=== PATIENT | male | born 1955 | race Caucasian/White ===

== ENCOUNTER 2017-07-22 11:57 | Day surgery (SDC) | payer OTHER ==
[~2017-07-22] VITALS: Ht 175.3 cm; Wt 85.7 kg
[~2017-07-22 11:57] MED LIST: TEST200I14 IM
[2017-07-22] MEDS ORDERED: PROPOFOL 500 MG/50 ML VIAL As Ordered ONE (12:23)
[2017-07-22] MEDS ORDERED: fentaNYL 100 MCG/2 ML INJECTION (J3010) As Ordered ONE (12:23)
[2017-07-22] MEDS ORDERED: LIDOCAINE 2% INJ 100 MG/5 ML SDV (FOR ANES.) As Ordered ONE (12:49)
--- NOTE | 2017-07-22 13:06 | ROOR ---
Patient Name: Delgado Sunshine Procedure Date: 07/22/2017 12:50 PM Date of : 1955 Age: 61 Room: [facility] Gender: Male Note Status: Finalized Procedure: Upper Endoscopy + Biopsies Indications: Heartburn, Early satiety Providers: Rubin Rayo MD Referring MD: Srinivas Preciado MD Requesting Provider: Medicines: Monitored Anesthesia Care Complications: No immediate complications. Procedure: Pre-Anesthesia Assessment: - The heart rate, respiratory rate, oxygen saturations, blood pressure, adequacy of pulmonary ventilation, and response to care were monitored throughout the procedure. The Endoscope was introduced through the mouth, and advanced to the second part of duodenum. The upper GI endoscopy was accomplished without difficulty. The patient tolerated the procedure well. Findings: The Z-line was irregular and was found 35 cm from the incisors. Multiple biopsies were obtained with cold forceps for evaluation to rule out Alberto's Esophagus randomly at the gastroesophageal junction. A medium-sized hiatal hernia was present. No other significant abnormalities were identified in a careful examination of the stomach. The exam of the duodenum was otherwise normal. Impression: - Z-line irregular, 35 cm from the incisors. - Medium-sized hiatal hernia. - Multiple biopsies were obtained at the gastroesophageal junction. - The examination was otherwise normal. Recommendation: - Patient has a contact number available for emergencies. The signs and symptoms of potential delayed complications were discussed with the patient. Return to normal activities tomorrow. Written discharge instructions were provided to the patient. - High fiber diet. - Discharge patient to home. - Follow an antireflux regimen. - Continue present medications. - Await pathology results. - Telephone GI clinic for pathology results in 1 week. - Repeat upper endoscopy for surveillance based on pathology results. - The findings and recommendations were discussed with the patient's family. Rubin Rayo MD Rubin Rayo MD 07/22/2017 1:05:36 PM This report has been signed electronically. Number of Addenda: 0 Note Initiated On: 07/22/2017 12:50 PM Estimated Blood Loss: Estimated blood loss: none.
[2017-07-22] MEDS ORDERED: ePHEDrine SULFATE 25 MG/5 ML(5MG/ML) SYRINGE As Ordered ONE (13:10)
--- NOTE | 2017-07-22 13:20 | ROOR ---
Patient Name: Delgado Sunshine Procedure Date: 07/22/2017 12:50 PM Date of : 1955 Age: 61 Room: [facility] Gender: Male Note Status: Finalized Procedure: Total Colonoscopy to Cecum + Cold Snare Polypectomy Indications: Rectal bleeding, Change in bowel habits Providers: Rubin Rayo MD Referring MD: Srinivas Preciado MD Requesting Provider: Medicines: Monitored Anesthesia Care Complications: No immediate complications. Procedure: Pre-Anesthesia Assessment: - The heart rate, respiratory rate, oxygen saturations, blood pressure, adequacy of pulmonary ventilation, and response to care were monitored throughout the procedure. The Colonoscope was introduced through the anus and advanced to the cecum, identified by appendiceal orifice and ileocecal valve. The colonoscopy was performed without difficulty. The patient tolerated the procedure well. The quality of the bowel preparation was good. Findings: The perianal and digital rectal examinations were normal. Non-bleeding internal hemorrhoids were found during retroflexion. The hemorrhoids were medium-sized and Grade I (internal hemorrhoids that do not prolapse). Multiple small and large-mouthed diverticula were found in the recto-sigmoid colon, sigmoid colon and descending colon. A small polyp was found at 20 cm proximal to the anus. The polyp was sessile. The polyp was removed with a cold snare. Resection and retrieval were complete. The exam was otherwise without abnormality on direct and retroflexion views. Impression: - Non-bleeding internal hemorrhoids. - Diverticulosis in the recto-sigmoid colon, in the sigmoid colon and in the descending colon. - One small polyp at 20 cm proximal to the anus, removed with a cold snare. Resected and retrieved. - The examination was otherwise normal on direct and retroflexion views. - The exam was otherwise normal to the cecum. Recommendation: - Patient has a contact number available for emergencies. The signs and symptoms of potential delayed complications were discussed with the patient. Return to normal activities tomorrow. Written discharge instructions were provided to the patient. - High fiber diet. - Discharge patient to home. - Continue present medications. - Await pathology results. - Telephone GI clinic for pathology results in 1 week. - Repeat colonoscopy for surveillance based on pathology results. - Return to referring physician. - The findings and recommendations were discussed with the patient's family. Rubin Rayo MD Rubin Rayo MD 07/22/2017 1:20:07 PM This report has been signed electronically. Number of Addenda: 0 Note Initiated On: 07/22/2017 12:50 PM Estimated Blood Loss: Estimated blood loss: none.
[2017-07-22 13:53] VITALS: BP 122/81
== END 2017-07-22 13:56 | disposition home or self-care (01) ==
LOC: M OPP 11:57
PROVIDERS: ATTEND Internal Medicine Gastroenterology
DX: K62.5 Hemorrhage of anus and rectum (principal); R19.4 Change in bowel habit; R10.30 Lower abdominal pain, unspecified; D12.5 Benign neoplasm of sigmoid colon; K57.30 Diverticulosis of large intestine without perforation or abscess without bleeding; K64.0 First degree hemorrhoids; R12 Heartburn; R68.81 Early satiety; K22.8 Other specified diseases of esophagus; K44.9 Diaphragmatic hernia without obstruction or gangrene; R11.2 Nausea with vomiting, unspecified; M19.90 Unspecified osteoarthritis, unspecified site; R06.83 Snoring; Z85.47 Personal history of malignant neoplasm of testis; Z92.21 Personal history of antineoplastic chemotherapy; F17.210 Nicotine dependence, cigarettes, uncomplicated; Z88.8 Allergy status to other drugs, medicaments and biological substances; Z79.899 Other long term (current) drug therapy; Z80.3 Family history of malignant neoplasm of breast
CPT/HCPCS: 43239; 45385; 88305; J3010

== ENCOUNTER → 2018-08-22 | Outpatient (REF) | payer OTHER ==
--- NOTE | 2018-08-22 12:30 | REP ---
Chest two views HISTORY: Acute bronchitis Comparison: 03/17/2012 A minimal increase in interstitial markings is present in the lungs consistent with chronic interstitial change. A calcified granuloma is present in the left lower lobe. The right lung is clear. The heart is normal in size. The pulmonary vasculature is normal in appearance. There is an old compression fracture of a lower thoracic vertebral body. IMPRESSION: Chronic interstitial change. Electronically Signed by Prince Mckeon MD 08/22/2018 12:21 P
== END ==
LOC: M ADAMS 09:44
PROVIDERS: ATTEND Physician Assistant Medical
DX: J20.9 Acute bronchitis, unspecified (principal)

== ENCOUNTER → 2018-08-22 | Outpatient (REF) | payer OTHER | LOC: M LAB REF 12:33 | PROVIDERS: ATTEND Physician Assistant Medical | DX: N39.0 Urinary tract infection, site not specified (principal) ==

== ENCOUNTER → 2018-08-22 | Outpatient (CLI) | payer OTHER ==
[2018-08-22 13:48] LABS: BASO # 0.1 10^3/uL (0.0-0.2); BASO % 0.5 % (0.0-1.0); EOS # 0.1 10^3/uL (0.0-0.50); EOS % 1.1 % (0.0-3.0); HEMOGLOBIN 15.7 g/dl (13.5-17.5); LYMPH % 8.1 % (24.0-44.0); MEAN CORPUSCULAR HEMOGLOBIN 33.1 pg (27.0-33.0); MEAN CORPUSCULAR HGB CONC 34.1 g/dl (32.0-36.5); MONO # 1.3 10^3/uL (0.0-0.8); MONO % 10.7 % (0.0-5.0); NEUTROPHILS # 9.8 10^3/uL (1.8-7.7); NEUTROPHILS % 79.1 % (36.0-66.0); PLATELET COUNT, AUTOMATED 274 10^3/uL (150-450); RED BLOOD COUNT 4.74 10^6/uL (4.30-6.10); WHITE BLOOD COUNT 12.4 10^3/uL (4.0-10.0)
[2018-08-22 15:13] LABS: ALBUMIN 3.5 GM/DL (3.2-5.2); ALT/SGPT 29 U/L (12-78); BILIRUBIN,TOTAL 0.4 MG/DL (0.2-1.0); BLOOD UREA NITROGEN 12 MG/DL (7-18); CARBON DIOXIDE LEVEL 29 MEQ/L (21-32); CHLORIDE LEVEL 99 MEQ/L (98-107); CREATININE FOR GFR 0.85 MG/DL (0.70-1.30); GLOMERULAR FILTRATION RATE > 60.0 (>49); GLUCOSE, FASTING 75 MG/DL (70-100); POTASSIUM SERUM 4.4 MEQ/L (3.5-5.1); SODIUM LEVEL 136 MEQ/L (136-145); TOTAL PROTEIN 7.5 GM/DL (6.4-8.2)
== END ==
LOC: M LABDRWAD 09:59
PROVIDERS: ATTEND Physician Assistant Medical
DX: J20.9 Acute bronchitis, unspecified (principal); R10.9 Unspecified abdominal pain

== ENCOUNTER → 2020-03-15 | Outpatient (REF) | payer OTHER ==
[~2020-03-15] MED LIST changes: +COLA100C5 PO; +IBUP200T45 PO; +LISI-542 PO; +PERCOCET PO
--- NOTE | 2020-05-05 08:07 | REPPI ---
TRANSRECTAL ULTRASOUND OF PROSTATE WITH ULTRASOUND GUIDANCE FOR PROSTATE BIOPSY HISTORY: Elevated PSA. Transrectal prostate ultrasound is performed. Prostate measures 4.6 x 2.7 x 5.1 cm for a total volume of 33.5 mL. Echotexture is heterogeneous. Small scattered cysts and calcifications are noted. No peripheral zone mass is seen. Seminal vesicles appear symmetrical. Ultrasound guidance was provided for Dr. Contreras who performed ultrasound- guided biopsy of the prostate. Study was performed 03/15/2020 and is submitted for interpretation 04/21/2020 due to catastrophic computer failure at [facility] resulting in delayed availability of images and subsequent interpretation. [place]
== END ==
LOC: M SMT 10:20
PROVIDERS: ATTEND Urology
DX: R97.20 Elevated prostate specific antigen [PSA] (principal)
CPT/HCPCS: 76872; 76942; G0416

== ENCOUNTER → 2020-03-22 | Outpatient (REF) | payer OTHER ==
[2020-04-23 11:22] LABS: APPEARANCE, URINE CLOUDY (CLEAR); BACTERIA, URINE AUTO 1+ (NEGATIVE); BILIRUBIN, URINE AUTO NEGATIVE (NEGATIVE); BLOOD, URINE BLOOD 3+ (NEGATIVE); CALCIUM OXALATE CRYSTALS LARGE; COLOR, URINE YELLOW (YELLOW); GLUCOSE, URINE (UA) AUTO NEGATIVE (NEGATIVE); KETONE, URINE AUTO NEGATIVE (NEGATIVE); LEUKOCYTE ESTERASE, URINE AUTO NEGATIVE (NEGATIVE); NITRITE, URINE AUTO NEGATIVE (NEGATIVE); PROTEIN, URINE AUTO NEGATIVE (NEGATIVE); RBC, URINE AUTO TNTC /HPF (0-3); SPECIFIC GRAVITY URINE AUTO 1.019 (1.002-1.035); SQUAMOUS EPITHELIAL CELL UR AU 0 /HPF (0-6); WBC, URINE AUTO 33 /HPF (0-3)
== END ==
LOC: M SMT 16:16
PROVIDERS: ATTEND Urology
DX: R30.0 Dysuria (principal)

== ENCOUNTER 2020-06-08 06:38 | Inpatient (IN) | payer OTHER ==
[~2020-06-08] VITALS: Ht 175.3 cm; Wt 74.6 kg
[~2020-06-08 06:38] MED LIST changes: -COLA100C5 PO; -IBUP200T45 PO; -LISI-542 PO; -PERCOCET PO
[2020-06-08] MEDS ORDERED: LISI-542 PO (06:49)
[2020-06-08] MEDS ORDERED: MORPHINE 4 MG/ML 1ML VIAL/SYRINGE (J2270) IV PRN (07:30)
[2020-06-08] MEDS ORDERED: ONDANSETRON 4MG/2ML VIAL IV ONE ×2 (07:30→09:45)
[2020-06-08 07:33] LABS: BASO # 0.1 10^3/uL (0.0-0.2); BASO % 0.6 % (0.0-1.0); EOS # 0.2 10^3/uL (0.0-0.5); EOS % 1.2 % (0.0-3.0); HEMATOCRIT 47.9 % (42.0-52.0); HEMOGLOBIN 16.2 g/dl (13.5-17.5); LYMPH # 1.4 10^3/uL (1.5-5.0); LYMPH % 9.8 % (24.0-44.0); MEAN CORPUSCULAR HEMOGLOBIN 32.6 pg (27.0-33.0); MEAN CORPUSCULAR HGB CONC 33.8 g/dl (32.0-36.5); MEAN CORPUSCULAR VOLUME 96.4 fl (80.0-96.0); MONO # 1.3 10^3/uL (0.0-0.8); MONO % 9.1 % (0.0-5.0); NEUTROPHILS # 11.2 10^3/uL (1.5-8.5); NEUTROPHILS % 78.7 % (36.0-66.0); PLATELET COUNT, AUTOMATED 358 10^3/uL (150-450); RED BLOOD COUNT 4.97 10^6/uL (4.30-6.10); WHITE BLOOD COUNT 14.2 10^3/uL (4.0-10.0)
[2020-06-08] MEDS: NS 1,000 ML IV SCH ×2 (07:33→16:27)
[2020-06-08 07:39] LABS: ALBUMIN 3.7 GM/DL (3.2-5.2); ALT/SGPT 28 U/L (12-78); BILIRUBIN,DIRECT 0.2 MG/DL (0.0-0.2); BILIRUBIN,TOTAL 0.6 MG/DL (0.2-1.0); BLOOD UREA NITROGEN 11 MG/DL (7-18); CALCIUM LEVEL 9.1 MG/DL (8.8-10.2); CARBON DIOXIDE LEVEL 25 MEQ/L (21-32); CHLORIDE LEVEL 95 MEQ/L (98-107); CREATININE FOR GFR 0.97 MG/DL (0.70-1.30); GLOMERULAR FILTRATION RATE > 60.0 (>49); GLUCOSE, FASTING 77 MG/DL (70-100); LIPASE 78 U/L (73-393); POTASSIUM SERUM 3.9 MEQ/L (3.5-5.1); SODIUM LEVEL 131 MEQ/L (136-145); TOTAL PROTEIN 7.3 GM/DL (6.4-8.2)
[2020-06-08] MEDS: GASTROGRAFIN SOLUTION 30ML PO SCH ×2 (08:44→08:46)
--- NOTE | 2020-06-08 08:56 | REP ---
INDICATION: Abdominal Pain. COMPARISON: 03/27/2012. TECHNIQUE: Supine and erect views of the abdomen are performed. A PA view of the chest is performed. FINDINGS: There is no free air. There is moderate dilatation of the colon, particularly the right colon. No dilated small bowel loops are seen. Mild scattered vascular calcifications are present. There are moderate degenerative changes of the spine. The PA view of the chest demonstrates mild elevation of left hemidiaphragm. No acute infiltrate is seen. The heart is normal in size and there is calcification and tortuosity of the thoracic aorta. IMPRESSION: Moderately dilated colon, particularly proximally. No dilated small bowel loops. No free air. No acute infiltrate in either lung. <Electronically signed by Brian Rahman > 06/08/20 [id number]
[2020-06-08] MEDS ORDERED: ISOVUE-370 76% 100ML VIAL As Ordered ONE (09:51)
--- NOTE | 2020-06-08 10:41 | REP ---
INDICATION: LLQ pain, hx diverticulitis COMPARISON: 10/20/2008. TECHNIQUE: CT Scan of the abdomen and pelvis was performed with intravenous administration of 100 cc of Isovue 370, and oral contrast. FINDINGS: Lung bases: Mild fibrotic changes. There is a small hiatal hernia. Liver: Normal Gallbladder: Unremarkable. Spleen: Normal. Adrenals: Normal. Pancreas: Normal. Kidneys: Normal. Small and large bowel: In the sigmoid colon there is focal segmental significant thickening which appears masslike and I suspect an apple-core neoplastic lesion. There are multiple diverticula in the sigmoid. The more proximal colon is diffusely moderately dilated compatible with a partial obstruction at the site of the lesion. Extending inferior from that segment of the colon is focal air and fluid which may represent a large diverticulum or fistula, extending to the superior surface of the prostate and posterior surface of the urinary bladder. The adjacent urinary bladder demonstrates diffuse irregular wall thickening and contour deformity of the posterior wall. Neoplastic infiltration cannot be excluded. A small amount of air is seen in the bladder. Free fluid: There is minimal free fluid in the pelvis. Abdominal aorta: No aneurysm or dissection. Adenopathy: Multiple subcentimeter lymph nodes are seen in the periaortic region appearing similar to the prior CT scan. There is a new 9 mm lymph node along the left common iliac artery.. Appendix: Not inflamed. Osseous structures: Mild degenerative changes of the spine with no compression deformity. IMPRESSION: In the sigmoid colon there is focal segmental significant thickening which appears masslike and I suspect an apple-core neoplastic lesion. There are multiple diverticula in the sigmoid. The more proximal colon is diffusely moderately dilated compatible with a partial obstruction at the site of the lesion. Extending inferior from that segment of the colon is focal air and fluid which may represent a large diverticulum or fistula, extending to the superior surface of the prostate and posterior surface of the urinary bladder. The adjacent urinary bladder demonstrates diffuse irregular wall thickening and contour deformity of the posterior wall. Neoplastic infiltration cannot be excluded. A small amount of air is seen in the bladder. There is minimal free fluid in the pelvis. <Electronically signed by Brian Rahman > 06/08/20 [id number]
[2020-06-08] MEDS ORDERED: LORazepam 2 MG/ML VIAL IV PRN (12:45)
[2020-06-08] MEDS ORDERED: COLA100C5 PO (12:50)
[2020-06-08] MEDS ORDERED: IBUP200T45 PO (12:50)
[2020-06-08] MEDS: CIPROFLOXACIN 400 MG in IV 1 EA IV SCH (13:00)
[2020-06-08 14:00] VITALS: BP 144/84
[2020-06-08 14:31] VITALS: BP 147/85
[2020-06-08] MEDS: metroNIDAZOLE 500 MG in IV 1 EA IV SCH ×2 (14:46→23:25)
[2020-06-08 16:07] LABS: APPEARANCE, URINE CLOUDY (CLEAR); BACTERIA, URINE AUTO 1+ (NEGATIVE); BILIRUBIN, URINE AUTO NEGATIVE (NEGATIVE); BLOOD, URINE BLOOD NEGATIVE (NEGATIVE); COLOR, URINE YELLOW (YELLOW); GLUCOSE, URINE (UA) AUTO NEGATIVE (NEGATIVE); KETONE, URINE AUTO 2+ mg/dL (NEGATIVE); LEUKOCYTE ESTERASE, URINE AUTO 3+ (NEGATIVE); MUCUS, URINE SMALL (NEGATIVE); NITRITE, URINE AUTO NEGATIVE (NEGATIVE); PROTEIN, URINE AUTO NEGATIVE (NEGATIVE); RBC, URINE AUTO 7 /HPF (0-3); SQUAMOUS EPITHELIAL CELL UR AU 0 /HPF (0-6); WBC, URINE AUTO TNTC /HPF (0-3)
[2020-06-08 16:09] LABS: SPECIFIC GRAVITY URINE AUTO >1.060 (1.002-1.035)
[2020-06-08] MEDS ORDERED: PILL CUTTER 1 EACH XX PRN (16:15)
[2020-06-08] MEDS: SIMETHICONE 80 MG CHEW TAB PO SCH ×2 (16:26→21:26)
--- NOTE | 2020-06-08 17:18 | HPEPDOC ---
[facility] Medical History & Physical Date of Admission Jun 08, 2020 Date of Service: Jun 08, 2020 Primary Care Physician: LEANNA HENNESSY MD [facility] Attending Physician: LING CHAUDHRY MD History and Physical CHIEF COMPLAINT: Abdominal pain and distention HISTORY OF PRESENT ILLNESS: Patient is a 64-year-old male who presents to the emergency department today with abdominal pain and distention. Patient says he is having difficulties with bowel movements for some time. Patient states that one of his family members suggest that he may have diverticulitis. Patient states that he's been having difficulty with defecation for about 2 months. Patient thinks he had diverticulitis that wax and wane. Patient states that he would go a few days without having any bowel movements and follow-up have a bowel movement that was ribbonlike. Patient finally came to the emergency department today as he did not have bowel movement 5 days and was experiencing a lot of abdominal pain and distention. Patient states that this morning, he has been having issues keeping anything down and he says that anything he takes in comes back up. Patient also reports a 15 pound weight loss in the last 2 months without any changes in diet. In emergency department, an abdominal x-ray showed gaseous distention of the colon. A CT of the abdomen and pelvis showed an apple core lesion in the sigmoid colon. Hospitalist team was called for admission for the patient. PAST MEDICAL HISTORY: 1. Testicular cancer. 2. Hypertension. PAST SURGICAL HISTORY: 1. Orchiectomy. SOCIAL HISTORY: Patient says he smokes 1-1/2-2 packs of cigarettes on a daily basis. Patient says he drinks 6-12 [employer] beers a day which she's been doing so for many years. Patient denies any illicit drug use FAMILY HISTORY: Patient's mother was diagnosed with cancer when he was quite young and just recently of it however, he does not have cancer. Patient's father was an alcoholic and of hepatic encephalopathy according to the patient. ALLERGIES: Please see below. REVIEW OF SYSTEMS: General: Patient denies fevers HEENT: Patient denies headaches Cardiovascular: Patient denies chest pain Respiratory: Patient denies shortness of breath, cough GI: Patient reports abdominal pain and distention as well as difficulty with stooling as above. : Patient denies increased frequency or pain with urination Extremities: Patient denies swelling or pain in extremities Neurological: Patient denies numbness or tingling in legs Hematologic: Patient denies any easy bruising. Lymphatic: Patient denies any lumps or bumps in his neck. Skin: Patient denies any rashes or lesions HOME MEDICATIONS: Please see below. PHYSICAL EXAMINATION: VITAL SIGNS: Temperature 97.5, pulse 69, respiratory rate 18, blood pressure 144/84, pulse oximetry 93% on room air. General: Alert and oriented male patient who is laying on the stretcher when I walked in the room. Patient did not appear to be in any acute distress HEENT: Normocephalic, atraumatic, moist mucous membranes. Neck: No lymphadenopathy or thyromegaly Cardiac: Regular rate and rhythm, no murmurs, normal S1, normal S2 Pulm: Clear to auscultation bilaterally. No wheezes, rhonchi, rales Abd: Distended abdomen that was tympanic to percussion. There was tenderness in all areas of the abdomen. There were hyperactive bowel sounds present. Ext: No edema bilateral lower extremities LABORATORY DATA: See below. IMAGING: An abdominal flat plate with upright PA chest x-ray was performed on 06/08/2020 was reported to show moderately dilated colon, particularly proximally. No dilated small bowel loops, no free air, no acute infiltrate in either lung. A CT of the abdomen and pelvis with IV and oral contrast performed on 06/08/2020 was reported to show a focal segmental significant thickening which appears masslike as suspected apple core neoplastic lesion in the sigmoid colon. There are multiple diverticula in the sigmoid colon. The more proximal colon was diffusely moderately dilated compatible with partial obstruction at the site of the lesion. Extending inferiorly from that segment of the colon is focal air and fluid may represent a large diverticulum or fistula, extending to the superior surface of the prostate and posterior surface of the urinary bladder. The adjacent urinary bladder demonstrates diffuse irregular wall thickening and contour deformity of the posterior wall. Neoplastic infiltration cannot be excluded. A small amount of free air seen in the bladder. There is minimal free fluid in the pelvis. MICROBIOLOGY: Please see below. ASSESSMENT: Patient is a 64-year-old male who presents to the hospital with severe abdominal pain and distention and was diagnosed with a masslike lesion in his sigmoid colon causing a partial obstruction. . PLAN: 1. Colonic bowel obstruction. General surgery was consult and an NG tube has been placed. Patient will continue on IV fluids and will be held nothing by mouth with advancement of diet per surgery. In speaking with Dr. Johnson, his plan is to call down the inflammation and bowel obstruction and then be able to do a proper colon prep in order to do a resection of the mass. At this time we'll continue the NG tube on low intermittent suction and continue to monitor the patient. Since the patient is on low intermittent suction of the NG tube, every 12 hours BMPs and magnesium will be ordered to monitor for electively status. 2. Alcohol abuse. Patient was placed on CIWA protocol with IV Ativan. We will continue to monitor the patient for any withdrawal symptoms. 3. Hypertension. Patient is on lisinopril outpatient. If necessary, patient was placed on IV enalapril. 4. DVT prophylaxis: Teds and sequentials. 5. CODE STATUS: When discussing this with the patient, patient decided that he would like to be a DO NOT RESUSCITATE with trial of intubation. I discussed the MOLST form with the patient and we fill that out together. Patient states that he understands his decision to be a DO NOT RESUSCITATE means that if his heart was stop eating that we would allow natural however, we will continue to try to treat all other health conditions and try to prevent that from happening. Plan is to admit the patient to the medical surgical floor. We expect a greater than 2 midnights today for the patient. Vital Signs Vital Signs Date Time Temp Pulse Resp B/P (MAP) Pulse Ox O2 Delivery O2 Flow Rate FiO2 06/08/20 14:31 66 147/85 06/08/20 14:00 97.5 18 93 Room Air Laboratory Data Labs 24H Laboratory Tests 2 06/08/20 07:05: Immature Granulocyte % (Auto) 0.6, Neutrophils (%) (Auto) 78.7H, Lymphocytes (%) (Auto) 9.8L, Monocytes (%) (Auto) 9.1H, Eosinophils (%) (Auto) 1.2, Basophils (%) (Auto) 0.6, Neutrophils # (Auto) 11.2H, Lymphocytes # (Auto) 1.4L, Monocytes # (Auto) 1.3H, Eosinophils # (Auto) 0.2, Basophils # (Auto) 0.1, Nucleated Red Blood Cells % (auto) 0.0, Anion Gap 11, Glomerular Filtration Rate > 60.0, Calcium Level 9.1, Total Bilirubin 0.6, Direct Bilirubin 0.2, Aspartate Amino Transf (AST/SGOT) 32, Alanine Aminotransferase (ALT/SGPT) 28, Alkaline Raymundo sphatase 85, Total Protein 7.3, Albumin 3.7, Albumin/Globulin Ratio 1.0, Lipase 78 06/08/20 07:32: Lactic Acid Level 0.9 06/08/20 13:57: Carcinoembryonic Antigen 4.6H 06/08/20 15:51: Urine Color YELLOW, Urine Appearance CLOUDYH, Urine pH 5.0, Urine Specific [place] >1.060H, Urine Protein NEGATIVE, Urine Glucose (Auto)(UA) NEGATIVE, Ur ine Ketones (Auto) 2+H, Urine Blood NEGATIVE, Urine Nitrite NEGATIVE, Urine Bilirubin NEGATIVE, Urine Urobilinogen 2.0H, Urine Leukocyte Esterase (Auto) 3+H, Urine WBC (Auto) TNTCH, Urine RBC (Auto) 7H, Urine Hyaline Casts (Auto) 0, Urine Bacteria (Auto) 1+H, Urine Squamous Epithelial Cells 0, Urine Mucus (Auto) SMALL, Urine Sperm (Auto) CBC/BMP Laboratory Tests 06/08/20 07:05 Home Medications Scheduled Docusate Sodium (Colace) 100 Mg Capsule, 100 MG PO DAILY Lisinopril (Lisinopril) 5 Mg Tablet, 5 MG PO DAILY Testosterone Cypionate (Testosterone Cypionate) 200 Mg/Ml Inj, 300 MG IM ASDIRECTED EVERY 3 WEEKS Scheduled PRN Ibuprofen (Ibu-200) 200 Mg Tablet, 600 MG PO Q6H PRN for PAIN Allergies Coded Allergies: naproxen (Verified Allergy, Severe, SOB, THROAT SWELLS, 11/13/18) SEASONAL ALLERGIES (Verified Allergy, Unknown, 06/11/20) A-FIB/CHADSVASC A-FIB History Current/History of A-Fib/PAF?: No GME ATTESTATION GME ATTESTATION My faculty preceptor for this patient encounter was physically present during the encounter and was fully available. All aspects of the patient interview, examination, medical decision making process, and medical care plan development were reviewed and approved by the faculty preceptor. The faculty preceptor is aware and concurs with the plan as stated in the body of this note and will at test to such by his/her cosignature. ATTENDING NOTE Patient was seen and examined by me personally with the residents/ students. I agree with the above assessment and plan MEGHAN OCHOA DO Jun 08, 2020 17:18 LING CHAUDHRY MD Jun 14, 2020 12:34
[2020-06-08 18:44] LABS: BLOOD UREA NITROGEN 13 MG/DL (7-18); CALCIUM LEVEL 8.8 MG/DL (8.8-10.2); CARBON DIOXIDE LEVEL 26 MEQ/L (21-32); CHLORIDE LEVEL 94 MEQ/L (98-107); CREATININE FOR GFR 0.98 MG/DL (0.70-1.30); GLOMERULAR FILTRATION RATE > 60.0 (>49); GLUCOSE, FASTING 77 MG/DL (70-100); POTASSIUM SERUM 3.6 MEQ/L (3.5-5.1); SODIUM LEVEL 134 MEQ/L (136-145)
[2020-06-08] MEDS ORDERED: MULTIVITAMIN -ADULT INJECTION 10 ML, THIAMINE INJection 100 MG, FOLIC ACID 1 MG in NS 1... IV ONE (20:00)
[2020-06-08] MEDS ORDERED: ENOXAPARIN 40MG/0.4ML SYRINGE (J1650 PER 10MG) SC SCH (21:00)
[2020-06-08 22:00] VITALS: BP 126/84
[2020-06-08] MEDS ORDERED: MORPHINE 2 MG/ML 1ML VIAL (J2270) IV PRN (23:45)
[2020-06-09] VITALS (9 sets, daily range): BP systolic 131–164; BP diastolic 82–96
[2020-06-09] MEDS: CIPROFLOXACIN 400 MG in IV 1 EA IV SCH ×2 (00:37→12:02)
[2020-06-09] MEDS: metroNIDAZOLE 500 MG in IV 1 EA IV SCH ×3 (06:23→21:55)
[2020-06-09 06:31] LABS: HEMATOCRIT 44.3 % (42.0-52.0); HEMOGLOBIN 14.7 g/dl (13.5-17.5); MEAN CORPUSCULAR HEMOGLOBIN 32.3 pg (27.0-33.0); MEAN CORPUSCULAR HGB CONC 33.2 g/dl (32.0-36.5); MEAN CORPUSCULAR VOLUME 97.4 fl (80.0-96.0); PLATELET COUNT, AUTOMATED 334 10^3/uL (150-450); RED BLOOD COUNT 4.55 10^6/uL (4.30-6.10); WHITE BLOOD COUNT 14.3 10^3/uL (4.0-10.0)
[2020-06-09 06:52] LABS: BLOOD UREA NITROGEN 17 MG/DL (7-18); CALCIUM LEVEL 8.9 MG/DL (8.8-10.2); CARBON DIOXIDE LEVEL 27 MEQ/L (21-32); CHLORIDE LEVEL 95 MEQ/L (98-107); CREATININE FOR GFR 1.15 MG/DL (0.70-1.30); GLOMERULAR FILTRATION RATE > 60.0 (>49); GLUCOSE, FASTING 87 MG/DL (70-100); MAGNESIUM LEVEL 2.1 MG/DL (1.8-2.4); POTASSIUM SERUM 3.4 MEQ/L (3.5-5.1); SODIUM LEVEL 134 MEQ/L (136-145)
[2020-06-09] MEDS: SIMETHICONE 80 MG CHEW TAB PO SCH ×4 (07:42→20:21)
[2020-06-09] MEDS: NS 1,000 ML IV SCH ×2 (08:44→17:59)
--- NOTE | 2020-06-09 10:09 | REP ---
INDICATION: bowel obstruction?. Follow-up COMPARISON: Comparison CT study June 08, 2020. Comparison abdominal series June 08, 2020.. TECHNIQUE: Three views. FINDINGS: Upright chest radiograph shows no evidence of free subdiaphragmatic air or infiltrate. There is mild platelike atelectasis in the right base. Left hemidiaphragm is more elevated today. Cardiomediastinal silhouette is unchanged. Supine and erect views the abdomen show moderate to marked diffuse colonic distention similar to the previous day's radiographs. There is a little more stool visible in the region of the rectum today. There is no evidence of free air. There are colonic air-fluid levels on the upright view of the chest. IMPRESSION: Persistent moderate to marked colonic distention. Transverse diameter of the colon loops up to 10 cm. There is some increased in the amount of stool visible in the rectum. No free air. Left hemidiaphragm is more elevated.. <Electronically signed by Sergio West > 06/09/20 2012
[2020-06-09] MEDS ORDERED: FLEET ENEMA PR ONE ×2 (10:15→11:30)
--- NOTE | 2020-06-09 11:05 | CR ---
DATE OF CONSULTATION: 06/08/2020 REASON FOR CONSULTATION: Bowel obstruction. BRIEF HISTORY OF PRESENT ILLNESS: Patient is a 64-year-old male who had a colonoscopy [address] Rayo and found a small, little polyp that was an adenomatous polyp at 20 cm otherwise his report showed evidence of some diverticulosis. Overall since that time he really states that overall has not had any significant GI complaints although has had some weight loss over the last several months, has had some chronic urinary tract infections, did not complain of any specific episodes of diverticulitis. However, given his recurrent episodes of infections underwent a prostate biopsy about 6-8 weeks ago and ever since that time he has had some pressure behind his bladder and bowels and has had some change in his bowel habits and increasing pressure on his bladder. He presents with essentially a 2 week history of significant changes in bowel habits with no bowel movements for several days last week then took a laxative and ended up having significant output and then again over the last several days has not had bowel movements and has become more distended. He has had some nausea and vomiting and presents with an elevated white count without fevers. His work-up in the Emergency Room included x-rays as well as CT scan which shows dilated colon with thickening in the sigmoid colon and a concerning mass like effect apple core lesion with possibly a small pericolonic abscess on the backside of the bladder or possibly a diverticulum. He states since his NG- tube was placed in the Emergency Room he has had improvement of his abdominal distention as well as his abdominal pain. He had a significant amount of flatus this morning, but no bowel movement and states that when he lies down for any period of time he starts to have some significant amounts/large volumes of flatus. PAST MEDICAL AND SURGICAL HISTORY: Significant for: 1. History of diverticulosis. 2. History of urinary tract infections. 3. History of elevated PSA. 4. History of testicular cancer. 5. Bilateral orchiectomy. 6. Testosterone injections. 7. History of hypertension. 8. History of smoking. PHYSICAL EXAMINATION: Physical exam reveals a 64-year-old male who looks older than stated age. HEENT: Unremarkable. Neck: Supple without adenopathy. Lungs: Clear anteriorly with a few crackles at the bases posteriorly. Heart: Regular. Abdomen: Distended, tympanitic throughout and it is significantly tympanitic and distended; however, he states this is better than it was earlier today. He has no evidence of peritoneal signs, no guarding, no rebound, no concerning abdominal exam leading to suggesting that he has a perforation. IMAGING: CT scan was reviewed and indeed does reveal a significantly dilated colon and more importantly he has some thickening in the sigmoid colon and after reviewing the area just above the prostate/near the bladder/posterior bladder there is air-fluid possibly a diverticulum, but I would not be surprised if this is a small abscess. IMPRESSION AND PLAN: At this time the concern is that with this thickening in the sigmoid colon this could be an apple core lesion, i.e. a colon cancer, and with some weight loss issues that would fit well with this; however, he has had more problems since his prostate biopsy and possibly could have had an abscess develop or an infection in this area which has contributed to this obstructive looking picture. With his elevated white count I definitely feel that it is reasonable to start him on some antibiotics, keep him n.p.o. with the NG-tube in place. I would like to see some significant improvement of his abdominal distention overnight, but I would keep him n.p.o. as of now. I have discussed with him interventions at this time including exploratory laparotomy with colectomy and colostomy or treat him with antibiotics, n.p.o., I.V. fluids and see if he can continue to make some significant improvement, possibly perform a bowel prep and if necessary proceed with a colonoscopy or possibly a colon resection depending on his symptoms and the patient's overall course. If he has significant/complete resolution with antibiotics alone then I would recommend that he proceed with a colonoscopy first prior to operative intervention. At this point I have asked the office to put aside some time in the operating room next Saturday for a laparoscopic colectomy. Patient understands that if he has increasing pain, increasing white count, fevers, chills he may need operative intervention prior to this and may need colectomy with a possible colostomy. ASHKAN
[2020-06-09] MEDS: KCL 10MEQ/100ML SWI (KRUN) 10 MEQ in IV 1 EA IV SCH ×4 (12:49→20:21)
[2020-06-09] MEDS ORDERED: GLUCAGON INJ 1MG VIAL As Ordered ONE (13:05)
--- NOTE | 2020-06-09 13:31 | IPNPDOC ---
Text Note Date of Service The patient was seen on 06/09/20. NOTE Subjective: Mr. Sunshine is a 64-year-old male patient who presented to the emergency department with abdominal pain and distention yesterday. He has a history of diverticulitis, testicle cancer status post orchectomy/chemotherapy. Patient seen at bedside on 06/09/2020. Patient reports his pain is better than yesterday but still having it and states it is 4 out of 10 diffuse abdominal pain. He reports having few episodes of vomiting overnight which are clear no blood. He reports passing gas but denied having any bowel movement overnight, but in the morning he reports he feels like he can have a bowel movement. He reports having mild burning sensation when he is urinating. He denies having any chest pain, headaches. Objective: General: Patient is awake, alert, oriented times three, sitting in mino , no apparent distress. Cardiovascular: S1, S2, normal rhythm, no murmur, rub, or gallop. Respiratory: Chest is clear to auscultation bilaterally, No rhonchi, wheezes or rubs. Abdomen: Abdomen is distended and tympanic on percussion, patient reports having tenderness all regions of abdomen, and hyperactive bowel sounds heard. Extremities: No clubbing or cyanosis. No edema, no tenderness. 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 Skin: No rashes, lesions. Assessment: Patient is a 64-year-old male patient who presented to the emergency department with severe abdominal pain and distention and on further workup in the ED was found to have a masslike lesion in the sigmoid colon causing partial obstruction. Imaging: Abdominal upright PA chest: 06/08/2020: Reported as moderately dilated colon, particularly proximally. No dilated small bowel loops. No free air. No acute infiltration in either lungs. Abdominal/pelvic CT with IV and oral contrast: 06/08/2020: Reported as sigmoid colon there is a focal segmental significant thickening which appears masslike and suspected apple core neoplastic lesion. There are multiple diverticula in the sigmoid. The more proximal colon is diffusely moderately dilated compatible with partial obstruction at the site of the lesion. Extending inferiorly from that segment of the colon is focal air and fluid which may represent a large diverticulum or fistula, extending to the superior surface of the prostate and posterior surface of the urinary bladder. The edges and urinary bladder demonstrate diffuse irregular wall thickening and contour deformity of the posterior wall. Neoplastic infiltrations cannot be excluded. A small amount of air is seen in the bladder. There is minimal air fluid in the pelvis. Abdominal upright, PA chest: 06/09/2020: Persistent moderate to marked colonic distention. Transverse diameter of the colon loops up to 10 cm. There is small increase in amount of stool visible in the rectum. No free air. Left hemidiaphragm is more elevated. Off note: Spoke to Dr. Johnson he wanted to try fleet enema couple of time and see if patient is improving, if not he might take him to surgery(surgical removal of the mass and a colostomy bag) today if patient is feeling better after enema then he wants to wait and take him to surgery on Saturday and do a robotic surgery. Spoke to patient's sister, she was aware that he might go to surgery today. She requested for speaking with Dr. Johnson. And Dr. Johnson is aware of all this. Plan: Large bowel obstruction secondary to mass in the rectum. Patient is nothing by mouth and will continue IV fluids. Will continue Cipro and Flagyl antibiotics. Patient has an NG tube in with a low intermediate suction. He reports having few episodes of vomiting overnight, we will continue to monitor. He has a potassium of 3.4 this morning we will replace that. History of alcohol abuse: Patient is placed on CIWA protocol with IV Ativan. Will continue to monitor for withdrawal symptoms. Hypertension: We will continue IV enalapril. DVT prophylaxis: He might be going to surgery so will not start on any anticoagulations. Teds and sequentials. Disposition: Patient is going to have surgery either today or Saturday, and will follow surgery recommendations postoperatively. VS,Fishbone, I+O VS, Fishbone, I+O Laboratory Tests 06/08/20 17:54 06/09/20 06:02 Vital Signs Date Time Temp Pulse Resp B/P (MAP) Pulse Ox O2 Delivery O2 Flow Rate FiO2 06/09/20 06:00 97.5 74 20 131/85 (100) 77 06/08/20 14:00 Room Air I&O- Last 24 Hours up to 6 AM 06/09/20 05:59 Intake Total 716 ml Output Total 1950 ml Balance -1234 ml GME ATTESTATION GME ATTESTATION My faculty preceptor for this patient encounter was physically present during the encounter and was fully available. All aspects of the patient interview, examination, medical decision making process, and medical care plan development were reviewed and approved by the faculty preceptor. The faculty preceptor is aware and concurs with the plan as stated in the body of this note and will attest to such by his/her cosignature. ATTENDING NOTE Patient was seen and examined by me personally with the residents/ students. I agree with the above assessment and plan Monika Man MD Jun 09, 2020 11:59 LING CHAUDHRY MD Jun 14, 2020 12:45
[2020-06-09] MEDS ORDERED: VASOPRESSIN INJ 20 UNITS/ML VIAL As Ordered ONE (14:09)
[2020-06-09] MEDS ORDERED: CALCIUM CHLORIDE 10% 1 GM/10 ML SYR As Ordered ONE (14:11)
[2020-06-09] MEDS ORDERED: BUPIVACAINE LIPOSOME/PF 1.3% 20ML VIAL (13.3MG/ML)(EXPAREL)(C9290 PER1MG) As Ordered ONE (14:21)
[2020-06-09] MEDS ORDERED: BUPIVACAINE HCL 0.25% 10ML VIAL As Ordered ONE (14:21)
[2020-06-09] MEDS ORDERED: MIDAZOLAM INJ 2MG/2ML VIAL (J2250 PER 1MG) As Ordered ONE (14:35)
[2020-06-09] MEDS ORDERED: propofoL 200 MG/20 ML VIAL As Ordered ONE (14:35)
[2020-06-09] MEDS ORDERED: fentaNYL 250 MCG/5 ML INJECTION (J3010) As Ordered ONE (14:35)
[2020-06-09] MEDS ORDERED: ROCURONIUM BROMIDE 50 MG/5 ML VIAL As Ordered ONE ×2 (14:35→15:06)
[2020-06-09] MEDS ORDERED: PHENYLephrine HCL 500 MCG/5 ML (100MCG/ML) SYRINGE (J2370) As Ordered ONE (14:36)
[2020-06-09] MEDS ORDERED: dexameTHASONE 4 MG/ML 1ML VIAL (J1100 PER 1MG) As Ordered ONE (14:36)
[2020-06-09] MEDS ORDERED: ONDANSETRON 4MG/2ML VIAL As Ordered ONE (14:36)
[2020-06-09] MEDS ORDERED: ePHEDrine SULFATE 25 MG/5 ML(5MG/ML) SYRINGE As Ordered ONE (14:36)
[2020-06-09] MEDS ORDERED: SUGAMMADEX SODIUM 500 MG/5 ML VIAL (BRIDION) As Ordered ONE (14:37)
[2020-06-09] MEDS ORDERED: ACETAMINOPHEN 1000MG 100ML IV BTL (OFIRMEV) (J0131 PER 10MG) As Ordered ONE (15:40)
[2020-06-09] MEDS ORDERED: HYDROmorphone HCL 2 MG/ML 1ML VIAL (J1170) As Ordered ONE (16:00)
[2020-06-09] MEDS ORDERED: NS 1,000 ML IV SCH (16:17)
[2020-06-09] MEDS ORDERED: MORPHINE 1MG/ML IN 0.9% NACL 100ML IV BAG As Ordered ONE (16:20)
[2020-06-09] MEDS ORDERED: NALOXONE INJ 0.4MG/1ML VIAL (J2310 PER 1MG) IV PRN (16:30)
[2020-06-09] MEDS ORDERED: diphenhydrAMINE 50MG/ML VIAL (J1200) IV PRN (16:30)
[2020-06-09] MEDS ORDERED: EPIDURAL/PCA KEYS XX PRN (16:30)
[2020-06-09] MEDS ORDERED: IPRATROPIUM 0.5MG/ALBUTEROL 2.5MG INH SOL UD 3ML (DUONEB) NEB PRN (16:30)
[2020-06-09] MEDS ORDERED: ONDANSETRON 4MG/2ML VIAL IV PRN ×2 (16:30→17:30)
[2020-06-09] MEDS: MORPHINE 1MG/ML IN 0.9% NACL 100ML IV BAG IV PRN (17:03)
[2020-06-09] MEDS ORDERED: LR 1,000 ML IV SCH (17:30)
[2020-06-09] MEDS ORDERED: MORPHINE 2 MG/ML 1ML VIAL (J2270) IV PRN (17:30)
[2020-06-09] MEDS ORDERED: fentaNYL 100 MCG/2 ML INJECTION (J3010) IV PRN (17:30)
[2020-06-09] MEDS ORDERED: METOCLOPRAMIDE INJ 10MG/2ML VIAL (J2765 PER 1) IV PRN (17:30)
[2020-06-09] MEDS ORDERED: oxyCODONE 5MG TAB PO PRN (17:30)
[2020-06-09 18:51] LABS: BLOOD UREA NITROGEN 17 MG/DL (7-18); CALCIUM LEVEL 8.3 MG/DL (8.8-10.2); CARBON DIOXIDE LEVEL 28 MEQ/L (21-32); CHLORIDE LEVEL 98 MEQ/L (98-107); CREATININE FOR GFR 0.98 MG/DL (0.70-1.30); GLOMERULAR FILTRATION RATE > 60.0 (>49); GLUCOSE, FASTING 119 MG/DL (70-100); MAGNESIUM LEVEL 1.7 MG/DL (1.8-2.4); POTASSIUM SERUM 4.1 MEQ/L (3.5-5.1); SODIUM LEVEL 136 MEQ/L (136-145)
[2020-06-09] MEDS: IPRATROPIUM 0.5MG/ALBUTEROL 2.5MG INH SOL UD 3ML (DUONEB) NEB SCH (19:29)
[2020-06-09] MEDS ORDERED: KCL 10MEQ IN STERILE WATER 100ML As Ordered ONE (20:19)
[2020-06-09] MEDS: ALVIMOPAN 12 MG CAPSULE (ENTEREG) PO SCH (20:21)
[2020-06-10] VITALS (7 sets, daily range): BP systolic 104–151; BP diastolic 68–96
[2020-06-10] MEDS: IPRATROPIUM 0.5MG/ALBUTEROL 2.5MG INH SOL UD 3ML (DUONEB) NEB SCH ×4 (00:59→19:20)
[2020-06-10] MEDS: CIPROFLOXACIN 400 MG in IV 1 EA IV SCH ×2 (01:05→13:16)
[2020-06-10] MEDS: NS 1,000 ML IV SCH ×4 (05:14→21:24)
[2020-06-10] MEDS: metroNIDAZOLE 500 MG in IV 1 EA IV SCH ×3 (05:44→21:25)
[2020-06-10 06:49] LABS: BLOOD UREA NITROGEN 13 MG/DL (7-18); CALCIUM LEVEL 8.1 MG/DL (8.8-10.2); CARBON DIOXIDE LEVEL 30 MEQ/L (21-32); CHLORIDE LEVEL 100 MEQ/L (98-107); CREATININE FOR GFR 0.86 MG/DL (0.70-1.30); GLOMERULAR FILTRATION RATE > 60.0 (>49); GLUCOSE, FASTING 114 MG/DL (70-100); MAGNESIUM LEVEL 1.8 MG/DL (1.8-2.4); POTASSIUM SERUM 4.3 MEQ/L (3.5-5.1); SODIUM LEVEL 136 MEQ/L (136-145)
[2020-06-10] MEDS ORDERED: ENALAPRILAT INJ 2.5MG/2ML VIAL IV SCH (07:30)
[2020-06-10] MEDS: MORPHINE 1MG/ML IN 0.9% NACL 100ML IV BAG IV PRN (07:45)
[2020-06-10 08:50] LABS: HEMATOCRIT 40.8 % (42.0-52.0); HEMOGLOBIN 13.4 g/dl (13.5-17.5); MEAN CORPUSCULAR HEMOGLOBIN 32.7 pg (27.0-33.0); MEAN CORPUSCULAR HGB CONC 32.8 g/dl (32.0-36.5); MEAN CORPUSCULAR VOLUME 99.5 fl (80.0-96.0); PLATELET COUNT, AUTOMATED 297 10^3/uL (150-450)
[2020-06-10] MEDS: ALVIMOPAN 12 MG CAPSULE (ENTEREG) PO SCH ×2 (09:07→21:24)
[2020-06-10] MEDS: SIMETHICONE 80 MG CHEW TAB PO SCH ×4 (09:07→21:24)
[2020-06-10] MEDS: lisinopriL 5 MG TAB PO SCH (09:08)
[2020-06-10] MEDS: PANTOPRAZOLE 40MG VIAL (C9113 PER 1) IV SCH (09:09)
--- NOTE | 2020-06-10 09:25 | IPNPDOC ---
Text Note Date of Service The patient was seen on 06/10/20. NOTE SUBJECTIVE: Mr. Sunshine is a 64yo M who presented to the ED on Jun 08, 2020 with abdominal pain and distention. He has a history of diverticulitis and testicle cancer (s/p orchectomy/chemotherapy). He was seen at bedside, sitting up in bed. There were no events overnight He reports that he has a sciatic nerve on the L side, and cannot lay down in bed for extended periods because of the pain. He received a bowel resection and colostomy operation yesterday, Jun 09, and is still in some pain and groggy despite receiving morphine. Abdominal pain on palpation has reduced in the upper quadrants. Upper quadrants were not palpated due to surgical bandages. He has not passed any stool after the surgery. He has not vomited since the surgery and has not regained desire to eat. He reports burning when he urinates. He reports that he only dozed and did not sleep because he needs alcohol to sleep. He continues to cough, but the couching is reduced. Sputum produced is white without blood. He denies headaches, lightheadedness, dizziness or tremor. His sinusitis has decreased. He denies palpitations, tachycardia or chest pain. OBJECTIVE: VITALS: See below GENERAL: The patient is awake and not in any acute distress. He is alert and oriented, sitting upright in bed. CV: RRR. S1 and S2 sounds are heard. No rubs, murmurs or gallops are noted. Capillary refill is <2s in the fingers. Radial pulses are equal. LUNGS: Breath sounds are heard in all lung emmanuel bilaterally. There is diffuse rhonchi heard in all emmanuel. ABDOMEN: There is a colostomy on the lower L quadrant. The skin around the colostomy looks normal, without rash or reness. Abdomen is still distended and t ympanic, though it is reduced. Patient reports grade 3/10 pain in upper quadrants bilaterally. Lower quadrants were not palpated due to surgical bandages. Tinkling is heard in upper quadrants. EXTREMITIES: There is no edema in the legs. No tenderness. The patient reports pain in the L leg. SKIN: No new rashes or lesions. ASSESSMENT/PLAN: The patient is a 64yo M who presented to the ED with abdominal pain, distention, and failure to pass stool for 5+ days. On workup in the ED he was found to have a mass lesion in the sigmoid colon causing partial obstruction. He is currently s/p partial colectomy and colostomy. 1. S/P Bowel Obstruction -Abdomen is still tympanic and distended. -NPO pending improvement of distention -Continue IV fluids -Continue NG tube with low suction -Continue Protonix 5mg daily, PO -Continue Alvimopan 12mg bid PO -Morphine sulfate 1mg/mL as directed PRN -Simethicone 120mg PO QID -Continue wound care as per surgical instructions -Patient is on "sips and chips" of water and ice. 2. COPD -Continue albuterol/ipratropium 3ml Q6h NEB 3. HTN -Continue Prinivil 5mg daily PO 4. Hx of Alcohol Abuse -CIWA protocol with IV Ativan -Start Ramelteon 8mg qhs PO for sleep -Continue to monitor 5. DVT Prophylaxis -No medical anticoagulation s/p surgery -Gray's compression socks -Essential Sequential Compression Disposition: Patient is s/p surgery and is kept in the hospital for observation. Follow surgical recommendations. VS,Fishbone, I+O VS, Fishbone, I+O Laboratory Tests 06/09/20 18:01 06/10/20 05:46 06/10/20 07:46 Vital Signs Date Time Temp Pulse Resp B/P (MAP) Pulse Ox O2 Delivery O2 Flow Rate FiO2 06/10/20 06:00 98.0 70 18 151/90 (110) 97 Nasal Cannula 3.0 I&O- Last 24 Hours up to 6 AM 06/10/20 06:00 Intake Total 5730 ml Output Total 2865 ml Balance 2865 ml GME ATTESTATION GME ATTESTATION My faculty preceptor for this patient encounter was physically present during the encounter and was fully available. All aspects of the patient interview, examination, medical decision making process, and medical care plan development were reviewed and approved by the faculty preceptor. The faculty preceptor is aware and concurs with the plan as stated in the body of this note and will attest to such by his/her cosignature. ATTENDING NOTE Patient was seen and examined by me personally with the residents/ students. I agree with the above assessment and plan RODGER ARRIOLA Jun 10, 2020 09:25 LING CHAUDHRY MD Jun 14, 2020 12:38
[2020-06-10 18:48] LABS: BLOOD UREA NITROGEN 13 MG/DL (7-18); CALCIUM LEVEL 8.3 MG/DL (8.8-10.2); CARBON DIOXIDE LEVEL 32 MEQ/L (21-32); CHLORIDE LEVEL 99 MEQ/L (98-107); CREATININE FOR GFR 1.05 MG/DL (0.70-1.30); GLOMERULAR FILTRATION RATE > 60.0 (>49); GLUCOSE, FASTING 106 MG/DL (70-100); MAGNESIUM LEVEL 1.6 MG/DL (1.8-2.4); PHOSPHORUS LEVEL 2.1 MG/DL (2.5-4.9); SODIUM LEVEL 135 MEQ/L (136-145)
[2020-06-10] MEDS: RAMELTEON 8 MG TAB (ROZEREM) PO SCH (21:24)
[2020-06-11 02:00] VITALS: BP 127/69
[2020-06-11] MEDS: CIPROFLOXACIN 400 MG in IV 1 EA IV SCH ×2 (02:31→12:24)
[2020-06-11 06:00] VITALS: BP 121/98
[2020-06-11 06:02] LABS: BASO % 0.2 % (0.0-1.0); EOS # 0.1 10^3/uL (0.0-0.5); EOS % 0.7 % (0.0-3.0); HEMOGLOBIN 12.9 g/dl (13.5-17.5); LYMPH % 5.8 % (24.0-44.0); MEAN CORPUSCULAR HEMOGLOBIN 32.4 pg (27.0-33.0); MEAN CORPUSCULAR HGB CONC 32.3 g/dl (32.0-36.5); MEAN CORPUSCULAR VOLUME 100.5 fl (80.0-96.0); MONO # 1.2 10^3/uL (0.0-0.8); MONO % 7.4 % (0.0-5.0); NEUTROPHILS # 14.4 10^3/uL (1.5-8.5); NEUTROPHILS % 85.2 % (36.0-66.0); PLATELET COUNT, AUTOMATED 260 10^3/uL (150-450); RED BLOOD COUNT 3.98 10^6/uL (4.30-6.10); WHITE BLOOD COUNT 16.9 10^3/uL (4.0-10.0)
[2020-06-11 06:21] LABS: BLOOD UREA NITROGEN 11 MG/DL (7-18); CALCIUM LEVEL 8.1 MG/DL (8.8-10.2); CARBON DIOXIDE LEVEL 30 MEQ/L (21-32); CHLORIDE LEVEL 101 MEQ/L (98-107); CREATININE FOR GFR 0.82 MG/DL (0.70-1.30); GLOMERULAR FILTRATION RATE > 60.0 (>49); GLUCOSE, FASTING 89 MG/DL (70-100); MAGNESIUM LEVEL 1.7 MG/DL (1.8-2.4); PHOSPHORUS LEVEL 1.9 MG/DL (2.5-4.9); POTASSIUM SERUM 3.8 MEQ/L (3.5-5.1); SODIUM LEVEL 135 MEQ/L (136-145)
[2020-06-11] MEDS: metroNIDAZOLE 500 MG in IV 1 EA IV SCH ×3 (06:33→21:10)
[2020-06-11] MEDS: NS 1,000 ML IV SCH ×2 (06:33→10:01)
[2020-06-11] MEDS: MORPHINE 1MG/ML IN 0.9% NACL 100ML IV BAG IV PRN (06:54)
[2020-06-11] MEDS: IPRATROPIUM 0.5MG/ALBUTEROL 2.5MG INH SOL UD 3ML (DUONEB) NEB SCH ×3 (07:11→19:49)
[2020-06-11] MEDS: ALVIMOPAN 12 MG CAPSULE (ENTEREG) PO SCH ×2 (08:08→21:10)
[2020-06-11] MEDS: SIMETHICONE 80 MG CHEW TAB PO SCH ×4 (08:08→21:10)
[2020-06-11] MEDS: MAG SULF 1GM/100ML (MAG RUN) 1 GM in IV 1 EA IV SCH ×3 (08:08→10:01)
[2020-06-11] MEDS: PANTOPRAZOLE 40MG VIAL (C9113 PER 1) IV SCH (08:08)
[2020-06-11] MEDS: lisinopriL 5 MG TAB PO SCH (08:09)
[2020-06-11] MEDS ORDERED: POTASSIUM PHOSPHATE INJ 20 MMOL in D5W 250 ML IV ONE (09:00)
[2020-06-11 10:00] VITALS: BP 152/93
--- NOTE | 2020-06-11 13:29 | IPNPDOC ---
Text Note Date of Service The patient was seen on 06/11/20. NOTE Subjective: Subjective: Mr. Sunshine is a 64-year-old male patient who presented to the emergency department with abdominal pain and distention. He has a history of diverticulitis, testicle cancer status post orchectomy/chemotherapy. Patient seen at bedside on 06/09/2020. He had bowel resection and colostomy bag placed on 06/09/2020. Patient denies having any acute events overnight. He reports having difficulty in sleep, had only couple of hours of sleep yesterday night. He reports his pain is lot better. He denies having any abdominal pain, chest pain, shortness of breath, lightheadedness. Objective: General: Patient is awake, alert, oriented times three, sitting in bed, no apparent distress. Cardiovascular: S1, S2, normal rhythm, no murmur, rub, or gallop. Respiratory: Breath sounds heard in all lung emmanuel, noted diffuse rhonchi in all lung emmanuel. Abdomen: Colostomy site and bag is in his left lower quadrant, without any leakage or redness surrounding it. He has drain in place, serosanguineous fluid drainage. He reports having mild tenderness surrounding the surgical site. Rest of the abdomen is not distended/decreased distention from yesterday. Extremities: No clubbing or cyanosis. No edema, no tenderness. 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 Skin: No rashes, lesions. Assessment: Patient is a 64-year-old male patient who presented to the emergency department with severe abdominal pain and distention and on further workup in the ED was found to have a masslike lesion in the sigmoid colon causing partial obstruction. Imaging: Abdominal upright PA chest: 06/08/2020: Reported as moderately dilated colon, particularly proximally. No dilated small bowel loops. No free air. No acute infiltration in either lungs. Abdominal/pelvic CT with IV and oral contrast: 06/08/2020: Reported as sigmoid colon there is a focal segmental significant thickening which appears masslike and suspected apple core neoplastic lesion. There are multiple diverticula in the sigmoid. The more proximal colon is diffusely moderately dilated compatible with partial obstruction at the site of the lesion. Extending inferiorly from that segment of the colon is focal air and fluid which may represent a large diverticulum or fistula, extending to the superior surface of the prostate and posterior surface of the urinary bladder. The edges and urinary bladder demon strate diffuse irregular wall thickening and contour deformity of the posterior wall. Neoplastic infiltrations cannot be excluded. A small amount of air is seen in the bladder. There is minimal air fluid in the pelvis. Abdominal upright, PA chest: 06/09/2020: Persistent moderate to marked colonic d istention. Transverse diameter of the colon loops up to 10 cm. There is small increase in amount of stool visible in the rectum. No free air. Left hemidiaphragm is more elevated. Plan: 1. Large bowel obstruction s/p resection and colostomy. Sips and chips of water and ice. Will continue Cipro and Flagyl antibiotics. Patient has an NG tube in with a low intermediate suction. Continue wound care as per surgical instructions. He had a colostomy bag output of 200 mL last 24 hours, 180 mL from the CESIA drain in the last 24 hours. Continue by mouth Protonix 40 MG IV Patient had a magnesium level of 1.7, phosphorus of 1.9 this morning, replaced magnesium and phosphorus. Will continue morphine 1 MG for pain. Continue simethicone 120 MG and alvimopan 12mg. 2. History of alcohol abuse: Patient is placed on CIWA protocol with IV Ativan. As patient reports difficulty in sleeping Will continue Remelteon 80 mg by mouth. 3. Hypertension: Will continue IV lisinopril 5 MG by mouth. 4. COPD Continue albuterol 5. DVT prophylaxis: Status post surgery no medical anticoagulation for now. Teds and sequentials. Disposition: Patient is status post colostomy, continue to observe for now and will follow surgical recommendations for discharge. VS,Marcia, I+O VS, Ashleye, I+O Laboratory Tests 06/10/20 17:52 06/11/20 05:36 Vital Signs Date Time Temp Pulse Resp B/P (MAP) Pulse Ox O2 Delivery O2 Flow Rate FiO2 06/11/20 08:09 110/85 06/11/20 07:00 91 Room Air 06/11/20 06:00 98.5 84 18 2.0 I&O- Last 24 Hours up to 6 AM 06/11/20 06:00 Intake Total 5700 ml Output Total 2540 ml Balance 3160 ml Monika Man MD Jun 11, 2020 11:12
[2020-06-11 14:00] VITALS: BP 119/84
[2020-06-11 18:52] LABS: BLOOD UREA NITROGEN 8 MG/DL (7-18); CALCIUM LEVEL 8.4 MG/DL (8.8-10.2); CARBON DIOXIDE LEVEL 28 MEQ/L (21-32); CHLORIDE LEVEL 98 MEQ/L (98-107); GLOMERULAR FILTRATION RATE > 60.0 (>49); GLUCOSE, FASTING 93 MG/DL (70-100); MAGNESIUM LEVEL 1.9 MG/DL (1.8-2.4); PHOSPHORUS LEVEL 2.1 MG/DL (2.5-4.9); POTASSIUM SERUM 3.8 MEQ/L (3.5-5.1); SODIUM LEVEL 134 MEQ/L (136-145)
[2020-06-11] MEDS: RAMELTEON 8 MG TAB (ROZEREM) PO SCH (21:09)
[2020-06-11 22:00] VITALS: BP 118/84
[2020-06-12] MEDS: CIPROFLOXACIN 400 MG in IV 1 EA IV SCH ×2 (01:07→14:13)
[2020-06-12] MEDS: IPRATROPIUM 0.5MG/ALBUTEROL 2.5MG INH SOL UD 3ML (DUONEB) NEB SCH ×4 (01:27→19:39)
[2020-06-12 02:00] VITALS: BP 137/85
[2020-06-12] MEDS: metroNIDAZOLE 500 MG in IV 1 EA IV SCH ×3 (05:46→22:21)
[2020-06-12] MEDS: NS 1,000 ML IV SCH ×2 (05:47→20:51)
[2020-06-12 05:54] LABS: BASO # 0.1 10^3/uL (0.0-0.2); BASO % 0.3 % (0.0-1.0); EOS # 0.3 10^3/uL (0.0-0.5); EOS % 2.1 % (0.0-3.0); HEMATOCRIT 39.1 % (42.0-52.0); HEMOGLOBIN 12.7 g/dl (13.5-17.5); LYMPH # 1.2 10^3/uL (1.5-5.0); LYMPH % 8.1 % (24.0-44.0); MEAN CORPUSCULAR HEMOGLOBIN 32.4 pg (27.0-33.0); MEAN CORPUSCULAR HGB CONC 32.5 g/dl (32.0-36.5); MEAN CORPUSCULAR VOLUME 99.7 fl (80.0-96.0); MONO # 1.1 10^3/uL (0.0-0.8); MONO % 7.9 % (0.0-5.0); NEUTROPHILS # 11.8 10^3/uL (1.5-8.5); NEUTROPHILS % 81.2 % (36.0-66.0); PLATELET COUNT, AUTOMATED 270 10^3/uL (150-450); RED BLOOD COUNT 3.92 10^6/uL (4.30-6.10); WHITE BLOOD COUNT 14.5 10^3/uL (4.0-10.0)
[2020-06-12 06:00] VITALS: BP 126/82
[2020-06-12 06:15] LABS: BLOOD UREA NITROGEN 9 MG/DL (7-18); CALCIUM LEVEL 8.3 MG/DL (8.8-10.2); CARBON DIOXIDE LEVEL 30 MEQ/L (21-32); CHLORIDE LEVEL 99 MEQ/L (98-107); CREATININE FOR GFR 0.81 MG/DL (0.70-1.30); GLOMERULAR FILTRATION RATE > 60.0 (>49); GLUCOSE, FASTING 86 MG/DL (70-100); MAGNESIUM LEVEL 1.9 MG/DL (1.8-2.4); PHOSPHORUS LEVEL 1.9 MG/DL (2.5-4.9); POTASSIUM SERUM 3.4 MEQ/L (3.5-5.1); SODIUM LEVEL 134 MEQ/L (136-145)
[2020-06-12] MEDS: MORPHINE 1MG/ML IN 0.9% NACL 100ML IV BAG IV PRN (07:19)
[2020-06-12] MEDS ORDERED: POTASSIUM CHLORIDE 10 MEQ SR TABLET PO ONE (07:30)
[2020-06-12] MEDS: PANTOPRAZOLE 40MG VIAL (C9113 PER 1) IV SCH (08:38)
[2020-06-12] MEDS: SIMETHICONE 80 MG CHEW TAB PO SCH ×4 (08:38→20:51)
[2020-06-12] MEDS: ALVIMOPAN 12 MG CAPSULE (ENTEREG) PO SCH ×2 (08:39→20:51)
[2020-06-12] MEDS: lisinopriL 5 MG TAB PO SCH (08:39)
[2020-06-12 10:00] VITALS: BP 135/85
[2020-06-12] MEDS ORDERED: MORPHINE 1MG/ML IN 0.9% NACL 100ML IV BAG IV PRN (11:15)
[2020-06-12 14:00] VITALS: BP 129/81
[2020-06-12 18:00] VITALS: BP 124/83
--- NOTE | 2020-06-12 18:13 | IPNPDOC ---
Subjective Date Seen The patient was seen on 06/12/20. Subjective Chief Complaint/HPI Mr. Sunshine is a 64 year old male with history of recurrent UTI here for SBO and possible colovesical fistula. He went to surgery on 06/10/2020 and had colostomy bag placed. When he was seen this morning, he still had the NGT and lima catheter. General surgery requested the lima catheter remain as plan for urethorogram on Saturday. Otherwise, patient denies fever/chills, chest pain, dyspnea, abdominal pain, or nausea. Colostomy bag present on left lower quadrant. Objective Physical Examination General Exam: Positive: Alert, Cooperative Eye Exam: Positive: EOMI; Negative: Sclera icteric ENT Exam: Positive: Atraumatic Neck Exam: Positive: Supple Chest Exam: Positive: Clear to auscultation; Negative: Rales, Rhonchi, Wheezing Heart Exam: Positive: Rate Normal, Regular Rhythm Abdomen Exam: Negative: Soft, Tenderness Extremity Exam: Negative: Cyanosis, Edema Neuro Exam: Positive: Cranial Nerves 3-12 NL Psych Exam: Positive: Mental status NL, Mood NL Assessment /Plan Assessment Mr. Sunshine is a 64 year old male with history of recurrent UTI here for SBO and possible colovesical fistula. He went to surgery on 06/10/2020 and had colostomy bag placed. Plan for urethorogram on Saturday. Plan/VTE VTE Prophylaxis Ordered?: Yes Plan 1. Large bowel obstruction s/p resection and colostomy -Operation on 06/10/2020 -NGT was in place this morning -General surgery following, recommendations appreciated. 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 Hypertension -BP controlled, continue lisinopril 4. COPD -Continue breathing treatments 5. Insomnia -Continue Ramelteon 6. DVT ppx -SCD and TEDs VS, I&O, 24H, Fishbone Vital Signs/I&O Vital Signs Date Time Temp Pulse Resp B/P (MAP) Pulse Ox O2 Delivery O2 Flow Rate FiO2 06/12/20 14:00 98.8 82 19 129/81 (97) 94 Room Air 06/11/20 22:00 2.0 I&O- Last 24 Hours up to 6 AM 06/12/20 06:00 Intake Total 740 ml Output Total 3315 ml Balance -2575 ml Laboratory Data 24H LABS Laboratory Tests 2 06/11/20 18:10: Anion Gap 8, Glomerular Filtration Rate > 60.0, Calcium Level 8.4L, Phosphorus Level 2.1L, Magnesium Level 1.9 06/12/20 05:31: Anion Gap 5L, Glomerular Filtration Rate > 60.0, Calcium Level 8.3L, Phosphorus Level 1.9L, Magnesium Level 1.9, Immature Granulocyte % (Auto) 0.4, Neutrophils (%) (Auto) 81.2H, Lymphocytes (%) (Auto) 8.1L, Monocytes (%) (Auto) 7.9H, Eosinophils (%) (Auto) 2.1, Basophils (%) (Auto) 0.3, Neutrophils # (Auto) 11.8H, Lymphocytes # (Auto) 1.2L, Monocytes # (Auto) 1.1H, Eosinophils # (Auto) 0.3, Basophils # (Auto) 0.1, Nucleated Red Blood Cells % (auto) 0.0 CBC/BMP Laboratory Tests 06/11/20 18:10 06/12/20 05:31 TISH RANDLE DO Jun 12, 2020 18:12
[2020-06-12] MEDS: RAMELTEON 8 MG TAB (ROZEREM) PO SCH (20:51)
[2020-06-12 22:00] VITALS: BP 130/86
[2020-06-13] MEDS: CIPROFLOXACIN 400 MG in IV 1 EA IV SCH ×2 (01:12→13:36)
[2020-06-13] MEDS: IPRATROPIUM 0.5MG/ALBUTEROL 2.5MG INH SOL UD 3ML (DUONEB) NEB SCH ×4 (01:16→19:38)
[2020-06-13 02:00] VITALS: BP 135/86
[2020-06-13] MEDS: metroNIDAZOLE 500 MG in IV 1 EA IV SCH ×3 (05:44→22:19)
[2020-06-13 05:54] LABS: BASO # 0.1 10^3/uL (0.0-0.2); BASO % 0.5 % (0.0-1.0); EOS # 0.4 10^3/uL (0.0-0.5); EOS % 4.1 % (0.0-3.0); HEMATOCRIT 39.3 % (42.0-52.0); HEMOGLOBIN 13.3 g/dl (13.5-17.5); LYMPH # 0.9 10^3/uL (1.5-5.0); LYMPH % 8.5 % (24.0-44.0); MEAN CORPUSCULAR HEMOGLOBIN 33.4 pg (27.0-33.0); MEAN CORPUSCULAR HGB CONC 33.8 g/dl (32.0-36.5); MEAN CORPUSCULAR VOLUME 98.7 fl (80.0-96.0); MONO # 0.9 10^3/uL (0.0-0.8); MONO % 8.5 % (0.0-5.0); NEUTROPHILS # 8.3 10^3/uL (1.5-8.5); NEUTROPHILS % 77.9 % (36.0-66.0); PLATELET COUNT, AUTOMATED 276 10^3/uL (150-450); RED BLOOD COUNT 3.98 10^6/uL (4.30-6.10); WHITE BLOOD COUNT 10.7 10^3/uL (4.0-10.0)
[2020-06-13 06:00] VITALS: BP 138/94
[2020-06-13 06:09] LABS: BLOOD UREA NITROGEN 7 MG/DL (7-18); CALCIUM LEVEL 8.1 MG/DL (8.8-10.2); CARBON DIOXIDE LEVEL 28 MEQ/L (21-32); CHLORIDE LEVEL 100 MEQ/L (98-107); CREATININE FOR GFR 0.74 MG/DL (0.70-1.30); GLOMERULAR FILTRATION RATE > 60.0 (>49); GLUCOSE, FASTING 78 MG/DL (70-100); MAGNESIUM LEVEL 1.7 MG/DL (1.8-2.4); POTASSIUM SERUM 3.7 MEQ/L (3.5-5.1); SODIUM LEVEL 136 MEQ/L (136-145)
[2020-06-13 10:00] VITALS: BP 130/90
[2020-06-13] MEDS: NS 1,000 ML IV SCH (10:01)
[2020-06-13] MEDS: MAG SULF 1GM/100ML (MAG RUN) 1 GM in IV 1 EA IV SCH ×2 (10:01→12:29)
[2020-06-13] MEDS: SIMETHICONE 80 MG CHEW TAB PO SCH ×4 (10:01→20:46)
[2020-06-13] MEDS: PANTOPRAZOLE 40MG VIAL (C9113 PER 1) IV SCH (10:02)
[2020-06-13] MEDS: ALVIMOPAN 12 MG CAPSULE (ENTEREG) PO SCH ×2 (10:02→20:46)
[2020-06-13] MEDS: lisinopriL 5 MG TAB PO SCH (10:02)
[2020-06-13] MEDS ORDERED: CYSTO-CONRAY II 17.2% 250ML VIAL (Q9958) As Ordered ONE (11:19)
--- NOTE | 2020-06-13 11:26 | RO ---
DATE OF OPERATION: 06/09/2020 PREOPERATIVE DIAGNOSIS: Large bowel obstruction. POSTOPERATIVE DIAGNOSIS: Large bowel obstruction (sigmoid colon). PROCEDURE: Sigmoid colectomy with colostomy. SURGEON: Dr. Dion Johnson ANESTHESIA: General endotracheal anesthesia. ESTIMATED BLOOD LOSS: Minimal. FLUIDS: Crystalloid. BRIEF PROCEDURE SUMMARY: The patient was brought to the operating room and was given general anesthesia. After adequate anesthesia and preoperative antibiotics were given, the patient was prepped and draped in the usual sterile fashion. Midline incision was made with a skin knife. Blunt dissection was carried down through fascia and opened along its length. I started just above the umbilicus and went to the right side of the umbilicus down to the pubis. Patient had significant colonic distention and near-complete or complete obstruction at the sigmoid colon, IN any case, this did make it more difficult to move the bowel around to get adequate visualization, but once this was packed away with a Bookwalter, the proximal sigmoid colon was able to be mobilized at the white line of Toldt down to an area where it was a mass effect, firm area that was adherent to the right posterior aspect of the bladder, almost up against the pelvic sidewall. In any case, at this point, given its location and difficulty with mobilization proximally and distally, I did do some dissection with electrocautery as well as some blunt dissection, but it made it more difficult with the colon which needed to be compression; thus, I used an nasogastric (NG) tube to decompress the descending colon substantially, and once it was decompressed, then I transected the colon with a SERENE stapler. This was packed away, and after packing this away it did provide better visualization of the mesentery and the colon going up to this side of the pelvic sidewall/back side of the bladder. Slow dissection through this area did get into the preperitoneal fat. Although I did not feel any specific mass or lesion invasive into this area per se, there may have been a fistula tract that I came across in this area; however, no urine came out of this and no stool. Also could have been a little bit of fibers of the colon given the fibrosis in this area. In any case, after going across this area, the colon distally was better able to be mobilized, and the mesentery was scored on both sides of the distal sigmoid colon/rectal sigmoid junction area. The rectosigmoid junction was transected using a SERENE stapler, and once this was stapled, the mesentery then was transected using [place] 60 vascular load. In general I was able to feel some small lymph nodes in the proximal mesentery of the sigmoid colon, and I made sure that I took this in the dissection as well. The entire sigmoid specimen was not a large sigmoid resection, and there was some devascularization of the tip of the sigmoid colon that I needed to resect later when I placed a colostomy, because of the decreased blood supply of this; however, at this point, after the specimen was removed, it was much easier to visualize intra-abdominal contents and then able to mobilize the descending colon along the white line of Toldt. I performed this all the way up to about the splenic flexure, getting this off Gerota's fascia on this side as well. Once this was nicely mobilized, then an incision for the colostomy was made just on the lateral edge of the rectus muscle lateral to the umbilicus and transfascial, transmuscular incision was made, and this ostomy was brought up through this defect. The abdomen was copiously irrigated until clear, and a Cornelio-Mooney drain was left in the pelvis. The midline was closed with #1 PDS in a running manner, and the midline was loosely approximated with saundra. Once the midline was closed, a towel was used to cover this area, then the colostomy was formed. First, there was some nonviable distal colon that I resected, about an inch of this colon, and colostomy was brooked using 3-0 Vicryl sutures and then matured with additional 3-0 Vicryl sutures. The ostomy appliance was applied, and the patient was awakened, extubated, brought to the operating room awake, alert, hemodynamically stable. Sponge and needle counts correct times two. MTDD
[2020-06-13] MEDS ORDERED: MAGNESIUM SULFATE 1GM/100ML D5W BAG (10MG/ML) As Ordered ONE (12:26)
[2020-06-13 14:00] VITALS: BP 144/89
[2020-06-13] MEDS ORDERED: MORPHINE 4 MG/ML 1ML VIAL/SYRINGE (J2270) IV PRN (14:15)
[2020-06-13] MEDS ORDERED: PERCOCET 5MG/325MG TAB PO PRN (14:15)
[2020-06-13] MEDS: PERCOCET 5MG/325MG TAB PO PRN ×2 (15:43→20:46)
--- NOTE | 2020-06-13 16:48 | IPNPDOC ---
Subjective Date Seen The patient was seen on 06/13/20. Subjective Chief Complaint/HPI Mr. Sunshine is a 64 year old male with history of recurrent UTI here for SBO and possible colovesical fistula. He went to surgery on 06/10/2020 and had colostomy bag placed. He was seen in the morning. NGT was removed and he was feeling better. Denies fever/chills, chest pain, or dyspnea. He has some abdominal pain secondary to surgery. Otherwise today, he is planned for Cystogram to look for fistula. Objective Physical Examination General Exam: Positive: Alert, Cooperative Eye Exam: Positive: EOMI; Negative: Sclera icteric ENT Exam: Positive: Atraumatic Neck Exam: Positive: Supple Chest Exam: Positive: Clear to auscultation; Negative: Rales, Rhonchi, Wheezing Heart Exam: Positive: Rate Normal, Regular Rhythm Abdomen Exam: Negative: Soft, Tenderness Extremity Exam: Negative: Cyanosis, Edema Neuro Exam: Positive: Cranial Nerves 3-12 NL Psych Exam: Positive: Mental status NL, Mood NL Assessment /Plan Assessment Mr. Sunshine is a 64 year old male with history of recurrent UTI here for SBO and possible colovesical fistula. He went to surgery on 06/10/2020 and had colostomy bag placed. Plan for cystogram on today. Surgery has been following and recommendations appreciated. With the removal of the NGT, he was advanced to a clear liquid diet. Plan/VTE VTE Prophylaxis Ordered?: Yes Plan 1. Large bowel obstruction s/p resection and colostomy -Operation on 06/10/2020 -General surgery following, recommendations appreciated. -NGT removed yesterday, now on CLD 2. Colovesical fistula -Possible fistula -Pending results from urethrogram/cystogram 3. Hypertension -BP controlled, continue lisinopril 4. COPD -Continue breathing treatments 5. Insomnia -Continue Ramelteon 6. DVT ppx -SCD and TEDs Dispo: Pending results from urethrogram/cystogram and diet tolerance VS, I&O, 24H, Fishbone Vital Signs/I&O Vital Signs Date Time Temp Pulse Resp B/P (MAP) Pulse Ox O2 Delivery O2 Flow Rate FiO2 06/13/20 15:43 16 Room Air 06/13/20 14:00 98.2 58 144/89 (107) 95 06/11/20 22:00 2.0 I&O- Last 24 Hours up to 6 AM 06/13/20 06:00 Intake Total 1490 ml Output Total 1175 ml Balance 315 ml Laboratory Data 24H LABS Laboratory Tests 2 06/13/20 05:37: Immature Granulocyte % (Auto) 0.5, Neutrophils (%) (Auto) 77.9H, Lymphocytes (%) (Auto) 8.5L, Monocytes (%) (Auto) 8.5H, Eosinophils (%) (Auto) 4.1H, Basophils (%) (Auto) 0.5, Neutrophils # (Auto) 8.3, Lymphocytes # (Auto) 0.9L, Monocytes # (Auto) 0.9H, Eosinophils # (Auto) 0.4, Basophils # (Auto) 0.1, Nucleated Red Blood Cells % (auto) 0.0, Anion Gap 8, Glomerular Filtration Rate > 60.0, Calcium Level 8.1L, Magnesium Level 1.7L CBC/BMP Laboratory Tests 06/13/20 05:37 TISH RANDLE DO Jun 13, 2020 16:48
--- NOTE | 2020-06-13 17:30 | REP ---
INDICATION: sp colectomy, ?resolved colovesical fistula. COMPARISON: None. TECHNIQUE: The procedure was performed under the direct supervision of Dr. Rahman. The images were reviewed with Dr. Rahman. The patient arrives in the department with an existing indwelling Marina catheter. 250 cc of Cysto-Conray 2 was instilled into the bladder in a retrograde flow. FINDINGS: The bladder is normal in position and contour. There is no evidence of extravasation or ureteral reflux. IMPRESSION: There is no evidence of extravasation or ureteral reflux. 0.5 minutes of fluoroscopy time was utilized for this procedure. <Electronically signed by Rustam Dong > 06/13/20 1607 <Electronically signed by Brian Rahman > 06/13/20 [id number]
[2020-06-13 18:00] VITALS: BP 141/84
[2020-06-13] MEDS: RAMELTEON 8 MG TAB (ROZEREM) PO SCH (20:46)
[2020-06-13 22:00] VITALS: BP 122/67
[2020-06-14] MEDS: CIPROFLOXACIN 400 MG in IV 1 EA IV SCH (01:34)
[2020-06-14 02:00] VITALS: BP 149/76
[2020-06-14] MEDS: IPRATROPIUM 0.5MG/ALBUTEROL 2.5MG INH SOL UD 3ML (DUONEB) NEB SCH ×4 (02:34→19:43)
[2020-06-14 06:00] VITALS: BP 139/77
[2020-06-14] MEDS: metroNIDAZOLE 500 MG in IV 1 EA IV SCH (06:12)
[2020-06-14 06:18] LABS: BASO # 0.1 10^3/uL (0.0-0.2); BASO % 0.5 % (0.0-1.0); EOS # 0.4 10^3/uL (0.0-0.5); EOS % 4.1 % (0.0-3.0); HEMATOCRIT 39.1 % (42.0-52.0); LYMPH % 10.6 % (24.0-44.0); MEAN CORPUSCULAR HEMOGLOBIN 32.6 pg (27.0-33.0); MEAN CORPUSCULAR HGB CONC 33.2 g/dl (32.0-36.5); MONO % 10.4 % (0.0-5.0); NEUTROPHILS % 74.1 % (36.0-66.0); PLATELET COUNT, AUTOMATED 288 10^3/uL (150-450); RED BLOOD COUNT 3.99 10^6/uL (4.30-6.10); WHITE BLOOD COUNT 9.5 10^3/uL (4.0-10.0)
[2020-06-14 06:40] LABS: BLOOD UREA NITROGEN 4 MG/DL (7-18); CALCIUM LEVEL 8.2 MG/DL (8.8-10.2); CARBON DIOXIDE LEVEL 29 MEQ/L (21-32); CHLORIDE LEVEL 100 MEQ/L (98-107); CREATININE FOR GFR 0.81 MG/DL (0.70-1.30); GLOMERULAR FILTRATION RATE > 60.0 (>49); GLUCOSE, FASTING 101 MG/DL (70-100); MAGNESIUM LEVEL 1.7 MG/DL (1.8-2.4); POTASSIUM SERUM 3.2 MEQ/L (3.5-5.1); SODIUM LEVEL 135 MEQ/L (136-145)
[2020-06-14] MEDS ORDERED: POTASSIUM CHLORIDE 10 MEQ SR TABLET PO ONE (07:30)
[2020-06-14] MEDS: SIMETHICONE 80 MG CHEW TAB PO SCH ×4 (08:27→21:13)
[2020-06-14] MEDS: PANTOPRAZOLE 40MG VIAL (C9113 PER 1) IV SCH (08:28)
[2020-06-14] MEDS: ALVIMOPAN 12 MG CAPSULE (ENTEREG) PO SCH (08:28)
[2020-06-14] MEDS: PERCOCET 5MG/325MG TAB PO PRN ×2 (08:28→18:12)
[2020-06-14] MEDS: lisinopriL 5 MG TAB PO SCH (08:29)
[2020-06-14 10:00] VITALS: BP 102/59
--- NOTE | 2020-06-14 10:15 | IPN ---
DATE: 06/11/2020 HISTORY: Patient is post-op day 2 from a sigmoid colectomy and end-colostomy performed by Dr. Johnson for an obstruction of the sigmoid. Dr. Johnson had expressed concern that he might have a colovesical as well and had continued his Marina catheter post-op. The patient has generally done well over the last 24 hours and has been walking in the hallways. He has a RN INFUSION device for pain management with morphine. PHYSICAL EXAMINATION: Vital signs show that he has been afebrile over the past 24 hours. His pulse is in the 70s and 80s and his blood pressure is excellent. Intake and output show that yesterday he had 4950 in with 3855 out. His urine output was recorded as 975 with 200 from his colostomy. An abdominal drain in place shows 180 yesterday and only 40 so far today. Patient has been up walking in the hallway. He is alert and oriented and appears quite comfortable. Heart exam: Regular rate and rhythm. Lungs: Clear. Abdomen: The abdomen is perhaps mildly protuberant. He has a colostomy in the left mid to lower abdomen with an appliance in place. The stoma is quite edematous, but clearly pink and viable with some stool in the bag. There is some erythema of the skin medial and inferior to the colostomy extending to the midline incision at least, but this appears more consistent with bruising than infection. His midline incision is otherwise clean. He has a drain in the right lower quadrant which is draining some primarily serous fluid. He does have some bowel sounds. LABORATORY DATA: Laboratory studies today show a white count of 17,000 which is stable from yesterday. He has a hemoglobin of 13, hematocrit of 40 and a platelet count of 260,000. Differential count shows 85% neutrophils, 6% lymphocytes and 7% monocytes. Chemistry profile shows a sodium of 135, potassium 3.8, chloride 101, CO2 30, BUN 11, creatinine 0.8 and a glucose of 89. IMPRESSION: Patient is doing well. He is eager to have something to eat or drink. He has been ambulating well and using his RN INFUSION appropriately. PLAN: I will continue patient's ciprofloxacin and Flagyl and his RN INFUSION for his now. His NG-tube does not have much out at this point, but he has had little in the way of gas from his colostomy and his abdomen remains somewhat distended with some relatively hypoactive bowel sounds. I will therefore continue his NG and his n.p.o. status. MTDD
--- NOTE | 2020-06-14 10:20 | IPN ---
DATE: 06/10/2020 SUBJECTIVE: The patient is a postop day 1 from a sigmoid colectomy and colostomy and the patient overall seems to be doing well at this time. He has no specific complaints. He is actually getting out of bed, walking around at this point. He states MUSIC PROFESSOR seems to be working well for him. His NG tube did put a fair bit out overnight, but also had some output out of his ostomy overnight. He feels less distended than he was previously. Does not have any nausea, but still has hiccups. He has not had any fevers or chills and overall feels well this morning. His input and output reveals that he has developed some good urine output today. His CESIA drain has had a fair bit of fluid out, but it looks mostly serosanguinous. His vitals have been stable and chemistries were back earlier this morning revealing no significant abnormalities. However, his complete blood count (CBC) came back later in the day revealing an elevated white count and decreasing hematocrit consistent with his operative intervention. I did not see a specific abscess as was noted on the CAT scan, although I anticipate that area that was entered on the posterior aspect of the bladder was a component of this infected area. In any case, the patient is doing well today. He has been afebrile. No nausea, no vomiting. PHYSICAL EXAMINATION: On physical examination, his lungs are clear anteriorly. Abdomen is soft and distended, still tympanic though. His dressing is dry. He had serosanguinous drainage. His ostomy is pink and draining stool. IMPRESSION/PLAN: 1. Status post colectomy, colostomy making some good progress at this time from a gastrointestinal standpoint. Will keep him nothing by mouth. and NG tube and fluids for now. 2. Although he seems to be mobilizing quite well, my concern is with his previous episodes with urinary tract infections preoperatively. There may be some component of a colovesical fistula that may have developed and thus I would like to have him keep his Marina catheter in over the weekend; and if his CESIA drain is not putting out any significant drainage, we may just discontinue the drain on Saturday. However, it is possible that we may need to perform a cystogram to rule out any possible colovesical fistula remnant. Otherwise, routine treatment for his postoperative ileus/obstruction that is resolving, should be planned. Dr. Price was telephone service representative for me this weekend and will be covering should any questions develop. ASHKAN
--- NOTE | 2020-06-14 10:35 | IPN ---
DATE: 06/12/2020 HISTORY: Patient is now postoperative day #3 from an open sigmoid resection with end colostomy for obstruction. He has had a nasogastric (NG) tube in place and has a Marina in place. Dr. Johnson indicated he would like to keep the Marina in over the weekend and consider a cystogram on Saturday. Patient has been drinking some water which he reports has generally just been coming back out the NG tube. He is asking for something to drink or eat. He still has a patient controlled analgesia (SCREEN AND CYCLONE REPAIRER) device which he has been using for pain. Vital signs show that he has been afebrile over the past 24 hours. His pulse is in the 70s to 80s. His blood pressure is good and his room air oxygen saturation is in the mid 90s. Intake and output show that yesterday he had 2000 in with 2800 out. They did record 600 mL of oral intake though he is only supposed to be taking sips of water and ice chips. Yesterday, his Cornelio Mooney (CESIA) drain had 75 mL and his NG had 1500 out, reflecting his oral intake I think mostly. PHYSICAL EXAMINATION: Patient is standing at the bedside when I went in. The NG tube is clearly minimally in his nose but is out to about 10 or 20 cm. His abdomen has active bowel sounds. The ostomy is edematous but pink and viable and there is a small amount of stool in his ostomy bag with some air. LABORATORY STUDIES: Show that he has a white count of 14, hemoglobin 13, hematocrit 39, and a platelet count of 270,000. Differential count shows 81% neutrophils, 8% lymphocytes, and 8% monocytes. Chemistry profile shows a sodium of 134, potassium 3.4, chloride 99, CO2 of 30, BUN of 9, creatinine 0.8, and a glucose of 86. His pathology is still pending. IMPRESSION: The patient is doing well 3 days postoperative from his colectomy. He does seem to be having some flatus and a small amount of stool from his colostomy. He has active bowel sounds. His nasogastric (NG) tube is almost out anyway so I have removed that. I will allow him to take some sips of clear liquids but I did caution him to limit this to no more than 8 ounces every eight hours. The Marina catheter will be continued. I will cut back the dosing of his patient controlled analgesia (SCREEN AND CYCLONE REPAIRER) and he advised that he does not think he will need as much pain medicine now. ASHKAN
[2020-06-14] MEDS: metroNIDAZOLE (FLAGYL) 500MG TABLET PO SCH ×2 (13:13→21:13)
[2020-06-14 14:00] VITALS: BP 124/72
--- NOTE | 2020-06-14 16:47 | IPNPDOC ---
Subjective Date Seen The patient was seen on 06/14/20. Subjective Chief Complaint/HPI Mr. Sunshine is a 64 year old male with history of recurrent UTI here for SBO and possible colovesical fistula. He went to surgery on 06/10/2020 and had colostomy bag placed. He was seen in the morning. Yesterday, the lima catheter was removed and he was able to spontaneously void. Denies fever/chills, chest pain, or dyspnea. He tolerated a clear liquid diet, being advanced to regular diet today Objective Physical Examination General Exam: Positive: Alert, Cooperative Eye Exam: Positive: EOMI; Negative: Sclera icteric ENT Exam: Positive: Atraumatic Neck Exam: Positive: Supple Chest Exam: Positive: Clear to auscultation; Negative: Rales, Rhonchi, Wheezing Heart Exam: Positive: Rate Normal, Regular Rhythm Abdomen Exam: Negative: Soft, Tenderness Extremity Exam: Negative: Cyanosis, Edema Neuro Exam: Positive: Cranial Nerves 3-12 NL Psych Exam: Positive: Mental status NL, Mood NL Assessment /Plan Assessment Mr. Sunshine is a 64 year old male with history of recurrent UTI here for SBO and possible colovesical fistula. He went to surgery on 06/10/2020 and had colostomy bag placed. Plan for cystogram on today. Surgery has been following and recommendations appreciated. Tolerated clear liquid diet, being advanced to regular diet today. Plan/VTE VTE Prophylaxis Ordered?: Yes Plan 1. Large bowel obstruction s/p resection and colostomy -Operation on 06/10/2020 -General surgery following, recommendations appreciated. -Tolerated CLD, being advanced to regular diet 2. No colovesical fistula -R/o by urethrogram/cystogram 3. Hypertension -BP controlled, continue lisinopril 4. COPD -Continue breathing treatments 5. Insomnia -Continue Ramelteon 6. DVT ppx -SCD and TEDs Dispo: Pending diet tolerance VS, I&O, 24H, Fishbone Vital Signs/I&O Vital Signs Date Time Temp Pulse Resp B/P (MAP) Pulse Ox O2 Delivery O2 Flow Rate FiO2 06/14/20 14:00 98.0 59 18 124/72 (89) 96 Room Air 06/11/20 22:00 2.0 I&O- Last 24 Hours up to 6 AM 06/14/20 05:59 Intake Total 2130 ml Output Total 4425 ml Balance -2295 ml Laboratory Data 24H LABS Laboratory Tests 2 06/14/20 05:50: Immature Granulocyte % (Auto) 0.3, Neutrophils (%) (Auto) 74.1H, Lymphocytes (%) (Auto) 10.6L, Monocytes (%) (Auto) 10.4H, Eosinophils (%) (Auto) 4.1H, Basophils (%) (Auto) 0.5, Neutrophils # (Auto) 7.0, Lymphocytes # (Auto) 1.0L, Monocytes # (Auto) 1.0H, Eosinophils # (Auto) 0.4, Basophils # (Auto) 0.1, Nucleated Red Blood Cells % (auto) 0.0, Anion Gap 6L, Glomerular Filtration Rate > 60.0, Calcium Level 8.2L, Magnesium Level 1.7L CBC/BMP Laboratory Tests 06/14/20 05:50 TISH RANDLE DO Jun 14, 2020 16:47
[2020-06-14 18:00] VITALS: BP 151/83
[2020-06-14] MEDS: CIPROFLOXACIN 500MG TABLET PO SCH (18:13)
[2020-06-14] MEDS: RAMELTEON 8 MG TAB (ROZEREM) PO SCH (21:13)
[2020-06-14 22:00] VITALS: BP 154/90
[2020-06-15 02:00] VITALS: BP 150/85
[2020-06-15] MEDS: IPRATROPIUM 0.5MG/ALBUTEROL 2.5MG INH SOL UD 3ML (DUONEB) NEB SCH ×2 (02:00→07:51)
[2020-06-15] MEDS: metroNIDAZOLE (FLAGYL) 500MG TABLET PO SCH (05:12)
[2020-06-15] MEDS: CIPROFLOXACIN 500MG TABLET PO SCH (05:12)
[2020-06-15 06:00] VITALS: BP 149/80
[2020-06-15 06:27] LABS: BASO # 0.1 10^3/uL (0.0-0.2); BASO % 0.6 % (0.0-1.0); EOS # 0.4 10^3/uL (0.0-0.5); EOS % 3.9 % (0.0-3.0); HEMATOCRIT 40.7 % (42.0-52.0); HEMOGLOBIN 13.5 g/dl (13.5-17.5); LYMPH # 1.2 10^3/uL (1.5-5.0); LYMPH % 12.8 % (24.0-44.0); MEAN CORPUSCULAR HEMOGLOBIN 32.2 pg (27.0-33.0); MEAN CORPUSCULAR HGB CONC 33.2 g/dl (32.0-36.5); MEAN CORPUSCULAR VOLUME 97.1 fl (80.0-96.0); MONO % 11.5 % (0.0-5.0); NEUTROPHILS # 6.3 10^3/uL (1.5-8.5); NEUTROPHILS % 70.5 % (36.0-66.0); PLATELET COUNT, AUTOMATED 318 10^3/uL (150-450); RED BLOOD COUNT 4.19 10^6/uL (4.30-6.10)
[2020-06-15 06:55] LABS: BLOOD UREA NITROGEN 5 MG/DL (7-18); CALCIUM LEVEL 8.8 MG/DL (8.8-10.2); CARBON DIOXIDE LEVEL 27 MEQ/L (21-32); CHLORIDE LEVEL 99 MEQ/L (98-107); CREATININE FOR GFR 0.78 MG/DL (0.70-1.30); GLOMERULAR FILTRATION RATE > 60.0 (>49); GLUCOSE, FASTING 93 MG/DL (70-100); POTASSIUM SERUM 3.5 MEQ/L (3.5-5.1); SODIUM LEVEL 135 MEQ/L (136-145)
[2020-06-15] MEDS ORDERED: POTASSIUM CHLORIDE 10 MEQ SR TABLET PO ONE (07:30)
[2020-06-15] MEDS: SIMETHICONE 80 MG CHEW TAB PO SCH (08:08)
[2020-06-15] MEDS: PANTOPRAZOLE 40MG VIAL (C9113 PER 1) IV SCH (08:09)
[2020-06-15 08:11] VITALS: BP 143/89
[2020-06-15] MEDS: lisinopriL 5 MG TAB PO SCH (08:11)
[2020-06-15] MEDS: PERCOCET 5MG/325MG TAB PO PRN (08:11)
[2020-06-15] MEDS ORDERED: PERCOCET PO (08:36)
--- NOTE | 2020-06-15 21:18 | DS.PDOC ---
Discharge Summary General Date of Admission Jun 08, 2020 at 11:59 Date of Discharge Jun 15, 2020 Attending Physician: TISH RANDLE DO Specialist/Consultants [facility], Dr. Johnson Discharge Summary PROCEDURES PERFORMED DURING STAY: Sigmoid colectomy with colostomy on 06/09/2020 ADMITTING DIAGNOSES: 1. Colonic bowel obstruction 2. Alcohol abuse 3. Hypertension 4. Possible colovesical fistula DISCHARGE DIAGNOSES: 1. Colonic bowel obstruction 2. Alcohol abuse 3. Hypertension 4. COPD 5. Insomnia 6. Ruled out colovesical fistula COMPLICATIONS/CHIEF COMPLAINT: Bowel Obstruction. HISTORY OF PRESENT ILLNESS: Mr. Sunshine is a 64-year-old male who came to the ED for abdominal pain and distention. For the past 2 months, he's been having difficulty with bowel movements. Patient would go a few days without having a bowel movements, and then have a bowel movement that was ribbonlike. He came to the ED after not having a bowel movement for 5 days. He was experiencing abdominal pain and distention. That morning had trouble keeping food down. In addition he also reported a 15 pound unintentional weight loss the last [address] of abdomen and pelvis demonstrated an apple core lesion in the sigmoid colon. HOSPITAL COURSE: Gen. surgery was consulted. They took him to surgery on 06/09/2020. They performed a sigmoid colectomy with colostomy. There was some concern for colovesical fistula. They obtained a urethrogram which was negative for colovesical fistula. Patient was eventually able to tolerate a diet. He was taught how to empty the colostomy bag and clean it. Today he felt well. Denied any fever or chills, lightheadedness or dizziness, nausea, or dysuria. He still has some abdominal pain from the surgery, but is able tolerate a diet. Patient was subsequently discharged home with home health services. DISCHARGE MEDICATIONS: Please see below. ALLERGIES: Please see below. PHYSICAL EXAMINATION ON DISCHARGE: VITAL SIGNS: Please see below. GENERAL: Comfortable, in no apparent distress. HEENT: Head normocephalic/atraumatic, EOMI, sclera clear. NECK: Supple RESPIRATORY: Lungs clear to auscultation bilaterally, no rales, wheeze or rhonchi. CARDIOVASCULAR: Regular rate and rhythm. ABDOMEN: Soft, normal bowel sounds. MUSCLE SKELETAL: Muscle strength 5/5 in all extremities. NEUROLOGICAL: CN 312 grossly intact, no focal deficits noted. PSYCHOLOGICAL: Normal mood and affect LABORATORY DATA: Please see below. IMAGING: CT of abdomen and pelvis In the sigmoid colon there is focal segmental significant thickening which appears masslike and I suspect an apple-core neoplastic lesion. There are multiple diverticula in the sigmoid. The more proximal colon is diffusely moderately dilated compatible with a partial obstruction at the site of the lesion. Extending inferior from that segment of the colon is focal air and fluid which may represent a large diverticulum or fistula, extending to the superior surface of the prostate and posterior surface of the urinary bladder. The adjacent urinary bladder demonstrates diffuse irregular wall thickening and contour deformity of the posterior wall. Neoplastic infiltration cannot be excluded. A small amount of air is seen in the bladder. There is minimal free fluid in the pelvis. Cystogram There is no evidence of extravasation or ureteral reflux. PROGNOSIS: Stable ACTIVITY: As tolerated. DIET: As tolerated DISCHARGE PLAN: Home with home services DISPOSITION: Home, Self-Care. DISCHARGE INSTRUCTIONS: 1. Follow-up with Dr. Johnson on Saturday for staple removal 2. Follow-up with her PCP in a week. DISCHARGE CONDITION: Stable. Total times on discharge planning, discharge summary, and medication reconciliation: 45 minutes. Vital Signs/I&Os Vital Signs Date Time Temp Pulse Resp B/P (MAP) Pulse Ox O2 Delivery O2 Flow Rate FiO2 06/15/20 08:41 16 Room Air 06/15/20 08:11 143/89 06/15/20 06:00 97.5 59 97 06/11/20 22:00 2.0 I&O- Last 24 Hours up to 6 AM 06/15/20 06:00 Intake Total 2650 ml Output Total 2880 ml Balance -230 ml Laboratory Data Labs 24H Laboratory Tests 2 06/15/20 06:09: Immature Granulocyte % (Auto) 0.7, Neutrophils (%) (Auto) 70.5H, Lymphocytes (%) (Auto) 12.8L, Monocytes (%) (Auto) 11.5H, Eosinophils (%) (Auto) 3.9H, Basophils (%) (Auto) 0.6, Neutrophils # (Auto) 6.3, Lymphocytes # (Auto) 1.2L, Monocytes # (Auto) 1.0H, Eosinophils # (Auto) 0.4, Basophils # (Auto) 0.1, Nucleated Red Blood Cells % (auto) 0.0, Anion Gap 9, Glomerular Filtration Rate > 60.0, Calcium Level 8.8 CBC/BMP Laboratory Tests 06/15/20 06:09 Discharge Medications Scheduled Docusate Sodium (Colace) 100 Mg Capsule, 100 MG PO DAILY, (Reported) Lisinopril (Lisinopril) 5 Mg Tablet, 5 MG PO DAILY, (Reported) Testosterone Cypionate (Testosterone Cypionate) 200 Mg/Ml Inj, 300 MG IM ASDIRECTED, (Reported) EVERY 3 WEEKS Scheduled PRN Ibuprofen (Ibu-200) 200 Mg Tablet, 600 MG PO Q6H PRN for PAIN, (Reported) Oxycodone/Acetaminophen (Oxycodone-Acetaminophen 5-325) 1 Each Tablet, 2 TAB PO Q4HP PRN for SEVERE PAIN (PS 8-10) Allergies Coded Allergies: naproxen (Verified Allergy, Severe, SOB, THROAT SWELLS, 11/13/18) SEASONAL ALLERGIES (Verified Allergy, Unknown, 06/11/20) TISH RANDLE DO Jun 15, 2020 21:18
== END 2020-06-15 12:33 | disposition home health service (06) | DRG 221 ==
LOC: M ED 06:38 → M ED INP 11:59 → ENRESERV 12:13 → M MSPAV 13:41
PROVIDERS: ADMIT Internal Medicine; ATTEND Internal Medicine
PROC: 0D1N0J4 Bypass Sigmoid Colon to Cutaneous with Synthetic Substitute, Open Approach (ICD-10-PCS; 2020-06-09)
PROC: 0DBN0ZZ Excision of Sigmoid Colon, Open Approach (ICD-10-PCS; principal; 2020-06-09 10:13)
DX: K56.601 Complete intestinal obstruction, unspecified as to cause (principal); I10 Essential (primary) hypertension; F17.210 Nicotine dependence, cigarettes, uncomplicated; F10.10 Alcohol abuse, uncomplicated; J30.2 Other seasonal allergic rhinitis; K57.30 Diverticulosis of large intestine without perforation or abscess without bleeding; M54.32 Sciatica, left side; G47.00 Insomnia, unspecified; J44.9 Chronic obstructive pulmonary disease, unspecified; Z66 Do not resuscitate; Z85.47 Personal history of malignant neoplasm of testis; Z90.79 Acquired absence of other genital organ(s); Z79.899 Other long term (current) drug therapy; Z88.6 Allergy status to analgesic agent; Z20.828 Contact with and (suspected) exposure to other viral communicable diseases

== ENCOUNTER → 2020-10-06 | Outpatient (CLI) | payer OTHER ==
[~2020-10-06] MED LIST changes: +COLA100C5 PO; +IBUP200T45 PO; +LISI-898 PO; +PERCOCET PO
[2020-10-06 10:56] LABS: HEMATOCRIT 48.1 % (42.0-52.0); HEMOGLOBIN 16.1 g/dl (13.5-17.5); MEAN CORPUSCULAR HEMOGLOBIN 32.2 pg (27.0-33.0); MEAN CORPUSCULAR HGB CONC 33.5 g/dl (32.0-36.5); MEAN CORPUSCULAR VOLUME 96.2 fl (80.0-96.0); PLATELET COUNT, AUTOMATED 222 10^3/uL (150-450); WHITE BLOOD COUNT 8.1 10^3/uL (4.0-10.0)
[2020-10-06 11:41] LABS: ALT/SGPT 126 U/L (12-78); BILIRUBIN,TOTAL 0.5 MG/DL (0.2-1.0); BLOOD UREA NITROGEN 21 MG/DL (7-18); CALCIUM LEVEL 9.3 MG/DL (8.8-10.2); CARBON DIOXIDE LEVEL 28 MEQ/L (21-32); CHLORIDE LEVEL 102 MEQ/L (98-107); CHOLESTEROL LEVEL 235 MG/DL (<200); CHOLESTEROL RISK RATIO 2.526 (<5); GLOMERULAR FILTRATION RATE > 60.0 (>49); GLUCOSE, FASTING 76 MG/DL (70-100); HDL CHOLESTEROL 93 MG/DL (>40); LDL CHOLESTEROL 123 MG/DL (<100); NON-HDL-C 142 MG/DL; POTASSIUM SERUM 3.9 MEQ/L (3.5-5.1); PROSTATIC SPECIFIC AG MONITOR 1.73 NG/ML (< 4.00); SODIUM LEVEL 136 MEQ/L (136-145); TESTOSTERONE 286 NG/DL (241-827); TOTAL PROTEIN 7.6 GM/DL (6.4-8.2); TRIGLYCERIDES LEVEL 97 MG/DL (<150)
--- NOTE | 2020-10-07 00:52 | ECGEPIP ---
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
== END ==
LOC: M LAB 09:00
PROVIDERS: ATTEND Family Medicine
DX: Z01.818 Encounter for other preprocedural examination (principal); R00.1 Bradycardia, unspecified

== ENCOUNTER → 2020-10-16 | Outpatient (CLI) | payer OTHER | LOC: M LABSMTC 08:08 | PROVIDERS: ATTEND Anesthesiology | DX: Z01.812 Encounter for preprocedural laboratory examination (principal); Z20.822 Contact with and (suspected) exposure to COVID-19 ==

== ENCOUNTER 2020-10-20 07:06 | Day surgery (SDC) | payer OTHER ==
[~2020-10-20] VITALS: Ht 172.7 cm; Wt 78.0 kg
[~2020-10-20 07:06] MED LIST changes: +NS 1,000 ML IV ONE
[2020-10-20] MEDS ORDERED: propofoL 200 MG/20 ML VIAL As Ordered ONE (07:59)
[2020-10-20] MEDS ORDERED: LIDOCAINE 2% 100MG/5ML SDV (FOR ANES.) As Ordered ONE (07:59)
[2020-10-20] MEDS ORDERED: ePHEDrine SULFATE 25 MG/5 ML(5MG/ML) SYRINGE As Ordered ONE (08:33)
[2020-10-20 09:10] VITALS: BP 125/83
== END 2020-10-20 09:41 | disposition home or self-care (01) ==
LOC: M OPP 07:06
PROVIDERS: ATTEND Surgery
DX: D12.6 Benign neoplasm of colon, unspecified (principal); K57.30 Diverticulosis of large intestine without perforation or abscess without bleeding; I10 Essential (primary) hypertension; Z79.899 Other long term (current) drug therapy; Z88.6 Allergy status to analgesic agent

== ENCOUNTER 2020-10-21 06:08 | Inpatient (IN) | payer OTHER ==
[2020-10-21] VITALS (9 sets, daily range): BP systolic 85–131; BP diastolic 53–86
[~2020-10-21] VITALS: Ht 172.7 cm; Wt 79.3 kg
[~2020-10-21 06:08] MED LIST changes: +LIDOCAINE 1% MDV 20ML VIAL SQ PRN; +LR 1,000 ML IV ONE; -NS 1,000 ML IV ONE; +ceFAZolin SOD 2 GM in IV 1 EA IV ONE
[2020-10-21] MEDS ORDERED: GLUCAGON INJ 1MG VIAL As Ordered ONE (07:12)
[2020-10-21] MEDS ORDERED: BUPIVACAINE/EPIN 0.25% 30 ML VIAL As Ordered ONE (07:12)
[2020-10-21] MEDS ORDERED: BUPIVACAINE LIPOSOME/PF 1.3% 20ML VIAL (13.3MG/ML)(EXPAREL)(C9290 PER1MG) As Ordered ONE (07:13)
[2020-10-21] MEDS ORDERED: BUPIVACAINE HCL 0.25% 30ML VIAL As Ordered ONE (07:13)
[2020-10-21] MEDS ORDERED: BUPIVACAINE HCL 0.25% 10ML VIAL As Ordered ONE (07:13)
[2020-10-21] MEDS ORDERED: METOCLOPRAMIDE INJ 10MG/2ML VIAL (J2765 PER 1) As Ordered ONE (07:15)
[2020-10-21] MEDS ORDERED: propofoL 200 MG/20 ML VIAL As Ordered ONE (07:15)
[2020-10-21] MEDS ORDERED: ROCURONIUM BROMIDE 50 MG/5 ML VIAL As Ordered ONE ×3 (07:15→12:41)
[2020-10-21] MEDS ORDERED: LIDOCAINE 2% 100MG/5ML SDV (FOR ANES.) As Ordered ONE (07:15)
[2020-10-21] MEDS ORDERED: ACETAMINOPHEN 1000MG 100ML IV BTL (OFIRMEV) (J0131 PER 10MG) As Ordered ONE (07:15)
[2020-10-21] MEDS ORDERED: ONDANSETRON 4MG/2ML VIAL As Ordered ONE (07:15)
[2020-10-21] MEDS ORDERED: fentaNYL 100 MCG/2 ML INJECTION (J3010) As Ordered ONE (07:16)
[2020-10-21] MEDS ORDERED: MIDAZOLAM INJ 2MG/2ML VIAL (J2250 PER 1MG) As Ordered ONE (07:16)
--- NOTE | 2020-10-21 08:11 | HPE ---
HISTORY AND PHYSICAL DATE OF ADMISSION: 10/21/2020 CHIEF COMPLAINT: Status post perforated diverticulitis, here for reanastomosis. BRIEF HISTORY OF PRESENT ILLNESS: The patient is a 64-year-old male who presented with a bowel obstruction secondary to diverticulitis and underwent sigmoid colectomy and colostomy at the end of May 2020. Since that time he has been doing quite well taking care of his ostomy, having no complaints, no pains, etc. He underwent a colonoscopy which revealed no significant abnormalities except a small polyp which was removed on 10/20/20. He has not had any blood per rectum. No other GI complaints at this time. No nausea and no vomiting. No weight loss. No anemia issues. PAST MEDICAL HISTORY: Significant for a history of testicular cancer (melanoma and lymphoma per patient), history of hypertension, history of testicular surgery, shoulder surgery, history of prostate biopsy, history of sigmoid colectomy. SOCIAL HISTORY: History of smoking. MEDICATIONS: 1. Chlorthalidone. 2. Lisinopril. 3. Testosterone. 4. Ibuprofen p.r.n. PHYSICAL EXAMINATION: A 64-year-old male who looks stated age. HEENT is unremarkable. Lungs are clear anteriorly. Heart: Regular. Abdomen is soft, nontender and nondistended. Ostomy is functioning well. Extremities are warm and well-perfused. IMPRESSION/PLAN: Patient will undergo a laparoscopic sigmoid colostomy reversal. The risks as well as benefits have been discussed extensively with the patient including but not limited to infection, bleeding, damage to surrounding structures as well as anastomotic leak, need for ostomy as well as others. He will undergo the mechanical as well as antibiotic bowel prep and will stay on a clear liquid diet today, NPO after midnight. He will receive IV antibiotics, have TEDs sequentials and Marina placed at the time of the operative intervention. Patient understands the operative intervention and would like to proceed with this as scheduled.
[2020-10-21] MEDS ORDERED: lisinopriL 5 MG TAB PO SCH (09:00)
[2020-10-21] MEDS ORDERED: HYDROmorphone HCL 2 MG/ML 1ML VIAL (J1170) As Ordered ONE (09:19)
[2020-10-21] MEDS ORDERED: ceFAZolin 2 GM/D5W 50 ML IV BAG (J0690 PER 500MG) As Ordered ONE (11:02)
[2020-10-21] MEDS ORDERED: SUGAMMADEX SODIUM 500 MG/5 ML VIAL (BRIDION) As Ordered ONE (12:00)
[2020-10-21] MEDS ORDERED: MORPHINE 2 MG/ML 1ML VIAL (J2270) IV PRN (12:10)
[2020-10-21] MEDS ORDERED: MORPHINE 4 MG/ML 1ML VIAL/SYRINGE (J2270) IV PRN (12:10)
[2020-10-21] MEDS ORDERED: ONDANSETRON 4MG/2ML VIAL IV PRN ×2 (12:10→12:35)
[2020-10-21] MEDS ORDERED: PERCOCET 5MG/325MG TAB PO PRN ×2 (12:10)
[2020-10-21] MEDS ORDERED: HYDROMORPHONE HCL 0.5 MG/ 0.5 ML SYRINGE (J1170 PER 1) IV PRN (12:35)
[2020-10-21] MEDS ORDERED: LR 1,000 ML IV SCH (12:35)
[2020-10-21] MEDS ORDERED: oxyCODONE 5MG TAB PO PRN (12:35)
[2020-10-21] MEDS ORDERED: fentaNYL 100 MCG/2 ML INJECTION (J3010) IV PRN (12:35)
[2020-10-21] MEDS: NS 1,000 ML IV SCH ×2 (13:16→21:10)
[2020-10-21] MEDS: ceFAZolin SOD 1 GM in D5W MINI-BAG PLUS 50 ML IV SCH (15:18)
[2020-10-21] MEDS: PANTOPRAZOLE 40MG VIAL (C9113 PER 1) IV SCH (15:18)
[2020-10-21] MEDS: KETOROLAC 30 MG/ML 1ML VIAL IV SCH ×2 (17:02→21:10)
[2020-10-21] MEDS: ALVIMOPAN 12 MG CAPSULE (ENTEREG) PO SCH (21:09)
[2020-10-21] MEDS ORDERED: NS 1,000 ML IV ONE (22:30)
[2020-10-22] VITALS (8 sets, daily range): BP systolic 90–150; BP diastolic 54–82
[2020-10-22] MEDS: ceFAZolin SOD 1 GM in D5W MINI-BAG PLUS 50 ML IV SCH ×3 (00:03→17:12)
[2020-10-22] MEDS ORDERED: NS 500 ML IV ONE (01:20)
[2020-10-22] MEDS: KETOROLAC 30 MG/ML 1ML VIAL IV SCH ×4 (04:42→21:17)
[2020-10-22 06:46] LABS: HEMATOCRIT 34.6 % (42.0-52.0); HEMOGLOBIN 11.6 g/dl (13.5-17.5); MEAN CORPUSCULAR HEMOGLOBIN 32.7 pg (27.0-33.0); MEAN CORPUSCULAR HGB CONC 33.5 g/dl (32.0-36.5); MEAN CORPUSCULAR VOLUME 97.5 fl (80.0-96.0); PLATELET COUNT, AUTOMATED 195 10^3/uL (150-450); RED BLOOD COUNT 3.55 10^6/uL (4.30-6.10); WHITE BLOOD COUNT 11.8 10^3/uL (4.0-10.0)
[2020-10-22] MEDS: NS 1,000 ML IV SCH ×2 (06:54→14:09)
[2020-10-22 07:03] LABS: BLOOD UREA NITROGEN 14 MG/DL (7-18); CALCIUM LEVEL 7.7 MG/DL (8.8-10.2); CARBON DIOXIDE LEVEL 23 MEQ/L (21-32); CHLORIDE LEVEL 106 MEQ/L (98-107); CREATININE FOR GFR 1.08 MG/DL (0.70-1.30); GLOMERULAR FILTRATION RATE > 60.0 (>49); GLUCOSE, FASTING 98 MG/DL (70-100); POTASSIUM SERUM 3.9 MEQ/L (3.5-5.1); SODIUM LEVEL 133 MEQ/L (136-145)
[2020-10-22] MEDS: IPRATROPIUM 0.5MG/ALBUTEROL 2.5MG INH SOL UD 3ML (DUONEB) NEB SCH ×4 (07:50→20:29)
[2020-10-22] MEDS ORDERED: FLUBLOK(EGG FREE)(QUAD)INFLUENZA VACC 0.5ML SYRINGE 18YRS & OLDER IM ONE (09:00)
--- NOTE | 2020-10-22 09:23 | IPN ---
PROGRESS NOTE DATE: 10/22/2020 SUBJECTIVE: The patient has been doing well overnight although did have some low blood pressures last night and was given a fluid bolus. This morning blood pressure has been stable, doing well. No nausea, no vomiting. Did have a bowel movement this morning and did have difficulty with his Marina overnight. He was urinating around the Marina, thus his Marina was removed this morning and has been urinating without difficulty. He does not complain of significant pain. He is hungry at this time. OBJECTIVE: Abdomen is softly distended, nontender. Dressings are stained with some shadowing of blood but otherwise no active bleeding appreciated. His CESIA is serosanguinous. He has had a significant amount of output overnight. ASSESSMENT/PLAN: The patient is making some progress at this time from GI standpoint and we will start him on clear liquid diet. Will keep the CESIA in place although with the amount of bleeding/serosanguinous drainage from the extensive dissection that we did I will get a follow up H&H later on today. In addition, will keep the IV fluids going given that his blood pressure is still adequate but not significantly elevated or hypotensive at this time. Not tachycardic. Will start a wound VAC to see if we can not close this wound in a little bit quicker prior to discharge.
[2020-10-22] MEDS: ALVIMOPAN 12 MG CAPSULE (ENTEREG) PO SCH ×2 (09:41→21:16)
[2020-10-22] MEDS: PANTOPRAZOLE 40MG VIAL (C9113 PER 1) IV SCH (09:42)
[2020-10-22 13:21] LABS: HEMATOCRIT 34.4 % (42.0-52.0); HEMOGLOBIN 11.5 g/dl (13.5-17.5)
[2020-10-22] MEDS: NICOTINE 21MG/24HR 1 EA TRANSDERMAL TD SCH (22:00)
[2020-10-23] MEDS: ceFAZolin SOD 1 GM in D5W MINI-BAG PLUS 50 ML IV SCH ×4 (00:32→23:59)
[2020-10-23 02:00] VITALS: BP 151/84
[2020-10-23] MEDS: KETOROLAC 30 MG/ML 1ML VIAL IV SCH ×4 (04:39→21:06)
[2020-10-23 06:00] VITALS: BP 164/92
[2020-10-23 06:55] LABS: MEAN CORPUSCULAR HEMOGLOBIN 32.9 pg (27.0-33.0); MEAN CORPUSCULAR HGB CONC 34.4 g/dl (32.0-36.5); MEAN CORPUSCULAR VOLUME 95.8 fl (80.0-96.0); PLATELET COUNT, AUTOMATED 208 10^3/uL (150-450); RED BLOOD COUNT 3.34 10^6/uL (4.30-6.10); WHITE BLOOD COUNT 10.9 10^3/uL (4.0-10.0)
[2020-10-23 07:23] LABS: BLOOD UREA NITROGEN 9 MG/DL (7-18); CALCIUM LEVEL 7.9 MG/DL (8.8-10.2); CARBON DIOXIDE LEVEL 24 MEQ/L (21-32); CHLORIDE LEVEL 106 MEQ/L (98-107); CREATININE FOR GFR 0.78 MG/DL (0.70-1.30); GLOMERULAR FILTRATION RATE > 60.0 (>49); GLUCOSE, FASTING 103 MG/DL (70-100); POTASSIUM SERUM 3.5 MEQ/L (3.5-5.1); SODIUM LEVEL 136 MEQ/L (136-145)
[2020-10-23] MEDS: IPRATROPIUM 0.5MG/ALBUTEROL 2.5MG INH SOL UD 3ML (DUONEB) NEB SCH ×4 (08:05→19:57)
[2020-10-23] MEDS: PANTOPRAZOLE 40MG VIAL (C9113 PER 1) IV SCH (09:03)
[2020-10-23] MEDS: ALVIMOPAN 12 MG CAPSULE (ENTEREG) PO SCH ×2 (09:03→21:06)
[2020-10-23] MEDS: NICOTINE 21MG/24HR 1 EA TRANSDERMAL TD SCH (09:04)
[2020-10-23 10:00] VITALS: BP 143/88
[2020-10-23 14:00] VITALS: BP 147/89
[2020-10-23 18:00] VITALS: BP 149/90
[2020-10-23 22:00] VITALS: BP 141/78
[2020-10-24 02:00] VITALS: BP 150/82
[2020-10-24] MEDS: KETOROLAC 30 MG/ML 1ML VIAL IV SCH ×2 (04:03→10:00)
[2020-10-24 06:00] VITALS: BP 166/92
[2020-10-24 06:51] LABS: HEMATOCRIT 31.5 % (42.0-52.0); HEMOGLOBIN 10.9 g/dl (13.5-17.5); MEAN CORPUSCULAR HEMOGLOBIN 32.8 pg (27.0-33.0); MEAN CORPUSCULAR HGB CONC 34.6 g/dl (32.0-36.5); MEAN CORPUSCULAR VOLUME 94.9 fl (80.0-96.0); PLATELET COUNT, AUTOMATED 237 10^3/uL (150-450); RED BLOOD COUNT 3.32 10^6/uL (4.30-6.10); WHITE BLOOD COUNT 9.4 10^3/uL (4.0-10.0)
[2020-10-24 07:07] LABS: BLOOD UREA NITROGEN 6 MG/DL (7-18); CALCIUM LEVEL 8.7 MG/DL (8.8-10.2); CARBON DIOXIDE LEVEL 26 MEQ/L (21-32); CHLORIDE LEVEL 102 MEQ/L (98-107); CREATININE FOR GFR 0.89 MG/DL (0.70-1.30); GLOMERULAR FILTRATION RATE > 60.0 (>49); GLUCOSE, FASTING 91 MG/DL (70-100); POTASSIUM SERUM 3.5 MEQ/L (3.5-5.1); SODIUM LEVEL 133 MEQ/L (136-145)
[2020-10-24] MEDS: IPRATROPIUM 0.5MG/ALBUTEROL 2.5MG INH SOL UD 3ML (DUONEB) NEB SCH ×2 (07:42→12:00)
[2020-10-24] MEDS: ceFAZolin SOD 1 GM in D5W MINI-BAG PLUS 50 ML IV SCH (08:00)
[2020-10-24] MEDS: NICOTINE 21MG/24HR 1 EA TRANSDERMAL TD SCH (08:42)
[2020-10-24] MEDS: ALVIMOPAN 12 MG CAPSULE (ENTEREG) PO SCH (08:42)
[2020-10-24] MEDS: PANTOPRAZOLE 40MG VIAL (C9113 PER 1) IV SCH (08:49)
[2020-10-24] MEDS ORDERED: PERCOCET PO (09:14)
--- NOTE | 2020-10-24 10:14 | IPN ---
PROGRESS NOTE DATE: 10/23/2020 SUBJECTIVE: Patient is status post laparoscopic colostomy reversal with laparoscopic lysis of adhesions. Overall, seems to be making some excellent progress. Did have a bowel movement yesterday and still has some flatus today. Has had no fevers or chills. Still has had significant amount of Cornelio-Mooney (CESIA) output that has been some bloody drainage, but it has settled down quite a bit from its original amount. His hematocrit did drop a little bit today, but otherwise urine output still seems pretty good at this time. He has been drinking without complaints and started on a regular diet this morning. His wound VAC is in place. His abdomen is softly distended, nontender. No guarding. No rebound and no other significant abnormalities appreciated. IMPRESSION/PLAN: Patient seems to making some slow but progressive improvement. At this time, my recommendations are to continue him on a regular diet, increase activity, plan on probable discharge tomorrow with removal of the drain, as well as the wound VAC, depending on his overall status and hematocrit.
--- NOTE | 2020-10-24 15:34 | DS.PDOC ---
Discharge Summary General Date of Admission Oct 21, 2020 at 06:08 Date of Discharge 10/24/20. Discharge Summary PROCEDURES PERFORMED DURING STAY: Laparoscopic sigmoid colostomy reversal with lysis of adhesions as per Dr. Johnson 10/21/20 ADMITTING DIAGNOSES: History of sigmoid colectomy with colostomy Hypertension History of testicular cancer DISCHARGE DIAGNOSES: History of sigmoid colectomy with colostomy status post Laparoscopic sigmoid colostomy reversal with lysis of adhesions as per Dr. Johnson 10/21/20 Hypertension History of testicular cancer HISTORY OF PRESENT ILLNESS: The patient is a 64-year-old male who initially presented with all obstruction secondary to diverticulitis and underwent sigmoid colectomy and colostomy over 2019. He underwent colonoscopy revealing no significant abnormalities except for a small polyp which was removed 10/20/20. Now status post laparoscopic sigmoid colostomy reversal with lysis of adhesions as per Dr. Johnson 10/21/20. HOSPITAL COURSE: The patient did well postoperatively although he did have some low blood pressures are's evening and was given a fluid bolus. Subsequently blood pressures remained stable. He did have a bowel movement POD 1. Marina catheter was removed POD 1 with no issues with urinating. Pain remained well controlled. The patient was started on clear liquids POD 1 which she tolerated well. A wound VAC was placed over the surgical wound to facilitate faster healing prior to discharge. Patient was started on regular diet 10/23. The patient was reporting flatus. He was ambulating in the hallways. By 10/24/20 the patient was felt stable for discharge. Plan to remove CESIA drain prior to discharge. Discontinue wound VAC with plan to continue wet-to-dry dressing daily at home with follow-up in the office in [address] Johnson. DISCHARGE MEDICATIONS: Please see below. ALLERGIES: Please see below. PHYSICAL EXAMINATION ON DISCHARGE: VITAL SIGNS: Please see below. GENERAL: No acute distress, out of bed in the room. HEENT: MMM CARDIOVASCULAR EXAMINATION: S1-S2 regular rate and rhythm RESPIRATORY EXAMINATION: Clear to auscultation ABDOMINAL EXAMINATION: Soft, nontender, nondistended. CESIA drain with serosanguineous drainage. Wound VAC in place. EXTREMITIES: Well-perfused, no edema LABORATORY DATA: Please see below. ACTIVITY: As tolerated, no heavy lifting DIET: Regular diet DISPOSITION: 01 Home, Self-Care. DISCHARGE INSTRUCTIONS: Discharge home Discontinue wound VAC prior to discharge Discontinue CESIA drain prior to discharge Wet-to-dry dressing over wound left abdomen daily. Change daily. Dry dressing over CESIA drain site. Change daily. Follow-up with Dr. Johnson in 2 weeks DISCHARGE CONDITION: Stable. TIME SPENT ON DISCHARGE: Greater than 30 minutes. Vital Signs/I&Os Vital Signs Date Time Temp Pulse Resp B/P (MAP) Pulse Ox O2 Delivery O2 Flow Rate FiO2 10/24/20 09:40 18 10/24/20 06:00 98.3 73 166/92 (116) 95 Room Air 10/22/20 06:00 2.0 I&O- Last 24 Hours up to 6 AM 10/24/20 06:00 Intake Total 2910 ml Output Total 605 ml Balance 2305 ml Laboratory Data Labs 24H Laboratory Tests 2 10/24/20 06:09: Nucleated Red Blood Cells % (auto) 0.0, Anion Gap 5L, Glomerular Filtration Rate > 60.0, Calcium Level 8.7L CBC/BMP Laboratory Tests 10/24/20 06:09 Discharge Medications Scheduled Lisinopril (Lisinopril) 5 Mg Tablet, 5 MG PO DAILY, (Reported) Testosterone Cypionate (Testosterone Cypionate) 200 Mg/Ml Inj, 300 MG IM ASDIRECTED, (Reported) EVERY 3 WEEKS Scheduled PRN Ibuprofen (Ibu-200) 200 Mg Tablet, 600 MG PO Q6H PRN for PAIN, (Reported) Oxycodone/Acetaminophen (Oxycodone-Acetaminophen 5-325) 1 Each Tablet, 1 TAB PO Q4HP PRN for MILD/MODERATE PAIN (PS 1-7) Allergies Coded Allergies: naproxen (Verified Allergy, Severe, SOB, hives, 10/21/20) Pita Mcknight Oct 24, 2020 15:34
--- NOTE | 2020-10-31 12:25 | RO ---
OPERATIVE NOTE DATE OF OPERATION: 10/21/2020 PREOPERATIVE DIAGNOSIS: History of diverticulitis with obstruction and status post sigmoid colectomy and colostomy. POSTOPERATIVE DIAGNOSIS: PROCEDURES: 1. Laparoscopic lysis of adhesions. 2. Laparoscopic colostomy reversal with coloproctostomy. SURGEON: Dion Johnson Jr, MD WORKFORCE ANALYST: Michael Iniguez MD (assisted with retraction, assistance with colorectal anastomosis and abdominal wall closure) ANESTHESIA: General endotracheal anesthesia. EBL: 200 mL. FLUIDS: Crystalloid. DESCRIPTION OF PROCEDURE: The patient was brought into the operating room, given general anesthesia. After adequate anesthesia and preoperative antibiotics were given, the patient was prepped and draped in usual sterile fashion. The colostomy was closed with running PDS. An incision around the colostomy site was made with electrocautery and using electrocautery as well as blunt dissection and sharp dissection the colostomy was mobilized significantly in this area and eventually I was able to mobilize this adequately off the abdominal wall muscles, off the peritoneum in this area circumferentially. I was able to feel some minimal adhesions which I was able to take down, however, what we found next was significant intraabdominal adhesions, it took us several hours to take down once we placed Yolette catheter at the colostomy site. Once Yolette catheter was placed the abdomen was insufflated and laparoscopically other 5 mm trocars were placed and multiple adhesions were taken down along the anterior abdomen. There was small bowel adherent to the anterior abdomen, pelvic sidewall, the posterior aspect of the bladder, right pelvic sidewall, and essentially the small bowel was adherent to the rectal stump as well. Once this was mobilized after a very prolonged dissection associated with some blunt dissection as well as significant sharp dissection and I felt that this was nicely mobilized and then out of the pelvis so I could perform anastomosis, the rectal stump area could be appreciated. The anvil was placed in the proximal sigmoid colon, 29 EEA anvil out through the staple line after this distal portion of the colostomy/inflamed/thickened sigmoid colon was resected and placed intraabdominal. The anastomosis was created with the EEA stapler and revealed no air leak after placing this under water. Pelvis was copiously irrigated until clear. No active bleeding was appreciated but there was generalized ooze in multiple areas. Several areas I had to denude the peritoneum on the anterior abdomen and in the pelvis because of tightly adherent small bowel. In any case, a 27-Sdiddza-Mqmhb drain was left in the bed of the dissection and brought out through the trocar site. The patient was awakened, extubated and brought to the recovery room awake, alert, hemodynamically stable. Sponge and needle counts correct x2.
== END 2020-10-24 12:25 | disposition home health service (06) | DRG 221 ==
LOC: M OR 06:08 → M MS5PR 14:01
PROVIDERS: ADMIT Surgery; ATTEND Surgery
PROC: 0DN84ZZ Release Small Intestine, Percutaneous Endoscopic Approach (ICD-10-PCS; 2020-10-21)
PROC: 0DBN4ZZ Excision of Sigmoid Colon, Percutaneous Endoscopic Approach (ICD-10-PCS; principal; 2020-10-21 07:30)
DX: Z43.3 Encounter for attention to colostomy (principal); I10 Essential (primary) hypertension; Z85.820 Personal history of malignant melanoma of skin; Z85.47 Personal history of malignant neoplasm of testis; Z85.79 Personal history of other malignant neoplasms of lymphoid, hematopoietic and related tissues; Z87.891 Personal history of nicotine dependence; Z79.899 Other long term (current) drug therapy; Z88.6 Allergy status to analgesic agent

== ENCOUNTER 2020-11-04 12:03 | Inpatient (IN) | payer OTHER ==
[~2020-11-04] VITALS: Ht 175.3 cm; Wt 85.6 kg
[2020-11-04] VITALS (9 sets, daily range): BP systolic 94–105; BP diastolic 61–72
[~2020-11-04 12:03] MED LIST changes: -LIDOCAINE 1% MDV 20ML VIAL SQ PRN; -LR 1,000 ML IV ONE; -ceFAZolin SOD 2 GM in IV 1 EA IV ONE
[2020-11-04] MEDS ORDERED: metroNIDAZOLE 500 MG in IV 1 EA IV ONE (12:20)
[2020-11-04] MEDS ORDERED: PIPERACILLIN/TAZOBACTAM SOD 4.5 GM in D5W MINI-BAG PLUS 50 ML IV ONE (12:25)
[2020-11-04] MEDS ORDERED: NS 2,440 ML in IV 1 EA IV ONE (12:35)
[2020-11-04 12:45] LABS: HEMATOCRIT 36.4 % (42.0-52.0); HEMOGLOBIN 12.1 g/dl (13.5-17.5); MEAN CORPUSCULAR HEMOGLOBIN 32.7 pg (27.0-33.0); MEAN CORPUSCULAR HGB CONC 33.2 g/dl (32.0-36.5); MEAN CORPUSCULAR VOLUME 98.4 fl (80.0-96.0); PLATELET COUNT, AUTOMATED 463 10^3/uL (150-450); WHITE BLOOD COUNT 3.3 10^3/uL (4.0-10.0)
[2020-11-04] MEDS ORDERED: ISOVUE-370 76% 100ML VIAL As Ordered ONE (12:59)
--- NOTE | 2020-11-04 13:14 | REP ---
INDICATION: Abdominal Pain. COMPARISON: 06/09/2020. TECHNIQUE: SINGLE PORTABLE AP VIEW OF THE CHEST WAS PERFORMED. FINDINGS: There is no acute infiltrate. There is slight elevation of the left hemidiaphragm. There is free intraperitoneal air beneath both hemidiaphragms. Cardiac silhouette is upper limits of normal. Mediastinal silhouette appears unremarkable. Dilated small bowel is seen in the left upper quadrant of the abdomen. IMPRESSION: No acute infiltrate. There is free intraperitoneal air beneath both diaphragms. There is dilated small bowel in the left upper quadrant of the abdomen. Critical Findings: There is free intraperitoneal air beneath both diaphragms.. The critical information above was relayed directly by me by telephone to Lorene Duron on 11/04/2020 at 1:09 pm with readback verification. <Electronically signed by Brian Rahman > 11/04/20 [id number]
[2020-11-04] MEDS ORDERED: fentaNYL 100 MCG/2 ML INJECTION (J3010) IV ONE (13:15)
[2020-11-04 13:16] LABS: ALT/SGPT 23 U/L (12-78); BILIRUBIN,DIRECT 0.1 MG/DL (0.0-0.2); BILIRUBIN,TOTAL 0.8 MG/DL (0.2-1.0); LIPASE 64 U/L (73-393); TOTAL PROTEIN 6.1 GM/DL (6.4-8.2)
[2020-11-04 13:32] LABS: ATYPICAL LYMPH 3 % (0-5); BASOPHILS 2 % (0-1); EOSINOPHILS 6 % (0-3); LYMPHOCYTES 24 % (16-44); MONOCYTES 3 % (0-5); NEUTROPHILS 54 % (28-66); PLATELET ESTIMATE INCREASED (NORMAL)
[2020-11-04] MEDS ORDERED: ACETAMINOPHEN 500 MG TAB PO ONE (13:40)
[2020-11-04 14:04] LABS: BLOOD UREA NITROGEN 18 MG/DL (7-18); CALCIUM LEVEL 8.3 MG/DL (8.8-10.2); CARBON DIOXIDE LEVEL 26 MEQ/L (21-32); CHLORIDE LEVEL 99 MEQ/L (98-107); CREATININE FOR GFR 1.27 MG/DL (0.70-1.30); GLOMERULAR FILTRATION RATE > 60.0 (>49); GLUCOSE, FASTING 87 MG/DL (70-100); MAGNESIUM LEVEL 1.5 MG/DL (1.8-2.4); POTASSIUM SERUM 4.8 MEQ/L (3.5-5.1); SODIUM LEVEL 132 MEQ/L (136-145)
--- NOTE | 2020-11-04 14:11 | REP ---
INDICATION: abdominal distention COMPARISON: 06/08/2020. TECHNIQUE: CT Scan of the abdomen and pelvis was performed with intravenous administration of 100 cc of Isovue 370, without oral contrast. Sagittal and coronal reconstruction images are performed. FINDINGS: Lung bases: There are bibasilar atelectatic changes. Liver: Normal Gallbladder: Unremarkable. Spleen: Normal. Adrenals: Normal. Pancreas: Normal. Kidneys: Normal. Small and large bowel: The patient has had prior sigmoid resection since the prior CT, with diverting colostomy which has subsequently been reversed approximately 2 weeks ago. The old colostomy site is seen in the abdominal wall the left lower quadrant. Anastomotic suture line is seen in the sigmoid. Multiple moderately dilated small bowel loops are seen the upper abdomen. Some of these bowel loops appear mildly thickened. There appears to be a transition point in the caliber of the small bowel near the old colostomy site and I suspect at least a partial small-bowel obstruction at that location. Alternatively the dilated small bowel could represent an ileus. More distal loops of ileum are relatively collapsed, as is the colon. Scattered extraluminal air is seen in the central mesentery as well as near the sigmoid anastomosis. Moderate free fluid is seen in the pelvis and there is mild to moderate free fluid in the upper abdomen. There could be perforation of a small bowel loop or, more likely, there may be a leak at the sigmoid anastomosis. Abdominal aorta: No aneurysm or dissection. Adenopathy: None. Appendix: Not inflamed. Osseous structures: There are degenerative changes of the spine. Pelvis: No mass. IMPRESSION: Free air and free fluid diffusely in the abdomen and pelvis. Proximal small bowel is moderately dilated with areas of mild wall thickening. I suspect perforation of either a dilated small bowel loop or more likely there is a perforation at the surgical anastomosis of the sigmoid. Dilated small bowel transitions to collapsed small bowel near the old colostomy site. There may be a partial small bowel obstruction at that point or the findings could be due to small bowel ileus. Critical Findings: Free air and free fluid diffusely in the abdomen and pelvis. The critical information above was relayed directly by me by telephone to Lorene Duron on 11/04/2020 at 1:58 pm with readback verification. <Electronically signed by Brian Rahman > 11/04/20 [id number]
[2020-11-04] MEDS ORDERED: propofoL 200 MG/20 ML VIAL As Ordered ONE (14:40)
[2020-11-04] MEDS ORDERED: ROCURONIUM BROMIDE 50 MG/5 ML VIAL As Ordered ONE ×2 (14:40→17:25)
[2020-11-04] MEDS ORDERED: LIDOCAINE 2% 100MG/5ML SDV (FOR ANES.) As Ordered ONE (14:40)
[2020-11-04] MEDS ORDERED: KETOROLAC 60MG 2ML VIAL As Ordered ONE (14:40)
[2020-11-04] MEDS ORDERED: MIDAZOLAM INJ 2MG/2ML VIAL (J2250 PER 1MG) As Ordered ONE (14:40)
[2020-11-04] MEDS ORDERED: SUGAMMADEX SODIUM 500 MG/5 ML VIAL (BRIDION) As Ordered ONE (14:40)
[2020-11-04] MEDS ORDERED: dexameTHASONE 4 MG/ML 1ML VIAL (J1100 PER 1MG) As Ordered ONE (14:40)
[2020-11-04] MEDS ORDERED: HYDROmorphone HCL 2 MG/ML 1ML VIAL (J1170) As Ordered ONE (14:40)
[2020-11-04] MEDS ORDERED: ACETAMINOPHEN 1000MG 100ML IV BTL (OFIRMEV) (J0131 PER 10MG) As Ordered ONE (14:40)
[2020-11-04] MEDS ORDERED: ONDANSETRON 4MG/2ML VIAL As Ordered ONE (14:40)
[2020-11-04] MEDS ORDERED: fentaNYL 100 MCG/2 ML INJECTION (J3010) As Ordered ONE (14:41)
[2020-11-04] MEDS ORDERED: PHENYLEPHRINE 10MG/ML 1ML VIAL (J2370 PER 1) As Ordered ONE (14:50)
[2020-11-04] MEDS ORDERED: BUPIVACAINE HCL 0.25% 30ML VIAL As Ordered ONE (14:51)
[2020-11-04] MEDS ORDERED: ONDANSETRON 4MG/2ML VIAL IV PRN (15:05)
[2020-11-04 15:08] LABS: RSV AMPLIFICATION NEGATIVE (NEGATIVE)
[2020-11-04] MEDS ORDERED: VASOPRESSIN INJ 20 UNITS/ML VIAL As Ordered ONE (16:43)
[2020-11-04] MEDS ORDERED: ZOSYN 4.5GM VIAL (J2543) As Ordered ONE (19:24)
[2020-11-04] MEDS: PIPERACILLIN/TAZOBACTAM SOD 3.375 GM in D5W MINI-BAG PLUS 50 ML IV SCH (19:30)
[2020-11-04] MEDS ORDERED: LR 1,000 ML IV SCH (20:50)
[2020-11-04] MEDS ORDERED: HYDROMORPHONE HCL 0.5 MG/ 0.5 ML SYRINGE (J1170 PER 1) IV PRN (20:50)
[2020-11-04] MEDS ORDERED: fentaNYL 100 MCG/2 ML INJECTION (J3010) IV PRN (20:50)
[2020-11-04] MEDS ORDERED: PHENYLEPHRINE HCL INJ 50 MG in D5W 495 ML IV SCH (21:10)
[2020-11-04] MEDS ORDERED: EPINEPHrine HCL INJ 1 MG in D5W 240 ML IV SCH (21:24)
[2020-11-04] MEDS ORDERED: NOREPINEPHRINE BITARTRATE 8 MG in D5W 500 ML IV SCH (21:24)
[2020-11-04 21:48] LABS: HEMATOCRIT 33.4 % (42.0-52.0); MEAN CORPUSCULAR HEMOGLOBIN 32.6 pg (27.0-33.0); MEAN CORPUSCULAR HGB CONC 32.9 g/dl (32.0-36.5); MEAN CORPUSCULAR VOLUME 99.1 fl (80.0-96.0); RED BLOOD COUNT 3.37 10^6/uL (4.30-6.10); WHITE BLOOD COUNT 10.5 10^3/uL (4.0-10.0)
[2020-11-04 21:50] LABS: PLATELET COUNT, AUTOMATED 328 10^3/uL (150-450)
[2020-11-04 21:59] LABS: BLOOD UREA NITROGEN 20 MG/DL (7-18); CARBON DIOXIDE LEVEL 24 MEQ/L (21-32); CHLORIDE LEVEL 105 MEQ/L (98-107); CREATININE FOR GFR 1.18 MG/DL (0.70-1.30); GLOMERULAR FILTRATION RATE > 60.0 (>49); GLUCOSE, FASTING 154 MG/DL (70-100); POTASSIUM SERUM 4.6 MEQ/L (3.5-5.1); SODIUM LEVEL 135 MEQ/L (136-145)
[2020-11-04] MEDS: PANTOPRAZOLE 40MG VIAL (C9113 PER 1) IV SCH (22:07)
[2020-11-04] MEDS: MORPHINE 2 MG/ML 1ML VIAL (J2270) IV PRN (22:09)
[2020-11-04] MEDS: NS 1,000 ML IV SCH ×2 (22:09→23:05)
[2020-11-04 22:18] LABS: ANISOCYTOSIS 1+; ATYPICAL LYMPH 3 % (0-5); BASOPHILS 1 % (0-1); LYMPHOCYTES 12 % (16-44); MONOCYTES 7 % (0-5); NEUTROPHILS 62 % (28-66); PLATELET CLUMPS SMALL AMT; PLATELET ESTIMATE NORMAL (NORMAL); POIKILOCYTOSIS 1+
--- NOTE | 2020-11-04 22:22 | ECGEPIP ---
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
[2020-11-04] MEDS: FOLIC ACID 1 MG TAB PO SCH (23:10)
--- NOTE | 2020-11-04 23:11 | HPEPDOC ---
[facility] Medical History & Physical Date of Admission Nov 04, 2020 Date of Service: Nov 04, 2020 Attending Physician: Christ Price History and Physical TIME OF SERVICE: 1005pm CHIEF COMPLAINT: abdominal pain REASON FOR CONSULT: hypotension HISTORY OF PRESENT ILLNESS: This 65 M had reversal of his colostomy on October 21; today he presented w c/o n/v & abdominal pain and was found to have free air in the abdomen and underwent ex lap with lysis of adhesions, drainage of pelvic hematoma & abscess and resection of a portion of the ileium with ileostomy & appendectomy. Post- operatively he was on neosynephrine with a MAP in the mid 60s. At the time of my evaluation the pressor had been weaned off, per d/w nursing staff the pt had produce urine. The pt reported still having a bit of nausea and abdominal pain and was asking about medications for nicotine w/d. REVIEW OF SYSTEMS: 12-point review of systems negative except as listed in HPI PAST MEDICAL/ SURGICAL HISTORY: HTN Hearing loss Diverticulitis w hx of bowel obstruction s/p sigmoid colectomy and colostomy w subsequent reversal Depression Orchiectomy to manage testicular melanoma BPH SOCIAL HISTORY: Smokes, drinks alcohol daily and denies w/d seizures FAMILY HISTORY: n/a ALLERGIES: Please see below. HOME MEDICATIONS: Please see below. PHYSICAL EXAMINATION: Vital Signs Date Time Temp Pulse Resp B/P (MAP) Pulse Ox O2 Delivery O2 Flow Rate FiO2 11/04/20 12:30 96/56 (69) 11/04/20 12:33 83 91 11/04/20 12:38 101.5 40 Room Air 11/04/20 20:35 12 GENERAL APPEARANCE: well nourished / doesnt appear toxic HEENT: NG to LIS CARDIOVASCULAR: RRR/NMRG LUNGS: CTAB on RA ABDOMEN: distended MUSCULOSKELETAL: ROMIx 4 NEUROLOGICAL: CN 2-12 except for hearing intact /speech not dysarthric PSYCHIATRIC: A&Ox 3 / able to understand and follow all commands LABORATORY DATA: 11/04/20 12:34 11/04/20 21:17 IMAGING: Chest xray IMPRESSION: Free air and free fluid diffusely in the abdomen and pelvis. Proximal small bowel is moderately dilated with areas of mild wall thickening. I suspect perforation of either a dilated small bowel loop or more likely there is a perforation at the surgical anastomosis of the sigmoid. Dilated small bowel transitions to collapsed small bowel near the old colostomy site. There may be a partial small bowel obstruction at that point or the findings could be due to small bowel ileus. Critical Findings: Free air and free fluid diffusely in the abdomen and pelvis. The critical information above was relayed directly by me by telephone to Lorene Duron on 11/04/2020 at 1:58 pm with readback verification" CT abd/pelvis MPRESSION: No acute infiltrate. There is free intraperitoneal air beneath both diaphragms.There is dilated small bowel in the left upper quad rant of the abdomen. Critical Findings: There is free intraperitoneal air beneath both diaphragms. The critical information above was relayed directly by me by telephone to Lorene Duron on 11/04/2020 at 1:09 pm with readback verification. MICROBIOLOGY: respiratory panel neg ASSESSMENT: is a 64 yr old w a hx of diverticulitis complicated by obstruction s/p sigmoid colectomy and colostomy w subsequent reversal, HTN and depression who under went surgery this evening; we were consulted to manage his hypotension. PLAN: 1 Anastomosis leak Plan: per Primary team 2 Sepsis 2/2 perforated viscus Off neosynephrine Plan: agree w abx/ will start Levophed if needed 3 Alcohol abuse Plan: CIWA protocol w IV meds 4 Tobacco abuse Plan: nicotine patch / smoking cessation education Thank you for consulting us we will continue to follow the patient with you. Home Medications Scheduled Lisinopril (Lisinopril) 5 Mg Tablet, 5 MG PO DAILY Testosterone Cypionate (Testosterone Cypionate) 200 Mg/Ml Inj, 300 MG IM ASDIRECTED EVERY 3 WEEKS Scheduled PRN Ibuprofen (Ibu-200) 200 Mg Tablet, 600 MG PO Q6H PRN for PAIN Oxycodone/Acetaminophen (Oxycodone-Acetaminophen 5-325) 1 Each Tablet, 1 TAB PO Q4HP PRN for MILD/MODERATE PAIN (PS 1-7) Allergies Coded Allergies: naproxen (Verified Allergy, Severe, SOB, hives, 10/21/20) A-FIB/CHADSVASC A-FIB History Current/History of A-Fib/PAF?: Yes Current PO Anticoag Therapy: Yes NU XAVIER MD Nov 04, 2020 23:11
[2020-11-04] MEDS ORDERED: VANCOMYCIN HCL 1,000 MG, VIAL MATE ADAPTER 1 EACH in NS 250 ML IV ONE (23:30)
[2020-11-05] VITALS (23 sets, daily range): BP systolic 84–121; BP diastolic 58–85
[2020-11-05] MEDS: MORPHINE 2 MG/ML 1ML VIAL (J2270) IV PRN ×4 (00:44→17:06)
[2020-11-05] MEDS ORDERED: LORazepam 2 MG/ML VIAL As Ordered ONE (01:05)
[2020-11-05] MEDS: LORazepam 2 MG/ML VIAL IV PRN (01:08)
[2020-11-05] MEDS: PIPERACILLIN/TAZOBACTAM SOD 3.375 GM in D5W MINI-BAG PLUS 50 ML IV SCH ×4 (01:08→18:12)
[2020-11-05] MEDS: THIAMINE 200MG/2ML VIAL (J3411 PER 100MG) IM SCH ×2 (01:13→08:03)
[2020-11-05] MEDS ORDERED: VANCOMYCIN HCL 1,000 MG, VIAL MATE ADAPTER 1 EACH in NS 250 ML IV SCH (02:00)
[2020-11-05 04:51] LABS: HEMATOCRIT 33.7 % (42.0-52.0); HEMOGLOBIN 11.4 g/dl (13.5-17.5); MEAN CORPUSCULAR HEMOGLOBIN 32.5 pg (27.0-33.0); MEAN CORPUSCULAR HGB CONC 33.8 g/dl (32.0-36.5); PLATELET COUNT, AUTOMATED 346 10^3/uL (150-450); RED BLOOD COUNT 3.51 10^6/uL (4.30-6.10); WHITE BLOOD COUNT 17.7 10^3/uL (4.0-10.0)
[2020-11-05 05:00] LABS: ANISOCYTOSIS 1+; ATYPICAL LYMPH 1 % (0-5); LYMPHOCYTES 7 % (16-44); MONOCYTES 3 % (0-5); NEUTROPHILS 62 % (28-66); PLATELET ESTIMATE MARKED DECREASE (NORMAL); POIKILOCYTOSIS 1+; POLYCHROMASIA 1+
[2020-11-05 05:01] LABS: PLATELET CLUMPS SMALL AMT
[2020-11-05 05:17] LABS: ALBUMIN 1.9 GM/DL (3.2-5.2); ALT/SGPT 36 U/L (12-78); BILIRUBIN,TOTAL 0.5 MG/DL (0.2-1.0); BLOOD UREA NITROGEN 19 MG/DL (7-18); CALCIUM LEVEL 7.1 MG/DL (8.8-10.2); CARBON DIOXIDE LEVEL 27 MEQ/L (21-32); CHLORIDE LEVEL 105 MEQ/L (98-107); GLOMERULAR FILTRATION RATE > 60.0 (>49); GLUCOSE, FASTING 134 MG/DL (70-100); MAGNESIUM LEVEL 1.2 MG/DL (1.8-2.4); POTASSIUM SERUM 4.2 MEQ/L (3.5-5.1); SODIUM LEVEL 136 MEQ/L (136-145); TOTAL PROTEIN 4.4 GM/DL (6.4-8.2)
[2020-11-05] MEDS: MAG SULF 1GM/100ML (MAG RUN) 1 GM in IV 1 EA IV SCH ×3 (06:59→09:03)
[2020-11-05] MEDS: NS 1,000 ML IV SCH ×2 (07:00→17:06)
[2020-11-05] MEDS: NICOTINE 14 MG/24 HR TRANSDERMAL TD SCH (08:02)
[2020-11-05] MEDS: PANTOPRAZOLE 40MG VIAL (C9113 PER 1) IV SCH (08:03)
[2020-11-05] MEDS: FOLIC ACID 1 MG TAB PO SCH (08:03)
[2020-11-05] MEDS: KETOROLAC 30 MG/ML 1ML VIAL IV SCH ×3 (10:00→21:19)
--- NOTE | 2020-11-05 13:14 | IPN ---
PROGRESS NOTE DATE: 11/05/2020 HISTORY: Patient underwent emergency exploratory laparotomy for diffuse peritonitis yesterday afternoon and evening. Pre-op it was felt that this likely represented an anastomotic leak from a colostomy take-down done 2 weeks ago. At surgery he had a large amount of fluid consistent with small-bowel contents throughout the abdomen with markedly dilated loops of bowel, and I believe there was a perforation in the distal small bowel proximal to an obstruction. He underwent a small-bowel resection and an end-ileostomy. He was somewhat hypotensive on presentation and received about 9 liters of fluid yesterday. During surgery yesterday he received some pressors with vasopressin and Farhad-Synephrine. Postoperatively, as he became more alert his blood pressure stabilized without the need for further pressors. His urine output has picked up overnight. Vital signs show that he has been afebrile since surgery. His pulse in the 70s to 80s. Blood pressure most recently is 99/63. Intake and output show that yesterday he has 9500 in with 750 recorded out. Today he has already had 840 mL of urine output and 550 mL of liquid stool from his ileostomy. PHYSICAL EXAMINATION: The patient is alert. He is uncomfortable, as would be expected. His nasogastric (NG) tube is in place and draining some bile. He has a Donell drain in the pelvis from the left, and this has a small amount of pink fluid in the tubing and bulb. His ileostomy on the right side has a large amount of watery brown-green fluid within the bag. He does have some bowel sounds, but his abdomen remains somewhat distended. There is some serosanguineous drainage from his midline incision, which was approximated loosely with saundra. LABORATORY STUDIES: Today, this morning, his white count is 18,000 with a differential showing 62% neutrophils, 27% bands, and 7% lymphocytes. Hemoglobin is 11 with a hematocrit of 34, and the platelet count is 346,000. Chemistry profile shows a normal set of electrolytes with a BUN of 19, creatinine 1, and a glucose of 134. Total protein is 4.4 with an albumin of 1.9. Most recent lactic acid was at 438 in the morning and was 1.8. Microbiology: He had an abscess identified at his surgery as well, and Gram stain shows few gram-negative rods with moderate white cells. IMPRESSION: Patient is doing quite well now, about 12 hours postoperative from his exploratory laparotomy. His urine output has increased, and he has clear yellow urine. His ileostomy has put out a large amount of watery stool. The NG tube is draining some bile. His blood pressure is remaining at an acceptable level without the need for additional pressors. PLAN: Patient will be encouraged to be out of bed with assistance today. I will cut back on his IV fluid given his vigorous hydration yesterday. He will remain on his Zosyn for antibiotic coverage. HOUSTOND
--- NOTE | 2020-11-05 15:03 | IPNPDOC ---
Date Seen The patient was seen on 11/05/20. Progress Note SUBJECTIVE: POD 1 Ex lap BP soft, increased IVFs to 100 cc/hr. Total of 8 L on 11/04/20. With pressures soft, watching closely for worsening s/s of sepsis. Bandemia significant on CBC diff. LA wnl. Remains on 2 L NC. Denies chest pain, SOB, fevers, chills, n/v. OBJECTIVE: PHYSICAL EXAMINATION: Vital Signs: Please see below GENERAL: resting in bed, lethargic but cooperative. Ox3 HEENT: AT/NC, NG to LIS- approx 150 cc dark green fluid in bedside canister, NC in place CARDIOVASCULAR: S1, S2 +, RRR/NMRG LUNGS: CTAB on RA, no W/R/R ABDOMEN: distended, tender to touch. Multiple incisions, appeared clean, nonsuppurative. Ileostomy present, CESIA drain with 75 cc serosanguinous fluid : lima catheter MUSCULOSKELETAL: ROMIx 4, no edema, cycnosis or clubbing NEUROLOGICAL: CN 2-12 except for hearing intact, no focal deficits PSYCHIATRIC: mood and affect appropriate LABORATORY DATA: Please see below MICROBIOLOGY: Abd pelvic fluid GS 11/04: MODERATE WBCS, FEW GRAM NEGATIVE RODS Abd pelvic fluid Cx 11/04: pending BCx x 2 sets 11/04: NG at 24H Abd wound GS 11/04: NO CELLS SEEN, NO ORGANISMS SEEN Abd wound Cx 11/04: pending Resp panel: neg IMAGING: CXR: Free air and free fluid diffusely in the abdomen and pelvis. Proximal small bowel is moderately dilated with areas of mild wall thickening. I suspect perforation of either a dilated small bowel loop or more likely there is a perforation at the surgical anastomosis of the sigmoid. Dilated small bowel transitions to collapsed small bowel near the old colostomy site. There may be a partial small bowel obstruction at that point or the findings could be due to small bowel ileus. Critical Findings: Free air and free fluid diffusely in the abdomen and pelvis. The critical information above was relayed directly by me by telephone to Lorene Duron on 11/04/2020 at 1:58 pm with readback verification" CT abd/pelvis: No acute infiltrate. There is free intraperitoneal air beneath both diaphragms.There is dilated small bowel in the left upper quadrant of the abdomen. Critical Findings: There is free intraperitoneal air beneath both diaphragms. The critical information above was relayed directly by me by teleph one to Lorene Duron on 11/04/2020 at 1:09 pm with readback verification. ASSESSMENT: is a 64 yr old w a hx of diverticulitis complicated by obstruction s/p sigmoid colectomy and colostomy w subsequent reversal, HTN and depression admitted for diffuse peritonitis likely 2/2 to anastomotic leak from a colostomy take-down 10/21/20. PLAN: Diffuse peritonitis likely 2/2 to anastomotic leak from laparoscopic lysis of adhesions, laparoscopic colostomy reversal with coloproctostomy done 10/21/20, sepsis -POD 1 exploratory laparotomy, small-bowel resection and an end-ileostomy -WBC 17K, afebrile, LA wnl -Off neosynephrine, vasopressin since last evening, + 8 L fluid -Hypotensive but maintaining MAP >65 mmHg. If drops, start pressors again -Increased IVFs to 100 cc/hr, monitoring closely, NG tube in place to IS -Significant bandemia on diff, surgery would like to keep on Zosyn only -F/u lactic acid daily, monitor on tele -Surgery primary Hypotension possibly 2/2 to post-anesthesia hypotension vs. septic shock -Hx of HTN -Adequately fluid resuscitated with 8 L+ on 11/04/20 -Currently BP's still soft, increased IVFs -MAP maintaining just above 65 mmHg currently -C/w treatment above -If drops consider starting levophed again and broadening abx. Will need central access if this is restarted Hypomagnesemia, acute -Mag run -F/u AM labs Alcohol abuse -No s/s of withdrawl -CIWA protocol with IV meds Tobacco abuse -nicotine patch GI px -PPI DVT px -teds, scd VS, I&O, 24H, Fishbone Vital Signs/I&O Vital Signs Date Time Temp Pulse Resp B/P (MAP) Pulse Ox O2 Delivery O2 Flow Rate FiO2 11/05/20 14:03 98.0 78 16 84/58 94 Nasal Cannula 2.0 I&O- Last 24 Hours up to 6 AM 11/05/20 06:00 Intake Total 96504 ml Output Total 1440 ml Balance 8570 ml Laboratory Data 24H LABS Laboratory Tests 2 11/04/20 21:17: Neutrophils (%) (Auto) , Nucleated Red Blood Cells % (auto) 0.0, Neutrophils 62, Band Neutrophils 15H, Lymphocytes (Manual) 12L, Monocytes (Manual) 7H, Basophils (Manual) 1, Atypical Lymphocytes 3, Poikilocytosis 1+, Anisocytosis 1+, Macrocytosis 1+, Platelet Estimate NORMAL, Clumped Platelets SMALL AMT, Anion Gap 6L, Glomerular Filtration Rate > 60.0, Lactic Acid Followup at 4 Hours 2.3*H, Calcium Level 7.0#L 11/05/20 04:31: Neutrophils (%) (Auto) , Nucleated Red Blood Cells % (auto) 0.0, Neutrophils 62, Band Neutrophils 27H, Lymphocytes (Manual) 7L, Monocytes (Manual) 3, Atypical Lymphocytes 1, Poikilocytosis 1+, Anisocytosis 1+, Platelet Estimate MARKED DECREASE, Clumped Platelets SMALL AMT, Anion Gap 4L, Glomerular Filtration Rate > 60.0, Calcium Level 7.1L, Polychromasia 1+, Magnesium Level 1.2L, Total Bilirubin 0.5, Aspartate Amino Transf (AST/SGOT) 43H, Alanine Aminotransferase (ALT/SGPT) 36, Alkaline Phosphatase 41L, Total Protein 4.4#L, Albumin 1.9#L, Al bumin/Globulin Ratio 0.8 11/05/20 04:38: Lactic Acid Level 1.8 11/05/20 10:41: Magnesium Level 2.0 CBC/BMP Laboratory Tests 11/04/20 21:17 11/05/20 04:31 Microbiology Microbiology 11/04/20 Blood Culture, Received Pending 11/04/20 Gram Stain - Final, Resulted 11/04/20 Wound Culture, Resulted Pending 11/04/20 Anaerobic Culture, Resulted Pending 11/04/20 Gram Stain - Final, Resulted 11/04/20 Wound Culture, Resulted Pending 11/04/20 Urine Culture - Final, Complete 11/04/20 Blood Culture - Preliminary, Resulted No growth after 24 hours . All specim... 11/04/20 Blood Culture - Preliminary, Resulted No growth after 24 hours . All specim... Current Medications Current Medications Medications (Trade) Dose Ordered Sig/Sreedhar Route PRN Reason Start Time Stop Time Status Last Admin Dose Admin Epinephrine HCl 1 mg/Dextrose 250 ml @ 122.4 mls/ hr Q2H3M IV 11/04/20 21:24 Cancel Fentanyl Citrate (Sublimaze) 25 mcg Q5MP PRN IV PAIN LEVEL 5-10 11/04/20 20:50 11/04/20 21:49 DC Folic Acid (Folic Acid) 1 mg DAILY PO 11/04/20 23:10 11/05/20 08:03 Hydromorphone HCl (Dilaudid) 0.5 mg Q5MP PRN IV PAIN LEVEL 4-7 11/04/20 20:50 11/04/20 21:49 DC Ketorolac Tromethamine (ToRADol) 15 mg Q6H IV 11/05/20 10:00 11/10/20 09:59 11/05/20 10:00 Lactated Ringer's 1,000 ml @ 100 mls/hr Q10H IV 11/04/20 20:50 11/04/20 21:49 DC Lorazepam (Ativan) 2 mg Q2HP PRN IV AGITATION 11/04/20 23:10 11/05/20 01:08 Magnesium Sulfate/ Dextrose 1 gm/IV Miscellaneous Supplies 100 ml @ 100 mls/hr 0600,0700,0800 IV 11/05/20 06:00 11/05/20 12:00 DC 11/05/20 09:03 Morphine Sulfate (Morphine Sulfate Inj) 2 mg Q1H PRN IV SEVERE PAIN (PS 8-10) 11/04/20 15:05 11/05/20 13:53 Nicotine (Nicoderm Cq 14mg) 1 patch DAILY TD 11/05/20 09:00 11/05/20 08:02 Norepinephrine Bitartrate 8 mg/ Dextrose 508 ml @ 15.24 mls/ hr Q24H IV 11/04/20 21:24 Cancel Ondansetron HCl (ZOFRAN INJection) 4 mg Q6HP PRN IV NAUSEA OR VOMITING 11/04/20 15:05 Pantoprazole Sodium (Protonix) 40 mg DAILY IV 11/04/20 09:00 11/05/20 08:03 Phenylephrine HCl 50 mg/Dextrose 500 ml @ 1 mls/hr Q24H IV 11/04/20 21:10 11/05/20 09:45 DC 11/04/20 22:09 Piperacillin Sod/ Tazobactam Sod 3.375 gm/Dextrose 50 ml @ 50 mls/hr Q6H IV 11/04/20 19:00 11/05/20 12:37 Sodium Chloride 1,000 ml @ 100 mls/hr Q10H IV 11/04/20 15:05 11/05/20 07:00 Thiamine HCl (VITAMIN B1 INJection) 100 mg DAILY IM 11/04/20 23:10 11/05/20 01:13 Vancomycin HCl 1000 mg/IV Miscellaneous Supplies 1 each/ Sodium Chloride 270 ml @ 270 mls/hr Q8H IV 11/05/20 02:00 11/05/20 09:45 DC 11/05/20 03:07 Allergies Coded Allergies: naproxen (Verified Allergy, Severe, SOB, hives, 10/21/20) Tammie Griffith MD Nov 05, 2020 15:03
[2020-11-05] MEDS ORDERED: diphenhydrAMINE 50MG/ML VIAL (J1200) IV ONE (22:35)
[2020-11-06] VITALS (12 sets, daily range): BP systolic 110–154; BP diastolic 71–99
[2020-11-06] MEDS: PIPERACILLIN/TAZOBACTAM SOD 3.375 GM in D5W MINI-BAG PLUS 50 ML IV SCH ×2 (01:03→07:18)
[2020-11-06] MEDS ORDERED: LORazepam 2 MG/ML VIAL As Ordered ONE (01:06)
[2020-11-06] MEDS: LORazepam 2 MG/ML VIAL IV PRN (01:08)
[2020-11-06] MEDS: KETOROLAC 30 MG/ML 1ML VIAL IV SCH ×4 (04:24→22:48)
[2020-11-06] MEDS: NS 1,000 ML IV SCH (04:25)
[2020-11-06 05:17] LABS: HEMATOCRIT 30.3 % (42.0-52.0); HEMOGLOBIN 10.4 g/dl (13.5-17.5); MEAN CORPUSCULAR HGB CONC 34.3 g/dl (32.0-36.5); MEAN CORPUSCULAR VOLUME 96.2 fl (80.0-96.0); PLATELET COUNT, AUTOMATED 358 10^3/uL (150-450); RED BLOOD COUNT 3.15 10^6/uL (4.30-6.10); WHITE BLOOD COUNT 19.8 10^3/uL (4.0-10.0)
[2020-11-06 05:34] LABS: ANISOCYTOSIS 1+; ATYPICAL LYMPH 1 % (0-5); EOSINOPHILS 2 % (0-3); LYMPHOCYTES 7 % (16-44); MONOCYTES 6 % (0-5); MYELOCYTES 2 % (0-0); NEUTROPHILS 68 % (28-66); PLATELET ESTIMATE NORMAL (NORMAL); POLYCHROMASIA 1+
[2020-11-06 05:36] LABS: ALBUMIN 1.8 GM/DL (3.2-5.2); ALT/SGPT 25 U/L (12-78); BILIRUBIN,TOTAL 0.3 MG/DL (0.2-1.0); BLOOD UREA NITROGEN 21 MG/DL (7-18); CALCIUM LEVEL 7.5 MG/DL (8.8-10.2); CARBON DIOXIDE LEVEL 26 MEQ/L (21-32); CHLORIDE LEVEL 106 MEQ/L (98-107); CREATININE FOR GFR 0.79 MG/DL (0.70-1.30); GLOMERULAR FILTRATION RATE > 60.0 (>49); GLUCOSE, FASTING 69 MG/DL (70-100); POTASSIUM SERUM 3.7 MEQ/L (3.5-5.1); SODIUM LEVEL 138 MEQ/L (136-145); TOTAL PROTEIN 4.4 GM/DL (6.4-8.2)
[2020-11-06 05:37] LABS: POIKILOCYTOSIS 1+
[2020-11-06] MEDS ORDERED: GLUCOSE 4GM CHEW TABLET PO PRN (07:05)
[2020-11-06] MEDS ORDERED: GLUCAGON INJ 1MG VIAL SC PRN (07:05)
[2020-11-06] MEDS ORDERED: DEXTROSE 50% 50 ML SYRINGE IV PRN (07:05)
[2020-11-06] MEDS: D5W/0.9% SODIUM CHLORIDE 1,000 ML IV SCH ×2 (08:17→17:37)
[2020-11-06] MEDS: NICOTINE 14 MG/24 HR TRANSDERMAL TD SCH (09:11)
[2020-11-06] MEDS: FOLIC ACID 1 MG TAB PO SCH (09:11)
[2020-11-06] MEDS: PANTOPRAZOLE 40MG VIAL (C9113 PER 1) IV SCH (09:11)
[2020-11-06] MEDS: THIAMINE 200MG/2ML VIAL (J3411 PER 100MG) IV SCH (09:58)
[2020-11-06] MEDS: MORPHINE 2 MG/ML 1ML VIAL (J2270) IV PRN ×2 (09:59→17:36)
[2020-11-06] MEDS: MEROPENEM INJ 2 GM in NS 100 ML IV SCH ×2 (10:27→18:02)
--- NOTE | 2020-11-06 11:29 | IPNPDOC ---
Date Seen The patient was seen on 11/06/20. Progress Note SUBJECTIVE: POD 2 Ex lap. BS low in 60's, started D5NSS at 100 cc/hr. WBC incr but bandemia improving. Remains on 2 L NC. Denies chest pain, SOB, fevers, chills, n/v. OBJECTIVE: PHYSICAL EXAMINATION: Vital Signs: Please see below GENERAL: AAOx3, NAD sitting up in bedside chair HEENT: AT/NC, NG to LIS, NC in place CARDIOVASCULAR: S1, S2 +, RRR/NMRG LUNGS: CTAB on RA, no W/R/R ABDOMEN: distended, hypoactive BS in 4 quad. Multiple incisions, appeared clean, nonsuppurative. Ileostomy present, CESIA drain with minimal serosanguinous fluid. Stoma has small area on it which is slightly blackened : Deferred MUSCULOSKELETAL: ROMIx 4, no edema, cyanosis or clubbing NEUROLOGICAL: CN 2-12 except for hearing intact, no focal deficits PSYCHIATRIC: mood and affect appropriate LABORATORY DATA: Please see below MICROBIOLOGY: Abd pelvic fluid GS 11/04: MODERATE WBCS, FEW GRAM NEGATIVE RODS Abd pelvic fluid Cx 11/04: Morganella BCx x 2 sets 11/04: NG at 24H Abd wound GS 11/04: NO CELLS SEEN, NO ORGANISMS SEEN Abd wound Cx 11/04: Pseudomonas Resp panel: neg IMAGING: CXR: Free air and free fluid diffusely in the abdomen and pelvis. Proximal small bowel is moderately dilated with areas of mild wall thickening. I suspect perforation of either a dilated small bowel loop or more likely there is a perforation at the surgical anastomosis of the sigmoid. Dilated small bowel transitions to collapsed small bowel near the old colostomy site. There may be a partial small bowel obstruction at that point or the findings could be due to small bowel ileus. Critical Findings: Free air and free fluid diffusely in the abdomen and pelvis. The critical information above was relayed directly by me by telephone to Lorene Duron on 11/04/2020 at 1:58 pm with readback verification" CT abd/pelvis: No acute infiltrate. There is free intraperitoneal air beneath both diaphragms.There is dilated small bowel in the left upper quadrant of the abdomen. Critical Findings: There is free intraperitoneal air beneath both diaphragms. The critical information above was relayed directly by me by telephone to Lorene Duron on 11/04/2020 at 1:09 pm with readback verification. ASSESSMENT: is a 64 yr old w a hx of diverticulitis complicated by obstruction s/p sigmoid colectomy and colostomy w subsequent reversal, HTN and depression admitted for diffuse peritonitis likely 2/2 to anastomotic leak from a colostomy take-down 10/21/20. PLAN: Diffuse peritonitis likely 2/2 to anastomotic leak from laparoscopic lysis of adhesions, laparoscopic colostomy reversal with coloproctostomy done 10/21/20, resolved sepsis -POD 2 exploratory laparotomy, small-bowel resection and an end-ileostomy -WBC 19.8K, bandemia improving -Afebrile, BP improved -Micro above, + for Pseudomonas and Morganella, see sensitivities -F/u daily labs -Started on meropenem today, c/w pain control, IS -Surgery primary Hypoglycemia likely 2/2 to decreased PO intake -BS 61-74 -Currently NPO -Started on D5 NSS at 100 cc/hr -Monitor BS closely Hypotension possibly 2/2 to post-anesthesia hypotension vs. septic shock- resolved -Hx of HTN -BP much improved, remains on fluid 100 cc/hr Hypomagnesemia, acute- resolved -Mag run 11/05/20 -last mag 2.0 Alcohol abuse -No s/s of withdrawl -CIWA protocol with IV meds Tobacco abuse -nicotine patch GI px -PPI DVT px -teds, scd TOTAL AMOUNT OF ICU TIME SPENT CARING FOR PATIENT (nonprocedural): 30 mins VS, I&O, 24H, Fishbone Vital Signs/I&O Vital Signs Date Time Temp Pulse Resp B/P (MAP) Pulse Ox O2 Delivery O2 Flow Rate FiO2 11/06/20 10:09 99.7 77 16 139/79 95 Nasal Cannula 1.0 I&O- Last 24 Hours up to 6 AM 11/06/20 06:00 Intake Total 3155 ml Output Total 2880 ml Balance 275 ml Laboratory Data 24H LABS Laboratory Tests 2 11/05/20 18:27: Bedside Glucose (Misc Panel) 88 11/06/20 01:43: Bedside Glucose (Misc Panel) 74L 11/06/20 04:50: Neutrophils (%) (Auto) , Nucleated Red Blood Cells % (auto) 0.0, Neutrophils 68H, Band Neutrophils 14H, Lymphocytes (Manual) 7L, Monocytes (Manual) 6H, Eosinophils (Manual) 2, Myelocytes 2H, Atypical Lymphocytes 1, Polychromasia 1+, Poikilocytosis 1+, Anisocytosis 1+, Platelet Estimate NORMAL, Anion Gap 6L, Glomerular Filtration Rate > 60.0, Calcium Level 7.5L, Total Bilirubin 0.3, Aspartate Amino Transf (AST/SGOT) 22, Alanine Aminotransferase (ALT/SGPT) 25, Alkaline Phosphatase 44L, Total Protein 4.4L, Albumin 1.8L, Albumin/Globulin Ratio 0.7 11/06/20 07:00: Bedside Glucose (Misc Panel) 63L 11/06/20 08:04: Bedside Glucose (Misc Panel) 61L CBC/BMP Laboratory Tests 11/06/20 04:50 Microbiology Microbiology 11/04/20 Blood Culture - Preliminary, Resulted No growth after 24 hours . All specim... 11/04/20 Gram Stain - Final, Resulted 11/04/20 Wound Culture - Preliminary, Resulted Morganella Morganii Ssp Abraham 11/04/20 Anaerobic Culture, Resulted Pending 11/04/20 Gram Stain - Final, Complete 11/04/20 Wound Culture - Final, Complete Pseudomonas Aeruginosa 11/04/20 Urine Culture - Final, Complete 11/04/20 Blood Culture - Preliminary, Resulted No growth after 24 hours . All specim... 11/04/20 Blood Culture - Preliminary, Resulted No growth after 24 hours . All specim... Current Medications Current Medications Medications (Trade) Dose Ordered Sig/Sreedhar Route PRN Reason Start Time Stop Time Status Last Admin Dose Admin Dextrose (Dextrose 50%) 25 ml ASDIRECTED PRN IV SEE LABEL COMMENTS 11/06/20 07:05 Dextrose/Sodium Chloride 1,000 ml @ 100 mls/hr Q10H IV 11/06/20 08:05 11/06/20 08:17 Epinephrine HCl 1 mg/Dextrose 250 ml @ 122.4 mls/ hr Q2H3M IV 11/04/20 21:24 Cancel Fentanyl Citrate (Sublimaze) 25 mcg Q5MP PRN IV PAIN LEVEL 5-10 11/04/20 20:50 11/04/20 21:49 DC Folic Acid (Folic Acid) 1 mg DAILY PO 11/04/20 23:10 11/06/20 09:11 Glucagon (Glucagon) 1 mg ASDIRECTED PRN SC SEE LABEL COMMENTS 11/06/20 07:05 Glucose (Glucose) 16 GM ASDIRECTED PRN PO SEE LABEL COMMENTS 11/06/20 07:05 Hydromorphone HCl (Dilaudid) 0.5 mg Q5MP PRN IV PAIN LEVEL 4-7 11/04/20 20:50 11/04/20 21:49 DC Ketorolac Tromethamine (ToRADol) 15 mg Q6H IV 11/05/20 10:00 11/10/20 09:59 11/06/20 09:12 Lactated Ringer's 1,000 ml @ 100 mls/hr Q10H IV 11/04/20 20:50 11/04/20 21:49 DC Lorazepam (Ativan) 2 mg Q2HP PRN IV AGITATION 11/04/20 23:10 11/06/20 01:08 Magnesium Sulfate/ Dextrose 1 gm/IV Miscellaneous Supplies 100 ml @ 100 mls/hr 0600,0700,0800 IV 11/05/20 06:00 11/05/20 12:00 DC 11/05/20 09:03 Meropenem 2 gm/ Sodium Chloride 100 ml @ 200 mls/hr Q8H IV 11/06/20 10:00 11/06/20 10:27 Morphine Sulfate (Morphine Sulfate Inj) 2 mg Q1H PRN IV SEVERE PAIN (PS 8-10) 11/04/20 15:05 11/06/20 09:59 Nicotine (Nicoderm Cq 14mg) 1 patch DAILY TD 11/05/20 09:00 11/06/20 09:11 Norepinephrine Bitartrate 8 mg/ Dextrose 508 ml @ 15.24 mls/ hr Q24H IV 11/04/20 21:24 Cancel Ondansetron HCl (ZOFRAN INJection) 4 mg Q6HP PRN IV NAUSEA OR VOMITING 11/04/20 15:05 Pantoprazole Sodium (Protonix) 40 mg DAILY IV 11/04/20 09:00 11/06/20 09:11 Phenylephrine HCl 50 mg/Dextrose 500 ml @ 1 mls/hr Q24H IV 11/04/20 21:10 11/05/20 09:45 DC 11/04/20 22:09 Piperacillin Sod/ Tazobactam Sod 3.375 gm/Dextrose 50 ml @ 50 mls/hr Q6H IV 11/04/20 19:00 11/06/20 08:07 DC 11/06/20 07:18 Sodium Chloride 1,000 ml @ 100 mls/hr Q10H IV 11/04/20 15:05 11/06/20 08:03 DC 11/06/20 04:25 Thiamine HCl (VITAMIN B1 INJection) 100 mg DAILY IM 11/04/20 23:10 11/06/20 09:03 DC 11/05/20 01:13 Thiamine HCl (VITAMIN B1 INJection) 100 mg DAILY IV 11/06/20 09:00 11/06/20 09:58 Vancomycin HCl 1000 mg/IV Miscellaneous Supplies 1 each/ Sodium Chloride 270 ml @ 270 mls/hr Q8H IV 11/05/20 02:00 11/05/20 09:45 DC 11/05/20 03:07 Allergies Coded Allergies: naproxen (Verified Allergy, Severe, SOB, hives, 10/21/20) Tammie Griffith MD Nov 06, 2020 11:29
--- NOTE | 2020-11-06 16:56 | IPN ---
PROGRESS NOTE DATE: 11/06/2020 HISTORY: The patient is now postop day #2 from an exploratory laparotomy for a small-bowel obstruction with perforation and diffuse peritonitis. He has stabilized somewhat with his blood pressure looking better and a good pulse in the 70s. He has been up out of bed. He is on a very small amount of oxygen by nasal cannula. He has had adequate urine output. He is asking for food. Vital signs show that he has been afebrile over the past 24 hours. He has been up to 99.7 earlier this morning, but that is his highest. His pulse is in the mid to upper 70s and low 80s and his blood pressure is good. Pulse oximetry on 1 liters of nasal canula oxygen is in the mid to upper 90s. Intake and output shows that yesterday he had 3100 in with 3200 out. He had 1200 of urine output, 1200 of stool from his ileostomy and 650 from his NG tube. His drain in the left side of the abdomen, which enters the pelvis drained 175 yesterday with only 20 so far today. PHYSICAL EXAMINATION: The patient is sitting up in a chair at the bedside looking quite comfortable. He has a family member visiting. Sclerae anicteric. Skin is warm and dry. Heart examination shows a regular rate and rhythm at about 75 to 80. The lungs appear clear to auscultation. The abdomen is somewhat distended. He has a few somewhat tinkly bowel sounds. The ileostomy on the right side looks good. His old colostomy site on the left is dressed as is his midline. LABORATORY STUDIES: Today show a white count of 20, hemoglobin 10, hematocrit 30 and a platelet count of 358,000. Differential count shows 68% neutrophils, 14% bands, 7% lymphocytes, 6% monocytes. Chemistry profile shows normal electrolytes with a BUN of 21, creatinine 0.8 and glucose of 69. Total protein is 4.4 with an albumin of 1.8. Culture results: He had a culture apparently of his open colostomy site wound which grew pseudomonas. His intraabdominal culture from the pelvic abscess grew Morganella morganii. Dr. Griffith changed his antibiotics to meropenem, as she thought this would be better coverage. IMPRESSION: The patient is actually doing quite well now just two days out from his surgery. He appears more comfortable then I would have expected. He has had a good output from his new ileostomy, but his belly remains distended with only some tingly bowel sounds. The NG tube is not putting out a lot, but he is putting out some bilious fluid. The drain in the pelvis appears to be drying up somewhat.. PLAN: I explained to the patient that his intestinal tract is not yet ready for food and we will have to continue his NG tube and await feeding, which may be several days yet before he can take anything oral. I will see about getting a PICC line placed tomorrow to consider total parenteral nutrition (TPN) given his worsening malnutrition. He will remain on the meropenem for antibiotic coverage. He appears stable enough to be moved to a medical surgical floor today and I will make this happen. ASHKAN
[2020-11-07] MEDS: MEROPENEM INJ 2 GM in NS 100 ML IV SCH (01:38)
[2020-11-07] MEDS: MORPHINE 2 MG/ML 1ML VIAL (J2270) IV PRN ×5 (01:39→23:21)
[2020-11-07 02:00] VITALS: BP 151/86
[2020-11-07] MEDS: D5W/0.9% SODIUM CHLORIDE 1,000 ML IV SCH ×2 (04:57→14:49)
[2020-11-07] MEDS: KETOROLAC 30 MG/ML 1ML VIAL IV SCH ×4 (04:58→21:58)
[2020-11-07 06:00] VITALS: BP 162/90
[2020-11-07 06:11] LABS: BASO # 0.1 10^3/uL (0.0-0.2); BASO % 0.3 % (0.0-1.0); EOS # 0.6 10^3/uL (0.0-0.5); EOS % 2.8 % (0.0-3.0); HEMATOCRIT 32.1 % (42.0-52.0); HEMOGLOBIN 10.7 g/dl (13.5-17.5); LYMPH # 0.8 10^3/uL (1.5-5.0); LYMPH % 3.7 % (24.0-44.0); MEAN CORPUSCULAR HEMOGLOBIN 31.8 pg (27.0-33.0); MEAN CORPUSCULAR HGB CONC 33.3 g/dl (32.0-36.5); MEAN CORPUSCULAR VOLUME 95.5 fl (80.0-96.0); MONO # 0.9 10^3/uL (0.0-0.8); NEUTROPHILS # 19.5 10^3/uL (1.5-8.5); NEUTROPHILS % 86.8 % (36.0-66.0); PLATELET COUNT, AUTOMATED 428 10^3/uL (150-450); RED BLOOD COUNT 3.36 10^6/uL (4.30-6.10); WHITE BLOOD COUNT 22.5 10^3/uL (4.0-10.0)
[2020-11-07 06:35] LABS: ALBUMIN 1.9 GM/DL (3.2-5.2); ALT/SGPT 20 U/L (12-78); BILIRUBIN,TOTAL 0.4 MG/DL (0.2-1.0); BLOOD UREA NITROGEN 19 MG/DL (7-18); CALCIUM LEVEL 8.2 MG/DL (8.8-10.2); CARBON DIOXIDE LEVEL 23 MEQ/L (21-32); CHLORIDE LEVEL 106 MEQ/L (98-107); CREATININE FOR GFR 0.73 MG/DL (0.70-1.30); GLOMERULAR FILTRATION RATE > 60.0 (>49); GLUCOSE, FASTING 97 MG/DL (70-100); POTASSIUM SERUM 3.3 MEQ/L (3.5-5.1); SODIUM LEVEL 136 MEQ/L (136-145)
[2020-11-07] MEDS: PANTOPRAZOLE 40MG VIAL (C9113 PER 1) IV SCH (09:03)
[2020-11-07] MEDS: THIAMINE 200MG/2ML VIAL (J3411 PER 100MG) IV SCH (09:03)
[2020-11-07] MEDS: FOLIC ACID 1 MG TAB PO SCH (09:03)
[2020-11-07] MEDS: NICOTINE 14 MG/24 HR TRANSDERMAL TD SCH (09:03)
[2020-11-07] MEDS: KCL 10MEQ/100ML SWI (KRUN) 10 MEQ in IV 1 EA IV SCH ×4 (09:54→16:08)
[2020-11-07] MEDS: MEROPENEM INJ 1 GM in IV 1 EA IV SCH ×2 (09:54→18:52)
[2020-11-07 10:00] VITALS: BP 152/94
[2020-11-07] MEDS ORDERED: LIDOCAINE 1% MDV 20ML VIAL As Ordered ONE (12:34)
--- NOTE | 2020-11-07 12:39 | IPNPDOC ---
Text Note Date of Service The patient was seen on 11/07/20. NOTE General Surgery Dr Price. The patient is a 64-year-old male with small bowel obstruction and perforation, diffuse peritonitis POD3 exploratory laparotomy with lysis of adhesions, drainage of pelvic hematoma and abscess resection with ileostomy and appendectomy as per Dr. Price. NPO/NG tube in place. Plan is for PICC line today so that TPN can be initiated. The patient is sitting on the side of the bed this morning. Reports pain is controlled. Denies nausea or vomiting. NG tube 1145 mL output yesterday. CESIA drain 35 mL. 475 ml stool. Afebrile, VSS. Lungs with good air entry, clear to auscultation. S1 and S2 regular rate and rhythm. Abdomen. Soft, mild tenderness around surgical sites, surgical dressings C/D/I, with no drainage. CESIA drain with small amount of serosanguineous drainage. Ostomy pink with liquid stool. Extremities no edema. WBC 22.5, slightly increased compared with yesterday. Hemoglobin 10.7, stable. Total protein 6.0, albumin 1.9, ratio 0.5. Assessment/plan POD3 exploratory laparotomy with lysis of adhesions, drainage of pelvic hematoma and abscess resection with ileostomy and appendectomy as per Dr. Price. Afebrile. WBC noted to be 22.5. This is slightly increased compared with yesterday. Continue NPO/NGT. CESIA drain in place. IV meropenem. IVF 100 mL per hour. Plan for PICC line today so that TPN can be initiated. VS,Fishbone, I+O VS, Fishbone, I+O Laboratory Tests 11/07/20 05:33 Vital Signs Date Time Temp Pulse Resp B/P (MAP) Pulse Ox O2 Delivery O2 Flow Rate FiO2 11/07/20 10:00 97.0 72 18 152/94 (113) 95 Room Air 11/06/20 14:00 1.0 I&O- Last 24 Hours up to 6 AM 11/07/20 06:00 Intake Total 2565 ml Output Total 2650 ml Balance -85 ml Attending Note Attending Note Agree with note. Will start TPN when picc in place. LLQ drain with little out. Will continue and if little out by tomorrow will DC. Discussed management of NG with patient. Patient requested morning cup of coffee for tomorrow. Will let him have coffee for comfort but will leave NG to LIS. Pita Mcknight Nov 07, 2020 12:39 Christ Price Nov 08, 2020 22:52
[2020-11-07 14:00] VITALS: BP 136/56
--- NOTE | 2020-11-07 15:18 | REP ---
PROCEDURE NAME: PICC LINE INSERTION W/SITERITE CLINICAL INFORMATION: dual lumen picc for TPN/antibiotics. COMPARISON: None. PROCEDURE DESCRIPTION: The procedure was performed by ZACARIAS Maxwell, under the direct supervision of Dr. West. The risks and benefits of the procedure were explained to the patient and an informed consent was obtained both verbally and written. Directly prior to the start of the procedure a formal time-out was completed in the procedure room. The right lateral brachial vein was localized using ultrasound guidance. The skin was prepped and draped in sterile fashion. Four mL of 1% lidocaine 10 mg/mL was used as a local anesthetic. Using ultrasound guidance the right lateral brachial vein was cannulated, and a 0.018 guidewire was inserted and advanced to the level of SVC using fluoroscopic guidance. The needle was removed and a 5.5 Ukrainian dilator and peel-away sheath was inserted over the guidewire. A 5.5 Ukrainian dual lumen catheter was cut to a length of 35 cm. The dilator was removed and the catheter was inserted over the guidewire with the tip ending at the level of the SVC. The peel-away sheath was removed and the catheter was flushed with heparinized saline as per hospital protocol. The catheter was affixed to the skin and a sterile dressing was applied. The patient tolerated the procedure well and there were no immediate complications. CONCLUSION: PICC line insertion into the right lateral brachial vein. 0.1 minutes of fluoroscopy time was utilized for this procedure. Some fluoroscopic images are performed with last image hold technology. These images require no additional radiation. <Electronically signed by Aaliyah Espinosa > 11/07/20 1505 <Electronically signed by Sergio West > 11/07/20 1510
--- NOTE | 2020-11-07 15:58 | IPNPDOC ---
Date Seen The patient was seen on 11/07/20. Progress Note SUBJECTIVE: POD 3. BS 90-100 on D5NSS at 100 cc/hr. WBC incr to 22.5. On RA. Denies chest pain, SOB, fevers, chills, n/v but still complaining of abd distention, "tightness" and pain on palpation. OBJECTIVE: PHYSICAL EXAMINATION: Vital Signs: Please see below GENERAL: AAOx3, NAD sitting up in bedside chair HEENT: AT/NC, NG to LIS CARDIOVASCULAR: S1, S2 +, RRR/NMRG LUNGS: CTAB on RA, no W/R/R ABDOMEN: distended, hypoactive BS in 4 quad, tender to palpation of abd, multiple incisions, appeared clean, nonsuppurative. Ileostomy present, CESIA drain with minimal serosanguinous fluid. Stoma appears healthy : Deferred MUSCULOSKELETAL: ROMIx 4, no edema, cyanosis or clubbing NEUROLOGICAL: CN 2-12 except for hearing intact, no focal deficits PSYCHIATRIC: mood and affect appropriate LABORATORY DATA: Please see below MICROBIOLOGY: Abd pelvic fluid GS 11/04: MODERATE WBCS, FEW GRAM NEGATIVE RODS Abd pelvic fluid Cx 11/04: Morganella. Enterococcus avium (pending sensitivities) BCx x 2 sets 11/04: NG at 24H Abd wound GS 11/04: NO CELLS SEEN, NO ORGANISMS SEEN Abd wound Cx 11/04: Pseudomonas Resp panel: neg IMAGING: CXR: Free air and free fluid diffusely in the abdomen and pelvis. Proximal small bowel is moderately dilated with areas of mild wall thickening. I suspect perforation of either a dilated small bowel loop or more likely there is a perforation at the surgical anastomosis of the sigmoid. Dilated small bowel transitions to collapsed small bowel near the old colostomy site. There may be a partial small bowel obstruction at that point or the findings could be due to small bowel ileus. Critical Findings: Free air and free fluid diffusely in the abdomen and pelvis. The critical information above was relayed directly by me by telephone to Lorene Duron on 11/04/2020 at 1:58 pm with readback verification" CT abd/pelvis: No acute infiltrate. There is free intraperitoneal air beneath both diaphragms.There is dilated small bowel in the left upper quadrant of the abdomen. Critical Findings: There is free intraperitoneal air beneath both diaphragms. The critical information above was relayed directly by me by telephone to Lorene Valdiviaaney on 11/04/2020 at 1:09 pm with readback verification. ASSESSMENT: is a 64 yr old w a hx of diverticulitis complicated by obstruction s/p sigmoid colectomy and colostomy w subsequent reversal, HTN and depression admitted for diffuse peritonitis likely 2/2 to anastomotic leak from a colostomy take-down 10/21/20. PLAN: Diffuse peritonitis likely 2/2 to anastomotic leak from laparoscopic lysis of adhesions, laparoscopic colostomy reversal with coloproctostomy done 10/21/20 -POD 3 exploratory laparotomy with lysis of adhesions, drainage of pelvic hematoma and abscess resection with ileostomy and appendectomy. -WBC incr to 22.5, afebrile, abdominal pain persists -Micro above, + for Pseudomonas, Morganella and enterococcus avium, see sensitivities- awaiting for those associated with enterococcus -Repeating blood cultures today due to incr leukocytosis, f/u results -TPN to start today -C/w meropenem , pain control, IS -Daily CBC -Surgery primary Hypoglycemia likely 2/2 to decreased PO intake -BS 90-100 -Currently NPO -C/w D5 NSS at 100 cc/hr -Monitor BS closely Acute hypokalemia -K 3.3, replaced with IV KCL 40mEq -F/u AM labs Alcohol abuse -No s/s of withdrawl -CIWA protocol with IV meds HTN -Stable Depression -Stable Tobacco abuse -nicotine patch GI px -PPI DVT px -teds, scd Resolved issues: Hypotension possibly 2/2 to post-anesthesia hypotension vs. septic shock Hypomagnesemia, acute VS, I&O, 24H, Fishbone Vital Signs/I&O Vital Signs Date Time Temp Pulse Resp B/P (MAP) Pulse Ox O2 Delivery O2 Flow Rate FiO2 11/07/20 13:35 73 18 95 Room Air 11/07/20 12:08 98.2 11/07/20 10:00 152/94 (113) 11/06/20 14:00 1.0 I&O- Last 24 Hours up to 6 AM 11/07/20 05:59 Intake Total 2615 ml Output Total 2375 ml Balance 240 ml Laboratory Data 24H LABS Laboratory Tests 2 11/06/20 18:21: Bedside Glucose (Misc Panel) 83 11/07/20 00:04: Bedside Glucose (Misc Panel) 93 11/07/20 05:33: Immature Granulocyte % (Auto) 2.4, Neutrophils (%) (Auto) 86.8H, Lymphocytes (%) (Auto) 3.7L, Monocytes (%) (Auto) 4.0, Eosinophils (%) (Auto) 2.8, Basophils (%) (Auto) 0.3, Neutrophils # (Auto) 19.5H, Lymphocytes # (Auto) 0.8L, Monocytes # (Auto) 0.9H, Eosinophils # (Auto) 0.6H, Basophils # (Auto) 0.1, Nucleated Red Blood Cells % (auto) 0.0, Anion Gap 7L, Glomerular Filtration Rate > 60.0, Calcium Level 8.2L, Total Bilirubin 0.4, Aspartate Amino Transf (AST/SGOT) 16, Alanine Aminotransferase (ALT/SGPT) 20, Alkaline Phosphatase 68, Total Protein 6.0#L, Albumin 1.9L, Albumin/Globulin Ratio 0.5 11/07/20 05:51: Bedside Glucose (Misc Panel) 93 11/07/20 11:50: Bedside Glucose (Misc Panel) 100 CBC/BMP Laboratory Tests 11/07/20 05:33 Microbiology Microbiology 11/04/20 Blood Culture - Preliminary, Resulted No Growth after 48 hours. All Specime... 11/04/20 Gram Stain - Final, Resulted 11/04/20 Wound Culture - Final, Resulted Morganella Morganii Ssp Abraham Enterococcus Avium 11/04/20 Anaerobic Culture, Resulted Pending 11/04/20 Gram Stain - Final, Complete 11/04/20 Wound Culture - Final, Complete Pseudomonas Aeruginosa 11/04/20 Urine Culture - Final, Complete 11/04/20 Blood Culture - Preliminary, Resulted No Growth after 72 hours. All specime... 11/04/20 Blood Culture - Preliminary, Resulted Current Medications Current Medications Medications (Trade) Dose Ordered Sig/Sreedhar Route PRN Reason Start Time Stop Time Status Last Admin Dose Admin Amino Ac/Electrol/ Dextrose/Calcium 2,000 ml @ 60 mls/hr ONCE@1800 IV 11/07/20 18:00 11/08/20 17:59 Dextrose (Dextrose 50%) 25 ml ASDIRECTED PRN IV SEE LABEL COMMENTS 11/06/20 07:05 Dextrose/Sodium Chloride 1,000 ml @ 100 mls/hr Q10H IV 11/06/20 08:05 11/07/20 14:49 Epinephrine HCl 1 mg/Dextrose 250 ml @ 122.4 mls/ hr Q2H3M IV 11/04/20 21:24 Cancel Fat Emulsion Intravenous 500 ml @ 20 mls/hr ONCE@1800 IV 11/07/20 18:00 11/08/20 17:59 Fentanyl Citrate (Sublimaze) 25 mcg Q5MP PRN IV PAIN LEVEL 5-10 11/04/20 20:50 11/04/20 21:49 DC Folic Acid (Folic Acid) 1 mg DAILY PO 11/04/20 23:10 11/07/20 09:03 Glucagon (Glucagon) 1 mg ASDIRECTED PRN SC SEE LABEL COMMENTS 11/06/20 07:05 Glucose (Glucose) 16 GM ASDIRECTED PRN PO SEE LABEL COMMENTS 11/06/20 07:05 Heparin Sodium (Heparin (Flush)) 200 units ASDIRECTED PRN IV SEE LABEL COMMENTS 11/07/20 14:50 Heparin Sodium (Heparin (Flush)) 200 units PICC IV 11/07/20 18:00 Hydromorphone HCl (Dilaudid) 0.5 mg Q5MP PRN IV PAIN LEVEL 4-7 11/04/20 20:50 11/04/20 21:49 DC Insulin Human Lispro (HumaLOG INSULIN) See Protocol Table Q6H SC 11/07/20 18:00 11/08/20 12:01 Ketorolac Tromethamine (ToRADol) 15 mg Q6H IV 11/05/20 10:00 11/10/20 09:59 11/07/20 15:03 Lactated Ringer's 1,000 ml @ 100 mls/hr Q10H IV 11/04/20 20:50 11/04/20 21:49 DC Lorazepam (Ativan) 2 mg Q2HP PRN IV AGITATION 11/04/20 23:10 11/06/20 01:08 Magnesium Sulfate/ Dextrose 1 gm/IV Miscellaneous Supplies 100 ml @ 100 mls/hr 0600,0700,0800 IV 11/05/20 06:00 11/05/20 12:00 DC 11/05/20 09:03 Meropenem 1 gm/IV Miscellaneous Supplies 50 ml @ 100 mls/hr Q8H IV 11/07/20 10:00 11/07/20 09:54 Meropenem 2 gm/ Sodium Chloride 100 ml @ 200 mls/hr Q8H IV 11/06/20 10:00 11/07/20 09:01 DC 11/07/20 01:38 Morphine Sulfate (Morphine Sulfate Inj) 2 mg Q1H PRN IV SEVERE PAIN (PS 8-10) 11/04/20 15:05 11/07/20 06:02 Nicotine (Nicoderm Cq 14mg) 1 patch DAILY TD 11/05/20 09:00 11/07/20 09:03 Norepinephrine Bitartrate 8 mg/ Dextrose 508 ml @ 15.24 mls/ hr Q24H IV 11/04/20 21:24 Cancel Ondansetron HCl (ZOFRAN INJection) 4 mg Q6HP PRN IV NAUSEA OR VOMITING 11/04/20 15:05 Pantoprazole Sodium (Protonix) 40 mg DAILY IV 11/04/20 09:00 11/07/20 09:03 Phenylephrine HCl 50 mg/Dextrose 500 ml @ 1 mls/hr Q24H IV 11/04/20 21:10 11/05/20 09:45 DC 11/04/20 22:09 Piperacillin Sod/ Tazobactam Sod 3.375 gm/Dextrose 50 ml @ 50 mls/hr Q6H IV 11/04/20 19:00 11/06/20 08:07 DC 11/06/20 07:18 Potassium Chloride 10 meq/ IV Miscellaneous Supplies 100 ml @ 100 mls/hr Q1H IV 11/07/20 09:00 11/07/20 12:59 DC 11/07/20 14:49 Sodium Chloride 1,000 ml @ 100 mls/hr Q10H IV 11/04/20 15:05 11/06/20 08:03 DC 11/06/20 04:25 Sodium Chloride (Saline Lock Flush) 10 ml ASDIRECTED PRN IV SEE LABEL COMMENTS 11/07/20 14:50 Sodium Chloride (Saline Lock Flush) 10 ml PICC IV 11/07/20 18:00 Thiamine HCl (VITAMIN B1 INJection) 100 mg DAILY IM 11/04/20 23:10 11/06/20 09:03 DC 11/05/20 01:13 Thiamine HCl (VITAMIN B1 INJection) 100 mg DAILY IV 11/06/20 09:00 11/07/20 09:03 Vancomycin HCl 1000 mg/IV Miscellaneous Supplies 1 each/ Sodium Chloride 270 ml @ 270 mls/hr Q8H IV 11/05/20 02:00 11/05/20 09:45 DC 11/05/20 03:07 Allergies Coded Allergies: naproxen (Verified Allergy, Severe, SOB, hives, 10/21/20) Tammie Griffith MD Nov 07, 2020 15:58
[2020-11-07] MEDS ORDERED: KCL 10MEQ/100ML SWI (KRUN) 10 MEQ in IV 1 EA IV SCH (16:10)
[2020-11-07] MEDS ORDERED: AMINO AC/ELECTROLYTE/DEX/CALC 2,000 ML IV SCH (18:00)
[2020-11-07] MEDS ORDERED: FAT EMULSION IV 20% 500 ML IV SCH (18:00)
[2020-11-07] MEDS: SODIUM CHLORIDE 0.9% INJ 10 ML SYR IV SCH (18:00)
[2020-11-07] MEDS: HumaLOG INSULIN (NovoLOG) PER UNIT SC SCH (18:00)
[2020-11-07 22:00] VITALS: BP 158/96
[2020-11-08] MEDS: HumaLOG INSULIN (NovoLOG) PER UNIT SC SCH ×4 (00:44→18:19)
[2020-11-08 02:00] VITALS: BP 151/77
[2020-11-08] MEDS: MORPHINE 2 MG/ML 1ML VIAL (J2270) IV PRN ×8 (02:09→22:59)
[2020-11-08] MEDS: MEROPENEM INJ 1 GM in IV 1 EA IV SCH ×3 (02:10→18:20)
[2020-11-08] MEDS: KETOROLAC 30 MG/ML 1ML VIAL IV SCH ×4 (03:59→21:11)
[2020-11-08] MEDS: SODIUM CHLORIDE 0.9% INJ 10 ML SYR IV SCH ×2 (05:51→18:00)
[2020-11-08 06:00] VITALS: BP 169/96
[2020-11-08 06:43] LABS: BASO # 0.1 10^3/uL (0.0-0.2); BASO % 0.4 % (0.0-1.0); EOS % 6.3 % (0.0-3.0); HEMATOCRIT 30.9 % (42.0-52.0); HEMOGLOBIN 10.3 g/dl (13.5-17.5); LYMPH # 0.9 10^3/uL (1.5-5.0); LYMPH % 5.4 % (24.0-44.0); MEAN CORPUSCULAR HEMOGLOBIN 31.8 pg (27.0-33.0); MEAN CORPUSCULAR HGB CONC 33.3 g/dl (32.0-36.5); MEAN CORPUSCULAR VOLUME 95.4 fl (80.0-96.0); MONO # 1.1 10^3/uL (0.0-0.8); MONO % 6.9 % (2.0-8.0); NEUTROPHILS # 12.9 10^3/uL (1.5-8.5); NEUTROPHILS % 80.3 % (36.0-66.0); PLATELET COUNT, AUTOMATED 425 10^3/uL (150-450); RED BLOOD COUNT 3.24 10^6/uL (4.30-6.10); WHITE BLOOD COUNT 16.1 10^3/uL (4.0-10.0)
[2020-11-08 07:09] LABS: ALBUMIN 1.9 GM/DL (3.2-5.2); ALT/SGPT 17 U/L (12-78); BILIRUBIN,TOTAL 0.2 MG/DL (0.2-1.0); BLOOD UREA NITROGEN 13 MG/DL (7-18); CARBON DIOXIDE LEVEL 28 MEQ/L (21-32); CHLORIDE LEVEL 103 MEQ/L (98-107); CREATININE FOR GFR 0.64 MG/DL (0.70-1.30); GLOMERULAR FILTRATION RATE > 60.0 (>49); GLUCOSE, FASTING 120 MG/DL (70-100); POTASSIUM SERUM 3.2 MEQ/L (3.5-5.1); SODIUM LEVEL 136 MEQ/L (136-145); TOTAL PROTEIN 5.6 GM/DL (6.4-8.2)
[2020-11-08] MEDS: FOLIC ACID 1 MG TAB PO SCH (09:31)
[2020-11-08] MEDS: THIAMINE 200MG/2ML VIAL (J3411 PER 100MG) IV SCH (09:31)
[2020-11-08] MEDS: PANTOPRAZOLE 40MG VIAL (C9113 PER 1) IV SCH (09:31)
[2020-11-08] MEDS: NICOTINE 14 MG/24 HR TRANSDERMAL TD SCH (09:36)
--- NOTE | 2020-11-08 09:51 | IPNPDOC ---
Text Note Date of Service The patient was seen on 11/08/20. NOTE General Surgery Dr Price. The patient is a 64-year-old male with small bowel obstruction and perforation, diffuse peritonitis POD4 exploratory laparotomy with lysis of adhesions, drainage of pelvic hematoma and abscess resection with ileostomy and appendectomy as per Dr. Price. NPO/NG tube in place. S/P PICC, TPN started. The patient is OOB to chair Reports pain is controlled. Reports pain around abdominal incision area mid abdomen. Denies nausea or vomiting. NG tube 350 mL output yesterday. CESIA drain 10 mL. 700 ml stool. Afebrile, VSS. Lungs with good air entry, clear to auscultation. S1 and S2 regular rate and rhythm. Abdomen. Soft, mild tenderness around surgical sites, surgical dressings C/D/I, with no drainage. CESIA drain with small amount of serosanguineous drainage. Ostomy pink with liquid stool. Extremities no edema. WBC 16.1, decreased. Hemoglobin 10.3, stable. Assessment/plan POD4 exploratory laparotomy with lysis of adhesions, drainage of pelvic hematoma and abscess resection with ileostomy and appendectomy as per Dr. Price. Afebrile. WBC noted to be 16, decreased compared with yesterday. Continue NPO/NGT. CESIA drain in place. IV meropenem. IVF 100 mL per hour. S/P PICC, TPN. VS,Fishbone, I+O VS, Fishbone, I+O Laboratory Tests 11/08/20 06:10 Vital Signs Date Time Temp Pulse Resp B/P (MAP) Pulse Ox O2 Delivery O2 Flow Rate FiO2 11/08/20 08:13 18 Room Air 11/08/20 06:00 97.3 66 169/96 (120) 92 11/06/20 14:00 1.0 I&O- Last 24 Hours up to 6 AM 11/08/20 05:59 Intake Total 2965 ml Output Total 2560 ml Balance 405 ml Attending Note Attending Note Agree with above note. overall doing well. Will DC LLQ drain. Abd remains somewhat full/firm but somewhat improved. Not clear if bowel function fully returned. WBC down from yesterday. Abdominal Xray shows air filled SB loops in left mid abd. Will continue TPN and get SB xray in am to determine readiness for NG removal. Pita Mcknight Nov 08, 2020 09:50 Christ Price Nov 08, 2020 23:00
[2020-11-08 10:00] VITALS: BP 173/92
[2020-11-08] MEDS: KCL 10MEQ/100ML SWI (KRUN) 10 MEQ in IV 1 EA IV SCH ×5 (10:51→16:56)
[2020-11-08] MEDS ORDERED: FUROSEMIDE 40MG/4ML VIAL (J1940) IV ONE (11:00)
[2020-11-08 14:00] VITALS: BP 172/88
[2020-11-08] MEDS: BACITRACIN OINTMENT 30GM TUBE TOP SCH (15:55)
[2020-11-08] MEDS ORDERED: KCL 10MEQ/100ML SWI (KRUN) 10 MEQ in IV 1 EA IV SCH (16:55)
[2020-11-08 18:00] VITALS: BP 158/97
[2020-11-08] MEDS ORDERED: FAT EMULSION IV 20% 500 ML IV SCH (18:00)
[2020-11-08] MEDS ORDERED: AMINO AC/ELECTROLYTE/DEX/CALC 2,000 ML IV SCH (18:00)
--- NOTE | 2020-11-08 18:01 | REP ---
INDICATION: evaluate for ileus vs SBO. COMPARISON: Comparison chest x-ray November 04, 2020.. TECHNIQUE: Abdominal series: Four views including upright chest radiograph. FINDINGS: Upright chest radiograph shows no evidence of free subdiaphragmatic air or or infiltrate. There is slight blunting of the pleural angles bilaterally indicating small bilateral effusions. A right-sided PICC line is seen terminating in the superior vena cava. NG tube enters the gastric fundus. Supine and erect views the abdomen show a right lower quadrant enterostomy ring, midline laparotomy saundra, and a central pelvic surgical drain. There are dilated loops of air-filled small bowel in the left mid abdomen displaying air-fluid levels on the upright radiograph consistent with small bowel obstruction versus localized ileus. These dilated loops are a little less prominent than at the time of the CT study from the November 04, 2020. IMPRESSION: No evidence of free air. Postoperative changes. Persistent although improved dilated air and fluid-filled small bowel loops in the central abdomen.. <Electronically signed by Sergio West > 11/08/20 [id number]
--- NOTE | 2020-11-08 19:37 | IPNPDOC ---
Date Seen The patient was seen on 11/08/20. Progress Note SUBJECTIVE: POD 4. BS and WBC slightly improved. TPN running. Denies chest pain, SOB, fevers, chills, n/v. No events overnight. OBJECTIVE: PHYSICAL EXAMINATION: Vital Signs: Please see below GENERAL: AAOx3, NAD sitting up in bedside chair HEENT: AT/NC, NG to LIS CARDIOVASCULAR: S1, S2 +, RRR/NMRG LUNGS: CTAB on RA, no W/R/R ABDOMEN: distended, hypoactive BS in 4 quad, tender to palpation of abd, multiple incisions, appeared clean, nonsuppurative. Ileostomy present, CESIA drain with minimal serosanguinous fluid. Stoma appears healthy : Deferred MUSCULOSKELETAL: ROMIx 4, no edema, cyanosis or clubbing NEUROLOGICAL: CN 2-12 except for hearing intact, no focal deficits PSYCHIATRIC: mood and affect appropriate LABORATORY DATA: Please see below MICROBIOLOGY: Abd pelvic fluid GS 11/04: MODERATE WBCS, FEW GRAM NEGATIVE RODS Abd pelvic fluid Cx 11/04: Morganella. Enterococcus avium (pending sensitivities) BCx x 2 sets 11/04: NG at 24H Abd wound GS 11/04: NO CELLS SEEN, NO ORGANISMS SEEN Abd wound Cx 11/04: Pseudomonas Resp panel: neg IMAGING: CXR: Free air and free fluid diffusely in the abdomen and pelvis. Proximal small bowel is moderately dilated with areas of mild wall thickening. I suspect perforation of either a dilated small bowel loop or more likely there is a perforation at the surgical anastomosis of the sigmoid. Dilated small bowel transitions to collapsed small bowel near the old colostomy site. There may be a partial small bowel obstruction at that point or the findings could be due to small bowel ileus. Critical Findings: Free air and free fluid diffusely in the abdomen and pelvis. The critical information above was relayed directly by me by telephone to Lorene Duron on 11/04/2020 at 1:58 pm with readback verification" CT abd/pelvis: No acute infiltrate. There is free intraperitoneal air beneath both diaphragms.There is dilated small bowel in the left upper quadrant of the abdomen. Critical Findings: There is free intraperitoneal air beneath both diaphragms. The critical information above was relayed directly by me by telephone to Lorene Duron on 11/04/2020 at 1:09 pm with readback verification. ASSESSMENT: is a 64 yr old w a hx of diverticulitis complicated by obstruction s/p sigmoid colectomy and colostomy w subsequent reversal, HTN and depression admitted for diffuse peritonitis likely 2/2 to anastomotic leak from a colostomy take-down 10/21/20. PLAN: Diffuse peritonitis likely 2/2 to anastomotic leak from laparoscopic lysis of adhesions, laparoscopic colostomy reversal with coloproctostomy done 10/21/20 -POD 4 exploratory laparotomy with lysis of adhesions, drainage of pelvic hematoma and abscess resection with ileostomy and appendectomy. -WBC improved to 16K, afebrile, abdominal pain slightly improved -Micro: + for Pseudomonas, Morganella and enterococcus avium, see sensitivities- awaiting for those associated with enterococcus -Repeat BCx NG -C/w meropenem , pain control, IS, TPN -Daily CBC -Surgery primary HTN -Systolic BP 170's, +2 pitting edema in the lower ext -Not able to take PO meds -Giving 40 mg IV lasix today, f/u u/o, fluid status -Give another dose lasix 11/09/20 , can start daily Hypoglycemia likely 2/2 to decreased PO intake -BS improving with TPN -Currently NPO -Monitor BS closely Acute hypokalemia -Kcl 40 meq today -F/u AM labs Alcohol abuse -No s/s of withdrawl -CIWA protocol cancelled today Depression -Stable Tobacco abuse -nicotine patch GI px -PPI DVT px -teds, scd Resolved issues: Hypotension possibly 2/2 to post-anesthesia hypotension vs. septic shock Hypomagnesemia, acute VS, I&O, 24H, Fishbone Vital Signs/I&O Vital Signs Date Time Temp Pulse Resp B/P (MAP) Pulse Ox O2 Delivery O2 Flow Rate FiO2 11/08/20 18:00 97.9 71 16 158/97 (117) 97 Room Air 11/06/20 14:00 1.0 I&O- Last 24 Hours up to 6 AM 11/08/20 06:00 Intake Total 2990 ml Output Total 2435 ml Balance 555 ml Laboratory Data 24H LABS Laboratory Tests 2 11/08/20 00:24: Bedside Glucose (Misc Panel) 134H 11/08/20 05:49: Bedside Glucose (Misc Panel) 123H 11/08/20 06:10: Immature Granulocyte % (Auto) 0.7, Neutrophils (%) (Auto) 80.3H, Lymphocytes (%) (Auto) 5.4L, Monocytes (%) (Auto) 6.9, Eosinophils (%) (Auto) 6.3H, Basophils (%) (Auto) 0.4, Neutrophils # (Auto) 12.9H, Lymphocytes # (Auto) 0.9L, Monocytes # (Auto) 1.1H, Eosinophils # (Auto) 1.0H, Basophils # (Auto) 0.1, Nucleated Red Blood Cells % (auto) 0.0, Anion Gap 5L, Glomerular Filtration Rate > 60.0, Calcium Level 8.0L, Total Bilirubin 0.2, Aspartate Amino Transf (AST/SGOT) 11, Alanine Aminotransferase (ALT/SGPT) 17, Alkaline Phosphatase 58, Total Protein 5.6L, Albumin 1.9L, Albumin/Globulin Ratio 0.5 11/08/20 11:20: Bedside Glucose (Misc Panel) 115 11/08/20 18:02: Bedside Glucose (Misc Panel) 110 CBC/BMP Laboratory Tests 11/08/20 06:10 Microbiology Microbiology 11/07/20 Blood Culture - Preliminary, Resulted No growth after 24 hours . All specim... 11/07/20 Blood Culture - Preliminary, Resulted No growth after 24 hours . All specim... 11/04/20 Blood Culture - Preliminary, Resulted No Growth after 72 hours. All specime... 11/04/20 Gram Stain - Final, Resulted 11/04/20 Wound Culture - Final, Resulted Morganella Morganii Ssp Abraham Enterococcus Avium 11/04/20 Anaerobic Culture, Resulted Pending 11/04/20 Gram Stain - Final, Complete 11/04/20 Wound Culture - Final, Complete Pseudomonas Aeruginosa 11/04/20 Urine Culture - Final, Complete 11/04/20 Blood Culture - Preliminary, Resulted No Growth after 72 hours. All specime... 11/04/20 Blood Culture - Preliminary, Resulted Tammie Griffith MD Nov 08, 2020 19:36
[2020-11-08 22:00] VITALS: BP 152/93
[2020-11-08] MEDS ORDERED: POLYVINYL ALCOHOL OPHTH SOLN 15 ML(LIQUITEARS) OU PRN (23:10)
[2020-11-09] MEDS: MORPHINE 2 MG/ML 1ML VIAL (J2270) IV PRN ×5 (00:42→22:31)
[2020-11-09] MEDS: HumaLOG INSULIN (NovoLOG) PER UNIT SC SCH ×4 (00:42→17:18)
[2020-11-09 02:00] VITALS: BP 137/73
[2020-11-09] MEDS: MEROPENEM INJ 1 GM in IV 1 EA IV SCH ×3 (02:31→18:20)
[2020-11-09] MEDS: KETOROLAC 30 MG/ML 1ML VIAL IV SCH ×3 (05:07→16:20)
[2020-11-09] MEDS: SODIUM CHLORIDE 0.9% INJ 10 ML SYR IV SCH ×2 (05:08→18:20)
[2020-11-09 06:00] VITALS: BP 152/76
[2020-11-09 06:27] LABS: BASO # 0.1 10^3/uL (0.0-0.2); BASO % 0.5 % (0.0-1.0); EOS # 1.4 10^3/uL (0.0-0.5); EOS % 10.3 % (0.0-3.0); HEMATOCRIT 35.1 % (42.0-52.0); HEMOGLOBIN 11.9 g/dl (13.5-17.5); LYMPH # 1.1 10^3/uL (1.5-5.0); LYMPH % 8.2 % (24.0-44.0); MEAN CORPUSCULAR HEMOGLOBIN 31.8 pg (27.0-33.0); MEAN CORPUSCULAR HGB CONC 33.9 g/dl (32.0-36.5); MEAN CORPUSCULAR VOLUME 93.9 fl (80.0-96.0); MONO # 1.4 10^3/uL (0.0-0.8); NEUTROPHILS % 68.3 % (36.0-66.0); PLATELET COUNT, AUTOMATED 497 10^3/uL (150-450); RED BLOOD COUNT 3.74 10^6/uL (4.30-6.10); WHITE BLOOD COUNT 13.1 10^3/uL (4.0-10.0)
[2020-11-09 06:48] LABS: ALBUMIN 2.3 GM/DL (3.2-5.2); ALT/SGPT 18 U/L (12-78); BILIRUBIN,TOTAL 0.2 MG/DL (0.2-1.0); BLOOD UREA NITROGEN 15 MG/DL (7-18); CALCIUM LEVEL 9.1 MG/DL (8.8-10.2); CARBON DIOXIDE LEVEL 30 MEQ/L (21-32); CHLORIDE LEVEL 97 MEQ/L (98-107); CREATININE FOR GFR 0.68 MG/DL (0.70-1.30); GLOMERULAR FILTRATION RATE > 60.0 (>49); GLUCOSE, FASTING 103 MG/DL (70-100); POTASSIUM SERUM 3.6 MEQ/L (3.5-5.1); SODIUM LEVEL 132 MEQ/L (136-145); TOTAL PROTEIN 6.6 GM/DL (6.4-8.2)
[2020-11-09] MEDS ORDERED: FUROSEMIDE 20MG/2ML VIAL (J1940) IV SCH (09:00)
[2020-11-09] MEDS: PANTOPRAZOLE 40MG VIAL (C9113 PER 1) IV SCH (09:30)
[2020-11-09] MEDS: FUROSEMIDE 20MG/2ML VIAL (J1940) IV SCH (09:31)
[2020-11-09] MEDS: THIAMINE 200MG/2ML VIAL (J3411 PER 100MG) IV SCH (09:31)
[2020-11-09] MEDS: FOLIC ACID 1 MG TAB PO SCH (09:31)
--- NOTE | 2020-11-09 09:31 | IPNPDOC ---
Text Note Date of Service The patient was seen on 11/09/20. NOTE General Surgery Dr Price. The patient is a 64-year-old male with small bowel obstruction and perforation, diffuse peritonitis POD5 exploratory laparotomy with lysis of adhesions, drainage of pelvic hematoma and abscess resection with ileostomy and appendectomy as per Dr. Price. NPO/NG tube in place. . The patient is OOB to chair. Reports pain is controlled. Denies nausea or vomiting. NG tube 1150 mL output yesterday. CESIA drain 5 mL. 700 ml stool. Afebrile, VSS. Lungs with good air entry, clear to auscultation. S1 and S2 regular rate and rhythm. Abdomen. Soft, mild tenderness around surgical sites, surgical dressings C/D/I, with no drainage. CESIA drain with scant drainage. Ostomy pink with small amount of liquid stool. Extremities no edema. WBC 13.1, down trending. Hemoglobin 11.9. Assessment/plan POD5 exploratory laparotomy with lysis of adhesions, drainage of pelvic hematoma and abscess resection with ileostomy and appendectomy as per Dr. Price. Afebrile. White blood cell count continues to trend downward. NPO/NGT. CESIA drain in place, 5 mL drainage recorded yesterday. IV meropenem. S/P PICC, TPN. The patient is reviewed and evaluated by Dr. Price this morning. Plan is for small bowel follow-through for reevaluation of SBO. Further recommendations pending review of imaging. VS,Fishbone, I+O VS, Fishbone, I+O Laboratory Tests 11/09/20 05:57 Vital Signs Date Time Temp Pulse Resp B/P (MAP) Pulse Ox O2 Delivery O2 Flow Rate FiO2 11/09/20 07:41 18 11/09/20 06:00 97.4 66 152/76 (101) 94 Room Air 11/06/20 14:00 1.0 I&O- Last 24 Hours up to 6 AM 11/09/20 05:59 Intake Total 3655 ml Output Total 6530 ml Balance -2875 ml Attending Note Attending Note Agree with above note by OCTAVIO Alatorre. Pita Mcknight Nov 09, 2020 09:31 Christ Price Nov 09, 2020 22:58
[2020-11-09] MEDS: NICOTINE 14 MG/24 HR TRANSDERMAL TD SCH (09:32)
[2020-11-09] MEDS: BACITRACIN OINTMENT 30GM TUBE TOP SCH (09:33)
[2020-11-09 10:00] VITALS: BP 161/92
[2020-11-09] MEDS ORDERED: ISOVUE-300 61% 50ML VIAL As Ordered ONE (10:09)
[2020-11-09 14:00] VITALS: BP 162/92
--- NOTE | 2020-11-09 15:20 | IPNPDOC ---
Date Seen The patient was seen on 11/09/20. Progress Note SUBJECTIVE: POD 4. BS and WBC slightly improved. TPN running. Denies chest pain, SOB, fevers, chills, n/v. No events overnight. OBJECTIVE: PHYSICAL EXAMINATION: Vital Signs: Please see below GENERAL: AAOx3, NAD sitting up in bedside chair HEENT: AT/NC, NG to LIS CARDIOVASCULAR: S1, S2 +, RRR/NMRG LUNGS: CTAB on RA, no W/R/R ABDOMEN: distended, hypoactive BS in 4 quad, tender to palpation of abd, multiple incisions, appeared clean, nonsuppurative. Ileostomy present, CESIA drain with minimal serosanguinous fluid. Stoma appears healthy : Deferred MUSCULOSKELETAL: ROMIx 4, no edema, cyanosis or clubbing NEUROLOGICAL: CN 2-12 except for hearing intact, no focal deficits PSYCHIATRIC: mood and affect appropriate LABORATORY DATA: Please see below MICROBIOLOGY: Abd pelvic fluid GS 11/04: MODERATE WBCS, FEW GRAM NEGATIVE RODS Abd pelvic fluid aerobic Cx 11/04: Morganella. Enterococcus avium (pending sensitivities) Abd pelvic fluid anaerobic Cx 11/04: Organism 1 PREVOTELLA MELANINOGENICA Organism 2 BIFIDOBACTERIUM SPECIES Organism 3 ANAEROBIC COCCI Organism 4 BACTEROIDES DISTASONIS Organism 5 CLOSTRIDIUM RAMOSUM BCx x 2 sets 11/04: clostridum tertium 1/4 bottles Repeat BCx x 2 sets 11/07/20: NG to date Abd wound GS 11/04: NO CELLS SEEN, NO ORGANISMS SEEN Abd wound Cx 11/04: Pseudomonas Resp panel: neg IMAGING: CXR: Free air and free fluid diffusely in the abdomen and pelvis. Proximal small bowel is moderately dilated with areas of mild wall thickening. I suspect perforation of either a dilated small bowel loop or more likely there is a perforation at the surgical anastomosis of the sigmoid. Dilated small bowel transitions to collapsed small bowel near the old colostomy site. There may be a partial small bowel obstruction at that point or the findings could be due to small bowel ileus. Critical Findings: Free air and free fluid diffusely in the abdomen and pelvis. The critical information above was relayed directly by me by telephone to Lorene Duron on 11/04/2020 at 1:58 pm with readback verification" CT abd/pelvis: No acute infiltrate. There is free intraperitoneal air beneath both diaphragms.There is dilated small bowel in the left upper quadrant of the abdomen. Critical Findings: There is free intraperitoneal air beneath both diaphragms. The critical information above was relayed directly by me by telephone to Lorene Valdiviaaney on 11/04/2020 at 1:09 pm with readback verification. ASSESSMENT: is a 64 yr old w a hx of diverticulitis complicated by obstruction s/p sigmoid colectomy and colostomy w subsequent reversal, HTN and depression admitted for diffuse peritonitis likely 2/2 to anastomotic leak from a colostomy take-down 10/21/20. PLAN: Diffuse peritonitis likely 2/2 to anastomotic leak from laparoscopic lysis of adhesions, laparoscopic colostomy reversal with coloproctostomy done 10/21/20 -POD 5 exploratory laparotomy with lysis of adhesions, drainage of pelvic hematoma and abscess resection with ileostomy and appendectomy. -WBC improved further to 13.1K, afebrile, abdominal pain improving -Micro above. Anaerobic Cx does not yield sensitivities, Meropenem has good anaerobic coverage and patient improving so will c/w that to cover. -C/w meropenem , pain control, IS, TPN -Daily CBC -Surgery primary Hyponatremia likely 2/2 to diuresis -Decreased lasix dose today daily -F/u AM labs HTN -Systolic BP improved, Neg 3.5 L/24H, +2--> +1 pitting edema in the lower ext -Not able to take PO meds -Giving 10 mg IV lasix daily going forward, f/u u/o, fluid status Hypoglycemia likely 2/2 to decreased PO intake -BS improving with TPN -Currently NPO -Monitor BS closely Acute hypokalemia -K wnl -F/u AM labs Alcohol abuse -No s/s of withdrawl -CIWA protocol cancelled today Depression -Stable Tobacco abuse -nicotine patch GI px -PPI DVT px -teds, scd. Will leave up to primary team to decide to put on AC Resolved issues: Hypotension possibly 2/2 to post-anesthesia hypotension vs. septic shock Hypomagnesemia, acute VS, I&O, 24H, Fishbone Vital Signs/I&O Vital Signs Date Time Temp Pulse Resp B/P (MAP) Pulse Ox O2 Delivery O2 Flow Rate FiO2 11/09/20 14:36 17 11/09/20 14:00 97.7 67 162/92 (115) 92 Room Air 11/06/20 14:00 1.0 I&O- Last 24 Hours up to 6 AM 11/09/20 06:00 Intake Total 4090 ml Output Total 6905 ml Balance -2815 ml Laboratory Data 24H LABS Laboratory Tests 2 11/08/20 18:02: Bedside Glucose (Misc Panel) 110 11/09/20 00:18: Bedside Glucose (Misc Panel) 107 11/09/20 05:57: Immature Granulocyte % (Auto) 1.7, Neutrophils (%) (Auto) 68.3H, Lymphocytes (%) (Auto) 8.2L, Monocytes (%) (Auto) 11.0H, Eosinophils (%) (Auto) 10.3H, Basophils (%) (Auto) 0.5, Neutrophils # (Auto) 9.0H, Lymphocytes # (Auto) 1.1L, Monocytes # (Auto) 1.4H, Eosinophils # (Auto) 1.4H, Basophils # (Auto) 0.1, Nucleated Red Blood Cells % (auto) 0.0, Anion Gap 5L, Glomerular Filtration Rate > 60.0, Calcium Level 9.1, Total Bilirubin 0.2, Aspartate Amino Transf (AST/SGOT) 16, Alanine Aminotransferase (ALT/SGPT) 18, Alkaline Phosphatase 64, Total Protein 6.6, Albumin 2.3#L, Albumin/Globulin Ratio 0.5 11/09/20 06:26: Bedside Glucose (Misc Panel) 95 CBC/BMP Laboratory Tests 11/09/20 05:57 Microbiology Microbiology 11/07/20 Blood Culture - Preliminary, Resulted No growth after 24 hours . All specim... 11/07/20 Blood Culture - Preliminary, Resulted No growth after 24 hours . All specim... 11/04/20 Blood Culture - Preliminary, Resulted No Growth after 72 hours. All specime... 11/04/20 Gram Stain - Final, Complete 11/04/20 Wound Culture - Final, Complete Morganella Morganii Ssp Abraham Enterococcus Avium 11/04/20 Anaerobic Culture - Final, Complete Prevotella Melaninogenica Bifidobacterium Species Anaerobic Cocci Bacteroides Distasonis Clostridium Ramosum 11/04/20 Gram Stain - Final, Complete 11/04/20 Wound Culture - Final, Complete Pseudomonas Aeruginosa 11/04/20 Urine Culture - Final, Complete 11/04/20 Blood Culture - Final, Complete NO GROWTH AFTER 5 DAYS 11/04/20 Blood Culture - Final, Complete Clostridium Tertium Current Medications Current Medications Medications (Trade) Dose Ordered Sig/Sreedhar Route PRN Reason Start Time Stop Time Status Last Admin Dose Admin Amino Ac/Electrol/ Dextrose/Calcium 2,000 ml @ 60 mls/hr ONCE@1800 IV 11/07/20 18:00 11/08/20 17:59 DC 11/07/20 18:52 Amino Ac/Electrol/ Dextrose/Calcium 2,000 ml @ 90 mls/hr ONCE@1800 IV 11/08/20 18:00 11/09/20 17:59 11/08/20 18:20 Artificial Tears (Akwa Tears) 2 drop TIDP PRN OU DRY EYES 11/08/20 23:10 Bacitracin (Bacitracin Oint) Apply to old CESIA drain s... DAILY TOP 11/08/20 09:00 11/09/20 09:33 Dextrose (Dextrose 50%) 25 ml ASDIRECTED PRN IV SEE LABEL COMMENTS 11/06/20 07:05 Dextrose/Sodium Chloride 1,000 ml @ 25 mls/hr Q24H IV 11/06/20 08:05 11/08/20 13:41 DC 11/07/20 14:49 Epinephrine HCl 1 mg/Dextrose 250 ml @ 122.4 mls/ hr Q2H3M IV 11/04/20 21:24 Cancel Fat Emulsion Intravenous 500 ml @ 20 mls/hr ONCE@1800 IV 11/07/20 18:00 11/08/20 17:59 DC 11/07/20 18:52 Fat Emulsion Intravenous 500 ml @ 20 mls/hr ONCE@1800 IV 11/08/20 18:00 11/09/20 17:59 11/08/20 18:20 Fentanyl Citrate (Sublimaze) 25 mcg Q5MP PRN IV PAIN LEVEL 5-10 11/04/20 20:50 11/04/20 21:49 DC Folic Acid (Folic Acid) 1 mg DAILY PO 11/04/20 23:10 11/09/20 09:31 Furosemide (LASIX injection) 10 mg DAILY IV 11/09/20 09:00 11/09/20 09:31 Furosemide (LASIX injection) 20 mg DAILY IV 11/09/20 09:00 11/09/20 08:18 DC Glucagon (Glucagon) 1 mg ASDIRECTED PRN SC SEE LABEL COMMENTS 11/06/20 07:05 Glucose (Glucose) 16 GM ASDIRECTED PRN PO SEE LABEL COMMENTS 11/06/20 07:05 Heparin Sodium (Heparin (Flush)) 200 units ASDIRECTED PRN IV SEE LABEL COMMENTS 11/07/20 14:50 11/09/20 14:26 Heparin Sodium (Heparin (Flush)) 200 units PICC IV 11/07/20 18:00 11/09/20 05:08 Hydromorphone HCl (Dilaudid) 0.5 mg Q5MP PRN IV PAIN LEVEL 4-7 11/04/20 20:50 11/04/20 21:49 DC Insulin Human Lispro (HumaLOG INSULIN) See Protocol Table Q6H SC 11/07/20 18:00 11/08/20 12:01 DC 11/08/20 12:44 Insulin Human Lispro (HumaLOG INSULIN) See Protocol Table Q6H SC 11/08/20 18:00 11/09/20 12:01 DC 11/09/20 00:42 Ketorolac Tromethamine (ToRADol) 15 mg Q6H IV 11/05/20 10:00 11/10/20 09:59 11/09/20 09:31 Lactated Ringer's 1,000 ml @ 100 mls/hr Q10H IV 11/04/20 20:50 11/04/20 21:49 DC Lorazepam (Ativan) 2 mg Q2HP PRN IV AGITATION 11/04/20 23:10 11/06/20 01:08 Magnesium Sulfate/ Dextrose 1 gm/IV Miscellaneous Supplies 100 ml @ 100 mls/hr 0600,0700,0800 IV 11/05/20 06:00 11/05/20 12:00 DC 11/05/20 09:03 Meropenem 1 gm/IV Miscellaneous Supplies 50 ml @ 100 mls/hr Q8H IV 11/07/20 10:00 11/09/20 09:32 Meropenem 2 gm/ Sodium Chloride 100 ml @ 200 mls/hr Q8H IV 11/06/20 10:00 11/07/20 09:01 DC 11/07/20 01:38 Morphine Sulfate (Morphine Sulfate Inj) 2 mg Q1H PRN IV SEVERE PAIN (PS 8-10) 11/04/20 15:05 11/09/20 14:25 Nicotine (Nicoderm Cq 14mg) 1 patch DAILY TD 11/05/20 09:00 11/09/20 09:32 Norepinephrine Bitartrate 8 mg/ Dextrose 508 ml @ 15.24 mls/ hr Q24H IV 11/04/20 21:24 Cancel Ondansetron HCl (ZOFRAN INJection) 4 mg Q6HP PRN IV NAUSEA OR VOMITING 11/04/20 15:05 Pantoprazole Sodium (Protonix) 40 mg DAILY IV 11/04/20 09:00 11/09/20 09:30 Phenylephrine HCl 50 mg/Dextrose 500 ml @ 1 mls/hr Q24H IV 11/04/20 21:10 11/05/20 09:45 DC 11/04/20 22:09 Piperacillin Sod/ Tazobactam Sod 3.375 gm/Dextrose 50 ml @ 50 mls/hr Q6H IV 11/04/20 19:00 11/06/20 08:07 DC 11/06/20 07:18 Potassium Chloride 10 meq/ IV Miscellaneous Supplies 100 ml @ 100 mls/hr Q1H IV 11/07/20 09:00 11/07/20 12:59 DC 11/07/20 14:49 Potassium Chloride 10 meq/ IV Miscellaneous Supplies 100 ml @ 100 mls/hr Q1H IV 11/07/20 16:10 11/07/20 17:09 DC 11/07/20 16:12 Potassium Chloride 10 meq/ IV Miscellaneous Supplies 100 ml @ 100 mls/hr Q1H IV 11/08/20 09:00 11/08/20 14:01 DC 11/08/20 15:55 Potassium Chloride 10 meq/ IV Miscellaneous Supplies 100 ml @ 100 mls/hr Q1H IV 11/08/20 16:55 11/08/20 17:54 DC 11/08/20 16:56 Sodium Chloride 1,000 ml @ 100 mls/hr Q10H IV 11/04/20 15:05 11/06/20 08:03 DC 11/06/20 04:25 Sodium Chloride (Saline Lock Flush) 10 ml ASDIRECTED PRN IV SEE LABEL COMMENTS 11/07/20 14:50 Sodium Chloride (Saline Lock Flush) 10 ml PICC IV 11/07/20 18:00 11/09/20 05:08 Thiamine HCl (VITAMIN B1 INJection) 100 mg DAILY IM 11/04/20 23:10 11/06/20 09:03 DC 11/05/20 01:13 Thiamine HCl (VITAMIN B1 INJection) 100 mg DAILY IV 11/06/20 09:00 11/09/20 09:31 Vancomycin HCl 1000 mg/IV Miscellaneous Supplies 1 each/ Sodium Chloride 270 ml @ 270 mls/hr Q8H IV 11/05/20 02:00 11/05/20 09:45 DC 11/05/20 03:07 Allergies Coded Allergies: naproxen (Verified Allergy, Severe, SOB, hives, 10/21/20) Tammie Griffith MD Nov 09, 2020 15:20
--- NOTE | 2020-11-09 17:41 | REP ---
INDICATION: post op evaluation for sbo. COMPARISON: None TECHNIQUE: This procedure was performed by Aaliyah Espinosa [facility], under the direct supervision of Dr. Rahman. Images were reviewed with Dr. Rahman prior to dictation. Approximately 250 mL of Isovue 300 was administered via the patient's NG tube and was followed through to the patient's ileostomy bag in order to complete a water-soluble small bowel follow-through exam. FINDINGS: The community service technician film shows no organomegaly or pathological masses. The intestinal gas pattern is unremarkable. Contrast was followed through the small intestine into the patient's ileostomy bag. No extravasation of contrast is visualized. No obstruction is visualized. IMPRESSION: No obstruction or extravasation of contrast is visualized. <Electronically signed by Aaliyah Espinosa > 11/09/20 1602 <Electronically signed by Brian Rahman > 11/09/20 [id number]
[2020-11-09 18:00] VITALS: BP 132/93
[2020-11-09] MEDS ORDERED: FAT EMULSION IV 20% 500 ML IV SCH (18:00)
[2020-11-09] MEDS ORDERED: AMINO AC/ELECTROLYTE/DEX/CALC 2,000 ML IV SCH (18:00)
[2020-11-09] MEDS ORDERED: ACETAMINOPHEN TAB 650MG DOSE (2X325MG) PO PRN (19:15)
[2020-11-09] MEDS: NORCO, ANEXSIA 5/325MG TABLET (HYDROcodone/ACETAMINOPHEN) PO PRN (20:24)
[2020-11-09] MEDS: ENOXAPARIN 40MG/0.4ML SYRINGE (J1650 PER 10MG) SC SCH (20:25)
[2020-11-09 22:00] VITALS: BP 136/84
[2020-11-09] MEDS: SODIUM CHLORIDE 0.9% INJ 10 ML SYR IV PRN (22:31)
[2020-11-10] MEDS: HumaLOG INSULIN (NovoLOG) PER UNIT SC SCH ×4 (00:23→18:00)
[2020-11-10] MEDS: MEROPENEM INJ 1 GM in IV 1 EA IV SCH ×2 (01:39→09:55)
[2020-11-10] MEDS: SODIUM CHLORIDE 0.9% INJ 10 ML SYR IV PRN (03:00)
[2020-11-10] MEDS: NORCO, ANEXSIA 5/325MG TABLET (HYDROcodone/ACETAMINOPHEN) PO PRN ×2 (03:00→20:58)
[2020-11-10 06:00] VITALS: BP 137/90
[2020-11-10] MEDS: SODIUM CHLORIDE 0.9% INJ 10 ML SYR IV SCH ×2 (06:17→18:10)
[2020-11-10 06:38] LABS: BLOOD UREA NITROGEN 19 MG/DL (7-18); CALCIUM LEVEL 9.3 MG/DL (8.8-10.2); CARBON DIOXIDE LEVEL 29 MEQ/L (21-32); CHLORIDE LEVEL 98 MEQ/L (98-107); CREATININE FOR GFR 0.69 MG/DL (0.70-1.30); GLOMERULAR FILTRATION RATE > 60.0 (>49); GLUCOSE, FASTING 97 MG/DL (70-100); POTASSIUM SERUM 3.9 MEQ/L (3.5-5.1); SODIUM LEVEL 133 MEQ/L (136-145)
[2020-11-10 08:39] LABS: HEMATOCRIT 36.4 % (42.0-52.0); HEMOGLOBIN 12.1 g/dl (13.5-17.5); MEAN CORPUSCULAR HEMOGLOBIN 31.7 pg (27.0-33.0); MEAN CORPUSCULAR HGB CONC 33.2 g/dl (32.0-36.5); MEAN CORPUSCULAR VOLUME 95.3 fl (80.0-96.0); PLATELET COUNT, AUTOMATED 598 10^3/uL (150-450); RED BLOOD COUNT 3.82 10^6/uL (4.30-6.10)
--- NOTE | 2020-11-10 09:29 | IPNPDOC ---
Text Note Date of Service The patient was seen on 11/10/20. NOTE General Surgery Dr Price. The patient is a 64-year-old male with small bowel obstruction and perforation, diffuse peritonitis POD6 exploratory laparotomy with lysis of adhesions, drainage of pelvic hematoma and abscess resection with ileostomy and appendectomy as per Dr. Price. NGT d/c last evening and advanced to clears. The patient is OOB to chair. Reports pain is controlled. Denies nausea or vomiting. Reports air in the bag, liquid stool noted in the bag. NG tube 950 mL output yesterday. CESIA drain discontinued 2850 ml stool. Afebrile, VSS. Lungs with good air entry, clear to auscultation. S1 and S2 regular rate and rhythm. Abdomen. Soft, mildly distended, still with mild tenderness around surgical sites, surgical dressings C/D/I, with no drainage. Ostomy pink with air and small amount of liquid stool in bag. Extremities no edema. WBC 13.0 Hemoglobin 12.1. Assessment/plan POD6 exploratory laparotomy with lysis of adhesions, drainage of pelvic hematoma and abscess resection with ileostomy and appendectomy as per Dr. Price. Afebrile. WBC 15.0, increased slightly. NG tube discontinued yesterday, advanced to clears which the patient is cu rrently tolerating. IV meropenem. TPN Monitor. VS,Fishbone, I+O VS, Fishbone, I+O Laboratory Tests 11/10/20 05:46 11/10/20 05:53 Vital Signs Date Time Temp Pulse Resp B/P (MAP) Pulse Ox O2 Delivery O2 Flow Rate FiO2 11/10/20 06:00 98.0 75 18 137/90 (106) 94 Room Air 11/06/20 14:00 1.0 I&O- Last 24 Hours up to 6 AM 11/10/20 05:59 Intake Total 4635 ml Output Total 5950 ml Balance -1315 ml Attending Note Attending Note Agree with above note by Pita Mcknight. Pita Mcknight Nov 10, 2020 09:29 Christ Price Nov 18, 2020 22:57
[2020-11-10] MEDS: FUROSEMIDE 20MG/2ML VIAL (J1940) IV SCH (09:54)
[2020-11-10] MEDS: NICOTINE 14 MG/24 HR TRANSDERMAL TD SCH (09:54)
[2020-11-10] MEDS: ENOXAPARIN 40MG/0.4ML SYRINGE (J1650 PER 10MG) SC SCH (09:54)
[2020-11-10] MEDS: FOLIC ACID 1 MG TAB PO SCH (09:54)
[2020-11-10] MEDS: THIAMINE 200MG/2ML VIAL (J3411 PER 100MG) IV SCH (09:55)
[2020-11-10] MEDS: PANTOPRAZOLE 40MG VIAL (C9113 PER 1) IV SCH (09:55)
[2020-11-10] MEDS: BACITRACIN OINTMENT 30GM TUBE TOP SCH (09:56)
[2020-11-10 10:00] VITALS: BP 133/85
[2020-11-10 14:00] VITALS: BP 129/75
[2020-11-10 16:00] VITALS: BP 121/76
[2020-11-10] MEDS: PIPERACILLIN/TAZOBACTAM SOD 4.5 GM in D5W MINI-BAG PLUS 50 ML IV SCH ×2 (16:12→20:57)
--- NOTE | 2020-11-10 17:34 | IPNPDOC ---
Date Seen The patient was seen on 11/10/20. Progress Note SUBJECTIVE: POD 6. Tolerated CLD, NG tube pulled . WBC 15K, switched to zosyn. Mildly incr abdominal distension. Denies chest pain, SOB, fevers, chills, n/v. OBJECTIVE: PHYSICAL EXAMINATION: Vital Signs: Please see below GENERAL: AAOx3, NAD sitting up in bedside chair HEENT: AT/NC, NG to LIS CARDIOVASCULAR: S1, S2 +, RRR/NMRG LUNGS: CTAB on RA, no W/R/R ABDOMEN: mildly more distended, hypoactive BS in 4 quad, tender to palpation of abd, multiple incisions, appeared clean, nonsuppurative. Ileostomy present, CESIA drain with minimal serosanguinous fluid. Stoma appears healthy : Deferred MUSCULOSKELETAL: ROMIx 4, no edema, cyanosis or clubbing NEUROLOGICAL: CN 2-12 except for hearing intact, no focal deficits PSYCHIATRIC: mood and affect appropriate LABORATORY DATA: Please see below MICROBIOLOGY: Abd pelvic fluid GS 11/04: MODERATE WBCS, FEW GRAM NEGATIVE RODS Abd pelvic fluid aerobic Cx 11/04: Morganella. Enterococcus avium (pending sensitivities) Abd pelvic fluid anaerobic Cx 11/04: Organism 1 PREVOTELLA MELANINOGENICA Organism 2 BIFIDOBACTERIUM SPECIES Organism 3 ANAEROBIC COCCI Organism 4 BACTEROIDES DISTASONIS Organism 5 CLOSTRIDIUM RAMOSUM BCx x 2 sets 11/04: clostridum tertium 1/4 bottles Repeat BCx x 2 sets 11/07/20: NG to date Abd wound GS 11/04: NO CELLS SEEN, NO ORGANISMS SEEN Abd wound Cx 11/04: Pseudomonas Resp panel: neg IMAGING: CXR: Free air and free fluid diffusely in the abdomen and pelvis. Proximal small bowel is moderately dilated with areas of mild wall thickening. I suspect perforation of either a dilated small bowel loop or more likely there is a perforation at the surgical anastomosis of the sigmoid. Dilated small bowel transitions to collapsed small bowel near the old colostomy site. There may be a partial small bowel obstruction at that point or the findings could be due to small bowel ileus. Critical Findings: Free air and free fluid diffusely in the abdomen and pelvis. The critical information above was relayed directly by me by telephone to Lorene Duron on 11/04/2020 at 1:58 pm with readback verification" CT abd/pelvis: No acute infiltrate. There is free intraperitoneal air beneath both diaphragms.There is dilated small bowel in the left upper quadrant of the abdomen. Critical Findings: There is free intraperitoneal air beneath both diaphragms. The critical information above was relayed directly by me by telephone to Lorene Valdiviaaney on 11/04/2020 at 1:09 pm with readback verification. ASSESSMENT: is a 64 yr old w a hx of diverticulitis complicated by obstruction s/p sigmoid colectomy and colostomy w subsequent reversal, HTN and depression admitted for diffuse peritonitis likely 2/2 to anastomotic leak from a colostomy take-down 10/21/20. PLAN: Diffuse peritonitis likely 2/2 to anastomotic leak from laparoscopic lysis of adhesions, laparoscopic colostomy reversal with coloproctostomy done 10/21/20 -POD 6 exploratory laparotomy with lysis of adhesions, drainage of pelvic hematoma and abscess resection with ileostomy and appendectomy. -NG tube pulled 11/09/20 -WBC slightly incr, afebrile, abdominal distension appears mildly incr -Micro above. Anaerobic Cx does not yield sensitivities. Per Dr. Onofre, switched to zosyn -C/w zosyn, pain control, IS, TPN at decreased rate -Daily CBC -Surgery primary Hyponatremia likely 2/2 to diuresis -Decreased lasix dose daily, improving level slowly -F/u AM labs HTN -Systolic BP improved, Neg 1.3 L/24H, 1 pitting edema in the lower ext almost resolved -If NG tube stays out until 11/11/20, can likely restart home meds -C/w 10 mg IV lasix daily, f/u u/o, fluid status Hypoglycemia likely 2/2 to decreased PO intake -BS borderline -Currently NPO -Monitor BS closely while on TPN Acute hypokalemia- resolved -K wnl -F/u AM labs Alcohol abuse -No s/s of withdrawl -CIWA protocol cancelled Depression -Stable Tobacco abuse -nicotine patch GI px -PPI DVT px -teds, scd. Enoxaparin SC Resolved issues: Hypotension possibly 2/2 to post-anesthesia hypotension vs. septic shock Hypomagnesemia, acute VS, I&O, 24H, Fishbone Vital Signs/I&O Vital Signs Date Time Temp Pulse Resp B/P (MAP) Pulse Ox O2 Delivery O2 Flow Rate FiO2 11/10/20 14:00 98.1 72 16 129/75 (93) 93 Room Air 11/06/20 14:00 1.0 I&O- Last 24 Hours up to 6 AM 11/10/20 06:00 Intake Total 4385 ml Output Total 6050 ml Balance -1665 ml Laboratory Data 24H LABS Laboratory Tests 2 11/10/20 00:05: Bedside Glucose (Misc Panel) 110 11/10/20 05:46: Nucleated Red Blood Cells % (auto) 0.0 11/10/20 05:53: Anion Gap 6L, Glomerular Filtration Rate > 60.0, Calcium Level 9.3 11/10/20 06:08: Bedside Glucose (Misc Panel) 108 11/10/20 11:29: Bedside Glucose (Misc Panel) 104 11/10/20 16:49: Bedside Glucose (Misc Panel) 105 CBC/BMP Laboratory Tests 11/10/20 05:46 11/10/20 05:53 Microbiology Microbiology 11/07/20 Blood Culture - Preliminary, Resulted No Growth after 48 hours. All Specime... 11/07/20 Blood Culture - Preliminary, Resulted No Growth after 48 hours. All Specime... 11/04/20 Blood Culture - Final, Complete NO GROWTH AFTER 5 DAYS 11/04/20 Gram Stain - Final, Complete 11/04/20 Wound Culture - Final, Complete Morganella Morganii Ssp Abraham Enterococcus Avium 11/04/20 Anaerobic Culture - Final, Complete Prevotella Melaninogenica Bifidobacterium Species Anaerobic Cocci Bacteroides Distasonis Clostridium Ramosum 11/04/20 Gram Stain - Final, Complete 11/04/20 Wound Culture - Final, Complete Pseudomonas Aeruginosa 11/04/20 Urine Culture - Final, Complete 11/04/20 Blood Culture - Final, Complete NO GROWTH AFTER 5 DAYS 11/04/20 Blood Culture - Final, Complete Clostridium Tertium Current Medications Current Medications Medications (Trade) Dose Ordered Sig/Sreedhar Route PRN Reason Start Time Stop Time Status Last Admin Dose Admin Acetaminophen (Tylenol Tab) 650 mg Q4HP PRN PO MILD PAIN or TEMP > 100.4 11/09/20 19:15 Acetaminophen/ Hydrocodone Bitart ([place], [place]nexsia 5/325) 1 tab Q4HP PRN PO MODERATE PAIN (PS 5-7) 11/09/20 19:15 11/10/20 03:00 Amino Ac/Electrol/ Dextrose/Calcium 2,000 ml @ 60 mls/hr ONCE@1800 IV 11/07/20 18:00 11/08/20 17:59 DC 11/07/20 18:52 Amino Ac/Electrol/ Dextrose/Calcium 2,000 ml @ 65 mls/hr ONCE@1800 IV 11/10/20 18:00 11/11/20 17:59 Amino Ac/Electrol/ Dextrose/Calcium 2,000 ml @ 90 mls/hr ONCE@1800 IV 11/08/20 18:00 11/09/20 17:59 DC 11/08/20 18:20 Amino Ac/Electrol/ Dextrose/Calcium 2,000 ml @ 90 mls/hr ONCE@1800 IV 11/09/20 18:00 11/10/20 17:59 11/09/20 18:13 Artificial Tears (Akwa Tears) 2 drop TIDP PRN OU DRY EYES 11/08/20 23:10 Bacitracin (Bacitracin Oint) Apply to old CESIA drain s... DAILY TOP 11/08/20 09:00 11/10/20 09:56 Dextrose (Dextrose 50%) 25 ml ASDIRECTED PRN IV SEE LABEL COMMENTS 11/06/20 07:05 Dextrose/Sodium Chloride 1,000 ml @ 25 mls/hr Q24H IV 11/06/20 08:05 11/08/20 13:41 DC 11/07/20 14:49 Enoxaparin Sodium (Lovenox) 40 mg DAILY SC 11/09/20 19:30 11/10/20 09:54 Epinephrine HCl 1 mg/Dextrose 250 ml @ 122.4 mls/ hr Q2H3M IV 11/04/20 21:24 Cancel Fat Emulsion Intravenous 500 ml @ 20 mls/hr ONCE@1800 IV 11/07/20 18:00 11/08/20 17:59 DC 11/07/20 18:52 Fat Emulsion Intravenous 500 ml @ 20 mls/hr ONCE@1800 IV 11/08/20 18:00 11/09/20 17:59 DC 11/08/20 18:20 Fat Emulsion Intravenous 500 ml @ 20 mls/hr ONCE@1800 IV 11/09/20 18:00 11/10/20 17:59 11/09/20 18:13 Fat Emulsion Intravenous 500 ml @ 20 mls/hr ONCE@1800 IV 11/10/20 18:00 11/11/20 17:59 Fentanyl Citrate (Sublimaze) 25 mcg Q5MP PRN IV PAIN LEVEL 5-10 11/04/20 20:50 11/04/20 21:49 DC Folic Acid (Folic Acid) 1 mg DAILY PO 11/04/20 23:10 11/10/20 09:54 Furosemide (LASIX injection) 10 mg DAILY IV 11/09/20 09:00 11/10/20 09:54 Furosemide (LASIX injection) 20 mg DAILY IV 11/09/20 09:00 11/09/20 08:18 DC Glucagon (Glucagon) 1 mg ASDIRECTED PRN SC SEE LABEL COMMENTS 11/06/20 07:05 Glucose (Glucose) 16 GM ASDIRECTED PRN PO SEE LABEL COMMENTS 11/06/20 07:05 Heparin Sodium (Heparin (Flush)) 200 units ASDIRECTED PRN IV SEE LABEL COMMENTS 11/07/20 14:50 11/10/20 03:00 Heparin Sodium (Heparin (Flush)) 200 units PICC IV 11/07/20 18:00 11/10/20 06:17 Hydromorphone HCl (Dilaudid) 0.5 mg Q5MP PRN IV PAIN LEVEL 4-7 11/04/20 20:50 11/04/20 21:49 DC Insulin Human Lispro (HumaLOG INSULIN) See Protocol Table Q6H MS 11/07/20 18:00 11/08/20 12:01 DC 11/08/20 12:44 Insulin Human Lispro (HumaLOG INSULIN) See Protocol Table Q6H MS 11/08/20 18:00 11/09/20 12:01 DC 11/09/20 00:42 Insulin Human Lispro (HumaLOG INSULIN) See Protocol Table Q6H MS 11/09/20 18:00 11/10/20 12:01 DC 11/10/20 06:17 Insulin Human Lispro (HumaLOG INSULIN) See Protocol Table Q6H MS 11/10/20 18:00 11/11/20 12:01 Ketorolac Tromethamine (ToRADol) 15 mg Q6H IV 11/05/20 10:00 11/09/20 19:20 DC 11/09/20 16:20 Lactated Ringer's 1,000 ml @ 100 mls/hr Q10H IV 11/04/20 20:50 11/04/20 21:49 DC Lorazepam (Ativan) 2 mg Q2HP PRN IV AGITATION 11/04/20 23:10 11/10/20 14:30 DC 11/06/20 01:08 Magnesium Sulfate/ Dextrose 1 gm/IV Miscellaneous Supplies 100 ml @ 100 mls/hr 0600,0700,0800 IV 11/05/20 06:00 11/05/20 12:00 DC 11/05/20 09:03 Meropenem 1 gm/IV Miscellaneous Supplies 50 ml @ 100 mls/hr Q8H IV 11/07/20 10:00 11/10/20 14:29 DC 11/10/20 09:55 Meropenem 2 gm/ Sodium Chloride 100 ml @ 200 mls/hr Q8H IV 11/06/20 10:00 11/07/20 09:01 DC 11/07/20 01:38 Morphine Sulfate (Morphine Sulfate Inj) 2 mg Q1H PRN IV SEVERE PAIN (PS 8-10) 11/04/20 15:05 11/09/20 22:31 Nicotine (Nicoderm Cq 14mg) 1 patch DAILY TD 11/05/20 09:00 11/10/20 09:54 Norepinephrine Bitartrate 8 mg/ Dextrose 508 ml @ 15.24 mls/ hr Q24H IV 11/04/20 21:24 Cancel Ondansetron HCl (ZOFRAN INJection) 4 mg Q6HP PRN IV NAUSEA OR VOMITING 11/04/20 15:05 Pantoprazole Sodium (Protonix) 40 mg DAILY IV 11/04/20 09:00 11/10/20 09:55 Phenylephrine HCl 50 mg/Dextrose 500 ml @ 1 mls/hr Q24H IV 11/04/20 21:10 11/05/20 09:45 DC 11/04/20 22:09 Piperacillin Sod/ Tazobactam Sod 3.375 gm/Dextrose 50 ml @ 50 mls/hr Q6H IV 11/04/20 19:00 11/06/20 08:07 DC 11/06/20 07:18 Piperacillin Sod/ Tazobactam Sod 4.5 gm/Dextrose 50 ml @ 50 mls/hr Q6H IV 11/10/20 15:00 11/10/20 16:12 Potassium Chloride 10 meq/ IV Miscellaneous Supplies 100 ml @ 100 mls/hr Q1H IV 11/07/20 09:00 11/07/20 12:59 DC 11/07/20 14:49 Potassium Chloride 10 meq/ IV Miscellaneous Supplies 100 ml @ 100 mls/hr Q1H IV 11/07/20 16:10 11/07/20 17:09 DC 11/07/20 16:12 Potassium Chloride 10 meq/ IV Miscellaneous Supplies 100 ml @ 100 mls/hr Q1H IV 11/08/20 09:00 11/08/20 14:01 DC 11/08/20 15:55 Potassium Chloride 10 meq/ IV Miscellaneous Supplies 100 ml @ 100 mls/hr Q1H IV 11/08/20 16:55 11/08/20 17:54 DC 11/08/20 16:56 Sodium Chloride 1,000 ml @ 100 mls/hr Q10H IV 11/04/20 15:05 11/06/20 08:03 DC 11/06/20 04:25 Sodium Chloride (Saline Lock Flush) 10 ml ASDIRECTED PRN IV SEE LABEL COMMENTS 11/07/20 14:50 11/10/20 03:00 Sodium Chloride (Saline Lock Flush) 10 ml PICC IV 11/07/20 18:00 11/10/20 06:17 Thiamine HCl (VITAMIN B1 INJection) 100 mg DAILY IM 11/04/20 23:10 11/06/20 09:03 DC 11/05/20 01:13 Thiamine HCl (VITAMIN B1 INJection) 100 mg DAILY IV 11/06/20 09:00 11/10/20 09:55 Vancomycin HCl 1000 mg/IV Miscellaneous Supplies 1 each/ Sodium Chloride 270 ml @ 270 mls/hr Q8H IV 11/05/20 02:00 11/05/20 09:45 DC 11/05/20 03:07 Allergies Coded Allergies: naproxen (Verified Allergy, Severe, SOB, hives, 10/21/20) Tammie Griffith MD Nov 10, 2020 17:34
[2020-11-10] MEDS ORDERED: AMINO AC/ELECTROLYTE/DEX/CALC 2,000 ML IV SCH (18:00)
[2020-11-10] MEDS ORDERED: FAT EMULSION IV 20% 500 ML IV SCH (18:00)
[2020-11-10] MEDS: MORPHINE 2 MG/ML 1ML VIAL (J2270) IV PRN (18:09)
[2020-11-10 22:00] VITALS: BP 123/77
[2020-11-11] MEDS: HumaLOG INSULIN (NovoLOG) PER UNIT SC SCH ×3 (00:51→12:00)
[2020-11-11] MEDS: PIPERACILLIN/TAZOBACTAM SOD 4.5 GM in D5W MINI-BAG PLUS 50 ML IV SCH ×4 (03:37→20:42)
[2020-11-11] MEDS: NORCO, ANEXSIA 5/325MG TABLET (HYDROcodone/ACETAMINOPHEN) PO PRN ×2 (05:12→13:13)
[2020-11-11] MEDS: SODIUM CHLORIDE 0.9% INJ 10 ML SYR IV SCH ×2 (05:12→17:35)
[2020-11-11 06:00] VITALS: BP 122/67
[2020-11-11 06:20] LABS: BASO # 0.1 10^3/uL (0.0-0.2); BASO % 0.8 % (0.0-1.0); EOS # 1.8 10^3/uL (0.0-0.5); EOS % 12.1 % (0.0-3.0); HEMATOCRIT 38.1 % (42.0-52.0); HEMOGLOBIN 12.6 g/dl (13.5-17.5); LYMPH # 1.5 10^3/uL (1.5-5.0); LYMPH % 9.9 % (24.0-44.0); MEAN CORPUSCULAR HEMOGLOBIN 31.3 pg (27.0-33.0); MEAN CORPUSCULAR HGB CONC 33.1 g/dl (32.0-36.5); MEAN CORPUSCULAR VOLUME 94.5 fl (80.0-96.0); MONO # 1.5 10^3/uL (0.0-0.8); MONO % 9.9 % (2.0-8.0); NEUTROPHILS # 9.6 10^3/uL (1.5-8.5); NEUTROPHILS % 65.2 % (36.0-66.0); PLATELET COUNT, AUTOMATED 596 10^3/uL (150-450); RED BLOOD COUNT 4.03 10^6/uL (4.30-6.10)
[2020-11-11 06:22] LABS: WHITE BLOOD COUNT 14.7 10^3/uL (4.0-10.0)
[2020-11-11 06:58] LABS: ALBUMIN 2.4 GM/DL (3.2-5.2); ALT/SGPT 60 U/L (12-78); BILIRUBIN,TOTAL 0.4 MG/DL (0.2-1.0); BLOOD UREA NITROGEN 17 MG/DL (7-18); CARBON DIOXIDE LEVEL 30 MEQ/L (21-32); CHLORIDE LEVEL 97 MEQ/L (98-107); CREATININE FOR GFR 0.83 MG/DL (0.70-1.30); GLOMERULAR FILTRATION RATE > 60.0 (>49); GLUCOSE, FASTING 118 MG/DL (70-100); POTASSIUM SERUM 3.9 MEQ/L (3.5-5.1); SODIUM LEVEL 133 MEQ/L (136-145); TOTAL PROTEIN 7.3 GM/DL (6.4-8.2)
[2020-11-11] MEDS ORDERED: TESTOSTERONE CYP IM SCH (09:00)
[2020-11-11] MEDS: THIAMINE 200MG/2ML VIAL (J3411 PER 100MG) IV SCH (09:40)
[2020-11-11] MEDS: PANTOPRAZOLE 40MG TAB (PROTONIX) PO SCH (09:40)
[2020-11-11] MEDS: ENOXAPARIN 40MG/0.4ML SYRINGE (J1650 PER 10MG) SC SCH (09:40)
[2020-11-11] MEDS: NICOTINE 14 MG/24 HR TRANSDERMAL TD SCH (09:40)
[2020-11-11] MEDS: FOLIC ACID 1 MG TAB PO SCH (09:40)
[2020-11-11] MEDS: BACITRACIN OINTMENT 30GM TUBE TOP SCH (09:41)
[2020-11-11 10:00] VITALS: BP 116/70
[2020-11-11 14:00] VITALS: BP 116/72
--- NOTE | 2020-11-11 14:50 | IPN ---
PROGRESS NOTE DATE: 11/11/2020 HISTORY: Patient is now postoperative day #7 from exploratory laparotomy with small bowel resection for small bowel perforation with diffuse peritonitis and drainage of a pelvic hematoma and pelvic abscess. The patient has been making good progress overall. He was advanced to full liquids yesterday and has tolerated these well. He reports good output from his ileostomy. He is having no nausea or vomiting. He remains on total parenteral nutrition (TPN) at this point. Vital signs show that he has been afebrile of the past 24 hours. His pulse is in the 60s to low 80s and his blood pressure is normal. Intake and output yesterday shows that he had 1890 in with 4250 out. The hospitalist has been administering Lasix. PHYSICAL EXAMINATION: Patient is alert and oriented and seems more comfortable. Heart exam shows a regular rhythm. The lungs are clear. The abdomen is mildly distended. He does have good bowel sounds present. His ileostomy appears healthy and appears to be functioning well with some bilious fluid in the bag. His midline incision is healing well with saundra in place, which had been fairly widely spaced. There does not appear to be any significant drainage from his incision. His old ostomy site on the left side of the abdomen appears clean and is beginning to granulate. The left lower quadrant drain site has closed. LABORATORY STUDIES: Laboratory studies today show a white count of 15, hematocrit of 13, hemoglobin 38 and a platelet count of 596,000. His differential count shows 65% neutrophils, 10% lymphocytes, 10% monocytes and 12% eosinophils. Chemistry profile shows a sodium of 133, potassium 3.9, chloride 97, CO2 30, BUN 17, creatinine 0.8 and a glucose of 118. Liver function tests look good, with a total protein of 7.3 and an albumin of 2.4. IMPRESSION: Patient is making good progress. His ostomy is functioning well and he is tolerating liquids without any problems. His wounds are all healing nicely. PLAN: Total parenteral nutrition (TPN) will be stopped after the current bag. He will be advanced to a regular diet. We will continue to follow his white blood cell count. If his white count remains elevated or he develops any additional symptoms to suggest an abscess, we will repeat a CT scan of the abdomen and pelvis. [facility]ITAL[facility]uan
[2020-11-11 18:00] VITALS: BP 146/81
--- NOTE | 2020-11-11 19:27 | IPNPDOC ---
Text Note Date of Service The patient was seen on 11/11/20. NOTE SUBJECTIVE: POD 7. Patient was up walking in the hallways, and appears to be feeling quite well at this time. He is now tolerating oral intake. OBJECTIVE: PHYSICAL EXAMINATION: Vital Signs: Please see below GENERAL: AAOx3, NAD sitting up in bedside chair HEENT: AT/NC, NG to LIS CARDIOVASCULAR: S1, S2 +, RRR/NMRG LUNGS: CTAB on RA, no W/R/R ABDOMEN: Only appears to be mildly distended, patient feels that it is less tender today. Multiple incisions, appeared clean, nonsuppurative. Ileostomy present, CESIA drain with minimal serosanguinous fluid. Stoma appears healthy MUSCULOSKELETAL: ROMIx 4, no edema, cyanosis or clubbing NEUROLOGICAL: CN 2-12 except for hearing intact, no focal deficits PSYCHIATRIC: mood and affect appropriate ASSESSMENT: is a 64 yr old w a hx of diverticulitis complicated by obstruction s/p sigmoid colectomy and colostomy w subsequent reversal, HTN and depression admitted for diffuse peritonitis likely 2/2 to anastomotic leak from a colostomy take-down 10/21/20. PLAN: Diffuse peritonitis likely 2/2 to anastomotic leak from laparoscopic lysis of adhesions, laparoscopic colostomy reversal with coloproctostomy done 10/21/20 -POD 7 exploratory laparotomy with lysis of adhesions, drainage of pelvic hematoma and abscess resection with ileostomy and appendectomy. -NG tube pulled 11/09/20 -WBC still increased, however mildly improved from yesterday, afebrile, abdominal distension appears mildly incr -Micro above. Anaerobic Cx does not yield sensitivities. Per Dr. Onofre, switched to zosyn -C/w zosyn, pain control, IS, management of diet and TPN per surgery team. -Daily CBC -Surgery primary Hyponatremia likely 2/2 to diuresis -Lasix now discontinued -F/u AM labs HTN -Systolic BP much better today -Will restart his home dose of lisinopril 5 mg daily -Lasix discontinued Hypoglycemia likely 2/2 to decreased PO intake -Blood sugars are improving now that he is tolerating some oral intake Acute hypokalemia- resolved -K wnl -F/u AM labs Alcohol abuse -No s/s of withdrawl -CIWA protocol cancelled Depression -Stable Tobacco abuse -nicotine patch GI px -PPI DVT px -teds, scd. Enoxaparin SC Resolved issues: Hypotension possibly 2/2 to post-anesthesia hypotension vs. septic shock Hypomagnesemia, acute VS,Fishbone, I+O VS, Fishbone, I+O Laboratory Tests 11/11/20 05:54 Vital Signs Date Time Temp Pulse Resp B/P (MAP) Pulse Ox O2 Delivery O2 Flow Rate FiO2 11/11/20 18:00 98.1 71 15 146/81 (102) 95 Room Air 11/06/20 14:00 1.0 I&O- Last 24 Hours up to 6 AM 11/11/20 05:59 Intake Total 1890 ml Output Total 5050 ml Balance -3160 ml ASA POSADA DO Nov 11, 2020 19:27
[2020-11-11] MEDS: MORPHINE 2 MG/ML 1ML VIAL (J2270) IV PRN (20:42)
[2020-11-11 22:00] VITALS: BP 103/57
[2020-11-12 02:00] VITALS: BP 101/55
[2020-11-12] MEDS: PIPERACILLIN/TAZOBACTAM SOD 4.5 GM in D5W MINI-BAG PLUS 50 ML IV SCH ×4 (02:29→21:44)
[2020-11-12] MEDS: NORCO, ANEXSIA 5/325MG TABLET (HYDROcodone/ACETAMINOPHEN) PO PRN ×5 (02:30→22:33)
[2020-11-12] MEDS: SODIUM CHLORIDE 0.9% INJ 10 ML SYR IV SCH ×2 (05:13→16:30)
[2020-11-12 06:00] VITALS: BP 113/71
[2020-11-12 07:06] LABS: BASO # 0.1 10^3/uL (0.0-0.2); BASO % 0.9 % (0.0-1.0); EOS # 1.7 10^3/uL (0.0-0.5); EOS % 11.4 % (0.0-3.0); HEMATOCRIT 40.2 % (42.0-52.0); HEMOGLOBIN 13.2 g/dl (13.5-17.5); LYMPH # 1.8 10^3/uL (1.5-5.0); LYMPH % 12.1 % (24.0-44.0); MEAN CORPUSCULAR HEMOGLOBIN 31.5 pg (27.0-33.0); MEAN CORPUSCULAR HGB CONC 32.8 g/dl (32.0-36.5); MEAN CORPUSCULAR VOLUME 95.9 fl (80.0-96.0); MONO # 1.4 10^3/uL (0.0-0.8); MONO % 9.6 % (2.0-8.0); NEUTROPHILS # 9.5 10^3/uL (1.5-8.5); NEUTROPHILS % 63.5 % (36.0-66.0); PLATELET COUNT, AUTOMATED 621 10^3/uL (150-450); RED BLOOD COUNT 4.19 10^6/uL (4.30-6.10)
[2020-11-12 07:28] LABS: ALBUMIN 2.8 GM/DL (3.2-5.2); ALT/SGPT 52 U/L (12-78); BILIRUBIN,TOTAL 0.6 MG/DL (0.2-1.0); BLOOD UREA NITROGEN 19 MG/DL (7-18); CALCIUM LEVEL 9.2 MG/DL (8.8-10.2); CARBON DIOXIDE LEVEL 27 MEQ/L (21-32); CHLORIDE LEVEL 95 MEQ/L (98-107); GLOMERULAR FILTRATION RATE > 60.0 (>49); GLUCOSE, FASTING 83 MG/DL (70-100); POTASSIUM SERUM 4.9 MEQ/L (3.5-5.1); SODIUM LEVEL 130 MEQ/L (136-145); TOTAL PROTEIN 7.2 GM/DL (6.4-8.2)
--- NOTE | 2020-11-12 08:25 | RO ---
OPERATIVE NOTE DATE OF OPERATION: 11/04/2020 PREOPERATIVE DIAGNOSIS: Perforated viscus, probable anastomotic leak from recent bowel surgery. POSTOPERATIVE DIAGNOSIS: 1. Pelvic hematoma with abscess. 2. Small bowel obstruction with perforation and diffuse peritonitis. 3. Extensive abdominal adhesions. PROCEDURE PERFORMED: Exploratory laparotomy with lysis of adhesions with drainage of pelvic hematoma and abscess. He underwent resection of a portion of ileum with creation of an ileostomy and also underwent appendectomy. SURGEON: Christ Price MD SENIOR PROGRAM PLANNER: None. ANESTHESIA: General INDICATIONS FOR THE PROCEDURE: The patient is a 64-year-old man now approximately two weeks postop from surgery to take down his colostomy and perform a colorectal anastomosis after having had an urgent colostomy for a large bowel obstruction back in May of 2020. He had done well through the first week to 10 days of his postop course but then developed some increased abdominal distention and had increasing pain and presented to the hospital on the with severe pain and distention. CT scan showed evidence of free air and free fluid within the abdomen and he is now for exploratory laparotomy for what is presumed to be an anastomotic leak at his colorectal anastomosis. OPERATIVE PROCEDURE: The patient was brought to the operating room and placed on the table in a supine position. He was placed under general endotracheal anesthesia. A Marina catheter and nasogastric tube were inserted. The patient's abdomen was prepped and draped in a sterile fashion. His ostomy site in the left lower abdomen was open with a small amount of necrotic tissue evident. He had three other small stapled incisions. A midline incision was made beginning above the umbilicus and extending inferiorly. On opening the peritoneum, some slightly turbid, dark, greenish-brown or reddish-brown fluid was released. Suction was used to remove fluid. The incision was extended inferiorly first. There were some adhesions to underlying dilated loops of small bowel in the lower abdomen that appeared to be very established and possibly predating his most recent surgery. The small bowel loops were found to be quite dilated. The incision was extended superiorly to create adequate space for an exploration. The proximal small bowel loops were quite dilated up to perhaps 5 or 6 cm. There was a large amount of free fluid throughout the abdomen, all of the same sort of brownish fluid. There was very little particulate matter and very little inflammatory exudate was seen. Some very dense adhesions of small bowel along his old midline scar in the lower abdomen were taken down sharply. As this loop was freed, it was clear that there was a hole in the small bowel at this point. Initially I thought this may have been created in the course of taking down the adhesions but as the inspection continued, it seemed more likely that this represented a perforation likely related to his bowel obstruction that was identified. The fluid draining from the small bowel at this point was similar to the fluid throughout the abdomen. There were some very dense adhesions of the small bowel distal to this to the retroperitoneum and down to the pelvis in the area where his recent colorectal anastomosis had been performed. As this area of the anastomosis was explored, it was clear that he had some old hematoma around the region of the anastomosis and following the rectum into the pelvis somewhat. As this was opened up and the hematoma debrided, an actual collection of purulent fluid consistent with an abscess was identified walled off in the right side of the upper pelvis. Cultures were obtained of this fluid. The area was broken open further and copiously irrigated. The distal ileum was quite distorted and scarred with two very dense omega loops of the bowel identified. Some adhesions in the right lower quadrant were divided and the appendix was identified within these adhesions after it was transected so an appendectomy was performed. The appendix was sent for permanent pathology. The abscess cultures were sent as well. With the extensive scarring of the distal ileum which began just below the point of the perforation, I elected to resect this segment of the small bowel to remove the two scarred areas and the area of perforation. The colon was divided proximal and distal with a linear cutter stapler. The mesentery was divided using the harmonic scalpel to free the specimen and this was sent for permanent pathology. A pool sucker had been used to clear as much fluid from the small bowel as possible prior to transecting the bowel. The proximal bowel was quite edematous and remained somewhat distended. There were approximately 12-15 cm of terminal ileum remaining proximal to the ileocecal valve. I elected not to perform an anastomosis but to instead create an ileostomy. Therefore, a site for the ileostomy was created in the right mid-abdomen. A skin disc was excised and an opening was created through the rectus muscle. The posterior fascia and peritoneum were opened. The proximal end of the small bowel was directed through this opening. The terminal ileal stump was brought up along the lateral abdominal wall and sutured to the anterior abdominal wall just below the edge of the ostomy site with two 2-0 Prolene sutures with the tails left long for later identification. The abdomen was thoroughly irrigated with warm saline to remove as much debris as possible. The pelvis was drained by placing a 19 [place] Donell drain through a stab wound low in the left lower quadrant. This was directed down through the area of the perirectal hematoma and over to the area where the abscess had been drained. The position of the NG tube was checked and the NG was positioned in the mid-body of the stomach. The fascia along the midline was then closed with interrupted simple sutures of #1 Vicryl. The skin edges were approximated with widely spaced skin saundra. The drain was sutured to the skin with a 2-0 silk. This was connected to a Cornelio-Mooney bulb. The ileostomy was matured by making an incision down the antimesenteric border. Four corner everting sutures of 3-0 Vicryl were placed and additional sutures were placed to complete the maturation of the stoma. An ostomy appliance was placed. A bulky bandage was placed on the midline incision and a CHG Opsite was placed at the drain site. A small amount of debridement of material in the old ostomy site was performed. The patient tolerated the procedure well. I elected to continue his Marina and his NG tube. He was awakened in the operating room, extubated and moved to the recovery room in stable condition. ASHKAN
[2020-11-12] MEDS: NICOTINE 14 MG/24 HR TRANSDERMAL TD SCH (09:30)
[2020-11-12] MEDS: ENOXAPARIN 40MG/0.4ML SYRINGE (J1650 PER 10MG) SC SCH (09:31)
[2020-11-12] MEDS: THIAMINE 200MG/2ML VIAL (J3411 PER 100MG) IV SCH (09:31)
[2020-11-12] MEDS: PANTOPRAZOLE 40MG TAB (PROTONIX) PO SCH (09:31)
[2020-11-12] MEDS: FOLIC ACID 1 MG TAB PO SCH (09:31)
[2020-11-12] MEDS: BACITRACIN OINTMENT 30GM TUBE TOP SCH (09:33)
[2020-11-12] MEDS: lisinopriL 5 MG TAB PO SCH (09:33)
[2020-11-12 10:00] VITALS: BP 122/76
[2020-11-12 14:00] VITALS: BP 126/82
[2020-11-12] MEDS: SODIUM CHLORIDE 0.9% INJ 10 ML SYR IV PRN (14:26)
[2020-11-12 18:00] VITALS: BP 122/76
--- NOTE | 2020-11-12 19:36 | IPNPDOC ---
Text Note Date of Service The patient was seen on 11/12/20. NOTE SUBJECTIVE: The patient clinically continues to be doing well. His TPN was discontinued by the primary team. He seems to be tolerating oral intake. He does have some abdominal pain when he is sitting still for a long time, but he has been walking the hallways, and this seems to ease his abdominal discomfort. Otherwise, he does not have any other complaints at this time. OBJECTIVE: PHYSICAL EXAMINATION: GENERAL: AAOx3, NAD sitting up in bedside chair HEENT: AT/NC, NG to LIS CARDIOVASCULAR: S1, S2 +, RRR/NMRG LUNGS: CTAB on RA, no W/R/R ABDOMEN: Does not appear to be distended at this time. Only minimally tender to palpation throughout. Multiple incisions, appeared clean, nonsuppurative. Ileostomy present, Stoma appears healthy MUSCULOSKELETAL: ROMIx 4, no edema, cyanosis or clubbing PSYCHIATRIC: mood and affect appropriate ASSESSMENT: is a 64 yr old w a hx of diverticulitis complicated by obstruction s/p sigmoid colectomy and colostomy w subsequent reversal, HTN and depression admitted for diffuse peritonitis likely 2/2 to anastomotic leak from a colostomy take-down 10/21/20. PLAN: Diffuse peritonitis likely 2/2 to anastomotic leak from laparoscopic lysis of adhesions, laparoscopic colostomy reversal with coloproctostomy done 10/21/20 -exploratory laparotomy (11/04/20) with lysis of adhesions, drainage of pelvic hematoma and abscess resection with ileostomy and appendectomy. -NG tube pulled 11/09/20 -WBC still increased, however mildly improved from yesterday, afebrile, abdominal distension appears mildly incr -Anaerobic Cx does not yield sensitivities. Per Dr. Onofre, switched to zosyn -Surgery primary Hyponatremia likely 2/2 to diuresis -Sodium is a little lower today, diuretic has already been discontinued -F/u AM labs HTN -Blood pressures much better today -Continue with home dose of lisinopril 5 mg daily Alcohol abuse -No s/s of withdrawl -CIWA protocol cancelled Depression -Stable Tobacco abuse -nicotine patch GI px -PPI DVT px -teds, scd. Enoxaparin SC Resolved issues: Hypotension possibly 2/2 to post-anesthesia hypotension vs. septic shock Hypomagnesemia, acute Hypoglycemia likely 2/2 to decreased PO intake Acute hypokalemia VS,Fishbone, I+O VS, Fishbone, I+O Laboratory Tests 11/12/20 06:16 Vital Signs Date Time Temp Pulse Resp B/P (MAP) Pulse Ox O2 Delivery O2 Flow Rate FiO2 11/12/20 18:27 18 11/12/20 18:00 97.5 78 122/76 (91) 96 Room Air 11/06/20 14:00 1.0 I&O- Last 24 Hours up to 6 AM 11/12/20 05:59 Intake Total 2390 ml Output Total 3700 ml Balance -1310 ml ASA POSADA DO Nov 12, 2020 19:36
[2020-11-12 22:00] VITALS: BP 107/60
[2020-11-13] MEDS: MORPHINE 2 MG/ML 1ML VIAL (J2270) IV PRN (01:09)
[2020-11-13 02:00] VITALS: BP 109/66
[2020-11-13] MEDS: PIPERACILLIN/TAZOBACTAM SOD 4.5 GM in D5W MINI-BAG PLUS 50 ML IV SCH ×4 (03:59→21:18)
[2020-11-13] MEDS: NORCO, ANEXSIA 5/325MG TABLET (HYDROcodone/ACETAMINOPHEN) PO PRN ×3 (04:04→21:19)
[2020-11-13] MEDS: SODIUM CHLORIDE 0.9% INJ 10 ML SYR IV SCH ×2 (05:09→17:30)
[2020-11-13 05:45] VITALS: BP 124/69
[2020-11-13 06:59] LABS: BASO # 0.1 10^3/uL (0.0-0.2); BASO % 0.8 % (0.0-1.0); EOS # 1.3 10^3/uL (0.0-0.5); EOS % 9.6 % (0.0-3.0); HEMOGLOBIN 12.4 g/dl (13.5-17.5); LYMPH # 1.9 10^3/uL (1.5-5.0); LYMPH % 13.7 % (24.0-44.0); MEAN CORPUSCULAR HEMOGLOBIN 30.6 pg (27.0-33.0); MEAN CORPUSCULAR HGB CONC 32.6 g/dl (32.0-36.5); MEAN CORPUSCULAR VOLUME 93.8 fl (80.0-96.0); MONO # 1.2 10^3/uL (0.0-0.8); MONO % 8.6 % (2.0-8.0); NEUTROPHILS % 65.1 % (36.0-66.0); PLATELET COUNT, AUTOMATED 640 10^3/uL (150-450); RED BLOOD COUNT 4.05 10^6/uL (4.30-6.10); WHITE BLOOD COUNT 13.8 10^3/uL (4.0-10.0)
[2020-11-13 07:27] LABS: ALBUMIN 2.9 GM/DL (3.2-5.2); ALT/SGPT 40 U/L (12-78); BILIRUBIN,TOTAL 0.5 MG/DL (0.2-1.0); BLOOD UREA NITROGEN 23 MG/DL (7-18); CARBON DIOXIDE LEVEL 26 MEQ/L (21-32); CHLORIDE LEVEL 97 MEQ/L (98-107); CREATININE FOR GFR 0.94 MG/DL (0.70-1.30); GLOMERULAR FILTRATION RATE > 60.0 (>49); GLUCOSE, FASTING 91 MG/DL (70-100); POTASSIUM SERUM 4.4 MEQ/L (3.5-5.1); SODIUM LEVEL 131 MEQ/L (136-145); TOTAL PROTEIN 7.2 GM/DL (6.4-8.2)
[2020-11-13] MEDS: PANTOPRAZOLE 40MG TAB (PROTONIX) PO SCH (10:19)
[2020-11-13] MEDS: FOLIC ACID 1 MG TAB PO SCH (10:19)
[2020-11-13] MEDS: ENOXAPARIN 40MG/0.4ML SYRINGE (J1650 PER 10MG) SC SCH (10:19)
[2020-11-13] MEDS: NICOTINE 14 MG/24 HR TRANSDERMAL TD SCH (10:19)
[2020-11-13] MEDS: THIAMINE 200MG/2ML VIAL (J3411 PER 100MG) IV SCH (10:20)
[2020-11-13] MEDS: BACITRACIN OINTMENT 30GM TUBE TOP SCH (10:20)
[2020-11-13] MEDS: lisinopriL 5 MG TAB PO SCH (10:22)
--- NOTE | 2020-11-13 10:59 | IPNPDOC ---
Text Note Date of Service The patient was seen on 11/12/20. NOTE Patient seen sitting up on the chair and looks very comfortable. He reports some crampy abdominal pain relieved with any get stuff out from the ileostomy. Denies any nausea, severe bloating. Tolerating diet. Vitals stable Examination Patient looks very comfortable Lung sounds clear to auscultation Non-tachycardic, regular rhythm Abdomen appears mildly rounded but soft, does not look distended. He has right lower quadrant ileostomy which is putting out thin green fluid. Small amount of air in the bag. Midline incision intact, clean and dry left lower quadrant ostomy site open. Nontender on palpation Impression and plan He is now postop day 8 following her emergent exploratory laparotomy was found to have a portion of small bowel that has perforated be secondary to p ostoperative obstruction. He appears to be doing well. He is familiar with ostomy care and has been doing most of the ostomy care in the hospital by himself. He remains antibiotics. I anticipate that he may be ready go home early next week. VS,Marcia, I+O VS, Marcia, I+O Laboratory Tests 11/13/20 06:37 Vital Signs Date Time Temp Pulse Resp B/P (MAP) Pulse Ox O2 Delivery O2 Flow Rate FiO2 11/13/20 10:22 124/73 11/13/20 05:45 98.1 64 18 94 Room Air I&O- Last 24 Hours up to 6 AM 11/13/20 05:59 Intake Total 2500 ml Output Total 2850 ml Balance -350 ml LALO DEJESUS MD Nov 13, 2020 10:59
[2020-11-13 14:00] VITALS: BP 105/72
--- NOTE | 2020-11-13 16:04 | IPNPDOC ---
Text Note Date of Service The patient was seen on 11/13/20. NOTE SUBJECTIVE: Patient is reclined in bed when I entered the room. He is awake and in good spirits. He is not in any pain at this time. He is tolerating his oral intake quite well. He does not have any complaints at this time. OBJECTIVE: PHYSICAL EXAMINATION: GENERAL: AAOx3, NAD sitting up in bedside chair HEENT: AT/NC, NG to LIS CARDIOVASCULAR: S1, S2 +, RRR/NMRG LUNGS: CTAB on RA, no W/R/R ABDOMEN: Does not appear to be distended at this time. Only minimally tender to palpation throughout. Multiple incisions, appeared clean, nonsuppurative. Ileostomy present, Stoma appears healthy MUSCULOSKELETAL: ROMIx 4, no edema, cyanosis or clubbing PSYCHIATRIC: mood and affect appropriate ASSESSMENT: is a 64 yr old w a hx of diverticulitis complicated by obstruction s/p sigmoid colectomy and colostomy w subsequent reversal, HTN and depression admitted for diffuse peritonitis likely 2/2 to anastomotic leak from a colostomy take-down 10/21/20. PLAN: Diffuse peritonitis likely 2/2 to anastomotic leak from laparoscopic lysis of adhesions, laparoscopic colostomy reversal with coloproctostomy done 10/21/20 -exploratory laparotomy (11/04/20) with lysis of adhesions, drainage of pelvic hematoma and abscess resection with ileostomy and appendectomy. -NG tube pulled 11/09/20 -WBC still elevated, but better than yesterday, afebrile, abdominal distension appears mildly incr -Anaerobic Cx does not yield sensitivities. Per Dr. Onofre, switched to zosyn -Surgery primary Hyponatremia likely 2/2 to diuresis -Sodium is a little lower today, diuretic has already been discontinued -F/u AM labs HTN -Blood pressures much better today -Continue with home dose of lisinopril 5 mg daily Alcohol abuse -No s/s of withdrawl -CIWA protocol cancelled Depression -Stable Tobacco abuse -nicotine patch GI px -PPI DVT px -teds, scd. Enoxaparin SC Resolved issues: Hypotension possibly 2/2 to post-anesthesia hypotension vs. septic shock Hypomagnesemia, acute Hypoglycemia likely 2/2 to decreased PO intake Acute hypokalemia It appears that he is quite stable, and meds have not been adjusted for a few days. Hospitalist team will sign-off at this time. Please call if there are further issues. Thanks so much. VS,Sohanbone, I+O VS, Fishbone, I+O Laboratory Tests 11/13/20 06:37 Vital Signs Date Time Temp Pulse Resp B/P (MAP) Pulse Ox O2 Delivery O2 Flow Rate FiO2 11/13/20 05:45 98.1 64 18 124/69 (87) 94 Room Air I&O- Last 24 Hours up to 6 AM 11/13/20 06:00 Intake Total 1900 ml Output Total 2775 ml Balance -875 ml ASA POSADA DO Nov 13, 2020 08:31
[2020-11-13 22:00] VITALS: BP 123/61
[2020-11-13] MEDS: SODIUM CHLORIDE 0.9% INJ 10 ML SYR IV PRN (23:00)
[2020-11-14] MEDS: PIPERACILLIN/TAZOBACTAM SOD 4.5 GM in D5W MINI-BAG PLUS 50 ML IV SCH ×4 (03:45→21:08)
[2020-11-14] MEDS: SODIUM CHLORIDE 0.9% INJ 10 ML SYR IV SCH ×2 (05:03→17:00)
[2020-11-14 06:00] VITALS: BP 124/80
[2020-11-14] MEDS: NORCO, ANEXSIA 5/325MG TABLET (HYDROcodone/ACETAMINOPHEN) PO PRN ×3 (06:22→17:41)
[2020-11-14] MEDS: GASTROGRAFIN SOLUTION 30ML PO SCH ×2 (07:45→08:13)
[2020-11-14] MEDS ORDERED: ISOVUE-370 76% 100ML VIAL As Ordered ONE (08:34)
[2020-11-14] MEDS: FOLIC ACID 1 MG TAB PO SCH (10:27)
--- NOTE | 2020-11-14 10:27 | REP ---
INDICATION: evaluate for abscess. COMPARISON: 11/04/2020 TECHNIQUE: Axial contrast-enhanced images from the lung bases to the pubic symphysis using oral and 100 cc Isovue 370 intravenous contrast material. Coronal and sagittal reformations obtained. This CT examination was performed using the following dose reduction techniques: Automated exposure control, adjustment of mA and/or kv according to the patient's size, and the use of iterative reconstruction technique. FINDINGS: Lung bases demonstrate small amount of bibasilar linear fibroatelectatic changes (right greater than left) which appear somewhat improved. The liver, spleen, pancreas, collapsed gallbladder, bilateral adrenal glands and kidneys are essentially normal/stable. Small right renal hypodensity again noted and consistent with cyst. There is evidence for ileostomy via the right anterior abdominal wall without evidence for obstruction. The distal/terminal ileum extending to the cecum appears somewhat thickened/irregular and there is a slight irregular appearance to the ascending through proximal transverse colon with mucosal thickening and adjacent fat stranding. A 4.7 x 3.7 cm ovoid cystic collection is identified along the inferior margin of the liver adjacent to the ileostomy and irregular appearing cecum/ascending colon which may reflect a small discrete collection or abscess or seroma. There is no evidence for bowel obstruction or free air. No significant ascites. (Series 201; images 75-89). Midline skin saundra noted consistent with recent procedure. Pelvis demonstrates relatively normal bladder and age-appropriate prostate/seminal vesicles. No significant ascites. No free air. Small para-aortic retroperitoneal lymph nodes are relatively unchanged. Atherosclerotic changes noted without evidence for aortic aneurysm. Musculoskeletal structures demonstrate degenerative changes. IMPRESSION: 1. Irregular appearance to the distal ileum, cecum and ascending colon of uncertain significance or etiology. Ileostomy noted via the right anterior abdominal wall without evidence for obstruction. No ascites. No free air. 2. Small focal fluid collection in the right mid abdomen just below the liver adjacent to the a level of the ileostomy may represent small seroma or possible early abscess. Follow-up may be warranted. 3. Small periaortic retroperitoneal lymph nodes again noted and similar to prior examination. <Electronically signed by Claude Savage > 11/14/20 1024
[2020-11-14] MEDS: THIAMINE 200MG/2ML VIAL (J3411 PER 100MG) IV SCH (10:29)
[2020-11-14] MEDS: lisinopriL 5 MG TAB PO SCH (10:29)
[2020-11-14] MEDS: ENOXAPARIN 40MG/0.4ML SYRINGE (J1650 PER 10MG) SC SCH (10:29)
[2020-11-14] MEDS: PANTOPRAZOLE 40MG TAB (PROTONIX) PO SCH (10:29)
[2020-11-14] MEDS: NICOTINE 14 MG/24 HR TRANSDERMAL TD SCH (10:30)
[2020-11-14 14:00] VITALS: BP 113/77
[2020-11-14] MEDS: BACITRACIN OINTMENT 30GM TUBE TOP SCH (15:46)
[2020-11-14 22:00] VITALS: BP 104/71
[2020-11-14] MEDS: SODIUM CHLORIDE 0.9% INJ 10 ML SYR IV PRN (22:27)
[2020-11-15] MEDS: PIPERACILLIN/TAZOBACTAM SOD 4.5 GM in D5W MINI-BAG PLUS 50 ML IV SCH ×3 (03:38→15:45)
[2020-11-15] MEDS: NORCO, ANEXSIA 5/325MG TABLET (HYDROcodone/ACETAMINOPHEN) PO PRN ×3 (03:38→14:30)
[2020-11-15] MEDS: SODIUM CHLORIDE 0.9% INJ 10 ML SYR IV SCH (05:00)
[2020-11-15 06:00] VITALS: BP 130/78
--- NOTE | 2020-11-15 09:06 | IPN ---
PROGRESS NOTE DATE: 11/14/2020 HISTORY: The patient is now postoperative day 10 from exploratory laparotomy for a small bowel perforation from obstruction. He has been doing very well recently. His ileostomy is functioning well and he is tolerating a regular diet. He remains on Zosyn for antibiotic coverage. His wounds are healing well. Vital signs show that he has been afebrile over the past 24 hours. His pulse is in the 70s-80s and his blood pressure is excellent. Intake and output showed that yesterday he had 2500 in with 4175 recorded out. PHYSICAL EXAMINATION: The patient is awake and alert, and appears comfortable. Heart exam shows a regular rhythm. The lungs are clear. The abdomen is flat. The ileostomy is functioning well. His midline incision is healing nicely and his old colostomy site seems to be healing. There is no evidence of significant edema in the lower extremities. LABORATORY: Laboratory studies today show a white count of 14,000, hemoglobin 12, hematocrit 38 and a platelet count of 640,000. Differential count shows 65% neutrophils, 14% lymphocytes, 9% monocytes and 10% eosinophils. Chemistry profile today shows a sodium of 131, potassium 4.4, chloride 97, CO2 of 26, BUN of 23, creatinine 0.9 and a glucose of 91. Liver function tests are normal. IMPRESSION: The patient is generally doing well but his white blood cell count remains elevated to 14,000 with a platelet count rising to 640,000 today. I am concerned that he may still be harboring an abscess following his recent diffuse peritonitis. PLAN: I will obtain a CT scan today with contrast to look for evidence of an abscess. If the CT scan is negative, we may be able to discharge him today. If there is a finding of an abscess, then percutaneous drainage hopefully will be possible. We will continue his antibiotics for now. ASHKAN
[2020-11-15] MEDS: FOLIC ACID 1 MG TAB PO SCH (09:22)
[2020-11-15 09:24] VITALS: BP 128/88
[2020-11-15] MEDS: PANTOPRAZOLE 40MG TAB (PROTONIX) PO SCH (09:24)
[2020-11-15] MEDS: THIAMINE 200MG/2ML VIAL (J3411 PER 100MG) IV SCH (09:24)
[2020-11-15] MEDS: NICOTINE 14 MG/24 HR TRANSDERMAL TD SCH (09:24)
[2020-11-15] MEDS: lisinopriL 5 MG TAB PO SCH (09:24)
[2020-11-15] MEDS: BACITRACIN OINTMENT 30GM TUBE TOP SCH (09:25)
[2020-11-15] MEDS ORDERED: LIDOCAINE 1% MDV 20ML VIAL As Ordered ONE (13:02)
[2020-11-15 14:36] VITALS: BP 109/69
--- NOTE | 2020-11-16 07:13 | IPN ---
PROGRESS NOTE DATE: 11/15/2020 SUBJECTIVE: The patient is now postop day #11 from exploratory laparotomy with small bowel resection and release of small bowel obstruction with creation of a new ileostomy. A small fluid collection was identified in the abdomen lateral to the ileostomy yesterday and a percutaneous drain has now been placed in this fluid collection. It was reported to me that approximately 30 to 40 ml of primarily serosanguinous appearing fluid was drained. He has otherwise been doing well with good ostomy functioning and he is tolerating a diet well. Vital signs shows that he has been afebrile over the past 24 hours. His pulse is in the 70s and his blood pressure is excellent. Intake and output shows that yesterday he had 750 ml recorded in with 3700 recorded out. He continues to put out over a liter of stool in his ileostomy daily. PHYSICAL EXAMINATION: GENERAL: Patient is awake and alert. HEART: Regular rhythm. LUNGS: Clear. ABDOMEN: His midline incision shows a few small crusted areas between the saundra but otherwise looks good. His old ostomy site appears to be closing in somewhat. His new ileostomy looks healthy and the new drain is in place in the lateral right abdomen with a small amount of very light colored watery fluid in the tubing. LABORATORY DATA: Laboratory studies were not repeated today. The gram stain from the fluid from his drain placement is still pending. IMPRESSION: Patient is doing very well now 11 days postop. He has a drain placed and the only significant fluid collection identified on his CT yesterday. He is eager to go home. PLAN: Patient's antibiotic will be discontinued. I will discharge him home today with the newly placed drain. He was counseled to measure and record the output from the drain daily. We will arrange a visiting nurse to assist in monitoring and assisting with his wound care. He can take a diet as tolerated. He should avoid any strenuous physical activity for now. I have asked him to follow-up in my office later this week to remove his surgical saundra and consider removal of his drain if it is not putting out much. I will follow-up on the cultures from this drain in the next day or two and reinstitute antibiotics if necessary. He was instructed to call my office for any problems. ASHKAN
--- NOTE | 2020-11-16 18:07 | REP ---
INDICATION: drain collection lateral to ileostomy. COMPARISON: None. TECHNIQUE: The procedure was performed under the direct supervision of Dr. Rahman. The patient has a history of a small focal fluid collection in the right mid abdomen just below the liver and adjacent to the level of the ileostomy seen on a previous CT scan dated 11/14/2020. The risks and benefits of the procedure were explained to the patient and informed consent was obtained. The fluid collection was localized using ultrasound guidance. The skin was prepped and draped in a sterile fashion. 1% lidocaine was used as a local anesthetic. Using ultrasound guidance an 8 Divehi skater APDL catheter was inserted using trocar technique. 30 cc of low viscosity red colored fluid was withdrawn and sent to the lab for analysis. The catheter was affixed to the skin and a sterile dressing was applied. The catheter was connected to a gravity drainage bag. The patient tolerated the procedure well and there were no immediate complications. After the appropriate amount to monitor convalescence the patient was discharged from the department FINDINGS: None IMPRESSION: Ultrasound-guided abdominal abscess drain with insertion of an 8 Divehi skater APDL catheter. <Electronically signed by Rustam Dong > 11/16/20 1600 <Electronically signed by Brian Rahman > 11/16/20 [id number]
--- NOTE | 2020-11-21 09:55 | CCN ---
CRITICAL CARE NOTE DATE: 11/20/2020 Critical care time was one hour and 34 minutes. This excludes all procedures. SUBJECTIVE: I was called by Dr. Griffith for this gentleman who has been hypotensive despite over 6 liters of IV fluid bolus. Mr. Sunshine is a 64-year-old male with recent exploratory laparoscopy revision of ileostomy and abdominal fluid collection that was drained, who presented last evening with high output hypovolemia, resulting in shock and renal failure. The patient feels weak. He is able to talk. He gave consent for the IJ verbally. The patient himself just has no significant abdominal discomfort. He denies any chest discomfort. No increase in shortness of breath. No cough, fever or chills. He has been urinating less overnight than he usually does. When reviewing his vital signs overnight, his blood pressure was as low as 50/palp, 79/46 when I was called. He does not have much of a tachycardia. The patient had a CT scan in the Emergency Room which showed a smaller fluid collection where there had been previous drainage, some potential colitis. OBJECTIVE: PHYSICAL EXAMINATION: VITAL SIGNS: Currently the patient's temperature is 97.4, pulse is 75, respiratory rate is 18, oxygen saturation is 97% on room air. Blood pressure is 73/45 with a MAP of 54. The lowest systolic blood pressure was 50/palp. GENERAL APPEARANCE: Awake, talking, oriented to person, place and time. HEENT: Sclerae are clear, anicteric. Pupils are equal and reactive to light. Mucous membranes are dry. Tongue is midline. NECK: Supple. No tracheal deviation. No elevated JVP. Carotid pulses are palpable bilaterally and have fairly normal upstroke without bruit. LYMPH: No cervical, supraclavicular or axillary adenopathy. CARDIAC: Regular, S1, S2 without audible murmurs, rubs or gallops. No elevated JVP. No systemic edema. PULMONARY: Clear to auscultation without rales, rhonchi or wheezes. No dullness to percussion. No accessory muscle use. ABDOMEN: Ostomy with high output, brown water-like consistency collecting in a [place] bag. EXTREMITIES: No clubbing, cyanosis, or edema. Extremities without evidence of trauma. No joint effusion. SKIN: No rash, jaundice, bruising. LABORATORY EVALUATION: White blood cell count that went from 14.6 to 11.6, hemoglobin of 10.9, platelet count is 669. Sodium 131, up from 129. Potassium is 4.0, chloride 104, bicarbonate of 18, BUN of 48, creatinine of 2.5 which is improved from a BUN of 57, creatinine of 4.09, calcium of 8.0. Albumin was measured at 3.2. Blood cultures and urine cultures are pending. Culture data from 11/04 from wound culture shows multiple organisms including Morganella, pseudomonas and multiple GI bugs. IMAGING: Chest x-ray shows a left upper lobe abnormality that has been present since 2011, likely apical scarring. ASSESSMENT: 1. Hypotension and shock with renal failure likely hypovolemic from high output ileostomy. We will also rule out infection. There are signs of possible colitis on CT scan. The patient recently was on broad spectrum antibiotics. I have added p.o. Vancomycin in case there is a possibility of C-diff. There does appear to be a decrease in size of the fluid collection that was previously drained, felt to be more likely a seroma. I have changed his fluids to D5 half normal saline with an amp of bicarbonate due to bicarbonate losses through the ileostomy. 2. Thrombocytosis likely due to acute inflammation, possibly colitis. 3. DVT prophylaxis with Heparin. 4. GI prophylaxis with Pepcid. 5. High output ostomy Primary Team consulting Surgery. Consideration of methods towards slowing output. Patient on Loperamide. At this point in time, I am not sure if Questran would be of any benefit. PLAN: 1. The patient will remain in the ICU. 2. I will be monitoring blood pressure, insuring adequate urine output. [facility]
== END 2020-11-15 17:30 | disposition home health service (06) | DRG 221 ==
LOC: EDBD 12:03 → M ED 12:03 → M ED INP 15:05 → M ICU 21:39 → M MSPAV 11-06 17:04
PROVIDERS: ADMIT Surgery; ATTEND Surgery
PROC: 0DNU0ZZ Release Omentum, Open Approach (ICD-10-PCS; 2020-11-04)
PROC: 0DBB0ZZ Excision of Ileum, Open Approach (ICD-10-PCS; 2020-11-04)
PROC: 0WCJ0ZZ Extirpation of Matter from Pelvic Cavity, Open Approach (ICD-10-PCS; 2020-11-04)
PROC: 0W9J00Z Drainage of Pelvic Cavity with Drainage Device, Open Approach (ICD-10-PCS; 2020-11-04)
PROC: 0DTJ0ZZ Resection of Appendix, Open Approach (ICD-10-PCS; 2020-11-04)
PROC: 0D1B0Z4 Bypass Ileum to Cutaneous, Open Approach (ICD-10-PCS; principal; 2020-11-04 14:23)
PROC: 02HV33Z Insertion of Infusion Device into Superior Vena Cava, Percutaneous Approach (ICD-10-PCS; 2020-11-07)
DX: K91.89 Other postprocedural complications and disorders of digestive system (principal); R65.21 Severe sepsis with septic shock; K63.1 Perforation of intestine (nontraumatic); A41.9 Sepsis, unspecified organism; K65.9 Peritonitis, unspecified; E46 Unspecified protein-calorie malnutrition; E83.42 Hypomagnesemia; K91.870 Postprocedural hematoma of a digestive system organ or structure following a digestive system procedure; E87.1 Hypo-osmolality and hyponatremia; Y83.2 Surgical operation with anastomosis, bypass or graft as the cause of abnormal reaction of the patient, or of later complication, without mention of misadventure at the time of the procedure; E87.6 Hypokalemia; K66.0 Peritoneal adhesions (postprocedural) (postinfection); I10 Essential (primary) hypertension; E16.2 Hypoglycemia, unspecified; H91.90 Unspecified hearing loss, unspecified ear; F32.9 Major depressive disorder, single episode, unspecified; N40.0 Benign prostatic hyperplasia without lower urinary tract symptoms; F10.10 Alcohol abuse, uncomplicated; F17.200 Nicotine dependence, unspecified, uncomplicated

== ENCOUNTER 2020-11-19 16:44 | Inpatient (IN) | payer OTHER ==
[~2020-11-19] VITALS: Ht 172.7 cm; Wt 79.8 kg
[2020-11-19] MEDS ORDERED: LISI10TA22 PO (16:59)
[2020-11-19] MEDS ORDERED: ACET-683 PO (16:59)
[2020-11-19] MEDS ORDERED: PIPERACILLIN/TAZOBACTAM SOD 4.5 GM in D5W MINI-BAG PLUS 50 ML IV ONE (17:00)
[2020-11-19] MEDS ORDERED: NS 2,150 ML in IV 1 EA IV ONE (17:05)
[2020-11-19 17:18] LABS: VENOUS BASE EXCESS -6.3 (-2.0-2.0); VENOUS HCO3 18.5 MEQ/L (23.0-27.0); VENOUS O2 SATURATION 85.7 % (60.0-80.0); VENOUS PARTIAL PRESSURE CO2 34.7 mmHg (38.0-50.0); VENOUS PARTIAL PRESSURE O2 55.6 mmHg (30.0-50.0); VENOUS PH 7.345 UNITS (7.330-7.430); VENOUS STANDARD HCO3 19.1 MEQ/L; VENOUS TOTAL CO2 19.6 MEQ/L (24.0-28.0)
--- NOTE | 2020-11-19 17:20 | REP ---
INDICATION: SEPSIS/SHOCK. COMPARISON: 11/04/2020. TECHNIQUE: SINGLE PORTABLE AP VIEW OF THE CHEST WAS PERFORMED. FINDINGS: No acute infiltrate. The heart is not significantly enlarged. There is calcification of the thoracic aorta. Mediastinal silhouette is unchanged. There is mild elevation of the left hemidiaphragm. IMPRESSION: NO ACUTE PULMONARY DISEASE. <Electronically signed by Brian Rahman > 11/19/20 [id number]
[2020-11-19 17:23] LABS: BASO # 0.1 10^3/uL (0.0-0.2); BASO % 0.7 % (0.0-1.0); EOS # 0.1 10^3/uL (0.0-0.5); EOS % 0.8 % (0.0-3.0); HEMATOCRIT 36.3 % (42.0-52.0); HEMOGLOBIN 12.1 g/dl (13.5-17.5); LYMPH # 1.6 10^3/uL (1.5-5.0); MEAN CORPUSCULAR HEMOGLOBIN 31.2 pg (27.0-33.0); MEAN CORPUSCULAR HGB CONC 33.3 g/dl (32.0-36.5); MEAN CORPUSCULAR VOLUME 93.6 fl (80.0-96.0); MONO # 1.3 10^3/uL (0.0-0.8); MONO % 8.6 % (2.0-8.0); NEUTROPHILS # 11.3 10^3/uL (1.5-8.5); NEUTROPHILS % 77.3 % (36.0-66.0); PLATELET COUNT, AUTOMATED 703 10^3/uL (150-450); RED BLOOD COUNT 3.88 10^6/uL (4.30-6.10); WHITE BLOOD COUNT 14.6 10^3/uL (4.0-10.0)
[2020-11-19 17:33] LABS: PROTHROMBIN TIME 13.4 SECONDS (12.5-14.3)
[2020-11-19 17:53] LABS: ALBUMIN 3.2 GM/DL (3.2-5.2); ALT/SGPT 32 U/L (12-78); AMYLASE 206 U/L (25-115); BILIRUBIN,DIRECT < 0.1 MG/DL (0.0-0.2); BILIRUBIN,TOTAL 0.2 MG/DL (0.2-1.0); BLOOD UREA NITROGEN 57 MG/DL (7-18); CALCIUM LEVEL 8.7 MG/DL (8.8-10.2); CARBON DIOXIDE LEVEL 21 MEQ/L (21-32); CHLORIDE LEVEL 99 MEQ/L (98-107); CK-MB VALUE MASS 1.6 NG/ML (<3.6); CPK CREATINE PHOSPHOKINASE 62 U/L (39-308); CREATININE FOR GFR 4.09 MG/DL (0.70-1.30); GLOMERULAR FILTRATION RATE 15.8 (>49); GLUCOSE, FASTING 97 MG/DL (70-100); MB/CK RELATIVE INDEX 2.58 (< OR =4); POTASSIUM SERUM 4.5 MEQ/L (3.5-5.1); SODIUM LEVEL 129 MEQ/L (136-145); TOTAL PROTEIN 7.1 GM/DL (6.4-8.2); TROPONIN I < 0.02 NG/ML (< 0.10)
[2020-11-19 18:47] LABS: RSV AMPLIFICATION NEGATIVE (NEGATIVE)
--- NOTE | 2020-11-19 19:18 | REPVR ---
PROCEDURE INFORMATION: Exam: CT Abdomen And Pelvis Without Contrast Exam date and time: 11/19/2020 6:00 PM Age: 64 years old Clinical indication: Abdominal pain; Localized; Lower TECHNIQUE: Imaging protocol: Computed tomography of the abdomen and pelvis without contrast. Radiation optimization: All CT scans at this facility use at least one of these dose optimization techniques: automated exposure control; mA and/or kV adjustment per patient size (includes targeted exams where dose is matched to clinical indication); or iterative reconstruction. COMPARISON: CT ABD PELVIS WITH CONTRAST 11/14/2020 9:54 AM FINDINGS: Lungs: The imaged portions of the lung bases are clear. The lungs were not fully imaged. Heart: No cardiomegaly or pericardial effusion is noted. There are coronary artery and aortic valve calcifications. Liver: Unremarkable. No liver lesion is identified. The contour of the liver is smooth. No hepatomegaly is noted. Gallbladder and bile ducts: The gallbladder is contracted. No calcified gallstones are seen. No dilation of the bile ducts is noted. No calcified stones are seen in the common bile duct. Pancreas: Unremarkable. No dilation of the main pancreatic duct is noted. There is no inflammatory fat stranding around the pancreas to suggest acute pancreatitis. Spleen: Unremarkable. No splenomegaly is noted. Adrenal glands: Normal. No adrenal mass is noted. Kidneys and ureters: The kidneys are unremarkable. No renal mass is identified. The right renal cyst seen in the CT abdomen and pelvis on 11/14/2020 is not identified in the current examination due to the lack of intravenous contrast in the current examination. No stones are noted in the kidneys or ureters. There is no hydronephrosis or hydroureter. Stomach and bowel: The stomach and small bowel are unremarkable. There is thickening of the wall of the cecum and ascending colon, which can also be seen in the prior CT abdomen and pelvis on 11/14/2020. There is colonic diverticulosis without evidence for diverticulitis. There is an anastomotic suture line at the rectosigmoid junction. A right lower quadrant ileostomy is present. No bowel obstruction or pneumatosis intestinalis is noted. The majority of the colon is decompressed, limiting its optimal evaluation. No pericolonic inflammatory fat stranding is noted. Appendix: There are no findings to suggest acute appendicitis. Intraperitoneal space: There is a 2.7 cm x 2.7 cm x 4.5 cm fluid collection in the right side of the abdomen just below the right hepatic lobe that has decreased in size since the prior CT abdomen and pelvis on 11/14/2020 (image 83 of the axial series 201 and image 41 of the coronal series 202). Retroperitoneal space: No fluid collection. No mass. Vasculature: The abdominal aorta is normal in caliber. There are extensive atherosclerotic calcifications. There is severe stenosis of the left common femoral artery and moderate stenosis of the right common femoral artery secondary to calcified atherosclerotic plaque that is stable compared to the prior CT abdomen and pelvis on 11/14/2020. Lymph nodes: There are subcentimeter retroperitoneal lymph nodes, which are stable compared to the prior CT abdomen and pelvis on 11/14/2020. No abnormally enlarged lymph nodes measuring greater than 1 cm in short axis are noted. Urinary bladder: The urinary bladder is decompressed, limiting its optimal evaluation. No stones are seen in the bladder. Reproductive: The prostate gland is enlarged and measures 4.2 cm x 5.3 cm x 4.5 cm and the volume of the prostate gland is increased and measures 52.4 mL. There are calcifications in the prostate. The seminal vesicles are unremarkable. Bones/joints: There is no fracture or dislocation. No suspicious osteolytic or osteoblastic lesion. There are degenerative changes involving the lumbar spine. Degenerative changes of left sacroiliac joint and pubic symphysis are also present. Soft tissues: There is a small fat containing umbilical hernia, which is similar in appearance compared to the prior CT abdomen and pelvis on 11/14/2020. There is a midline vertical incision scar in the anterior abdominal wall. There is a soft tissue defect involving the subcutaneous tissues of left anterior abdominal wall. IMPRESSION: 1. Persistent thickening of the wall of the cecum and ascending colon that was also present in prior CT abdomen and pelvis on 11/14/2020 and may represent a colitis. 2. 2.7 cm x 2.7 cm x 4.5 cm fluid collection in the right side of the abdomen just below the right hepatic lobe that has decreased in size since the prior CT abdomen and pelvis on 11/14/2020 and may represent a postoperative seroma or abscess. 3. Colonic diverticulosis without evidence for diverticulitis. 4. Enlarged prostate. 5. 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 COMMENTS: Consistent with the [employer]'s Incidental Findings Committee white paper (J Am James Radiol 2018): Any incidental renal lesion less than 1 cm or classified as too small to characterize, or any incidental cystic renal lesion characterized as simple-appearing, is likely benign. No follow-up imaging is recommended for these lesions per consensus recommendations based on imaging criteria. Electronically signed by: Bird Cho On 11/19/2020 19:19:08 PM
[2020-11-19] MEDS ORDERED: ACETAMINOPHEN TAB 650MG DOSE (2X325MG) PO PRN (20:55)
[2020-11-19] MEDS ORDERED: NS 1,000 ML IV ONE ×2 (20:55→22:00)
[2020-11-19 21:19] LABS: OSMOLALITY SERUM 280 MOSM/KG (280-301)
[2020-11-19 21:30] LABS: MAGNESIUM LEVEL 1.8 MG/DL (1.8-2.4)
[2020-11-19] MEDS ORDERED: LORazepam 2 MG TAB PO PRN (21:35)
[2020-11-19 22:30] LABS: CALCIUM LEVEL 8.3 MG/DL (8.8-10.2); CREATININE FOR GFR 4.14 MG/DL (0.70-1.30); GLOMERULAR FILTRATION RATE 15.6 (>49); POTASSIUM SERUM 4.4 MEQ/L (3.5-5.1)
[2020-11-19 23:35] VITALS: BP 89/51
--- NOTE | 2020-11-19 23:38 | HPEPDOC ---
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 When he woke up this morning, he felt especially fatigued to the point that he collapsed and passed out, simply from sitting up. He reports trying to sit up 2 more times, and passing out each time again. He was able to then call his sister and a neighbor, who after tending to him, suddenly called EMS at around 4 PM in the afternoon. On the overnight of , patient reports having to empty his ileostomy bag every 30 minutes as he was having significant, consistent output. He has a recent complicated GI history: Underwent a colostomy reversal on 10/21, then presented to the ED with N/V/abd pain on 11/04 and was found to have an anastomotic leak necessitating an exploratory laparotomy with ileostomy placement. He was just seen by Dr. Price of general surgery yesterday as an outpt to remove a drain and stitched from the 11/[address] Price. Advised he consistently hydrate as result of the ileostomy high output. Patient states he's been trying to hydrate, but his sister that's w/ him in the ED, since patient has not been making a great effort to do so. Upon presentation in the ED, he was hypotensive with leukocytosis (WBC 14.6) with sodium of 129, potassium 4.5, BUN of 57, creatinine of 4.09 (baseline 0.71). He was administered 30 mix per cake fluid bolus resuscitation along with a dose of Zosyn after having blood cultures drawn. A VBG resulted with pH 7.345/PCO2 34.7/PO2 55.6 with CO2 of 21. Chest x-ray showed no acute pulmonary disease and CT abdomen, pelvis with decreased abdominal fluid from last imaging, persistent thickening of cecal and ascending colon wall, and stable stenosis of left and right common femoral arteries. Canelo was subsequently admitted under the care of the hospitalist service to the progressive care unit primarily to address likely hypovolemic hyponatremia, acute renal failure, hypotension and leukocytosis. PAST MEDICAL HISTORY: Multiple abdominal surgeries in the past year: May 2020, Small bowel obstruction from diverticulitis with sigmoid colectomy, colostomy. 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 10/21/20, colostomy reversal 11/04/20, exploratory laparotomy with lysis of adhesions, drainage of pelvic hematoma and abscess and resection of portion of ileum with ileostomy and append ectomy Shoulder surgery Prostate biopsy SOCIAL HISTORY: Lives alone. Has 3 biological children and 1 adopted child. 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 FAMILY HISTORY: Mother ; NH, hypertension, macular degeneration Father- ; alcoholism 3 Sisters with hypertension 1 son with blindness from retinitis pigmentosa, and hypertension ALLERGIES: Please see below. REVIEW OF SYSTEMS: CONSTITUTIONAL: Reports generalized fatigue over the past 2 days as detailed in HPI. Denies recent unintentional change in weight, fever, chills, night sweats HEENT: Reports chronic hearing loss. Denies dysphagia or odynophagia CARDIOVASCULAR: Denies chest pain, chest pressure, or palpitations RESPIRATORY: Denies shortness of breath, cough, or pleuritic chest pain GASTROINTESTINAL: Reports discomfort around recent incision sites. Denies decreased appetite, nausea, vomiting. GENITOURINARY: Denies dysuria or hematuria MUSCULOSKELETAL: Reports generalized fatigue and muscle weakness or the past 2 days NEUROLOGICAL: Reports 3 episodes of syncope today. HEMATOLOGIC: Denies easy bleeding or bruising LYMPHATIC: Denies any new lumps or bumps HOME MEDICATIONS: Please see below. PHYSICAL EXAMINATION: VITAL SIGNS: Please see below GENERAL APPEARANCE: Tired appearing middle-aged white man lying in bed. Appears in mild discomfort. Alert and oriented 3. HEENT: Normocephalic, atraumatic. Noninjected, anicteric sclera. No significant conjunctival pallor. NECK: Positive hepatojugular reflex. No lymphadenopathy appreciated. ORAL CAVITY: No pharyngeal erythema or exudate. Mildly dry mucous membranes. Brownish yellow discoloration to teeth. CARDIOVASCULAR: Distant heart sounds. Regular rate, regular rhythm. Normal S1, S2. Difficult to assess accurately for murmurs or rubs. Due to distant heart sounds. LUNGS: Diminished tidal volume with no adventitious breath sounds. Symmetric chest expansion. Breathing room air. Speaking full senses. ABDOMEN: There is an ileostomy present in the right lower quadrant that is consistently draining light to dark green colored fluid. Ostomy tissue looks wel l vascularized and healthy. There is binging next 2. Ostomy site where recent drain was. There is a midline vertical 7 cm incision with scabbing that appears to be healing well. There is a roughly 4 cm wide and 2 cm deep. Depression. The skin where 4. Colostomy was. This former colostomy site appears to be healing well. MUSCULOSKELETAL: Moving all extremities, with normal-appearing range of motion. SKIN: Skin of face, neck and upper chest is quite amezquita. EXTREMITIES: Bilateral lower extremities free of edema. 2+ radial pulses bilaterally. Capillary refill 23 seconds. NEUROLOGICAL: Alert and oriented 3. No focal deficits present. Nondistended speech. PSYCHIATRIC: Mood appeared depressed at times during exam. Appropriate appearing affect. LABORATORY DATA: Please see below. IMAGING: Chest x-ray, 11/19/20 Impression: No acute pulmonary disease. CT abdomen and pelvis with and without contrast, 11/19/20- Impression: 1. Persistent thickening of the wall of the cecum and ascending colon that was also present in prior CT abdomen and pelvis on 11/14/2020 and may represent a colitis. 2. 2.7 cm x 2.7 cm x 4.5 cm fluid collection in the right side of the abdomen just below the right hepatic lobe that has decreased in size since the prior CT abdomen and pelvis on 11/14/2020 and may represent a postoperative seroma or abscess. 3. Colonic diverticulosis without evidence for diverticulitis. 4. Enlarged prostate. 5. 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 MICROBIOLOGY: Please see below. ASSESSMENT & PLAN: This is a 64yo male w/ notable h/o recent free abdominal air necessitating ex lap and ileostomy last month, hypertension, b/l testicular cancer, tobacco abuse and alcoholism, who presented via EMS on 11/19/20 with two days of fatigue and . He was dehydrated and was found to be in acute renal failure with hyponatremia and leukocytosis. #Acute renal failure -sCr 4.09 (estimated baseline 0.7-1), BUN 57 -This is most likely prerenal in nature from dehydration from high output ostomy and inadequate oral fluid intake. -Calculated GFR 15%. Upon review, patient has no laboratory evidence of chronic kidney disease -Urine electrolytes ordered to calculate FeNa, FeUrea -Renal u/s ordered -s/p 3.5 L of NS bolus infusions to this point -Admitting hospitalist service contacted on-call visual manager (Dr. Douglass) who will be seeing patient tomorrow upon consultation. We thank the nephrology service for their time and continued recommendations. #Hypovolemic hyponatremia -Likely due to severe dehydration from high output ostomy and recent poor inadequate oral fluid intake. -Patient received 2.5 L bolus in ED. Subsequent liter boluses ordered, with maintenance of 1 50 mL per hour NS to follow. -sOsm 280; uOsm and urine electrolytes ordered -trending bmp -Telemetry -Nephrology service (Dr. Douglass) consulted; hospitalist service appreciative of continued recommendations and input #Edilia output ostomy -Likely main etiology for dehydration causing hypovolemic hyponatremia and acute renal failure -Imodium ordered to help slow bowels #Leukocytosis -WBC upon admission was 14.6 -Recently under underwent exploratory laparotomy with ileostomy placement 15 days ago. Upon discharge 4 days ago, WBC was 13.8. -LA 1.6 -s/p one dose of Zosyn in ED #History of HTN -hypotensive upon admission, with pressures remaining low after initial resuscitation, with slight improvement with continued resuscitation -Home lisinopril held #History of alcoholism -CIWA protocol ordered w/ thiamine, folic acid, & mv #s/p b/l orchiectomies -home testosterone injection medication contd #DVT prophylaxis: heparin sc bid Code status: DNR/DNI per accompanying May 2020 [facility] and pt verbally confirm ed upon admission. Disposition: Admit to PCU with telemetry and pending further renal and electroly te improvement with aggressive hydration. Vital Signs Vital Signs Date Time Temp Pulse Resp B/P (MAP) Pulse Ox O2 Delivery O2 Flow Rate FiO2 11/19/20 23:19 97.8 11/19/20 23:16 85/50 (62) 11/19/20 23:07 63 18 95 Room Air Laboratory Data Labs 24H Laboratory Tests 2 11/19/20 17:05: POC Glucose (Misc Panel) 60L, POC Sodium (Misc Panel) 141, POC Potassium (Misc Panel) 2.5*L, POC Chloride (Misc Panel) 113H, POC Total CO2 (Misc Panel) 13.0L, POC Blood Urea Nitrogen (Misc Panel 29H, POC Ionized Calcium (Misc Panel) 3.4*L, POC Creatinine (Misc Panel) 2.4H, POC Hematocrit (Misc Panel) 22.0L 11/19/20 17:09: Immature Granulocyte % (Auto) 1.6, Neutrophils (%) (Auto) 77.3H, Lymphocytes (%) (Auto) 11.0L, Monocytes (%) (Auto) 8.6H, Eosinophils (%) (Auto) 0.8, Basophils (%) (Auto) 0.7, Neutrophils # (Auto) 11.3H, Lymphocytes # (Auto) 1.6, Monocytes # (Auto) 1.3H, Eosinophils # (Auto) 0.1, Basophils # (Auto) 0.1, Nucleated Red Blood Cells % (auto) 0.0, Prothrombin Time 13.4, Prothromb Time International Ratio 1.00, Activated Partial Thromboplast Time 31.0, Blood Gas Bicarbonate Standard 19.1, Venous Blood pH 7.345, Venous Blood Partial Pressure CO2 34.7L, Venous Blood Partial Pressure O2 55.6H, Venous Blood Total Carbon Dioxide 19.6L, Venous Blood HCO3 18.5L, Venous Blood Oxygen Saturation 85.7H, Venous Blood Base Excess -6.3L, Anion Gap 9, Glomerular Filtration Rate 15.8L, Osmolality 280, Lactic Acid Level 1.6, Calcium Level 8.7L, Magnesium Level 1.8, Total Bilirubin 0.2, Direct Bilirubin < 0.1, Aspartate Amino Transf (AST/SGOT) 13, Alanine A minotransferase (ALT/SGPT) 32, Alkaline Phosphatase 89, Total Creatine Kinase 62, Creatine Kinase MB 1.6, Creatine Kinase MB Relative Index 2.58, Troponin I < 0.02, C-Reactive Protein, Quantitative 0.30, Total Protein 7.1, Albumin 3.2, Albumin/Globulin Ratio 0.8, Amylase Level 206H 11/19/20 17:19: POC Glucose (Misc Panel) 97, POC Sodium (Misc Panel) 127L, POC Potassium (Misc P veronica) 4.5, POC Chloride (Misc Panel) 101, POC Total CO2 (Misc Panel) 18.0L, POC Blood Urea Nitrogen (Misc Panel 50H, POC Ionized Calcium (Misc Panel) 3.8L, POC Creatinine (Misc Panel) 4.6H, POC Hematocrit (Misc Panel) 38.0 11/19/20 17:56: Coronavirus (COVID-19)(PCR) NEGATIVE, Influenza Type A (RT-PCR) NEGATIVE, Influenza Type B (RT-PCR) NEGATIVE, Respiratory Syncytial Virus (PCR) NEGATIVE 11/19/20 22:00: Anion Gap 8, Glomerular Filtration Rate 15.6L, Calcium Level 8.3L CBC/BMP Laboratory Tests 11/19/20 17:09 11/19/20 22:00 Microbiology Microbiology 11/19/20 Blood Culture, Received Pending 11/19/20 Blood Culture, Received Pending Home Medications Scheduled Lisinopril (Lisinopril) 10 Mg Tablet, 10 MG PO DAILY Testosterone Cypionate (Testosterone Cypionate) 200 Mg/Ml Inj, 300 MG IM ASDIRECTED EVERY 3 WEEKS Scheduled PRN Acetaminophen (Acetaminophen) 500 Mg Tablet, 1,000 MG PO Q6H PRN for PAIN / FEVER Ibuprofen (Ibu-200) 200 Mg Tablet, 600 MG PO Q6H PRN for PAIN Allergies Coded Allergies: naproxen (Verified Allergy, Severe, SOB, hives, 10/21/20) A-FIB/CHADSVASC A-FIB History Current/History of A-Fib/PAF?: No Current PO Anticoag Therapy: No GME ATTESTATION GME ATTESTATION My faculty preceptor for this patient encounter was physically present during the encounter and was fully available. All aspects of the patient interview, examination, medical decision making process, and medical care plan development were reviewed and approved by the faculty preceptor. The faculty preceptor is aware and concurs with the plan as stated in the body of this note and will attest to such by his/her cosignature. ATTENDING NOTE IInga, have independently examined this patient and performed my own physical exam, as well as reviewed the documentation and edited where necessary. I have discussed in detail with the resident / student the findings and plan of treatment as documented by the resident / student and edited their note. I agree with their findings and treatment plan and have edited their documentation. I will continue to follow the patient during this hospital stay. GME ATTESTATION GME ATTESTATION My faculty preceptor for this patient encounter was physically present during the encounter and was fully available. All aspects of the patient interview, examination, medical decision making process, and medical care plan development were reviewed and approved by the faculty preceptor. The faculty preceptor is aware and concurs with the plan as stated in the body of this note and will attest to such by his/her cosignature. ATTENDING NOTE IInga, have independently examined this patient and performed my own physical exam, as well as reviewed the documentation and edited where necessary. I have discussed in detail with the resident / student the findings and plan of treatment as documented by the resident / student and edited their note. I agree with their findings and treatment plan and have edited their documentation. I will continue to follow the patient during this hospital stay. JONATHAN LEVY D.O. Nov 19, 2020 23:38 ONESIMO CORTEZ MD Nov 22, 2020 06:27
[2020-11-20] VITALS (58 sets, daily range): BP systolic 50–140; BP diastolic 40–85
[2020-11-20] MEDS: LOPERAMIDE 2 MG CAPLET PO PRN ×2 (00:26→02:01)
[2020-11-20] MEDS: HEPARIN SOD (PORCINE) 5000UNITS/ML 1ML VIAL/SYRINGE SC SCH ×3 (00:26→20:38)
[2020-11-20] MEDS: THIAMINE 100 MG TAB PO SCH ×3 (00:27→20:38)
[2020-11-20] MEDS ORDERED: SODIUM CHLORIDE 0.9% 1000ML IV ONE ×2 (00:35→05:30)
[2020-11-20 02:32] LABS: CALCIUM LEVEL 8.7 MG/DL (8.8-10.2); CREATININE FOR GFR 3.69 MG/DL (0.70-1.30); GLOMERULAR FILTRATION RATE 17.8 (>49); POTASSIUM SERUM 4.4 MEQ/L (3.5-5.1)
[2020-11-20 04:32] LABS: APPEARANCE, URINE CLEAR (CLEAR); BACTERIA, URINE AUTO NEGATIVE (NEGATIVE); BILIRUBIN, URINE AUTO NEGATIVE (NEGATIVE); BLOOD, URINE BLOOD 1+ (NEGATIVE); COLOR, URINE YELLOW (YELLOW); GLUCOSE, URINE (UA) AUTO NEGATIVE (NEGATIVE); KETONE, URINE AUTO NEGATIVE (NEGATIVE); LEUKOCYTE ESTERASE, URINE AUTO NEGATIVE (NEGATIVE); NITRITE, URINE AUTO NEGATIVE (NEGATIVE); PROTEIN, URINE AUTO 1+ mg/dL (NEGATIVE); RBC, URINE AUTO 0 /HPF (0-3); SPECIFIC GRAVITY URINE AUTO 1.013 (1.002-1.035); SQUAMOUS EPITHELIAL CELL UR AU 0 /HPF (0-6); UROBILINOGEN, URINE AUTO 0.2 mg/dL (0.0-2.0); WBC, URINE AUTO 1 /HPF (0-3)
[2020-11-20 04:34] LABS: POTASSIUM RANDOM URINE 40.2 MEQ/L; TOTAL PROTEIN,RANDOM URINE 52.3 MG/DL (0.0-12.0)
[2020-11-20 06:12] LABS: BASO # 0.1 10^3/uL (0.0-0.2); EOS # 0.3 10^3/uL (0.0-0.5); EOS % 2.2 % (0.0-3.0); HEMATOCRIT 33.4 % (42.0-52.0); HEMOGLOBIN 10.9 g/dl (13.5-17.5); LYMPH # 2.5 10^3/uL (1.5-5.0); LYMPH % 21.2 % (24.0-44.0); MEAN CORPUSCULAR HEMOGLOBIN 31.1 pg (27.0-33.0); MEAN CORPUSCULAR HGB CONC 32.6 g/dl (32.0-36.5); MEAN CORPUSCULAR VOLUME 95.2 fl (80.0-96.0); MONO % 8.2 % (2.0-8.0); NEUTROPHILS # 7.7 10^3/uL (1.5-8.5); NEUTROPHILS % 66.4 % (36.0-66.0); PLATELET COUNT, AUTOMATED 669 10^3/uL (150-450); RED BLOOD COUNT 3.51 10^6/uL (4.30-6.10); WHITE BLOOD COUNT 11.6 10^3/uL (4.0-10.0)
[2020-11-20 06:19] LABS: CREATININE FOR GFR 2.5 MG/DL (0.70-1.30); GLOMERULAR FILTRATION RATE 27.9 (>49)
[2020-11-20] MEDS: NS 1,000 ML IV SCH ×2 (06:44→08:46)
[2020-11-20] MEDS ORDERED: NS 1,000 ML IV ONE ×3 (07:55→19:45)
[2020-11-20] MEDS ORDERED: VANCOMYCIN HCL 1,000 MG, VIAL MATE ADAPTER 1 EACH in NS 250 ML IV SCH (08:30)
--- NOTE | 2020-11-20 09:45 | REP ---
INDICATION: S/P LINE PLACEMENT. COMPARISON: 11/19/2020. TECHNIQUE: SINGLE PORTABLE AP VIEW OF THE CHEST WAS PERFORMED. FINDINGS: There has been placement of a right central venous catheter. The tip is in the superior vena cava. There is no pneumothorax. There is mild elevation of the left hemidiaphragm. There is no acute infiltrate. The heart is normal in size. There is calcification of the thoracic aorta. IMPRESSION: Placement of right central venous catheter, tip in superior vena cava. No pneumothorax or acute infiltrate. <Electronically signed by Brian Rahman > 11/20/20 [id number]
[2020-11-20 09:48] LABS: ABG BASE EXCESS -4.1 (-2.0-2.0); ABG HCO3 20.4 MEQ/L (22.0-26.0); ABG O2 SATURATION 95.4 % (95.0-99.0); ABG PARTIAL PRESSURE CO2 35.2 mmHg (35.0-45.0); ABG PARTIAL PRESSURE O2 80.1 mmHg (75.0-100.0); ABG TOTAL CO2 21.5 MEQ/L (23.0-31.0); ABG pH (ARTERIAL) 7.381 UNITS (7.350-7.450)
[2020-11-20] MEDS ORDERED: SODIUM BICARBONATE 50 MEQ in D5W/0.45% SODIUM CHLORIDE 1,000 ML IV SCH (10:00)
[2020-11-20] MEDS ORDERED: NOREPINEPHRINE BITARTRATE 8 MG in D5W 500 ML IV SCH (10:00)
[2020-11-20] MEDS: CEFEPIME HCL 1 GM in D5W MINI-BAG PLUS 50 ML IV SCH ×2 (11:00→20:37)
[2020-11-20] MEDS: FOLIC ACID 1 MG TAB PO SCH (11:01)
[2020-11-20] MEDS: MULTIVITAMINS/MINERALS THERAP 1 TAB PO SCH (11:01)
[2020-11-20] MEDS ORDERED: NOREPINEPHRINE BITARTRATE 8 MG in D5W 492 ML IV SCH (11:33)
[2020-11-20] MEDS ORDERED: VANCOMYCIN HCL 750 MG, VIAL MATE ADAPTER 1 EACH in NS 250 ML IV ONE ×2 (12:00→13:00)
[2020-11-20] MEDS ORDERED: VANCOMYCIN ORAL SOL 250MG/5ML ORAL SYRINGE PO SCH (12:00)
--- NOTE | 2020-11-20 12:05 | REP ---
INDICATION: JUNAID. COMPARISON: CT 11/19/2020. TECHNIQUE: Real-time sonographic evaluation of the kidneys is performed. FINDINGS: Renal cortical echogenicity pattern is normal bilaterally and contours are smooth. There is no hydronephrosis bilaterally. 7 mm cyst is seen in the lower pole the right kidney. The right kidney measures 11.8 x 5.6 x 5.3 cm. Left renal dimensions are 11.7 x 4.7 x 5.8 cm. Urinary bladder is not well distended and not optimally evaluated. Prostate measures 5.2 x 3.9 x 4.0 cm. Ureteral jets could not be visualized with Doppler color evaluation. IMPRESSION: No hydronephrosis. <Electronically signed by Brian Rahman > 11/20/20 1204
[2020-11-20] MEDS: SODIUM BICARBONATE 75 MEQ in NS 0.45% 1,000 ML IV SCH ×2 (13:04→23:19)
[2020-11-20] MEDS: HYDROCORTISONE 100 MG/2 ML VIAL (J1720 PER 1) IV SCH ×2 (13:43→20:37)
[2020-11-20] MEDS: NICOTINE 7 MG/24 HR TRANSDERMAL TD SCH (14:42)
[2020-11-20] MEDS: METAMUCIL (PSYLLIUM) PACKET PO SCH ×2 (14:54→20:37)
[2020-11-20] MEDS: metroNIDAZOLE 500 MG in IV 1 EA IV SCH ×2 (14:54→21:56)
--- NOTE | 2020-11-20 15:06 | IPNPDOC ---
Date Seen The patient was seen on 11/20/20. Progress Note SUBJECTIVE: >6 L + overnight, remained hypotensive with BP 64/40 by early this AM. Moved to ICU, pulmonary/CC consulted and placed central line. Levophed started. Broad abx started for patient possibly trending towards sepsis/ septic shock. GI panel neg for c. diff. Switched to bicarb gtt due to acidosis. Surgery consulted and evaluated, believes high ostomy o/p and c/w tx above. Pt denies chest pain, incr SOB, abdominal pain, fevers, chills. OBJECTIVE: PHYSICAL EXAMINATION: VITAL SIGNS: Please see below GENERAL APPEARANCE: NAD, in bed, AAOx 3 HEENT: Normocephalic, atraumatic. Noninjected, anicteric sclera. No significant conjunctival pallor. NECK: No JVD, symmetrical, no lymphadenopathy CARDIOVASCULAR: RRR, no M/R/G LUNGS: CTAB, no W/r/r ABDOMEN: ileostomy present in the right lower quadrant that is consistently draining light to dark green colored fluid. Ostomy tissue looks well vascularized and healthy. midline vertical 7 cm incision with scabbing, well healing. former colostomy site appears to be healing well MUSCULOSKELETAL: Moving all extremities, with normal-appearing range of motion. SKIN: Skin of face, neck and upper chest is quite amezquita. EXTREMITIES: no edema, cyanosis, clubbing. 2+ radial pulses bilaterally. NEUROLOGICAL:CN 2-12 intact, No focal deficits present. PSYCHIATRIC: Mood and affect appropriate LABORATORY DATA: Please see below. IMAGING: Renal US: No hydronephrosis CXR 11/19/20: No acute pulmonary disease. CT abdomen and pelvis with and without contrast 11/19/20: 1. Persistent thickening of the wall of the cecum and ascending colon that was also present in prior CT abdomen and pelvis on 11/14/2020 and may represent a colitis. 2. 2.7 cm x 2.7 cm x 4.5 cm fluid collection in the right side of the abdomen just below the right hepatic lobe that has decreased in size since the prior CT abdomen and pelvis on 11/14/2020 and may represent a postoperative seroma or abscess. 3. Colonic diverticulosis without evidence for diverticulitis. 4. Enlarged prostate. 5. 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 MICROBIOLOGY: BCx x 2 sets: pending UA neg GI panel: neg [id number]: neg ASSESSMENT: This is a 64yo male w/ notable h/o recent free abdominal air necessitating ex lap and ileostomy last month, hypertension, b/l testicular cancer, tobacco abuse and alcoholism, who presented via EMS on 11/19/20 with two days of fatigue and . He was dehydrated and was found to be in acute renal failure with hyponatremia and leukocytosis. PLAN: Hypotension r/o 2/2 to poor fluid intake, high ostomy output/hypovolemia vs. trending toward sepsis/septic shock (11/04/20 pt had exploratory laparotomy with lysis of adhesions, drainage of pelvic hematoma and abscess and resection of portion of ileum with ileostomy and appendectomy) -S/p >6 L NSS overnight + continuous IVFs. BP still very low this AM at 64/40, ? colitis on CT, WBC 14.6 -ABG pH wnl, LA wnl -GI panel neg -Given several additional boluses, levophed started due to persistent hypotension despite fluid resuscitation, bicarb fluids -Last CVP 6 -F/u infectious w/u under microbiology above, AM cortisol ordered by nephrology -Holding home antihypertensives -S/p one dose of zosyn in ER only. This AM started on broad spectrum abx, stress dose hydrocortisone, probiotics, tele. Check CVP, daily labs Metabolic acidosis likely 2/2 to renal failure, IVFs -Worsened this AM -Started on bicarb gtt -Monitor regular labs -Nephrology following Acute renal failure likely 2/2 to poor fluid intake, high ostomy output/hypovolemia vs. trending toward sepsis/septic shock. Also on ACEi at home -Cr 4.09--> 2.09 this AM. BL 0.7-1 -Renal US: neg -Avoid nephrotoxic meds, home ACEi -Received 2 additional boluses, currently on bicarb gtt -Daily labs -Nephrology consulted High output ostomy s/p ileostomy -11/04/20 exploratory laparotomy with lysis of adhesions, drainage of pelvic hematoma and abscess and resection of portion of ileum with ileostomy and appendectomy -C/w fluid management above -Started on metamucil by surgery in addition to loperamide -Monitor I&O's closely -Surgery following History of alcoholism -No s/s of withdrawl -CIWA protocol ordered w/ thiamine, folic acid, & mv S/p b/l orchiectomies -home testosterone injection medication contd DVT prophylaxis -heparin sc DISPOSITION: Transferred to ICU today for further care/management. Nephrology, s urgery and pulmonary/cc consulted. TOTAL AMOUNT OF ICU TIME SPENT MANAGING PATIENT (nonprocedural): 70 mins VS, I&O, 24H, Fishbone Vital Signs/I&O Vital Signs Date Time Temp Pulse Resp B/P (MAP) Pulse Ox O2 Delivery O2 Flow Rate FiO2 11/20/20 09:08 65 96 11/20/20 08:57 93/53 (66) 11/20/20 07:37 97.4 18 Room Air I&O- Last 24 Hours up to 6 AM 11/20/20 06:00 Intake Total 6515 ml Output Total 3400 ml Balance 3115 ml Laboratory Data 24H LABS Laboratory Tests 2 11/19/20 17:05: POC Glucose (Misc Panel) 60L, POC Sodium (Misc Panel) 141, POC Potassium (Misc Panel) 2.5*L, POC Chloride (Misc Panel) 113H, POC Total CO2 (Misc Panel) 13.0L, POC Blood Urea Nitrogen (Misc Panel 29H, POC Ionized Calcium (Misc Panel) 3.4*L, POC Creatinine (Misc Panel) 2.4H, POC Hematocrit (Misc Panel) 22.0L 11/19/20 17:09: Immature Granulocyte % (Auto) 1.6, Neutrophils (%) (Auto) 77.3H, Lymphocytes (%) (Auto) 11.0L, Monocytes (%) (Auto) 8.6H, Eosinophils (%) (Auto) 0.8, Basophils (%) (Auto) 0.7, Neutrophils # (Auto) 11.3H, Lymphocytes # (Auto) 1.6, Monocytes # (Auto) 1.3H, Eosinophils # (Auto) 0.1, Basophils # (Auto) 0.1, Nucleated Red Blood Cells % (auto) 0.0, Prothrombin Time 13.4, Prothromb Time International [place] 1.00, Activated Partial Thromboplast Time 31.0, Blood Gas Bicarbonate Standard 19.1, Venous Blood pH 7.345, Venous Blood Partial Pressure CO2 34.7L, Venous Blood Partial Pressure O2 55.6H, Venous Blood Total Carbon Dioxide 19.6L, Venous Blood HCO3 18.5L, Venous Blood Oxygen Saturation 85.7H, Venous Blood Base Excess -6.3L, Anion Gap 9, Glomerular Filtration Rate 15.8L, Osmolality 280, Lactic Acid Level 1.6, Calcium Level 8.7L, Magnesium Level 1.8, Total Bilirubin 0.2, Direct Bilirubin < 0.1, Aspartate Amino Transf (AST/SGOT) 13, Alanine Aminotransferase (ALT/SGPT) 32, Alkaline Phosphatase 89, Total Creatine Kinase 62, Creatine Kinase MB 1.6, Creatine Kinase MB Relative Index 2.58, Troponin I < 0.02, C-Reactive Protein, Quantitative 0.30, Total Protein 7.1, Albumin 3.2, Albumin/Globulin Ratio 0.8, Amylase Level 206H 11/19/20 17:19: POC Glucose (Misc Panel) 97, POC Sodium (Misc Panel) 127L, POC Potassium (Misc Panel) 4.5, POC Chloride (Misc Panel) 101, POC Total CO2 (Misc Panel) 18.0L, POC Blood Urea Nitrogen (Misc Panel 50H, POC Ionized Calcium (Misc Panel) 3.8L, POC Creatinine (Misc Panel) 4.6H, POC Hematocrit (Misc Panel) 38.0 11/19/20 17:56: Coronavirus (COVID-19)(PCR) NEGATIVE, Influenza Type A (RT-PCR) NEGATIVE, Influenza Type B (RT-PCR) NEGATIVE, Respiratory Syncytial Virus (PCR) NEGATIVE 11/19/20 22:00: Anion Gap 8, Glomerular Filtration Rate 15.6L, Calcium Level 8.3L 11/20/20 01:48: Anion Gap 10, Glomerular Filtration Rate 17.8L, Calcium Level 8.7L 11/20/20 04:20: Urine Color YELLOW, Urine Appearance CLEAR, Urine pH 5.0, Urine Specific [place] 1.013, Urine Protein 1+H, Urine Glucose (Auto)(UA) NEGATIVE, Urine Ketones (Auto) NEGATIVE, Urine Blood 1+H, Urine Nitrite NEGATIVE, Urine Bilirubin NEGATIVE, Urine Urobilinogen 0.2, Urine Leukocyte Esterase (Auto) NEGATIVE, Urine WBC (Auto) 1, Urine RBC (Auto) 0, Urine Hyaline Casts (Auto) 0, Urine Bacteria (Auto) NEGATIVE, Urine Squamous Epithelial Cells 0, Urine Sperm (Auto) , Urine Osmolality 432, Urine Random Total Protein 52.3H, Urine Random Sodium 22, Urine Random Potassium 40.2, Urine Random Urea Nitrogen 696 11/20/20 05:51: Anion Gap 9, Glomerular Filtration Rate 27.9L, Calcium Level 8.0L 11/20/20 05:52: Immature Granulocyte % (Auto) 1.0, Neutrophils (%) (Auto) 66.4H, Lymphocytes (%) (Auto) 21.2L, Monocytes (%) (Auto) 8.2H, Eosinophils (%) (Auto) 2.2, Basophils (%) (Auto) 1.0, Neutrophils # (Auto) 7.7, Lymphocytes # (Auto) 2.5, Monocytes # (Auto) 1.0H, Eosinophils # (Auto) 0.3, Basophils # (Auto) 0.1, Nucleated Red Blood Cells % (auto) 0.0 11/20/20 08:41: Lactic Acid Level 1.5 11/20/20 09:29: Blood Gas Bicarbonate Standard 21.0L, Arterial Blood pH 7.381, Arterial Blood Partial Pressure CO2 35.2, Arterial Blood Partial Pressure O2 80.1, Arterial Blood Total CO2 21.5L, Arterial Blood HCO3 20.4L, Arterial Blood Base Excess - 4.1L, Arterial Blood Oxygen Saturation 95.4 11/20/20 12:59: Bedside Glucose (Misc Panel) 118H CBC/BMP Laboratory Tests 11/19/20 17:09 11/19/20 22:00 11/20/20 01:48 11/20/20 05:51 11/20/20 05:52 Microbiology Microbiology 11/20/20 Gastrointestinal Tract Panel (PCR) - Final, Complete 11/19/20 Blood Culture, Received Pending 11/19/20 Blood Culture, Received Pending 11/19/20 Urine Culture, Received Pending Current Medications Current Medications Medications (Trade) Dose Ordered Sig/Sreedhar Route PRN Reason Start Time Stop Time Status Last Admin Dose Admin Acetaminophen (Tylenol Tab) 650 mg Q4H PRN PO PAIN OR FEVER 11/19/20 20:55 Cefepime HCl 1 gm/ Dextrose 50 ml @ 100 mls/hr Q12H IV 11/20/20 09:00 11/20/20 11:00 Folic Acid (Folic Acid) 1 mg DAILY PO 11/20/20 09:00 11/20/20 11:01 Heparin Sodium (Porcine) (Heparin) 5,000 units Q12H SC 11/19/20 21:00 11/20/20 11:00 Home Med (Med Rec Complete!) ASDIRECTED XX 11/19/20 18:40 11/19/20 18:38 DC Hydrocortisone (A-Hydrocort) 100 mg Q8H IV 11/20/20 13:00 11/20/20 13:43 Lactobacillus Acidophilus (Bacid) 1 ea BIDWM PO 11/20/20 18:00 UNV Loperamide HCl (Imodium) 2 mg ASDIRECTED PRN PO DIARRHEA 11/19/20 23:45 11/20/20 02:01 Lorazepam (Ativan) 2 mg ASDIRECTED PRN PO SEE PROTOCOL 11/19/20 21:35 Metronidazole 500 mg/IV Miscellaneous Supplies 100 ml @ 100 mls/hr Q8H IV 11/20/20 14:00 11/20/20 14:54 Miscellaneous (Unresolved Patient Own Med Order) SEE LABEL COMMENTS DAILY XX 11/19/20 09:00 Multivitamins (Theragram-M) 1 tab DAILY PO 11/20/20 09:00 11/20/20 11:01 Nicotine (Nicoderm Cq 7 Mg) 1 patch DAILY TD 11/20/20 09:00 11/20/20 14:42 Norepinephrine Bitartrate 8 mg/ Dextrose 500 ml @ 15 mls/hr Q24H IV 11/20/20 11:33 Hold Norepinephrine Bitartrate 8 mg/ Dextrose 508 ml @ 15.24 mls/ hr Q24H IV 11/20/20 10:00 11/20/20 11:33 DC 11/20/20 11:00 Patient Own Medication (Patient'S Own Med) 300MG IM Q21D IM 12/01/20 09:00 UNV Psyllium Hydrophilic Mucilloid (Metamucil) 1 pkt BID PO 11/20/20 13:05 11/20/20 14:54 Sodium Bicarbonate 50 meq/Dextrose/ Sodium Chloride 1,050 ml @ 150 mls/hr Q7H IV 11/20/20 10:00 11/20/20 09:47 DC Sodium Bicarbonate 75 meq/Sodium Chloride 1,075 ml @ 100 mls/hr [id number] IV 11/20/20 13:00 11/21/20 08:59 11/20/20 13:04 Sodium Chloride 1,000 ml @ 150 mls/hr Q6H40M IV 11/20/20 05:30 11/20/20 09:47 DC 11/20/20 08:46 Thiamine HCl (Thiamine HCl) 100 mg BID PO 11/19/20 21:00 11/22/20 09:01 11/20/20 11:01 Vancomycin HCl (First-Vancomycin 50(Firvanq)- 250mg/5ml) 125 mg Q6H PO 11/20/20 12:00 11/20/20 14:33 DC 11/20/20 12:06 Vancomycin HCl 1000 mg/IV Miscellaneous Supplies 1 each/ Sodium Chloride 270 ml @ 270 mls/hr Q12H IV 11/20/20 08:30 11/20/20 11:12 DC Vancomycin HCl 1000 mg/IV Miscellaneous Supplies 1 each/ Sodium Chloride 270 ml @ 270 mls/hr Q24H IV 11/21/20 12:00 Allergies Coded Allergies: naproxen (Verified Allergy, Severe, SOB, hives, 10/21/20) Tammie Griffith MD Nov 20, 2020 15:06
--- NOTE | 2020-11-20 15:53 | ECGEPIP ---
[facility] - ED Test Date: 2020-11-19 Pat Name: DELGADO AMIN Department: Room: [place] [address] Gender: Male [employer] Hand: JUAN : 1955 Requested By: Lorene Delgado Order Number: [id number] Reading MD: Delgado Lehman Measurements Intervals Mccall Rate: 75 P: [place]: 188 QRS: 42 QRSD: 88 T: 7 QT: 398 QTc: 444 Interpretive Statements Normal sinus rhythm Nonspecific ST abnormality Baseline artifact Similar to tracing done 11-04-20 Electronically Signed on 11-20-2020 15:52:55 EDT by Delgado Lehman
[2020-11-20] MEDS: LACTOBACILLUS ACIDOPHILUS CAP (BACID) PO SCH (18:30)
[2020-11-20 20:42] LABS: ALBUMIN 2.5 GM/DL (3.2-5.2); BLOOD UREA NITROGEN 28 MG/DL (7-18); CALCIUM LEVEL 7.7 MG/DL (8.8-10.2); CARBON DIOXIDE LEVEL 28 MEQ/L (21-32); CHLORIDE LEVEL 102 MEQ/L (98-107); CREATININE FOR GFR 1.15 MG/DL (0.70-1.30); GLOMERULAR FILTRATION RATE > 60.0 (>49); GLUCOSE, FASTING 155 MG/DL (70-100); PHOSPHORUS LEVEL 2.2 MG/DL (2.5-4.9); POTASSIUM SERUM 4.6 MEQ/L (3.5-5.1); SODIUM LEVEL 133 MEQ/L (136-145)
[2020-11-20] MEDS: OCTREOTIDE ACETATE 100MCG/ML VIAL (J2354 PER 25MCG) SC SCH (21:56)
--- NOTE | 2020-11-20 22:13 | CR ---
NEPHROLOGY CONSULTATION DATE: 11/20/2020 REQUESTING PHYSICIAN: Dr. Richmond Razo CONSULTING PHYSICIAN: Dr. Jazz Douglass REASON FOR CONSULTATION: Management of acute renal failure and electrolyte abnormalities CHIEF COMPLAINT: The patient presented to the hospital yesterday with fatigue, dizziness and syncope. HISTORY OF PRESENT ILLNESS: Delgado Sunshine is a 64-year-old male with a past medical history of normal renal function with a baseline creatinine of less than 1, history of recent anastomotic leak from colostomy reversal which required exploratory laparotomy and ileostomy last month. Multiple other comorbidities as mentioned below. He was brought into the Emergency Room by EMS because of severe fatigue, weakness, falls at home, low blood pressures and dehydration because of very high output from the ileostomy for the last one week almost. He had to change his bag almost every 30 minutes from the high output. The patient otherwise denied any fevers, chills, rigors, nausea, vomiting, dysuria or hematuria. In the Emergency Room because of severe dehydration and volume depletion, the patient got 30 mL per kg of normal saline bolus. He was found to have acute renal failure on arrival with a creatinine of 4. He was hyponatremic with a sodium of 129. Case was discussed with myself by the admitting resident, Dr. Taylor and decision was made to aggressively hydrate the patient for dehydration secondary to high output from the ostomy and cultures were sent. The patient was admitted under the Hospitalist Service. However, despite aggressive IV fluid hydration, the patient decompensated overnight. He became hypotensive. He had to be transferred to the ICU. He was started on Levophed infusion. I saw and evaluated the patient today morning at the bedside in the ICU. He was requiring Levophed at 2 mcg when I saw him and he was getting D5 half normal saline with 50 mEq of bicarbonate at 150 an hour when I saw him. The patient has started to make urine now. His CVVP was checked and it was around 6 despite all the aggressive IV fluid hydration. PAST MEDICAL HISTORY: The patient's past medical history is significant for: 1. Near normal renal function with creatinine of less than 1. 2. History of multiple abdominal surgeries, latest one being exploratory laparotomy because of colostomy reversal leakage requiring ileostomy in the right lower quadrant. 3. History of hypertension. 4. Depression. 5. Bilateral hearing loss. 6. Benign prostatic hypertrophy. 7. 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 PAST SURGICAL HISTORY: The patient's past surgical history is significant for: 1. In May 2020 he had a small-bowel obstruction from diverticulitis. He needed a sigmoid colectomy and colostomy. 2. On October 21, 2020 he had colostomy reversal. 3. On November 04, 2020 he needed exploratory laparotomy again with lysis of adhesions. 4. Drainage of pelvic hematoma. 5. Abscess and resection of the portion of ileum with ileostomy placement. 6. Appendectomy. 7. History of prostate biopsy. 8. Shoulder surgery in the past. ALLERGIES: He is allergic to Naproxen. FAMILY HISTORY: No significant family history of end-stage renal disease requiring hemodialysis. SOCIAL HISTORY: The patient lives at home. He is an active smoker with 50-pack year history. He is an active alcohol drinker. He drinks 3-4 glasses of beer every night with four shots of Jackson Faulkner. REVIEW OF SYSTEMS: Constitutional: The patient had generalized fatigue, severe weakness and dizziness on arrival. Eyes: He denies any blurry vision, double vision. ENT: He denies any dysphagia, odynophagia. Cardiovascular: He reports dizziness and lightheadedness and palpitations. Respiratory: He denies any shortness of breath or cough. GI: He reports very high output from the ostomy, requiring bag change almost every 30 minutes. Genitourinary: He reports dark urine and decreased amount of urine. Musculoskeletal: He denies any muscle aches and pains but he does report generalized fatigue. Skin: He denies any rashes or ulcers. Hematological/Oncological: He denies any easy bleeding or bruising. Endocrine: He reports taking testosterone because of bilateral orchiectomies. GROUP WORK PROGRAM AIDE: He reports three episodes of syncope at home. PHYSICAL EXAMINATION: GENERAL APPEARANCE: The patient is awake, alert, oriented x3, laying in bed. VITAL SIGNS: Temperature is 98 degrees Fahrenheit, blood pressure 100/58, pulse of 61, respiratory rate of 18, saturating 96% on room air. INTAKE AND OUTPUT: The patient had 1.9 liters urine output yesterday and one liter output by the time I saw him in the morning. HEAD AND NECK: Extraocular muscles intact. Pupils are equally round and reactive to light. Mucous membranes are moist. Neck is supple. He has a triple lumen catheter. CARDIOVASCULAR: S1, S2, regular rate. EXTREMITIES: No edema of the bilateral lower extremities. RESPIRATORY: Chest is clear to auscultation bilaterally. Bilaterally currently no rales or rhonchi. ABDOMEN: Soft, midline surgical scar is noted. Open wound in the left lower quadrant of abdomen is noted from recent removal of colostomy and he has a right lower quadrant ileostomy with liquid stools in the bag. MUSCULOSKELETAL: No clubbing, no cyanosis. Pulses are 2+. GROUP WORK PROGRAM AIDE: No focal deficits. Power is 5/5 in all extremities. LAB REVIEW: CBC on arrival showed a white blood cell count of 14.6, hemoglobin 12, platelets of 703. Repeat CBC today morning showed a white blood cell count 11.6, hemoglobin 10.9, platelet count 669. Urinalysis on arrival showed 1+ protein, 1+ blood, no leukocyte esterase, no nitrites. ABG done today morning showed a pH of 7.38, pco2 of 35, pO2 80, bicarbonate 20.4, O2 sat 95%. BMP on arrival showed sodium of 129, potassium 4.5, chloride 99, bicarbonate 21, BUN 57, creatinine 4.09, calcium 8.7, amylase 206. Microbiology: GI panel is negative. Blood cultures are negative so far. Urine culture is pending. IMAGING: A renal ultrasound was done yesterday which showed no hydronephrosis. CAT scan of the abdomen and pelvis was done which showed persistent thickening of the wall of the cecum and ascending colon. A 2.7 by 2.7 cm by 4.5 cm fluid collection in the right side of the abdomen just below the right hepatic lobe has decreased in size. Severe stenosis of the left common femoral and moderate stenosis of the right common femoral artery. CURRENT INPATIENT MEDICATIONS: The patient's medications were all reviewed by myself. He was getting Cefepime one gram IV q. 12. He is on Levophed at 2 mcg, Flagyl 500 mg IV q. 8 hourly, multiple IV fluid boluses. I have started the patient on half normal saline plus sodium bicarbonate 75 mEq at 100 mL an hour for a total of 2 liters. He is on Vancomycin IV, folic acid one mg p.o. daily. I have started him on Hydrocortisone 100 mg IV q. 8 hourly, Lactobacillus twice daily with meals, Loperamide for diarrhea, Multivitamin daily, Nicotine patch. He is on testosterone 300 mg IM q. 21 days, Metamucil one packet p.o. twice daily and Thiamine 100 mg p.o. twice daily. ASSESSMENT AND PLAN: 1. Acute non oliguric renal failure it is secondary to dehydration and volume depletion because of very high output ostomy. The patient has received aggressive IV fluid hydration. So far he has received 3.2 liters of fluid yesterday and 5.7 liters of fluid so far today, and despite that, he is in negative fluid balance. His CVP was 6 in the morning and 5 in the evening. I have ordered another normal saline bolus. He is responding to the IV fluids. Creatinine has been gradually improving. 2. Shock secondary to hypovolemia and high output ostomy The patient was hypotensive requiring Levophed in the morning. Aggressive IV fluid is being given. I have ordered Cortisol levels and started the patient on Hydrocortisone as well. He is currently on Vancomycin and Cefepime. Blood cultures so far are negative. Urine culture is pending. 3. Hypovolemic hyponatremia - The patient's sodium was 129 on arrival. He is getting Hydrocortisone and normal saline boluses. Sodium level has improved to 133 on the repeat labs. 4. Normal anion gap metabolic acidosis it is secondary to diarrhea from the ostomy and acute renal failure. The patient is getting bicarbonate containing fluids. Bicarbonate level is slowly improving. 5. High output ileostomy - The patient is getting IV fluids. He is getting Loperamide. He has also been started on Metamucil one packet twice daily. If diarrhea does not get better, then he might need Sandostatin injections. 6. History of alcoholism he is currently in thiamine and folic acid. Thank you for involving me in the care of this patient. I shall be happy to follow the patient along with you tomorrow morning. Total critical care time spent in the management of this patient today morning excluding all the procedures was one hour and forty minutes. ASHKAN
[2020-11-21] VITALS (15 sets, daily range): BP systolic 105–181; BP diastolic 55–94
[2020-11-21] MEDS ORDERED: NS 1,000 ML IV ONE (00:05)
[2020-11-21] MEDS: NS 1,000 ML IV SCH ×3 (01:14→18:13)
[2020-11-21] MEDS: OCTREOTIDE ACETATE 100MCG/ML VIAL (J2354 PER 25MCG) SC SCH ×3 (05:40→21:28)
[2020-11-21] MEDS: HYDROCORTISONE 100 MG/2 ML VIAL (J1720 PER 1) IV SCH (05:40)
[2020-11-21] MEDS: metroNIDAZOLE 500 MG in IV 1 EA IV SCH ×3 (05:41→21:29)
[2020-11-21 06:13] LABS: HEMATOCRIT 32.2 % (42.0-52.0); HEMOGLOBIN 10.8 g/dl (13.5-17.5); MEAN CORPUSCULAR HEMOGLOBIN 31.5 pg (27.0-33.0); MEAN CORPUSCULAR HGB CONC 33.5 g/dl (32.0-36.5); MEAN CORPUSCULAR VOLUME 93.9 fl (80.0-96.0); PLATELET COUNT, AUTOMATED 615 10^3/uL (150-450); RED BLOOD COUNT 3.43 10^6/uL (4.30-6.10); WHITE BLOOD COUNT 13.4 10^3/uL (4.0-10.0)
[2020-11-21 07:07] LABS: ALBUMIN 2.7 GM/DL (3.2-5.2); ALT/SGPT 19 U/L (12-78); BILIRUBIN,TOTAL 0.3 MG/DL (0.2-1.0); BLOOD UREA NITROGEN 18 MG/DL (7-18); CALCIUM LEVEL 8.1 MG/DL (8.8-10.2); CARBON DIOXIDE LEVEL 22 MEQ/L (21-32); CHLORIDE LEVEL 106 MEQ/L (98-107); CREATININE FOR GFR 0.81 MG/DL (0.70-1.30); GLOMERULAR FILTRATION RATE > 60.0 (>49); GLUCOSE, FASTING 106 MG/DL (70-100); POTASSIUM SERUM 4.6 MEQ/L (3.5-5.1); SODIUM LEVEL 133 MEQ/L (136-145); TOTAL PROTEIN 6.1 GM/DL (6.4-8.2)
[2020-11-21 08:13] LABS: VANCOMYCIN RANDOM 4.6 UG/ML
[2020-11-21] MEDS: CEFEPIME HCL 2 GM in D5W MINI-BAG PLUS 50 ML IV SCH ×2 (08:24→16:39)
[2020-11-21] MEDS: HEPARIN SOD (PORCINE) 5000UNITS/ML 1ML VIAL/SYRINGE SC SCH ×2 (08:25→21:29)
[2020-11-21] MEDS: NICOTINE 7 MG/24 HR TRANSDERMAL TD SCH (08:25)
[2020-11-21] MEDS: METAMUCIL (PSYLLIUM) PACKET PO SCH ×2 (08:25→21:29)
[2020-11-21] MEDS: LACTOBACILLUS ACIDOPHILUS CAP (BACID) PO SCH ×2 (08:26→18:13)
[2020-11-21] MEDS: THIAMINE 100 MG TAB PO SCH ×2 (08:26→21:29)
[2020-11-21] MEDS: MULTIVITAMINS/MINERALS THERAP 1 TAB PO SCH (08:26)
[2020-11-21] MEDS: FOLIC ACID 1 MG TAB PO SCH (08:26)
--- NOTE | 2020-11-21 09:14 | RO ---
OPERATIVE NOTE DATE OF OPERATION: 11/20/2020 PREOPERATIVE DIAGNOSIS: Hypotension. POSTOPERATIVE DIAGNOSIS: Hypotension. PROCEDURE: Right IJ triple lumen catheter. SURGEON: Marquise Marie DO TOMATO PASTE MAKER: None. ANESTHESIA: 1% Lidocaine without Epinephrine. DESCRIPTION OF PROCEDURE: Informed consent was obtained verbally from the patient. Time-out was performed with two patient identifiers, identifying correct site, correct procedure. The right IJ was prepped and draped in a sterile manner with Chlorhexidine and full sterile barrier precautions. The right IJ was identified under ultrasound and 1% Lidocaine was instilled subcutaneously above the IJ. The [place] syringe was then inserted into the right IJ on the first pass. There was return of venous blood flow. Wire was fed through the needle and the needle was removed. A alison in the skin was made and the triple lumen Arrow catheter was placed via modified Seldinger technique. Wire was removed. The catheter was then sutured in it 15 cm. A sterile impregnated dressing was placed over the site. There were no observed complications. Post-procedure chest x-ray shows the tip of the catheter in the SVC without evidence of pneumothorax. MTDD
[2020-11-21] MEDS: VANCOMYCIN HCL 1,000 MG, VIAL MATE ADAPTER 1 EACH in NS 250 ML IV SCH ×2 (10:25→18:13)
[2020-11-21] MEDS ORDERED: VANCOMYCIN HCL 500 MG in D5W MINI-BAG PLUS 100 ML IV ONE (11:00)
--- NOTE | 2020-11-21 11:06 | IPNPDOC ---
Date Seen The patient was seen on 11/21/20. Progress Note SUBJECTIVE: Required 2 Liter boluses overnight. Started on octreotide and hydrocortisone over past 24 hours by nephrology. BP much improved this AM, on IVFs. Downgrading from ICU to medsurg/tele. Output decreased from ostomy. Pt denies chest pain, incr SOB, abdominal pain, fevers, chills. OBJECTIVE: PHYSICAL EXAMINATION: VITAL SIGNS: Please see below GENERAL APPEARANCE: NAD, in bed, AAOx 3 HEENT: Normocephalic, atraumatic. Noninjected, anicteric sclera. No significant conjunctival pallor. NECK: No JVD, symmetrical, no lymphadenopathy CARDIOVASCULAR: RRR, no M/R/G LUNGS: CTAB, no W/r/r ABDOMEN: ileostomy present in the right lower quadrant that is consistently draining light to dark green colored fluid. Ostomy tissue looks well vascularized and healthy. midline vertical 7 cm incision with scabbing, well healing. former colostomy site appears to be healing well MUSCULOSKELETAL: Moving all extremities, with normal-appearing range of motion. SKIN: Skin of face, neck and upper chest is quite amezquita. EXTREMITIES: no edema, cyanosis, clubbing. 2+ radial pulses bilaterally. NEUROLOGICAL:CN 2-12 intact, No focal deficits present. PSYCHIATRIC: Mood and affect appropriate LABORATORY DATA: Please see below. IMAGING: Renal US: No hydronephrosis CXR 11/19/20: No acute pulmonary disease. CT abdomen and pelvis with and without contrast 11/19/20: 1. Persistent thickening of the wall of the cecum and ascending colon that was also present in prior CT abdomen and pelvis on 11/14/2020 and may represent a colitis. 2. 2.7 cm x 2.7 cm x 4.5 cm fluid collection in the right side of the abdomen just below the right hepatic lobe that has decreased in size since the prior CT abdomen and pelvis on 11/14/2020 and may represent a postoperative seroma or abscess. 3. Colonic diverticulosis without evidence for diverticulitis. 4. Enlarged prostate. 5. 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 MICROBIOLOGY: BCx x 2 sets: NG to date UA, Ucx neg GI panel: neg [id number]: neg ASSESSMENT: This is a 64yo male w/ notable h/o recent free abdominal air necessitating ex lap and ileostomy last month, hypertension, b/l testicular cancer, tobacco abuse and alcoholism, who presented via EMS on 11/19/20 with two days of fatigue and . He was dehydrated and was found to be in acute renal failure with hyponatremia and leukocytosis. PLAN: Hypotension/shock r/o 2/2 to poor fluid intake, high ostomy output/hypovolemia- improving -Appearing less likely sepsis/septic shock (11/04/20 pt had exploratory laparotomy with lysis of adhesions, drainage of pelvic hematoma and abscess and resection of portion of ileum with ileostomy and appendectomy), unlikely colitis on CT abd/pelvis -S/p 2 L boluses NSS overnight + continuous IVFs, output decreased and BP much improved. -ABG pH wnl, LA wnl -GI panel neg -BCx NG -CVP 6 this AM -Holding home antihypertensives -If MRSA neg, d/c vancomycin. D/cing hydrocortisone as adrenal insufficiency unlikely. C/w other abx, probiotics for now but also could likely d/c in next 24 hours if no other source of infection seen. On tele. Daily labs Metabolic acidosis likely 2/2 to renal failure, IVFs- resolved -Stopped bicarb gtt -Monitor regular labs -Nephrology signed off this AM Acute renal failure likely 2/2 to poor fluid intake, high ostomy output/hypovolemia. Also was on ACEi at home- resolved -Cr wnl this AM. BL 0.7-1 -Renal US: neg -Avoid nephrotoxic meds, home ACEi -Remains on gentle IVFs -Nephrology signed off High output ostomy s/p ileostomy-improving -11/04/20 exploratory laparotomy with lysis of adhesions, drainage of pelvic hematoma and abscess and resection of portion of ileum with ileostomy and appendectomy -C/w fluid management above, metamucil, loperamide. -Nephrology added octreotide and would suggest keeping for another 24 hours before d/cing. -Monitor I&O's closely -Surgery has seen History of alcoholism -No s/s of withdrawl -CIWA protocol ordered w/ thiamine, folic acid, & mv S/p b/l orchiectomies -home testosterone injection medication contd DVT prophylaxis -heparin sc DISPOSITION: Transferred to med/surg today. Critical care and nephrology signed off. Plan is PT/OT, discharge home when medically improved. VS, I&O, 24H, Fishbone Vital Signs/I&O Vital Signs Date Time Temp Pulse Resp B/P (MAP) Pulse Ox O2 Delivery O2 Flow Rate FiO2 11/21/20 07:52 98.0 67 16 126/84 (98) 91 Room Air I&O- Last 24 Hours up to 6 AM 11/21/20 06:00 Intake Total 5140 ml Output Total 7175 ml Balance -2035 ml Laboratory Data 24H LABS Laboratory Tests 2 11/20/20 12:59: Bedside Glucose (Misc Panel) 118H 11/20/20 18:34: Bedside Glucose (Misc Panel) 116H 11/20/20 19:59: Anion Gap 3L, Glomerular Filtration Rate > 60.0, Calcium Level 7.7L, Phosphorus Level 2.2L, Albumin 2.5#L 11/20/20 23:18: Bedside Glucose (Misc Panel) 143H 11/21/20 05:55: Nucleated Red Blood Cells % (auto) 0.0 11/21/20 06:25: Anion Gap 5L, Glomerular Filtration Rate > 60.0, Calcium Level 8.1L, Total Bilirubin 0.3, Aspartate Amino Transf (AST/SGOT) 10, Alanine Aminotransferase (ALT/SGPT) 19, Alkaline Phosphatase 71, Total Protein 6.1L, Albumin 2.7L, Albumin/Globulin Ratio 0.8, Random Vancomycin Level 4.6 11/21/20 06:38: Bedside Glucose (Misc Panel) 107 11/21/20 08:55: Methicillin-Resist S.aureus DNA PCR NOT DETECTED CBC/BMP Laboratory Tests 11/20/20 19:59 11/21/20 05:55 11/21/20 06:25 Microbiology Microbiology 11/20/20 Gastrointestinal Tract Panel (PCR) - Final, Complete 11/19/20 Blood Culture - Preliminary, Resulted No growth after 24 hours . All specim... 11/19/20 Blood Culture - Preliminary, Resulted No growth after 24 hours . All specim... 11/19/20 Urine Culture - Final, Complete Current Medications Current Medications Medications (Trade) Dose Ordered Sig/Sreedhar Route PRN Reason Start Time Stop Time Status Last Admin Dose Admin Acetaminophen (Tylenol Tab) 650 mg Q4H PRN PO PAIN OR FEVER 11/19/20 20:55 Cefepime HCl 1 gm/ Dextrose 50 ml @ 100 mls/hr Q12H IV 11/20/20 09:00 11/21/20 08:11 DC 11/20/20 20:37 Cefepime HCl 2 gm/ Dextrose 50 ml @ 100 mls/hr Q8H IV 11/21/20 09:00 11/21/20 08:24 Folic Acid (Folic Acid) 1 mg DAILY PO 11/20/20 09:00 11/21/20 08:26 Heparin Sodium (Porcine) (Heparin) 5,000 units Q12H SC 11/19/20 21:00 11/21/20 08:25 Home Med (Med Rec Complete!) ASDIRECTED XX 11/19/20 18:40 11/19/20 18:38 DC Hydrocortisone (A-Hydrocort) 100 mg Q8H IV 11/20/20 13:00 11/21/20 10:25 DC 11/21/20 05:40 Lactobacillus Acidophilus (Bacid) 1 ea BIDWM PO 11/20/20 18:00 11/21/20 08:26 Loperamide HCl (Imodium) 2 mg ASDIRECTED PRN PO DIARRHEA 11/19/20 23:45 11/20/20 02:01 Lorazepam (Ativan) 2 mg ASDIRECTED PRN PO SEE PROTOCOL 11/19/20 21:35 11/20/20 21:58 Metronidazole 500 mg/IV Miscellaneous Supplies 100 ml @ 100 mls/hr Q8H IV 11/20/20 14:00 11/21/20 05:41 Miscellaneous (Unresolved Patient Own Med Order) SEE LABEL COMMENTS DAILY XX 11/19/20 09:00 Multivitamins (Theragram-M) 1 tab DAILY PO 11/20/20 09:00 11/21/20 08:26 Nicotine (Nicoderm Cq 7 Mg) 1 patch DAILY TD 11/20/20 09:00 11/21/20 08:25 Norepinephrine Bitartrate 8 mg/ Dextrose 500 ml @ 15 mls/hr Q24H IV 11/20/20 11:33 Hold Norepinephrine Bitartrate 8 mg/ Dextrose 508 ml @ 15.24 mls/ hr Q24H IV 11/20/20 10:00 11/20/20 11:33 DC 11/20/20 11:00 Octreotide Acetate (SandoSTATIN) 100 mcg Q8H SC 11/20/20 22:00 11/21/20 05:40 Patient Own Medication (Patient'S Own Med) 300MG IM Q21D IM 12/01/20 09:00 UNV Psyllium Hydrophilic Mucilloid (Metamucil) 1 pkt BID PO 11/20/20 13:05 11/21/20 08:25 Sodium Bicarbonate 50 meq/Dextrose/ Sodium Chloride 1,050 ml @ 150 mls/hr Q7H IV 11/20/20 10:00 11/20/20 09:47 DC Sodium Bicarbonate 75 meq/Sodium Chloride 1,075 ml @ 100 mls/hr [id number] IV 11/20/20 13:00 11/21/20 00:05 DC 11/20/20 23:19 Sodium Chloride 1,000 ml @ 50 mls/hr Q20H IV 11/21/20 00:05 11/21/20 06:17 Sodium Chloride 1,000 ml @ 150 mls/hr Q6H40M IV 11/20/20 05:30 11/20/20 09:47 DC 11/20/20 08:46 Thiamine HCl (Thiamine HCl) 100 mg BID PO 11/19/20 21:00 11/22/20 09:01 11/21/20 08:26 Vancomycin HCl (First-Vancomycin 50(Firvanq)- 250mg/5ml) 125 mg Q6H PO 11/20/20 12:00 11/20/20 14:33 DC 11/20/20 12:06 Vancomycin HCl 1000 mg/IV Miscellaneous Supplies 1 each/ Sodium Chloride 270 ml @ 270 mls/hr Q12H IV 11/20/20 08:30 11/20/20 11:12 DC Vancomycin HCl 1000 mg/IV Miscellaneous Supplies 1 each/ Sodium Chloride 270 ml @ 270 mls/hr Q24H IV 11/21/20 12:00 11/21/20 08:20 DC Vancomycin HCl 1000 mg/IV Miscellaneous Supplies 1 each/ Sodium Chloride 270 ml @ 270 mls/hr Q8H IV 11/21/20 10:00 11/21/20 10:25 Allergies Coded Allergies: naproxen (Verified Allergy, Severe, SOB, hives, 3/12/21) Tammie Griffith MD Nov 21, 2020 11:06
--- NOTE | 2020-11-21 11:33 | CR ---
CONSULTATION DATE: 11/20/2020 REASON FOR CONSULTATION: Recent abdominal surgery with acute renal failure and high ileostomy output. HISTORY OF PRESENT ILLNESS: The patient is a 64-year-old man who has had a complicated surgical history recently. In May of 2020, he was admitted with a bowel obstruction and underwent a partial colectomy and colostomy. On October 21, he was admitted and underwent takedown of his colostomy with a coloproctostomy. He returned to the hospital on the 04 of November with evidence of a bowel leak. He underwent exploratory laparotomy and was found to have small bowel contents throughout the abdomen with a perforation in the mid small bowel. An ileostomy was fashioned. He had been discharged from the hospital on the 15 of November with a small drain in place and a fluid collection just lateral to his ileostomy. I saw him in the office on the 18 of November and removed his small drain. He was, at that time, doing well though he did report that he had been having to empty his ileostomy more frequently. I encouraged him to continue to drink fluids. He came to the emergency department on the 19 of November approximately 5 p.m. with complaints of feeling profoundly fatigued and having passed out several times when trying to sit up or stand. In the emergency department, he was hypotensive and his white count was mildly elevated. He had electrolyte abnormalities with a sodium of 129. It was noted that he had acute renal failure with a BUN of 57 and a creatinine of 4, with a baseline in the normal range. He received a fluid bolus and received additional fluid overnight. I am now asked to evaluate the possibility of some underlying issue within the abdomen to account for his problems other than just high output from his ileostomy. ALLERGIES: The patient reports an allergy only to NAPROXEN. MEDICATIONS AT HOME: Had included: - acetaminophen as needed - ibuprofen as needed - Lisinopril 10 mg p.o. daily - testosterone cypionate 300 mg IM every three weeks MEDICAL HISTORY: Significant for some hypertension. He has an ileostomy following surgery on the 04 of November for a bowel obstruction with perforation and peritonitis. He does have a history of significant alcohol intake. SURGICAL HISTORY: Significant for a bowel resection with colostomy back in May of 2020. He had his colostomy reversed on the 21 of October. On the 04 of November, he underwent exploratory laparotomy with lysis of adhesions, drainage of a pelvic hematoma and abscess, resection of a portion of the ileum and an end ileostomy. He has had orchiectomy in the distant past for apparently lymphoma. SOCIAL HISTORY: He is a smoker with a 5-pack-year history. Alcohol use is several beers and some [employer]ulk[employer] every night. The patient is not currently working because of these ongoing issues with surgery for his bowel problems. He is being cared for largely by his sisters, who live in the area. FAMILY HISTORY: Significant for his father from alcoholism and mother from heart disease and hypertension. REVIEW OF SYSTEMS: Reveals no chest pain or palpitations. He has no cough or wheezing. He denies any dysuria, hematuria, bleeding from his ostomy. He does report large volumes of fluid from his ostomy. PHYSICAL EXAMINATION: Physical exam reveals a pleasant man lying quietly in his hospital bed. He is alert and oriented. Skin is warm and dry. Sclerae are anicteric. Neck is supple. Heart and lung examinations are unremarkable. The abdomen shows an ileostomy in the right mid abdomen. The ostomy appliance is connected to a drainage bag at the bedside with a large amount of light, watery, greenish fluid in the bag. His ostomy itself appears healthy. He has a midline incision that appears to be healing well. He has a dressing on the left side of his abdomen which covers his open former colostomy site. He does have bowel sounds present in all four quadrants and the abdomen is soft and without significant tenderness. LABORATORY DATA: Laboratory studies today show a CBC with a white count of 12, hemoglobin 11, hematocrit 33 and a platelet count of 669,000. Differential count shows 66% neutrophils, 21 lymphocytes and 8 monocytes. Chemistry profile this morning shows a sodium of 131, potassium 4.0, chloride 104, CO2 of 18, BUN of 48, creatinine 2.5. This creatinine level is already improved from 4.09 at the time he presented to the emergency department. IMAGING DATA: He had a CT scan of the abdomen and pelvis in the emergency department. This showed his ileostomy. There were no significant findings to suggest an abscess. The colon is decompressed as it is not connected to the GI tract overall. There is a small amount of stool low in the colon and the rectum. IMPRESSION: The patient appears to be doing quite well with just hydration at this point. His renal function is improving significantly. His CT scan does not show evidence for infection to suggest an infectious cause for his low blood pressure. I think he is primarily profoundly dehydrated from the high output from his ileostomy. He had not been having this problem previously during his recovery stage from that recent surgery. RECOMMENDATIONS: At this point, I would recommend that we start him on some Metamucil twice daily to try to help reduce his ileostomy output. Imodium is certainly appropriate as well. This could be dosed on a routine three times a day (t.i.d.) basis to start and then adjusted as time goes on as we see how it affects his ileostomy output. Dietary counseling may be beneficial to discuss how to better mix his solid and liquid components of his meals to try to reduce his output as well. The patient has been tested apparently for Clostridium difficile and that was pending at the time of this dictation. Certainly, if that were positive then treatment would be appropriate. In the event that his ostomy output cannot be managed enough to prevent recurring episodes of significant dehydration, then it may be reasonable to consider a quicker closure of his ileostomy than we might otherwise pursue. ASHKAN
[2020-11-21] MEDS ORDERED: VANCOMYCIN HCL 1,000 MG, VIAL MATE ADAPTER 1 EACH in NS 250 ML IV SCH (12:00)
--- NOTE | 2020-11-21 13:16 | IPNPDOC ---
Text Note Date of Service The patient was seen on 11/21/20. NOTE General Surgery Dr Price The patient is a 64-year-old male admitted with dehydration from high output ileostomy. Patient is sitting up on the side of the bed this morning. He is eating and drinking. The patient states he has noticed a decrease in his ostomy output, nursing documented a total of 4850 mL output from ileostomy yesterday. Afebrile Heart rate 67, respiratory rate 16, blood pressure 126/84. General. Awake and alert, sitting comfortably on the side of the bed. Lungs clear to auscultation S1-S2 regular rate and rhythm Abdomen soft and nontender, nondistended, ileostomy with small amount of output in the bag, the patient states this was already emptied this morning. GI panel negative Culture 2 negative 24 hours WBC 13.4, hemoglobin 10.8, platelets 615 High-output ileostomy. Currently on Bacid, Metamucil, Imodium as needed. IVF 50cc/hr IV antibiotics as per hospitalist. Continue to monitor output from ileostomy. VS,Fishbone, I+O VS, Fishbone, I+O Laboratory Tests 11/20/20 19:59 11/21/20 05:55 11/21/20 06:25 Vital Signs Date Time Temp Pulse Resp B/P (MAP) Pulse Ox O2 Delivery O2 Flow Rate FiO2 11/21/20 11:25 97.9 64 16 167/81 (109) Room Air 11/21/20 07:52 91 I&O- Last 24 Hours up to 6 AM 11/21/20 06:00 Intake Total 5140 ml Output Total 7175 ml Balance -2035 ml Attending Note Attending Note Agree with note by OCTAVIO Alatorre. Ileostomy output decreased today with above noted interventions. Can be discharged when output adequately controlled. Pita Mcknight Nov 21, 2020 13:16 Christ Price Nov 21, 2020 21:02
[2020-11-21 14:00] LABS: CORTISOL AM 141.8 UG/DL (4.3-22.4)
--- NOTE | 2020-11-21 21:13 | IPN ---
PROGRESS NOTE DATE: 11/21/2020 SUBJECTIVE: Patient is seen and examined this morning at the bedside in the intensive care unit. He has done well overnight. He required frequent boluses of normal saline yesterday because of high output and he was ordered for normal saline at 200 mL/hour overnight. This morning, his ostomy output has slowed down and the stool in the bag is now pasty and somewhat formed appearing and the patient's IV fluids are being cut down and he is pending transfer to the medical floor, and his renal function has recovered to prior baseline, and patient denies any complaints at the time of my visit, no shortness of breath. Temperature 97.9, pulse 64, respiratory rate 16, blood pressure systolic 126-167 over diastolic in the 80s, saturating 91-100% on room air. Intake yesterday was 5.8 liters, output was 7.8 liters of which 5 liters was stool and 3 liters was urine. Weight in the bed scale today is 79.8 kg. General: Patient is seen awake, alert, oriented, lying in bed, in no distress. Extraocular muscles are intact. Tongue is moist. Neck is supple. He has a central line in the right internal jugular (IJ). Heart sounds are regular, S1, S2. There is no peripheral edema. Lungs are clear to auscultation bilaterally. Abdomen is soft and nontender. The ileostomy has pasty to almost formed stool now and there is no ongoing liquid stool at the time of my visit. Extremities are negative for clubbing, cyanosis, or edema. Neurologic: He is awake, alert, oriented times three, at baseline mentation. LABORATORY DATA: Sodium 133, potassium 4.6, bicarbonate 22, BUN 18, creatinine 0.8, calcium 8.1. Cortisol was 140 a.m. level. Hemoglobin 10.8. Blood cultures were no growth for 48 hours times two sets drawn on 11/19/2020, and his gastrointestinal (GI) panel was negative as well. INPATIENT MEDICATIONS: He received several boluses of normal saline yesterday and he was on normal saline at 200 mL/hour overnight. This is now reduced to 50 mL/hour by myself this morning. He is on IV cefepime and IV Flagyl. His sodium bicarbonate fluids were discontinued yesterday. He is also receiving IV vancomycin. His IV hydrocortisone is discontinued today. The remainder of medications are unchanged as compared to yesterday. PROBLEMS: 1. Status post acute kidney injury. It is secondary to dehydration and hypovolemia due to high output ostomy. He has received aggressive IV fluids with a total of 8 liters given over the past 2 days. Fortunately, his ostomy output is now decreasing and I have likewise decreased the rate of IV fluid now to normal saline at 50 mL/hour and I would suggest to stop the IV fluids if the patient continues to have normal amount of ostomy output. He is tolerating an oral diet and his renal function has recovered to baseline with IV fluid and correction of his volume status. 2. High output ostomy. Gastrointestinal (GI) panel was negative. Blood cultures are likewise negative. He has received IV fluid to keep up with his losses and I defer antibiotics to the primary team. There is no further need for bicarbonate containing fluids. I suggest to continue with the subcutaneous octreotide for 24 hours further. 3. Hypotension. It was secondary to hypovolemia. He has been off of pressors since yesterday. His blood pressures have improved nicely and his IV fluids are being decreased now and I also suggest to discontinue the IV hydrocortisone he was receiving. 4. Disposition. Nephrology is signing off. Please re-consult as needed.
[2020-11-22] MEDS: CEFEPIME HCL 2 GM in D5W MINI-BAG PLUS 50 ML IV SCH ×2 (00:17→08:41)
[2020-11-22] MEDS: VANCOMYCIN HCL 1,000 MG, VIAL MATE ADAPTER 1 EACH in NS 250 ML IV SCH ×2 (01:37→10:29)
[2020-11-22] MEDS: OCTREOTIDE ACETATE 100MCG/ML VIAL (J2354 PER 25MCG) SC SCH (05:30)
[2020-11-22] MEDS: metroNIDAZOLE 500 MG in IV 1 EA IV SCH (05:31)
[2020-11-22 06:00] VITALS: BP 149/88
[2020-11-22 06:51] LABS: HEMATOCRIT 32.6 % (42.0-52.0); HEMOGLOBIN 10.6 g/dl (13.5-17.5); MEAN CORPUSCULAR HEMOGLOBIN 30.5 pg (27.0-33.0); MEAN CORPUSCULAR HGB CONC 32.5 g/dl (32.0-36.5); MEAN CORPUSCULAR VOLUME 93.9 fl (80.0-96.0); PLATELET COUNT, AUTOMATED 576 10^3/uL (150-450); RED BLOOD COUNT 3.47 10^6/uL (4.30-6.10); WHITE BLOOD COUNT 10.4 10^3/uL (4.0-10.0)
[2020-11-22] MEDS: NS 1,000 ML IV SCH (07:11)
[2020-11-22 07:16] LABS: ALBUMIN 2.8 GM/DL (3.2-5.2); ALT/SGPT 19 U/L (12-78); BILIRUBIN,TOTAL 0.3 MG/DL (0.2-1.0); BLOOD UREA NITROGEN 13 MG/DL (7-18); CALCIUM LEVEL 8.7 MG/DL (8.8-10.2); CARBON DIOXIDE LEVEL 27 MEQ/L (21-32); CHLORIDE LEVEL 105 MEQ/L (98-107); CREATININE FOR GFR 0.79 MG/DL (0.70-1.30); GLOMERULAR FILTRATION RATE > 60.0 (>49); GLUCOSE, FASTING 85 MG/DL (70-100); SODIUM LEVEL 135 MEQ/L (136-145); TOTAL PROTEIN 6.3 GM/DL (6.4-8.2)
--- NOTE | 2020-11-22 08:33 | IPNPDOC ---
Text Note Date of Service The patient was seen on 11/22/20. NOTE General Surgery Dr Price The patient is a 64-year-old male admitted with dehydration from high output ileostomy. Patient is OOB ambulating in room this am, he is eating and drinking. States he is feeling better. The patient states he has noticed a decrease in his ostomy output, but states kimberlee lucinda is causing increased output and gas when he drinks it. Afebrile VSS General. Awake and alert, NAD Lungs clear to auscultation S1-S2 regular rate and rhythm Abdomen soft and nontender, nondistended, ileostomy with small amount of output in the bag. WBC 10.4, hemoglobin 10.6, platelets 576 I/O 6660/6145, +515 Stool 2125ml. High-output ileostomy. Currently on Bacid, Metamucil, Imodium as needed. Overall pt states he is feeling better. Associates worsening symptoms with drinking kimberlee lucinda so he is now avoiding this. IVF 50cc/hr IV antibiotics as per hospitalist. Monitor output from ileostomy. VS,Fishbone, I+O VS, Fishbone, I+O Laboratory Tests 11/22/20 06:09 Vital Signs Date Time Temp Pulse Resp B/P (MAP) Pulse Ox O2 Delivery O2 Flow Rate FiO2 11/22/20 06:00 98.3 57 18 149/88 (108) 99 Room Air I&O- Last 24 Hours up to 6 AM 11/22/20 06:00 Intake Total 5870 ml Output Total 6795 ml Balance -925 ml Attending Note Attending Note Agree with Pita Mcknight note. Pita Mcknight Nov 22, 2020 08:33 Christ Price Nov 23, 2020 00:56
[2020-11-22 08:40] VITALS: BP 120/83
[2020-11-22] MEDS: LACTOBACILLUS ACIDOPHILUS CAP (BACID) PO SCH (08:40)
[2020-11-22] MEDS: NICOTINE 7 MG/24 HR TRANSDERMAL TD SCH (08:41)
[2020-11-22] MEDS: HEPARIN SOD (PORCINE) 5000UNITS/ML 1ML VIAL/SYRINGE SC SCH (08:41)
[2020-11-22] MEDS: THIAMINE 100 MG TAB PO SCH (08:41)
[2020-11-22] MEDS: METAMUCIL (PSYLLIUM) PACKET PO SCH (08:41)
[2020-11-22] MEDS: MULTIVITAMINS/MINERALS THERAP 1 TAB PO SCH (08:41)
[2020-11-22] MEDS: FOLIC ACID 1 MG TAB PO SCH (08:41)
[2020-11-22] MEDS ORDERED: META1POW PO (11:35)
[2020-11-22] MEDS ORDERED: CIPR-250 PO (11:35)
[2020-11-22] MEDS ORDERED: VITMTA PO (11:35)
[2020-11-22] MEDS ORDERED: FOLI1TAB11 PO (11:35)
[2020-11-22] MEDS ORDERED: ANTI2TAB16 PO (11:35)
[2020-11-22] MEDS ORDERED: RISATAB3 PO (11:35)
--- NOTE | 2020-11-22 12:06 | DS.PDOC ---
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 HISTORY OF PRESENT ILLNESS: 64yo M with notable PMHx of anastomotic leak from colostomy reversal with subsequent ex lap and ileostomy in 10/2020, htn, b/l orchiectomies from lymphoma & melanoma, and long-time smoker with heavy EtOH use, who presented to the [facility] ED on 11/19/20 with the chief complaint of feeling "run down" for a couple of days. On the morning of presentation, he felt especially fatigued to the point that he collapsed and passed out, simply from sitting up. He reported trying to sit up 2 more times, and passing out each time again. He was able to then call his sister and a neighbor, who after tending to him called EMS. The night prior to presentation, he reported having had to empty his ileostomy bag every 30 minutes as he was having significant, consistent output. Of note, he recently underwent a colostomy reversal on 10/21, then presented to the ED with N/V/abd pain on 11/04 and was found to have an anastomotic leak necessitating an exploratory laparotomy with ileostomy placement. He was seen by Dr. Price of general surgery as an outpt to remove a drain and stitched from the 11/[address] Price and was advised to aggressively hydrate as result of the ileostomy high output. HOSPITAL COURSE: Upon presentation in the ED, he was hypotensive with leukocytosis (WBC 14.6) with sodium of 129, potassium 4.5, BUN of 57, creatinine of 4.09 (baseline 0.71). He was administered aggressive fluid resuscitation along with a dose of Zosyn after having blood cultures drawn. A VBG resulted with pH 7.345/PCO2 34.7/PO2 55.6 with CO2 of 21. Chest x-ray showed no acute pulmonary disease and CT abdomen, pelvis with decreased abdominal fluid from last imaging, persistent thickening of cecal and ascending colon wall, and stable stenosis of left and right common femoral arteries. He was admitted under the care of the hospitalist service to the progressive care unit primarily to address likely hypovolemic hyponatremia, acute renal failure, hypotension and leukocytosis. His hypotension resolved after aggressive fluids and he surgery team was consulted that recommended medical management with addition of Metamucil BID and loperamide. He also had some octreotide that was discontinued on 11/22. Nephrology was consulted for JUNAID and metabolic acidosis that resolved with hydration and bicarbonate repletion. He is now being discharged home with PCP follow up and surgery follow up per outpatient schedule. Of note, GI panel was negative, respiratory panel was negative, BCx were negative and he had 3d of empiric vanc/cefepime/flagyl. He is now being discharged with 3 more days of empiric PO cipro. DISCHARGE MEDICATIONS: Please see below. ALLERGIES: Please see below. PHYSICAL EXAMINATION ON DISCHARGE: VITAL SIGNS: Please see below GENERAL APPEARANCE: NAD, in bed, AAOx 3 HEENT: Normocephalic, atraumatic. Noninjected, anicteric sclera. NECK: No JVD, symmetrical, no lymphadenopathy CARDIOVASCULAR: RRR, no M/R/G LUNGS: CTAB, no W/r/r ABDOMEN: ileostomy present in the right lower quadrant that is consistently eva ining semi formed greenish/brownish stool. Ostomy tissue looks well vascularized and healthy. midline vertical 7 cm incision with scabbing, well healing. former colostomy site appears to be healing well MUSCULOSKELETAL: Moving all extremities, with normal-appearing range of motion. SKIN: Skin of face, neck and upper chest is quite amezquita. EXTREMITIES: no edema, cyanosis, clubbing. 2+ radial pulses bilaterally. NEUROLOGICAL:CN 2-12 intact, No focal deficits present. PSYCHIATRIC: Mood and affect appropriate LABORATORY DATA: Please see below. IMAGING: Renal US: No hydronephrosis CXR 11/19/20: No acute pulmonary disease. CT abdomen and pelvis with and without contrast 11/19/20: 1. Persistent thickening of the wall of the cecum and ascending colon that was also present in prior CT abdomen and pelvis on 11/14/2020 and may represent a colitis. 2. 2.7 cm x 2.7 cm x 4.5 cm fluid collection in the right side of the abdomen just below the right hepatic lobe that has decreased in size since the prior CT abdomen and pelvis on 11/14/2020 and may represent a postoperative seroma or abscess. 3. Colonic diverticulosis without evidence for diverticulitis. 4. Enlarged prostate. 5. 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 PROGNOSIS: Good ACTIVITY: As tolerated DIET: Regular, avoid kimberlee lucinda that he has noted to not tolerated very well and precipitates diarrhea with high watery output DISCHARGE PLAN: Home with PCP and surgery follow up DISPOSITION: Home DISCHARGE INSTRUCTIONS: Home with PCP and surgery follow up. Complete 3d of BID cipro. Continue metamucil and PRN loperamide ITEMS TO FOLLOWUP ON ON OUTPATIENT: High ileostomy output DISCHARGE CONDITION: Stable TIME SPENT ON DISCHARGE: 45 minutes. Vital Signs/I&Os Vital Signs Date Time Temp Pulse Resp B/P (MAP) Pulse Ox O2 Delivery O2 Flow Rate FiO2 11/22/20 08:40 120/83 11/22/20 06:00 98.3 57 18 99 Room Air I&O- Last 24 Hours up to 6 AM 11/22/20 06:00 Intake Total 5870 ml Output Total 6795 ml Balance -925 ml Laboratory Data Labs 24H Laboratory Tests 2 11/21/20 13:10: Lab Scanned Report Miscellaneous Lab 11/22/20 06:09: Nucleated Red Blood Cells % (auto) 0.0, Anion Gap 3L, Glomerular Filtration Rate > 60.0, Calcium Level 8.7L, Total Bilirubin 0.3, Aspartate Amino Transf (AST/SGOT) 12, Alanine Aminotransferase (ALT/SGPT) 19, Alkaline Phosphatase 68, Total Protein 6.3L, Albumin 2.8L, Albumin/Globulin Ratio 0.8 11/22/20 09:07: Vancomycin Level Trough 14.9 CBC/BMP Laboratory Tests 11/22/20 06:09 Microbiology Microbiology 11/20/20 Gastrointestinal Tract Panel (PCR) - Final, Complete 11/19/20 Blood Culture - Preliminary, Resulted No Growth after 48 hours. All Specime... 11/19/20 Blood Culture - Preliminary, Resulted No Growth after 48 hours. All Specime... 11/19/20 Urine Culture - Final, Complete Discharge Medications Scheduled Ciprofloxacin HCl (Cipro) 250 Mg Tablet, 1 TAB PO BID Folic Acid (Folic Acid) 1 Mg Tablet, 1 MG PO DAILY Chan/Margaret/Taina/SJacquelinetherm (Liberty-Bid Caplet) 1 Each Tablet, 1 EA PO BIDWM Lisinopril (Lisinopril) 10 Mg Tablet, 10 MG PO DAILY, (Reported) Multivitamins (Thera M Plus Tablet) 1 Each Tablet, 1 TAB PO DAILY Psyllium Husk/Aspartame (Metamucil Fiber Singles Packet) 3.4 Gm Powd.pack, 1 PKT PO BID Testosterone Cypionate (Testosterone Cypionate) 200 Mg/Ml Inj, 300 MG IM ASDIRECTED, (Reported) EVERY 3 WEEKS Scheduled PRN Acetaminophen (Acetaminophen) 500 Mg Tablet, 1,000 MG PO Q6H PRN for PAIN / FEVER, (Reported) Ibuprofen (Ibu-200) 200 Mg Tablet, 600 MG PO Q6H PRN for PAIN, (Reported) Loperamide HCl (Anti-Diarrheal) 2 Mg Tablet, 2 MG PO ASDIRECTED PRN for DIARRHEA Allergies Coded Allergies: naproxen (Verified Allergy, Severe, SOB, hives, 10/21/20) CHIKIS BARRIOS MD Nov 22, 2020 12:06
[2020-12-01] MEDS ORDERED: TESTOSTERONE CYPIONATE 200 MG/ML IM SCH (09:00)
== END 2020-11-22 13:05 | disposition home health service (06) | DRG 252 ==
LOC: M ED 16:44 → M ED INP 22:03 → ENRESERV 23:08 → M PCU 23:28 → M ICU 11-20 08:53 → M MSPAV 11-21 17:17
PROVIDERS: ADMIT Family Medicine; ATTEND Internal Medicine
PROC: 02HV33Z Insertion of Infusion Device into Superior Vena Cava, Percutaneous Approach (ICD-10-PCS; principal; 2020-11-20)
DX: K94.19 Other complications of enterostomy (principal); R57.1 Hypovolemic shock; N17.9 Acute kidney failure, unspecified; I95.9 Hypotension, unspecified; E87.2 Acidosis; E87.1 Hypo-osmolality and hyponatremia; E86.0 Dehydration; F10.20 Alcohol dependence, uncomplicated; F17.200 Nicotine dependence, unspecified, uncomplicated; F32.9 Major depressive disorder, single episode, unspecified; H91.93 Unspecified hearing loss, bilateral; K57.90 Diverticulosis of intestine, part unspecified, without perforation or abscess without bleeding; N40.0 Benign prostatic hyperplasia without lower urinary tract symptoms; Z90.49 Acquired absence of other specified parts of digestive tract; Z90.79 Acquired absence of other genital organ(s); Z20.822 Contact with and (suspected) exposure to COVID-19; Z95.820 Peripheral vascular angioplasty status with implants and grafts; Z85.79 Personal history of other malignant neoplasms of lymphoid, hematopoietic and related tissues

== ENCOUNTER 2020-11-30 12:08 | Inpatient (IN) | payer OTHER ==
[~2020-11-30] VITALS: Ht 172.7 cm; Wt 73.6 kg
[~2020-11-30 12:08] MED LIST changes: +ACET-683 PO; +ANTI2TAB16 PO; +CIPR-250 PO; +FOLI1TAB11 PO; +LISI10TA22 PO; +META1POW PO; +RISATAB3 PO; +VITMTA PO
[2020-11-30] MEDS ORDERED: NS 1,000 ML IV SCH (13:10)
[2020-11-30 13:43] LABS: BASO # 0.1 10^3/uL (0.0-0.2); BASO % 0.4 % (0.0-1.0); EOS # 0.3 10^3/uL (0.0-0.5); EOS % 1.8 % (0.0-3.0); HEMATOCRIT 38.7 % (42.0-52.0); LYMPH # 1.9 10^3/uL (1.5-5.0); MEAN CORPUSCULAR HEMOGLOBIN 30.5 pg (27.0-33.0); MEAN CORPUSCULAR HGB CONC 33.6 g/dl (32.0-36.5); MEAN CORPUSCULAR VOLUME 90.8 fl (80.0-96.0); MONO # 1.4 10^3/uL (0.0-0.8); MONO % 9.7 % (2.0-8.0); NEUTROPHILS # 10.9 10^3/uL (1.5-8.5); NEUTROPHILS % 73.9 % (36.0-66.0); PLATELET COUNT, AUTOMATED 407 10^3/uL (150-450); RED BLOOD COUNT 4.26 10^6/uL (4.30-6.10); WHITE BLOOD COUNT 14.7 10^3/uL (4.0-10.0)
[2020-11-30] MEDS ORDERED: NS 1,000 ML IV ONE ×2 (13:45→18:30)
[2020-11-30 14:08] LABS: ALBUMIN 3.8 GM/DL (3.2-5.2); BILIRUBIN,DIRECT 0.1 MG/DL (0.0-0.2); BILIRUBIN,TOTAL 0.3 MG/DL (0.2-1.0)
[2020-11-30 16:16] LABS: CALCIUM LEVEL 9.1 MG/DL (8.8-10.2); CREATININE FOR GFR 4.49 MG/DL (0.70-1.30); GLOMERULAR FILTRATION RATE 14.2 (>49)
[2020-11-30] MEDS ORDERED: META28.32 PO (16:59)
[2020-11-30] MEDS ORDERED: FOLI1TAB11 PO (16:59)
[2020-11-30] MEDS ORDERED: BACITAB PO (16:59)
[2020-11-30] MEDS ORDERED: LOPE2CAP PO (16:59)
[2020-11-30] MEDS ORDERED: VITMTA PO (16:59)
--- NOTE | 2020-11-30 17:05 | REP ---
INDICATION: renal failure. COMPARISON: 11/19/2020 FINDINGS: Multiple ultrasonographic images of the right kidney show the right kidney to measure 12.2 x 5.4 x 4.5 cm. The renal cortical echotexture is unremarkable. There is an incidental 7 mm sized cyst in the inferior pole. There are no masses. There is good corticomedullary differentiation. There is no hydronephrosis. There are no perinephric fluid collections. Multiple ultrasonographic images of the left kidney show the left kidney to measure 11.8 x 4.7 x 5.9 cm . The renal cortical echotexture is unremarkable. There are no masses. There is good corticomedullary differentiation. There is no hydronephrosis. There are no perinephric fluid collections. When scanning the urinary bladder the technologist noted possibly enlarged prostate gland. Using color Doppler imaging uro jet phenomenon was not seen on either side. IMPRESSION: No change from the prior exam. Findings as described above. <Electronically signed by Beltran Johnson > 11/30/20 [id number]
[2020-11-30 17:12] LABS: MAGNESIUM LEVEL 1.6 MG/DL (1.8-2.4); URIC ACID 10.3 MG/DL (3.5-7.2)
[2020-11-30 18:14] LABS: RSV AMPLIFICATION NEGATIVE (NEGATIVE)
[2020-11-30 18:24] LABS: POTASSIUM RANDOM URINE 64.8 MEQ/L; SODIUM,RANDOM URINE < 10 MEQ/L
[2020-11-30] MEDS: LOPERAMIDE 2 MG CAPLET PO SCH ×2 (18:34→21:53)
--- NOTE | 2020-11-30 18:47 | HPEPDOC ---
General Date of Admission 11/30/20 Date of Service: Nov 30, 2020 Chief Complaint The patient is a 64-year-old male admitted with a reason for visit of General Medical Complaint. Source: Patient, RN/MD History of Present Illness 64 year old male has been having multiple abdominal complications since the spring. he started with recurrent diverticulitis which culminated in sigmoid colon obstruction needing sigmoid colectomy and colostomy creation in May 2020. He had successful colostomy reversal on October 22, 2019 after a prolonged surgery requiring extensive lysis of adhesions but still there were lot more adhesions which was not able to be cleared up. He was readmitted on 11/04 for small-bowel obstruction with perforation and diffuse peritonitis and underwent exploratory laparotomy with lysis of adhesions, drainage of pelvic hematoma & abscess and resection of a portion of the ileum with ileostomy creation & appendectomy. he was discharged on November 15. He came back to hospital on November 19 large volume ileostomy output with dehydration and JUNAID. He was discharged on november 22. He comes back today with increased ileostomy output over the last 3 to 4 days. He was able to drik about 3.6 liters a daybut whatever he is drinking it is just pouring out of the ileostomy. He denies any abdominal pain , any nausea or vomiting, he was eating good except for today when his appetite has been poor. On arrival to the ED he was hypotensive with Bp of 85/55, JUNAID with creatinine of 4.1, hyperkalemic to 6.0, and hyponatremic to 119. Patietn was admitted for JUNAID and dehydration form high output ileostomy. Home Medications Scheduled Amlodipine Besylate (Amlodipine Besylate) 5 Mg Tablet, 1 TAB PO DAILY Folic Acid (Folic Acid) 1 Mg Tablet, 1 MG PO DAILY, (Reported) L.acidoph/L.bulg/B.bif/S.therm (Bacid Caplet) 1 Each Tablet, 1 TAB PO BIDWM, (Reported) Multivitamins (Thera M Plus Tablet) 1 Each Tablet, 1 TAB PO DAILY, (Reported) Psyllium Husk (with Sugar) (Metamucil Powder) 575 Gm Powder, 1 PKT PO TID Testosterone Cypionate (Testosterone Cypionate) 200 Mg/Ml Inj, 300 MG IM ASDIRECTED, (Reported) EVERY 3 WEEKS Scheduled PRN Acetaminophen (Acetaminophen) 500 Mg Tablet, 1,000 MG PO Q6H PRN for PAIN / FEVER, (Reported) Loperamide HCl (Loperamide) 2 Mg Capsule, 2 MG PO Q4H PRN for DIARRHEA, (Reported) Allergies Coded Allergies: naproxen (Verified Allergy, Severe, SOB, hives, 10/21/20) diphenhydramine (Verified Adverse Reaction, Intermediate, hyperactivity, 11/30/20) Past Medical History Medical History Multiple abdominal surgeries in the past year Ileostomy HTN Testicular cancer in 1996 s/p bilateral radical orchidectomies Depression Diverticulosis Diverticulitis Bilateral hearing loss BPH Alcohol abuse Surgical History 11/11/20 Pelvic hematoma with abscess. Small bowel obstruction with perforation and diffuse peritonitis. Extensive abdominal adhesions. S/p Exploratory l aparotomy with lysis of adhesions with drainage of pelvic hematoma and abscess. He underwent resection of a portion of ileum with creation of an ileostomy and also underwent appendectomy 10/21/20 :Laparoscopic lysis of adhesions, Laparoscopic colostomy reversal with coloproctostomy. 06/09/21: diverticulitis with large bowel obstruction (sigmoid colon) and status post sigmoid colectomy and colostomy. Shoulder surgery Prostate biopsy Bilateral orchiectomies Family History Significant Family History: Cancer (Breast cancer in mother now .) Mother ; [place], hypertension, macular degeneration Father- ; alcoholism 3 Sisters with hypertension 1 son with blindness from retinitis pigmentosa, and hypertension Social History * Smoker: current smoker Alcohol: heavy (usually has 3-4 glasses of beer per night with 4 shots of Jackson Faulkner.) A-FIB/CHADSVASC A-FIB History Current/History of A-Fib/PAF?: No Review of Systems Constitutional: Reports: Weakness, Fatigue; Denies: Chills, Fever, Night Sweats Eyes: Denies: Pain, Vision change ENT: Denies: Head Aches, Ear Pain, Dysphagia Skin: Denies: Rash, Lesions, Breakdown Pulmonary: Denies: Dyspnea, Cough Cardiovascular: Denies: Chest Pain, Palpitations, Orthopnea, Paroxysmal Noc. Dyspnea, Lt Headedness Gastrointestinal: Reports: Diarrhea (ileostomy); Denies: Nausea, Vomiting, Abdominal Pain Genitourinary: Denies: Frequency, Incontinence Hematologic: Denies: Bruising, Bleeding Excessively Physical Examination General Exam: Positive: Alert, Cooperative, No Acute Distress Eye Exam: Positive: PERRLA, Conjunctiva & lids normal, EOMI; Negative: Sclera icteric ENT Exam: Positive: Atraumatic, Mucous membr. moist/pink, Pharynx Normal Neck Exam: Positive: Supple; Negative: JVD, thyromegaly Chest Exam: Positive: Clear to auscultation, Normal air movement Heart Exam: Positive: Rate Normal, Regular Rhythm, Normal S1, Normal S2; Negative: Murmurs, Rubs Abdomen Exam: Positive: Normal bowel sounds, Soft, Other (ileostomy in the right upper abdomen); Negative: Tenderness Extremity Exam: Negative: Clubbing, Cyanosis, Edema Neuro Exam: Positive: Normal Speech, Strength at 5/5 X4 ext, Normal Tone Psych Exam: Positive: Memory Intact, Oriented x 3 Vital Signs Vital Signs Date Time Temp Pulse Resp B/P (MAP) Pulse Ox O2 Delivery O2 Flow Rate FiO2 11/30/20 15:45 66 18 97/50 (66) 97 Room Air 11/30/20 12:10 97.2 Laboratory Data Labs 24H Laboratory Tests 2 11/30/20 13:11: Immature Granulocyte % (Auto) 1.2, Neutrophils (%) (Auto) 73.9H, Lymphocytes (%) (Auto) 13.0L, Monocytes (%) (Auto) 9.7H, Eosinophils (%) (Auto) 1.8, Basophils (%) (Auto) 0.4, Neutrophils # (Auto) 10.9H, Lymphocytes # (Auto) 1.9, Monocytes # (Auto) 1.4H, Eosinophils # (Auto) 0.3, Basophils # (Auto) 0.1, Nucleated Red Blood Cells % (auto) 0.0, Anion Gap 11, Glomerular Filtration Rate 14.2L, Calcium Level 9.1, Total Bilirubin 0.3, Direct Bilirubin 0.1, Aspartate Amino Transf (AST/SGOT) 12, Alanine Aminotransferase (ALT/SGPT) 34, Alkaline Ph osphatase 96, Total Protein 8.0, Albumin 3.8, Albumin/Globulin Ratio 0.9, Lipase 1006H CBC/BMP Laboratory Tests 11/30/20 13:11 Assessment/Plan 64 year old male has been having multiple abdominal complications since the spring. he started with recurrent diverticulitis which culminated in sigmoid colon obstruction needing sigmoid colectomy and colostomy creation in May 2020. He had successful colostomy reversal on October 22, 2019 after a prolonged surgery requiring extensive lysis of adhesions but still there were lot more adhesions which was not able to be cleared up. He was readmitted on 11/04 for small-bowel obstruction with perforation and diffuse peritonitis and underwent exploratory laparotomy with lysis of adhesions, drainage of pelvic hematoma & abscess and resection of a portion of the ileum with ileostomy creation & appendectomy. he was discharged on November 15. He came back to hospital on November 19 large volume ileostomy output with dehydration and JUNAID. He was discharged on november 22. He comes back today with increased ileostomy o utput over the last 3 to 4 days. He was able to drik about 3.6 liters a daybut whatever he is drinking it is just pouring out of the ileostomy. He denies any abdominal pain , any nausea or vomiting, he was eating good except for today when his appetite has been poor. On arrival to the ED he was hypotensive with Bp of 85/55, JUNAID with creatinine of 4.1, hyperkalemic to 6.0, and hyponatremic to 119. Patietn was admitted for JUNAID and dehydration form high output ileostomy. JUNAID from high output ileostomy aggressive hydration. stop lisinopril Dehydration with high Ileostomy output to be slowed down by metamucil and loperamide. continue lactobacillus Hypotension from diarrhea and dehydration continue IVF resuscitation No tachycardia or confusion Hyperkalemia due to dehydration and lisinopril stopped lisinopril patient should not be on lisinopril at all due to his tendency to have these e pisodes again and again. Hypovolemic Hyponatremia from large ileostomy output. Plan / VTE VTE Prophylaxis Ordered?: Yes ZAIDA MATHUR MD Nov 30, 2020 17:05
[2020-11-30] MEDS: NS 1,000 ML IV SCH (20:05)
[2020-11-30 20:09] LABS: PROTEIN, URINE AUTO NEGATIVE (NEGATIVE)
[2020-11-30 20:18] LABS: OSMOLALITY URINE 350 MOSM/KG (50-1400)
[2020-11-30 20:50] VITALS: BP_SYST 98; BP_DIAS 54; BP_DIAS 94
[2020-11-30] MEDS: METAMUCIL (PSYLLIUM) PACKET PO SCH (21:54)
[2020-11-30 22:45] LABS: CREATININE FOR GFR 2.99 MG/DL (0.70-1.30); GLOMERULAR FILTRATION RATE 22.7 (>49); POTASSIUM SERUM 4.9 MEQ/L (3.5-5.1)
[2020-11-30] MEDS: NICOTINE 21MG/24HR 1 EA TRANSDERMAL TD PRN (23:43)
[2020-12-01] VITALS (8 sets, daily range): BP systolic 88–142; BP diastolic 50–75
[2020-12-01 07:04] LABS: HEMATOCRIT 35.1 % (42.0-52.0); HEMOGLOBIN 12.2 g/dl (13.5-17.5); MEAN CORPUSCULAR HEMOGLOBIN 31.1 pg (27.0-33.0); MEAN CORPUSCULAR HGB CONC 34.8 g/dl (32.0-36.5); MEAN CORPUSCULAR VOLUME 89.5 fl (80.0-96.0); PLATELET COUNT, AUTOMATED 377 10^3/uL (150-450); RED BLOOD COUNT 3.92 10^6/uL (4.30-6.10); WHITE BLOOD COUNT 11.6 10^3/uL (4.0-10.0)
[2020-12-01 07:25] LABS: CALCIUM LEVEL 8.9 MG/DL (8.8-10.2); CREATININE FOR GFR 1.89 MG/DL (0.70-1.30); GLOMERULAR FILTRATION RATE 38.5 (>49); POTASSIUM SERUM 5.2 MEQ/L (3.5-5.1)
[2020-12-01] MEDS: NS 1,000 ML IV SCH ×5 (07:55→22:24)
[2020-12-01] MEDS ORDERED: LACTOBACILLUS ACIDOPHILUS CAP (BACID) PO SCH (08:00)
[2020-12-01] MEDS: METAMUCIL (PSYLLIUM) PACKET PO SCH ×3 (08:47→20:09)
[2020-12-01] MEDS: MULTIVITAMINS/MINERALS THERAP 1 TAB PO SCH (08:47)
[2020-12-01] MEDS: FOLIC ACID 1 MG TAB PO SCH (08:47)
[2020-12-01] MEDS: LOPERAMIDE 2 MG CAPLET PO SCH ×4 (08:47→20:09)
[2020-12-01] MEDS ORDERED: NS 1,000 ML IV ONE (09:00)
--- NOTE | 2020-12-01 12:31 | IPNPDOC ---
Subjective Date Seen The patient was seen on 12/01/20. Subjective Chief Complaint/HPI continues to have very large ileostomy output, water , though i did see small amount of mushy things. No abdominal pain, no fever . feeling less fatigued. Appetite normal today. Objective Physical Examination General Exam: Positive: Alert, Cooperative, No Acute Distress Eye Exam: Positive: PERRLA, Conjunctiva & lids normal, EOMI; Negative: Sclera icteric ENT Exam: Positive: Atraumatic, Mucous membr. moist/pink, Pharynx Normal Neck Exam: Positive: Supple; Negative: JVD, thyromegaly Chest Exam: Positive: Clear to auscultation, Normal air movement Heart Exam: Positive: Rate Normal, Regular Rhythm, Normal S1, Normal S2; Negative: Murmurs, Rubs Abdomen Exam: Positive: Normal bowel sounds, Soft, Other (ileostomy in the right upper abdomen, colostomy scar on the left lower quadrant only about 2 cm open now. ); Negative: Tenderness Extremity Exam: Negative: Clubbing, Cyanosis, Edema Neuro Exam: Positive: Normal Speech, Strength at 5/5 X4 ext, Normal Tone Psych Exam: Positive: Memory Intact, Oriented x 3 Assessment /Plan Assessment 64 year old male has been having multiple abdominal complications since the spring. He started with recurrent diverticulitis which culminated in sigmoid colon obstruction needing sigmoid colectomy and colostomy creation in May 2020. He had successful colostomy reversal on October 22, 2019 with a prolonged surgery requiring extensive lysis of adhesions but still there were lot more adhesions which was not able to be cleared up. He was readmitted on 11/04 for small-bowel obstruction with perforation and diffuse peritonitis and underwent exploratory laparotomy with lysis of adhesions, drainage of pelvic hematoma & abscess and resection of a portion of the ileum with ileostomy creation & appendectomy. He was discharged on November 15. He came back to hospital on November 19 with large volume ileostomy output with dehydration and ZACHARIAH. He was discharged on november 22. He comes back on 11/30/20 with again high ileostomy output over the last 3 to 4 days. He was able to drink about 3.6 liters a day but whatever he is drinking it is just pouring out of the ileostomy. He was extremely tired and fatigued for the past 3 days before admission and poor appetite onth day of admission. On arrival to the ED he was hypotensive with Bp of 85/55, ZACHARIAH with creatinine of 4.1, hyperkalemic to 6.0, and hyponatremic to 119. Patient was admitted for ZACHARIAH and dehydration form high output ileostomy. ZACHARIAH from high output ileostomy 1500 ml in the past 12 hours, 2500 ml in 18 hours. Zachariah is improving with aggressive hydration. stop lisinopril Dehydration with high Ileostomy output to be slowed down by metamucil and loperamide. continue lactobacillus Discussed with Dr Price . He is planning to do a barium enema to ascertain if the sigmoid colonic anastomosis has healed or not. If that is healed he is planning to do a early reversal of ieostomy in the next 1-2 weeks or so after he is discharged from the hospital. Hypotension from diarrhea and dehydration continue IVF resuscitation No tachycardia or confusion improving Hyperkalemia due to dehydration and lisinopril stopped lisinopril patient should not be on lisinopril at all due to his tendency to have these episodes again and again. now resolved. Hypovolemic Hyponatremia from large ileostomy output and dehydration improving. Alcohol use disorder Patient reports that at present for the past 2 months he is only drinking one shot a night to help him sleep. Plan/VTE VTE Prophylaxis Ordered?: Yes VS, I&O, 24H, Fishbone Vital Signs/I&O Vital Signs Date Time Temp Pulse Resp B/P (MAP) Pulse Ox O2 Delivery O2 Flow Rate FiO2 12/01/20 10:25 98.4 70 17 112/75 (87) 97 Room Air I&O- Last 24 Hours up to 6 AM 12/01/20 06:00 Intake Total 2000 ml Output Total 3400 ml Balance -1400 ml Laboratory Data 24H LABS Laboratory Tests 2 11/30/20 13:11: Immature Granulocyte % (Auto) 1.2, Neutrophils (%) (Auto) 73.9H, Lymphocytes (%) (Auto) 13.0L, Monocytes (%) (Auto) 9.7H, Eosinophils (%) (Auto) 1.8, Basophils (%) (Auto) 0.4, Neutrophils # (Auto) 10.9H, Lymphocytes # (Auto) 1.9, Monocytes # (Auto) 1.4H, Eosinophils # (Auto) 0.3, Basophils # (Auto) 0.1, Nucleated Red Blood Cells % (auto) 0.0, Anion Gap 11, Glomerular Filtration Rate 14.2L, Osmolality 274L, Uric Acid 10.3H, Calcium Level 9.1, Magnesium Level 1.6L, Total Bilirubin 0.3, Direct Bilirubin 0.1, Aspartate Amino Transf (AST/SGOT) 12, Alanine Aminotransferase (ALT/SGPT) 34, Alkaline Phosphatase 96, Total Creatine Kinase 85, Total Protein 8.0, Albumin 3.8, Albumin/Globulin Ratio 0.9, Lipase 1006H 11/30/20 16:54: Urine Protein NEGATIVE, Urine Osmolality 350, Urine Random Creatinine 211.0, Urine Random Sodium < 10, Urine Random Potassium 64.8 11/30/20 17:24: Coronavirus (COVID-19)(PCR) NEGATIVE, Influenza Type A (RT-PCR) NEGATIVE, Influenza Type B (RT-PCR) NEGATIVE, Respiratory Syncytial Virus (PCR) NEGATIVE 11/30/20 22:03: Anion Gap 7L, Glomerular Filtration Rate 22.7L, Calcium Level 8.0L 12/01/20 06:45: Nucleated Red Blood Cells % (auto) 0.0, Anion Gap 9, Glomerular Filtration Rate 38.5L, Calcium Level 8.9 CBC/BMP Laboratory Tests 11/30/20 13:11 11/30/20 22:03 12/01/20 06:45 Microbiology Microbiology 11/30/20 Gastrointestinal Tract Panel (PCR) - Final, Complete ZAIDA MATHUR MD Dec 01, 2020 12:31
--- NOTE | 2020-12-01 13:01 | ECGEPIP ---
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
[2020-12-02] MEDS: NICOTINE 21MG/24HR 1 EA TRANSDERMAL TD PRN (01:32)
[2020-12-02] MEDS: NS 1,000 ML IV SCH ×3 (01:32→11:21)
[2020-12-02 06:00] VITALS: BP 143/90
[2020-12-02 06:15] LABS: BASO # 0.1 10^3/uL (0.0-0.2); BASO % 0.7 % (0.0-1.0); EOS # 0.6 10^3/uL (0.0-0.5); EOS % 5.2 % (0.0-3.0); HEMATOCRIT 31.8 % (42.0-52.0); HEMOGLOBIN 10.6 g/dl (13.5-17.5); LYMPH # 2.4 10^3/uL (1.5-5.0); LYMPH % 22.9 % (24.0-44.0); MEAN CORPUSCULAR HEMOGLOBIN 30.5 pg (27.0-33.0); MEAN CORPUSCULAR HGB CONC 33.3 g/dl (32.0-36.5); MEAN CORPUSCULAR VOLUME 91.6 fl (80.0-96.0); MONO # 0.8 10^3/uL (0.0-0.8); MONO % 7.4 % (2.0-8.0); NEUTROPHILS # 6.7 10^3/uL (1.5-8.5); NEUTROPHILS % 63.3 % (36.0-66.0); PLATELET COUNT, AUTOMATED 342 10^3/uL (150-450); RED BLOOD COUNT 3.47 10^6/uL (4.30-6.10); WHITE BLOOD COUNT 10.5 10^3/uL (4.0-10.0)
[2020-12-02 06:39] LABS: BLOOD UREA NITROGEN 28 MG/DL (7-18); CALCIUM LEVEL 8.1 MG/DL (8.8-10.2); CARBON DIOXIDE LEVEL 21 MEQ/L (21-32); CHLORIDE LEVEL 106 MEQ/L (98-107); CREATININE FOR GFR 1.06 MG/DL (0.70-1.30); GLOMERULAR FILTRATION RATE > 60.0 (>49); GLUCOSE, FASTING 91 MG/DL (70-100); POTASSIUM SERUM 4.5 MEQ/L (3.5-5.1); SODIUM LEVEL 132 MEQ/L (136-145)
--- NOTE | 2020-12-02 09:10 | IPNPDOC ---
Subjective Date Seen The patient was seen on 12/02/20. Subjective Chief Complaint/HPI No complaints feeling better. Wants to go home. Objective Physical Examination General Exam: Positive: Alert, Cooperative, No Acute Distress Eye Exam: Positive: PERRLA, Conjunctiva & lids normal, EOMI; Negative: Sclera icteric ENT Exam: Positive: Atraumatic, Mucous membr. moist/pink, Pharynx Normal Neck Exam: Positive: Supple; Negative: JVD, thyromegaly Chest Exam: Positive: Clear to auscultation, Normal air movement Heart Exam: Positive: Rate Normal, Regular Rhythm, Normal S1, Normal S2; Negative: Murmurs, Rubs Abdomen Exam: Positive: Normal bowel sounds, Soft, Other (ileostomy in the right upper abdomen, colostomy scar on the left lower quadrant only about 2 cm open now. ); Negative: Tenderness Extremity Exam: Negative: Clubbing, Cyanosis, Edema Neuro Exam: Positive: Normal Speech, Strength at 5/5 X4 ext, Normal Tone Psych Exam: Positive: Memory Intact, Oriented x 3 Assessment /Plan Assessment 64 year old male has been having multiple abdominal complications since the spring. He started with recurrent diverticulitis which culminated in sigmoid colon obstruction needing sigmoid colectomy and colostomy creation in May 2020. He had successful colostomy reversal on October 22, 2019 with a prolonged surgery requiring extensive lysis of adhesions but still there were lot more adhesions which was not able to be cleared up. He was readmitted on 11/04 for small-bowel obstruction with perforation and diffuse peritonitis and underwent exploratory laparotomy with lysis of adhesions, drainage of pelvic hematoma & abscess and resection of a portion of the ileum with ileostomy creation & appendectomy. He was discharged on November 15. He came back to hospital on November 19 with large volume ileostomy output with dehydration and JUNAID. He was discharged on november 22. He comes back on 11/30/20 with again high ileostomy output over the last 3 to 4 days. He was able to drink about 3.6 liters a day but whatever he is drinking it is just pouring out of the ileostomy. He was extremely tired and fatigued for the past 3 days before admission and poor appetite onth day of admission. On arrival to the ED he was hypotensive with Bp of 85/55, JUNAID with creatinine of 4.1, hyperkalemic to 6.0, and hyponatremic to 119. Patient was admitted for JUNAID and dehydration form high output ileostomy. JUNAID from high output ileostomy 1500 ml in the past 12 hours, 2500 ml in 18 hours. resolved. will dc lisinopril Dehydration with high Ileostomy output to be slowed down by metamucil and loperamide. Discussed with Dr Price . He is planning to do a barium enema to ascertain if the sigmoid colonic anastomosis has healed or not. If that is healed he is planning to do a early reversal of ileostomy in the next 1-2 weeks or so after he is discharged from the hospital. Hypotension resolved Hyperkalemia due to dehydration and lisinopril stopped lisinopril patient should not be on lisinopril at all due to his tendency to have these episodes again and again. now resolved. Hypovolemic Hyponatremia from large ileostomy output and dehydration resolved Alcohol use disorder Patient reports that at present for the past 2 months he is only drinking one shot a night to help him sleep. Plan/VTE VTE Prophylaxis Ordered?: Yes VS, I&O, 24H, Fishbone Vital Signs/I&O Vital Signs Date Time Temp Pulse Resp B/P (MAP) Pulse Ox O2 Delivery O2 Flow Rate FiO2 12/02/20 06:00 98.0 54 20 143/90 (107) 96 12/01/20 14:00 Room Air I&O- Last 24 Hours up to 6 AM 12/02/20 05:59 Intake Total 7120 ml Output Total 5100 ml Balance 2020 ml Laboratory Data 24H LABS Laboratory Tests 2 12/02/20 05:59: Immature Granulocyte % (Auto) 0.5, Neutrophils (%) (Auto) 63.3, Lymphocytes (%) (Auto) 22.9L, Monocytes (%) (Auto) 7.4, Eosinophils (%) (Auto) 5.2H, Basophils (%) (Auto) 0.7, Neutrophils # (Auto) 6.7, Lymphocytes # (Auto) 2.4, Monocytes # (Auto) 0.8, Eosinophils # (Auto) 0.6H, Basophils # (Auto) 0.1, Nucleated Red Blood Cells % (auto) 0.0, Anion Gap 5L, Glomerular Filtration Rate > 60.0, Calcium Level 8.1L CBC/BMP Laboratory Tests 12/02/20 05:59 Microbiology Microbiology 4/21/21 Gastrointestinal Tract Panel (PCR) - Final, Complete ZAIDA MATHUR MD Dec 02, 2020 09:10
[2020-12-02] MEDS: MULTIVITAMINS/MINERALS THERAP 1 TAB PO SCH (11:21)
[2020-12-02] MEDS: LOPERAMIDE 2 MG CAPLET PO SCH ×3 (11:21→16:25)
[2020-12-02] MEDS: METAMUCIL (PSYLLIUM) PACKET PO SCH ×2 (11:21→16:25)
[2020-12-02] MEDS: FOLIC ACID 1 MG TAB PO SCH (11:21)
[2020-12-02 14:00] VITALS: BP 142/88
[2020-12-02] MEDS ORDERED: LIDOCAINE 1% MDV 20ML VIAL As Ordered ONE (14:10)
[2020-12-02 14:42] VITALS: BP 140/76
[2020-12-02] MEDS ORDERED: SODIUM CHLORIDE 0.9% INJ 10 ML SYR IV PRN (14:50)
[2020-12-02] MEDS ORDERED: AMLO1TAB24 PO (16:08)
[2020-12-02] MEDS ORDERED: META28.32 PO (16:08)
--- NOTE | 2020-12-02 17:05 | REP ---
INDICATION: home infusion. COMPARISON: None. TECHNIQUE: The procedure was performed under the direct supervision of Dr. West. The risks and benefits of the procedure were explained to the patient and informed consent was obtained. The right basilic vein was localized using ultrasound guidance. The skin was prepped and draped in a sterile fashion. 2% lidocaine was used as a local anesthetic. Using ultrasound guidance the basilic vein was cannulated and a 0.018 guidewire was inserted and advanced to the SVC using fluoroscopic guidance, and last image hold technology. The needle was removed and a 4.5 Japanese dilator and peel-away sheath was inserted over the guide wire. A 4.5 Japanese single lumen catheter was cut to length of 44 cm. The dilator was removed and the catheter was inserted over the guide wire with the tip ending in the SVC. The peel-away sheath was removed and the catheter was flushed with heparinized saline as per Hospital protocol. The catheter was affixed to the skin and a sterile dressing was applied. The patient tolerated the procedure well and there were no immediate complications. 0.1 minutes of fluoro time was utilized for this procedure. FINDINGS: None IMPRESSION: PICC line insertion right basilic vein with the tip ending in the SVC. <Electronically signed by Rustam Dong > 12/02/20 1614 <Electronically signed by Sergio West > 12/02/20 1703
[2020-12-02] MEDS ORDERED: SODIUM CHLORIDE 0.9% INJ 10 ML SYR IV SCH (18:00)
--- NOTE | 2020-12-03 08:55 | DS.PDOC ---
Discharge Summary General Date of Admission Nov 30, 2020 at 17:35 Date of Discharge 12/02/20 Discharge Summary PROCEDURES PERFORMED DURING STAY: [None]. DISCHARGE DIAGNOSES: JB Hyperkalemia Dehydration from very high ileostomy output daily > 3000ml Hypotension from above Hyponatremia SECONDARY DIAGNOSIS: Multiple abdominal surgeries in the past year as below. Ileostomy HTN Testicular cancer in 1996 s/p bilateral radical orchidectomies Depression Diverticulosis Diverticulitis Bilateral hearing loss BPH Alcohol abuse Surgical History 11/11/20 Pelvic hematoma with abscess. Small bowel obstruction with perforation and diffuse peritonitis. Extensive abdominal adhesions. S/p Exploratory laparotomy with lysis of adhesions with drainage of pelvic hematoma and abscess. He underwent resection of a portion of ileum with creation of an ileostomy and also underwent appendectomy 10/21/20 :Laparoscopic lysis of adhesions, Laparoscopic colostomy reversal with coloproctostomy. 06/09/21: diverticulitis with large bowel obstruction (sigmoid colon) and status post sigmoid colectomy and colostomy. COMPLICATIONS/CHIEF COMPLAINT: Jb,Hyperkalemia. HOSPITAL COURSE: 64 year old male has been having multiple abdominal complications since the spring. He started with recurrent diverticulitis which culminated in sigmoid colon obstruction needing sigmoid colectomy and colostomy creation in May 2020. He had successful colostomy reversal on October 22, 2019 with a prolonged surgery requiring extensive lysis of adhesions but still there were lot more adhesions which was not able to be cleared up. He was readmitted on 11/04 for small-bowel obstruction with perforation and diffuse peritonitis and underwent exploratory laparotomy with lysis of adhesions, drainage of pelvic hematoma & abscess and resection of a portion of the ileum with ileostomy creation & appendectomy. He was discharged on November 15. He came back to hospital on November 19 with large volume ileostomy output with dehydration and JB. He was discharged on november 22. He comes back on 11/30/20 with again high ileostomy output over the last 3 to 4 days. He was able to drink about 3.6 liters a day but whatever he is drinking it is just pouring out of the ileostomy. He was extremely tired and fatigued for the past 3 days before admission and poor appetite onth day of admission. On arrival to the ED he was hypotensive with Bp of 85/55, JB with creatinine of 4.1, hyperkalemic to 6.0, and hyponatremic to 119. Patient was admitted for JB and dehydration form high output ileostomy. JB from high output ileostomy 1500 ml in the past 12 hours, 2500 ml in 18 hours. resolved. dc lisinopril Dehydration with high Ileostomy output to be slowed down by metamucil and loperamide. Discussed with Dr Price . He is planning to do a barium enema to ascertain if the sigmoid colonic anastomosis has healed or not. If that is healed he is planning to do a early reversal of ileostomy in the next 1-2 weeks or so after he is discharged from the hospital. PICC line placed . To continue with NS 1-2 liters daily at home to balance out the ileostomy output and prevent recurrent episodes of dehydration and JB. Have set up Home services. Hypertension started on amlodipine instead of lisinopril. Hyperkalemia due to dehydration and lisinopril stopped lisinopril patient should not be on lisinopril at all due to his tendency to have these ep isodes again and again. now resolved. Hypovolemic Hyponatremia from large ileostomy output and dehydration resolved Alcohol use disorder Patient reports that at present for the past 2 months he is only drinking one shot a night to help him sleep. DISCHARGE MEDICATIONS: Please see below. ALLERGIES: Please see below. PHYSICAL EXAMINATION ON DISCHARGE: VITAL SIGNS: Please see below. General Exam: Positive: Alert, Cooperative, No Acute Distress Eye Exam: Positive: PERRLA, Conjunctiva & lids normal, EOMI; Negative: Sclera icteric ENT Exam: Positive: Atraumatic, Mucous membr. moist/pink, Pharynx Normal Neck Exam: Positive: Supple; Negative: JVD, thyromegaly Chest Exam: Positive: Clear to auscultation, Normal air movement Heart Exam: Positive: Rate Normal, Regular Rhythm, Normal S1, Normal S2; Negative: Murmurs, Rubs Abdomen Exam: Positive: Normal bowel sounds, Soft, Other (ileostomy in the right upper abdomen, colostomy scar on the left lower quadrant only about 2 cm open now. ); Negative: Tenderness Extremity Exam: Negative: Clubbing, Cyanosis, Edema Neuro Exam: Positive: Normal Speech, Strength at 5/5 X4 ext, Normal Tone Psych Exam: Positive: Memory Intact, Oriented x 3 LABORATORY DATA: Please see below. ACTIVITY: [As tolerated]. DIET: Regular DISPOSITION: 01 Home, Self-Care. DISCHARGE INSTRUCTIONS: Follow up with Dr Price in 1 week Follow up with PMD in 1 week 1-2 Liters of NS daily. DISCHARGE CONDITION: [Stable]. TIME SPENT ON DISCHARGE: 35 minutes. Vital Signs/I&Os Vital Signs Date Time Temp Pulse Resp B/P (MAP) Pulse Ox O2 Delivery O2 Flow Rate FiO2 12/02/20 14:42 98.2 64 19 140/76 (97) 97 Room Air I&O- Last 24 Hours up to 6 AM 12/03/20 06:00 Intake Total 3000 ml Output Total 2925 ml Balance 75 ml Microbiology Microbiology 11/30/20 Gastrointestinal Tract Panel (PCR) - Final, Complete Discharge Medications Scheduled Amlodipine Besylate (Amlodipine Besylate) 5 Mg Tablet, 1 TAB PO DAILY Folic Acid (Folic Acid) 1 Mg Tablet, 1 MG PO DAILY, (Reported) L.acidoph/L.bulg/B.bif/S.therm (Bacid Caplet) 1 Each Tablet, 1 TAB PO BIDWM, (Reported) Multivitamins (Thera M Plus Tablet) 1 Each Tablet, 1 TAB PO DAILY, (Reported) Psyllium Husk (with Sugar) (Metamucil Powder) 575 Gm Powder, 1 PKT PO TID Testosterone Cypionate (Testosterone Cypionate) 200 Mg/Ml Inj, 300 MG IM ASDIRECTED, (Reported) EVERY 3 WEEKS Scheduled PRN Acetaminophen (Acetaminophen) 500 Mg Tablet, 1,000 MG PO Q6H PRN for PAIN / FEVER, (Reported) Loperamide HCl (Loperamide) 2 Mg Capsule, 2 MG PO Q4H PRN for DIARRHEA, (Reported) Allergies Coded Allergies: naproxen (Verified Allergy, Severe, SOB, hives, 10/21/20) diphenhydramine (Verified Adverse Reaction, Intermediate, hyperactivity, 11/30/20) ZAIDA MATHUR MD Dec 03, 2020 08:55
== END 2020-12-02 16:35 | disposition home or self-care (01) | DRG 252 ==
LOC: M ED 12:08 → M ED INP 17:35 → ENRESERVDT 20:10 → ENRESERV 20:10 → ENRESERVTM 20:10 → M PCU 21:00 → M MSPAV 12-01 10:21
PROVIDERS: ADMIT Internal Medicine Nephrology; ATTEND Internal Medicine Nephrology
PROC: 02HV33Z Insertion of Infusion Device into Superior Vena Cava, Percutaneous Approach (ICD-10-PCS; principal; 2020-12-02 14:30)
DX: K94.19 Other complications of enterostomy (principal); N17.9 Acute kidney failure, unspecified; I95.9 Hypotension, unspecified; E87.5 Hyperkalemia; E87.1 Hypo-osmolality and hyponatremia; E86.0 Dehydration; H91.93 Unspecified hearing loss, bilateral; F17.200 Nicotine dependence, unspecified, uncomplicated; F10.10 Alcohol abuse, uncomplicated; Z90.49 Acquired absence of other specified parts of digestive tract; Z79.899 Other long term (current) drug therapy; Z88.6 Allergy status to analgesic agent; Z88.8 Allergy status to other drugs, medicaments and biological substances; Z20.822 Contact with and (suspected) exposure to COVID-19; Z85.47 Personal history of malignant neoplasm of testis; Z90.79 Acquired absence of other genital organ(s)

== ENCOUNTER → 2020-12-09 | Outpatient (REF) | payer OTHER ==
[~2020-12-09] MED LIST changes: +AMLO1TAB24 PO; +BACITAB PO; +LOPE2CAP PO; +META28.32 PO
[2020-12-09 13:21] LABS: BLOOD UREA NITROGEN 10 MG/DL (7-18); CALCIUM LEVEL 9.2 MG/DL (8.8-10.2); CARBON DIOXIDE LEVEL 27 MEQ/L (21-32); CHLORIDE LEVEL 102 MEQ/L (98-107); CREATININE FOR GFR 0.81 MG/DL (0.70-1.30); GLOMERULAR FILTRATION RATE > 60.0 (>49); GLUCOSE, FASTING 91 MG/DL (70-100); POTASSIUM SERUM 3.6 MEQ/L (3.5-5.1); SODIUM LEVEL 137 MEQ/L (136-145)
== END ==
LOC: M SHH 11:44
PROVIDERS: ATTEND Family Medicine
DX: E86.0 Dehydration (principal)

== ENCOUNTER → 2020-12-16 | Outpatient (REF) | payer OTHER ==
[2020-12-16 16:57] LABS: BLOOD UREA NITROGEN 11 MG/DL (7-18); CALCIUM LEVEL 8.6 MG/DL (8.8-10.2); CARBON DIOXIDE LEVEL 30 MEQ/L (21-32); CHLORIDE LEVEL 103 MEQ/L (98-107); CREATININE FOR GFR 0.84 MG/DL (0.70-1.30); GLOMERULAR FILTRATION RATE > 60.0 (>49); GLUCOSE, FASTING 91 MG/DL (70-100); MAGNESIUM LEVEL 1.2 MG/DL (1.8-2.4); POTASSIUM SERUM 3.5 MEQ/L (3.5-5.1); SODIUM LEVEL 140 MEQ/L (136-145)
== END ==
LOC: M SHH 16:19
PROVIDERS: ATTEND Family Medicine
DX: E83.42 Hypomagnesemia (principal)

== ENCOUNTER → 2020-12-29 | Outpatient (REF) | payer OTHER ==
[2020-12-29 12:51] LABS: BLOOD UREA NITROGEN 10 MG/DL (7-18); CALCIUM LEVEL 8.6 MG/DL (8.8-10.2); CARBON DIOXIDE LEVEL 27 MEQ/L (21-32); CHLORIDE LEVEL 102 MEQ/L (98-107); CREATININE FOR GFR 0.84 MG/DL (0.70-1.30); GLOMERULAR FILTRATION RATE > 60.0 (>49); GLUCOSE, FASTING 93 MG/DL (70-100); MAGNESIUM LEVEL 1.5 MG/DL (1.8-2.4); POTASSIUM SERUM 3.8 MEQ/L (3.5-5.1); SODIUM LEVEL 138 MEQ/L (136-145)
== END ==
LOC: M SHH 11:17
PROVIDERS: ATTEND Family Medicine
DX: E83.42 Hypomagnesemia (principal)

== ENCOUNTER → 2021-01-12 | Outpatient (REF) | payer OTHER ==
[2021-01-12 18:16] LABS: BLOOD UREA NITROGEN 14 MG/DL (7-18); CALCIUM LEVEL 9.7 MG/DL (8.8-10.2); CARBON DIOXIDE LEVEL 33 MEQ/L (21-32); CHLORIDE LEVEL 100 MEQ/L (98-107); CREATININE FOR GFR 1.03 MG/DL (0.70-1.30); GLOMERULAR FILTRATION RATE > 60.0 (>49); GLUCOSE, FASTING 69 MG/DL (70-100); MAGNESIUM LEVEL 1.7 MG/DL (1.8-2.4); SODIUM LEVEL 137 MEQ/L (136-145)
== END ==
LOC: M SHH 16:47
PROVIDERS: ATTEND Family Medicine
DX: E83.42 Hypomagnesemia (principal)

== ENCOUNTER → 2021-02-02 | Outpatient (REF) | payer OTHER ==
[2021-02-02 14:35] LABS: BLOOD UREA NITROGEN 15 MG/DL (7-18); CARBON DIOXIDE LEVEL 27 MEQ/L (21-32); CHLORIDE LEVEL 101 MEQ/L (98-107); CREATININE FOR GFR 0.99 MG/DL (0.70-1.30); GLOMERULAR FILTRATION RATE > 60.0 (>49); GLUCOSE, FASTING 78 MG/DL (70-100); MAGNESIUM LEVEL 1.8 MG/DL (1.8-2.4); POTASSIUM SERUM 3.9 MEQ/L (3.5-5.1); SODIUM LEVEL 136 MEQ/L (136-145)
== END ==
LOC: M SHH 13:20
PROVIDERS: ATTEND Family Medicine
DX: E83.42 Hypomagnesemia (principal)

== ENCOUNTER → 2021-02-10 | Outpatient (CLI) | payer OTHER ==
[~2021-02-10] MED LIST changes: +LIQUID POLIBAR PLUS 105% w/v 1900ML BTL As Ordered ONE
--- NOTE | 2021-02-10 15:16 | REP ---
INDICATION: ILEOSTOMY ENCOUNTER FOR REVERSAL. COMPARISON: None. TECHNIQUE: The procedure was performed under the direct supervision of Dr. West. The images were reviewed with Dr. West. The waiter/waitress tourist class film shows no organomegaly or pathological mass is. There is a right ileostomy. There are bowel sutures in the pelvis consistent with the patient's history of colon resection. Liquid barium was instilled into the colon in a retrograde flow. 0.9 minutes of fluoroscopy time was utilized for this procedure. FINDINGS: The colon is normal in position and contour. There is no evidence of stricture or obstruction at the anastomosis. There are a few scattered diverticula seen throughout the colon. There is free flow of contrast to the cecum. The appendix is visualized. There is residual stool. There are no polypoid masses or annular constricting lesions identified. There is no evidence of extravasation. IMPRESSION: The colon is normal in position and contour. There is no evidence of stricture or obstruction at the anastomosis. There are a few scattered diverticula seen throughout the colon. There is free flow of contrast to the cecum. The appendix is visualized. There is residual stool. There are no polypoid masses or annular constricting lesions identified. There is no evidence of extravasation. <Electronically signed by Rustam Dong > 02/10/21 1423 <Electronically signed by Sergio West > 02/10/21 1512
== END ==
LOC: M RAD 11:03
PROVIDERS: ATTEND Surgery
DX: Z43.2 Encounter for attention to ileostomy (principal)

== ENCOUNTER 2021-02-18 09:45 | Emergency (ER) | payer OTHER ==
[~2021-02-18] VITALS: Ht 172.7 cm; Wt 70.9 kg
[~2021-02-18 09:45] MED LIST changes: -IBUP200T45 PO; +IBUP200T46 PO; -LIQUID POLIBAR PLUS 105% w/v 1900ML BTL As Ordered ONE; -LISI-898 PO; +LISI5TAB11 PO
[2021-02-18] MEDS ORDERED: LORazepam 2 MG/ML VIAL IV STA (10:21)
[2021-02-18] MEDS ORDERED: ONDANSETRON 4MG/2ML VIAL IV ONE (10:25)
[2021-02-18] MEDS ORDERED: NS 1,000 ML IV ONE ×2 (10:25→14:30)
[2021-02-18 11:14] LABS: BASO # 0.1 10^3/uL (0.0-0.2); BASO % 0.6 % (0.0-1.0); EOS # 0.1 10^3/uL (0.0-0.5); EOS % 1.1 % (0.0-3.0); LYMPH # 1.2 10^3/uL (1.5-5.0); LYMPH % 14.7 % (24.0-44.0); MEAN CORPUSCULAR HEMOGLOBIN 31.4 pg (27.0-33.0); MEAN CORPUSCULAR HGB CONC 34.1 g/dl (32.0-36.5); MEAN CORPUSCULAR VOLUME 92.2 fl (80.0-96.0); MONO # 0.8 10^3/uL (0.0-0.8); MONO % 9.9 % (2.0-8.0); NEUTROPHILS # 6.2 10^3/uL (1.5-8.5); NEUTROPHILS % 73.3 % (36.0-66.0); PLATELET COUNT, AUTOMATED 190 10^3/uL (150-450); RED BLOOD COUNT 4.77 10^6/uL (4.30-6.10); WHITE BLOOD COUNT 8.5 10^3/uL (4.0-10.0)
[2021-02-18 11:35] LABS: ALBUMIN 3.7 GM/DL (3.2-5.2); ALT/SGPT 51 U/L (12-78); BILIRUBIN,DIRECT 0.2 MG/DL (0.0-0.2); BILIRUBIN,TOTAL 0.7 MG/DL (0.2-1.0); BLOOD UREA NITROGEN 10 MG/DL (7-18); CALCIUM LEVEL 9.2 MG/DL (8.8-10.2); CARBON DIOXIDE LEVEL 29 MEQ/L (21-32); CHLORIDE LEVEL 100 MEQ/L (98-107); CK-MB VALUE MASS 6.6 NG/ML (<3.6); CPK CREATINE PHOSPHOKINASE 232 U/L (39-308); CREATININE FOR GFR 0.84 MG/DL (0.70-1.30); GLOMERULAR FILTRATION RATE > 60.0 (>49); GLUCOSE, FASTING 87 MG/DL (70-100); LIPASE 154 U/L (73-393); MAGNESIUM LEVEL 1.7 MG/DL (1.8-2.4); MB/CK RELATIVE INDEX 2.84 (< OR =4); POTASSIUM SERUM 3.6 MEQ/L (3.5-5.1); SODIUM LEVEL 139 MEQ/L (136-145); TOTAL PROTEIN 7.2 GM/DL (6.4-8.2); TROPONIN I < 0.02 NG/ML (< 0.10)
[2021-02-18] MEDS ORDERED: MAG SULF 1GM/100ML (MAG RUN) 1 GM in IV 1 EA IV ONE (11:50)
[2021-02-18] MEDS ORDERED: SODIUM CHLORIDE 0.9% INJ 10 ML SYR IV PRN (16:05)
[2021-02-18 16:18] VITALS: BP 168/90
[2021-02-21] MEDS ORDERED: MAGN400T33 PO (09:18)
[2021-02-21] MEDS ORDERED: imodium PO (09:18)
[2021-02-21] MEDS ORDERED: META28.32 PO (09:18)
[2021-02-21] MEDS ORDERED: SALINE IV (09:18)
[2021-02-21] MEDS ORDERED: ONDA4TAB6 PO (09:18)
[2021-02-21] MEDS ORDERED: SPIR-10 PO (09:18)
== END 2021-02-18 16:18 | disposition home or self-care (01) ==
LOC: M ED 09:45
DX: E86.0 Dehydration (principal); Z85.47 Personal history of malignant neoplasm of testis; F17.200 Nicotine dependence, unspecified, uncomplicated; Z79.899 Other long term (current) drug therapy; Z79.890 Hormone replacement therapy; Z88.8 Allergy status to other drugs, medicaments and biological substances; Z88.6 Allergy status to analgesic agent
CPT/HCPCS: 71045; 80048; 80076; 82550; 82553; 83690; 83735; 85025; 93005; 93041; 94760; 96361; 96365; 96366; 96375; 99285; J1642; J2060; J2405; J3475

== ENCOUNTER → 2021-03-02 | Outpatient (CLI) | payer OTHER ==
[~2021-03-02] MED LIST changes: +IBUP200T45 PO; -IBUP200T46 PO; +LISI-898 PO; -LISI5TAB11 PO; +MAGN400T3 PO; +ONDA4TAB6 PO; +SALINE IV; +SPIR-10 PO; +imodium PO
== END ==
LOC: M LABSMTC 09:52
PROVIDERS: ATTEND Anesthesiology
DX: Z01.812 Encounter for preprocedural laboratory examination (principal); Z20.822 Contact with and (suspected) exposure to COVID-19

== ENCOUNTER 2021-03-07 06:10 | Inpatient (IN) | payer OTHER ==
--- NOTE | 2021-03-06 14:29 | HPE ---
HISTORY AND PHYSICAL DATE OF ADMISSION: 03/07/2021 BRIEF HISTORY OF PRESENT ILLNESS: Patient is a 65-year-old gentleman who had a perforated diverticulitis, had a reversal of his colostomy but had a postoperative abscess that resulted in a diverting ileostomy. He presents now for reversal of his ileostomy. The patient has been doing well since his ileostomy was placed, however he had some problems with dehydration, fluid issues, and has been relatively stable recently, however. PAST MEDICAL HISTORY: His past medical history was significant for a history of hypertension, history of testicular cancer with melanoma and lymphoma per patient, history of sigmoid colectomy, history of colostomy reversal, history of small bowel perforation with peritonitis. History of alcohol use. PHYSICAL EXAMINATION: A 65-year-old male who looks older than stated age. HEENT is unremarkable. Neck is supple without adenopathy. Lungs are clear to auscultation, a few wheezes at the base. Heart is regular. Abdomen is soft, nondistended and nontender although he does have a well-functioning ileostomy and also has a large lower abdominal wall incisional hernia. Extremities were warm and well-perfused. IMPRESSION/PLAN: Patient has a diverting ileostomy. With his previous surgery we will plan on a laparoscopic reversal of his colostomy although there may be a potential that we may be able to proceed with the reversal via the single ileostomy site itself. Will see once we start bringing down the ileostomy prior to starting the laparoscopic portion of it. He does have a large ventral hernia that will need operative repair at some point but given one as a clean operation, once contaminated I would not recommend proceeding with operative repair of both at the same time. The risks as well as benefits have been discussed with the patient at length, specifically the risks of infection, bleeding, damage to surrounding structures as well as need for ostomy again and more importantly patient understands that he will probably need hospitalization post procedure although if he develops relatively rapid return of bowel function he may be able to be just observed overnight and discharged the following day.
[~2021-03-07] VITALS: Ht 172.7 cm; Wt 72.7 kg
[2021-03-07] VITALS (8 sets, daily range): BP systolic 141–150; BP diastolic 89–95
[~2021-03-07 06:10] MED LIST changes: +LR 1,000 ML IV ONE; +ceFAZolin SOD 2 GM in IV 1 EA IV ONE
[2021-03-07] MEDS ORDERED: GLUCAGON INJ 1MG VIAL As Ordered ONE (07:14)
[2021-03-07] MEDS ORDERED: BUPIVACAINE/EPIN 0.25% 30 ML VIAL As Ordered ONE (07:39)
[2021-03-07] MEDS ORDERED: BUPIVACAINE LIPOSOME/PF 1.3% 20ML VIAL (13.3MG/ML)(EXPAREL)(C9290 PER1MG) As Ordered ONE (07:39)
[2021-03-07] MEDS ORDERED: BUPIVACAINE HCL 0.25% 10ML VIAL As Ordered ONE (07:39)
[2021-03-07] MEDS ORDERED: BUPIVACAINE HCL 0.5% 10ML VIAL As Ordered ONE (07:40)
[2021-03-07] MEDS ORDERED: ONDANSETRON 4MG/2ML VIAL As Ordered ONE (08:12)
[2021-03-07] MEDS ORDERED: propofoL 200 MG/20 ML VIAL As Ordered ONE (08:12)
[2021-03-07] MEDS ORDERED: LIDOCAINE 2% 100MG/5ML SDV (FOR ANES.) As Ordered ONE (08:12)
[2021-03-07] MEDS ORDERED: dexameTHASONE 4 MG/ML 1ML VIAL (J1100 PER 1MG) As Ordered ONE (08:12)
[2021-03-07] MEDS ORDERED: MIDAZOLAM INJ 2MG/2ML VIAL (J2250 PER 1MG) As Ordered ONE (08:12)
[2021-03-07] MEDS ORDERED: ROCURONIUM BROMIDE 50 MG/5 ML VIAL As Ordered ONE (08:12)
[2021-03-07] MEDS ORDERED: ePHEDrine SULFATE 25 MG/5 ML(5MG/ML) SYRINGE As Ordered ONE (08:12)
[2021-03-07] MEDS ORDERED: PHENYLephrine 500MCG 5ML (100MCG/ML) SYRINGE As Ordered ONE (08:12)
[2021-03-07] MEDS ORDERED: fentaNYL 250 MCG/5 ML INJECTION (J3010) As Ordered ONE (08:12)
[2021-03-07] MEDS ORDERED: ACETAMINOPHEN 1000MG 100ML IV BTL (OFIRMEV) (J0131 PER 10MG) As Ordered ONE (08:31)
[2021-03-07] MEDS ORDERED: SUGAMMADEX SODIUM 500 MG/5 ML VIAL (BRIDION) As Ordered ONE (08:33)
[2021-03-07] MEDS ORDERED: PERCOCET 5MG/325MG TAB PO PRN ×3 (09:30→10:10)
[2021-03-07] MEDS ORDERED: NORCO, ANEXSIA 5/325MG TABLET (HYDROcodone/ACETAMINOPHEN) PO PRN (09:30)
[2021-03-07] MEDS ORDERED: ONDANSETRON 4MG/2ML VIAL IV PRN ×2 (09:30→09:55)
[2021-03-07] MEDS ORDERED: MORPHINE 2 MG/ML 1ML VIAL (J2270) IV PRN (09:30)
[2021-03-07] MEDS ORDERED: ACETAMINOPHEN TAB 650MG DOSE (2X325MG) PO PRN (09:30)
[2021-03-07] MEDS ORDERED: METOCLOPRAMIDE INJ 10MG/2ML VIAL (J2765 PER 1) IV PRN (09:55)
[2021-03-07] MEDS ORDERED: fentaNYL 100 MCG/2 ML INJECTION (J3010) IV PRN (09:55)
[2021-03-07] MEDS ORDERED: LR 1,000 ML IV SCH (09:55)
[2021-03-07] MEDS: PIPERACILLIN/TAZOBACTAM SOD 3.375 GM in D5W MINI-BAG PLUS 50 ML IV SCH ×2 (13:42→20:40)
[2021-03-07] MEDS: NS 1,000 ML IV SCH ×2 (13:42→21:54)
[2021-03-07] MEDS: PANTOPRAZOLE 40MG VIAL (C9113 PER 1) IV SCH (13:42)
[2021-03-07] MEDS: NICOTINE 21MG/24HR 1 EA TRANSDERMAL TD PRN (22:01)
[2021-03-07] MEDS: MORPHINE 2 MG/ML 1ML VIAL (J2270) IV PRN (23:03)
[2021-03-08 02:00] VITALS: BP 152/93
[2021-03-08] MEDS: PIPERACILLIN/TAZOBACTAM SOD 3.375 GM in D5W MINI-BAG PLUS 50 ML IV SCH ×2 (02:29→08:52)
[2021-03-08] MEDS: MORPHINE 2 MG/ML 1ML VIAL (J2270) IV PRN ×3 (04:02→17:32)
[2021-03-08 06:00] VITALS: BP 143/90
[2021-03-08] MEDS: NS 1,000 ML IV SCH (08:51)
[2021-03-08] MEDS: PANTOPRAZOLE 40MG VIAL (C9113 PER 1) IV SCH (08:52)
--- NOTE | 2021-03-08 11:04 | IPNPDOC ---
Text Note Date of Service The patient was seen on 03/08/21. NOTE General surgery. Dr Johnson The patient is a 65-year-old male who had a perforated diverticulitis, had a reversal of his colostomy but had a postoperative abscess that resulted in a diverting ileostomy. Now status post reversal of ileostomy 03/07/[address] Johnson. This morning, the patient is out of bed to the chair. He states pain has been controlled. Reports flatus and small bowel movement this morning. Denies nausea or vomiting. Afebrile. VSS. Out of bed to the chair, appears in no acute distress. S1-S2 regular rate and rhythm. Lungs clear to auscultation. Abdomen soft, mild tenderness around incision sites only, some shadowing noted on surgical dressings outlined previously, no further drainage beyond areas of demarcation. Drain with serosanguineous drainage. Assessment/plan Status post reversal of ileostomy 03/07/[address] Johnson. The patient is reviewed and examined as per Dr. Johnson this morning. Begin clear liquids, advance diet as tolerated. Discontinue IV fluids. Continue to encourage out of bed and ambulation. Encourage incentive spirometry. VS,Fishbone, I+O VS, Fishbone, I+O Vital Signs Date Time Temp Pulse Resp B/P (MAP) Pulse Ox O2 Delivery O2 Flow Rate FiO2 03/08/21 09:57 18 03/08/21 06:00 98.4 68 143/90 (107) 90 Room Air 03/08/21 02:00 2.0 I&O- Last 24 Hours up to 6 AM 03/08/21 05:59 Intake Total 2325 ml Output Total 1010 ml Balance 1315 ml Pita Mcknight Mar 08, 2021 11:04
[2021-03-08 14:00] VITALS: BP 147/88
[2021-03-08] MEDS: SODIUM CHLORIDE 0.9% INJ 10 ML SYR IV SCH (18:26)
[2021-03-08] MEDS: NICOTINE 21MG/24HR 1 EA TRANSDERMAL TD PRN (21:21)
[2021-03-08 22:00] VITALS: BP 158/85
[2021-03-09 02:00] VITALS: BP 144/89
[2021-03-09] MEDS: MORPHINE 2 MG/ML 1ML VIAL (J2270) IV PRN ×2 (04:58→10:39)
[2021-03-09] MEDS: SODIUM CHLORIDE 0.9% INJ 10 ML SYR IV SCH (05:00)
[2021-03-09 06:00] VITALS: BP 166/88
[2021-03-09] MEDS: PANTOPRAZOLE 40MG VIAL (C9113 PER 1) IV SCH (09:41)
[2021-03-09] MEDS: SODIUM CHLORIDE 0.9% INJ 10 ML SYR IV PRN ×2 (09:42→10:39)
[2021-03-09] MEDS ORDERED: PERCOCET PO (09:49)
[2021-03-09 10:00] VITALS: BP 180/90
[2021-03-09 11:07] VITALS: BP 150/90
--- NOTE | 2021-03-09 14:42 | DS.PDOC ---
Discharge Summary General Date of Admission Mar 07, 2021 at 06:10 Date of Discharge 03/09/21 Discharge Summary General surgery. Dr Johnson PROCEDURES PERFORMED DURING STAY: status post reversal of ileostomy 03/07/[address] Johnson. ADMITTING DIAGNOSES: Perforated diverticulitis, had a reversal of his colostomy but had a postoperative abscess that resulted in a diverting ileostomy. Hypertension History of testicular cancer status post bilateral radical orchiectomy 1996 Depression Bilateral hearing loss BPH DISCHARGE DIAGNOSES: Perforated diverticulitis, had a reversal of his colostomy but had a postoperative abscess that resulted in a diverting ileostomy.status post reversal of ileostomy 03/07/[address] Johnson. Hypertension History of testicular cancer status post bilateral radical orchiectomy 1996 Depression Bilateral hearing loss BPH HISTORY OF PRESENT ILLNESS: The patient is a 65-year-old male who had a perforated diverticulitis, had a reversal of his colostomy but had a postoperative abscess that resulted in a diverting ileostomy. Now status post reversal of ileostomy 03/07/[address] Johnson. HOSPITAL COURSE: The patient recovered well and by postoperative day #1 he he reported having bowel movements, began clear liquids, IV fluids were discontinued. The patient was out of bed. Pain was well controlled. The patient's diet was advanced and by 03/09/2021 was tolerating soft diet. He was up out of bed ambulating in the hallways reporting pain was controlled. The patient was anxious for discharge and was felt stable for discharge 03/09/2021. DISCHARGE MEDICATIONS: Please see below. ALLERGIES: Please see below. PHYSICAL EXAMINATION ON DISCHARGE: VITAL SIGNS: Please see below. GENERAL: No acute distress, out of bed sitting in the chair and ambulating in the hallways. HEENT: MMM CARDIOVASCULAR EXAMINATION: RRR RESPIRATORY EXAMINATION: CTA ABDOMINAL EXAMINATION: Soft, mild tenderness around incision site only, incision C/D/I, no drainage noted. Scant drainage noted in CESIA drain. EXTREMITIES: No edema. LABORATORY DATA: No new labs. DISCHARGE PLAN: Discharge home CESIA drain to be left in place and return to the office 03/13/2021 to remove the drain. Continue to keep incision clean and dry, dry dressing over incision and drain site. No lifting greater than 20 pounds Call back to the office with any changes or concerns, wound drainage, fevers, chills or increasing pain. DISPOSITION: 01 Home, Self-Care. ITEMS TO FOLLOWUP ON ON OUTPATIENT: 1. Return to the office 03/13/2021 for removal of CESIA drain. DISCHARGE CONDITION: Stable. TIME SPENT ON DISCHARGE: Greater than 30 minutes. Vital Signs/I&Os Vital Signs Date Time Temp Pulse Resp B/P (MAP) Pulse Ox O2 Delivery O2 Flow Rate FiO2 03/09/21 11:39 18 Room Air 03/09/21 11:07 150/90 (110) 03/09/21 10:00 98.2 78 95 03/08/21 02:00 2.0 I&O- Last 24 Hours up to 6 AM 03/09/21 06:00 Intake Total 2830 ml Output Total 1110 ml Balance 1720 ml Laboratory Data Labs 24H Laboratory Tests 2 03/09/21 11:39: Bedside Glucose (Misc Panel) 103 FSBS Laboratory Tests Test 03/09/21 11:39 Range/Units Bedside Glucose (Misc Panel) 103 80-115 MG/DL Discharge Medications Scheduled Magnesium Oxide (Magnesium Oxide) 400 Mg Tablet, 400 MG PO DAILY, (Reported) Multivitamins (Thera M Plus Tablet) 1 Each Tablet, 1 TAB PO DAILY, (Reported) Spironolactone (Spironolactone) 25 Mg Tablet, 25 MG PO DAILY, (Reported) Testosterone Cypionate (Testosterone Cypionate) 200 Mg/Ml Inj, 300 MG IM ASDIRECTED, (Reported) EVERY 3 WEEKS Scheduled PRN Oxycodone/Acetaminophen (Oxycodone-Acetaminophen 5-325) 1 Each Tablet, 1 TAB PO Q4HP PRN for MILD/MODERATE PAIN (PS 1-7) Allergies Coded Allergies: naproxen (Verified Allergy, Severe, SOB, hives, 02/21/21) diphenhydramine (Verified Adverse Reaction, Intermediate, hyperactivity, 02/21/21) Pita Mcknight Mar 09, 2021 14:42
--- NOTE | 2021-03-31 20:41 | RO ---
OPERATIVE NOTE DATE OF OPERATION: 03/07/2021 PREOPERATIVE DIAGNOSIS: Ileostomy status post performed diverticulitis with diverting ileostomy. POSTOPERATIVE DIAGNOSIS: Ileostomy status post performed diverticulitis with diverting ileostomy. PROCEDURE: Ileostomy reversal. SURGEON: Dion Johnson M.D. ANESTHESIA: General endotracheal anesthesia. ESTIMATED BLOOD LOSS: Minimal. FLUIDS: Crystalloid. BRIEF PROCEDURE SUMMARY: The patient was brought to the operating room and was given general anesthesia. After adequate anesthesia and preoperative antibiotics were given, the patient was prepped and draped in the usual sterile fashion. Next, an incision around the ileostomy was made with a skin knife. Electrocautery was used to cut through dermis, underlying subcutaneous tissue, down to the fascia itself. The patient had some minimal parastomal hernia in this area, but no other significant abnormalities. At this point, we were able to mobilize this ileostomy significantly. Once I was able to mobilize this quite nicely, I was able to see the distal portion of the ileostomy, and this was attached to the anterior abdominal wall inferior to the ileostomy itself. Once I was able to get this nicely mobilized, a [id number] anastomosis was created with SERENE staplers and the enterotomies in the bowel transected with SERENE 75 stapler. Then, 3-0 Vicryl was used to imbricate the suture line anteriorly and the end. There was not really a significant mesenteric defect and thus this was just returned to the abdominal cavity. The right lower quadrant was copiously irrigated until clear. Then, #1 Vicryl suture was used to close the fascia with [id number] sutures. The subcutaneous tissue was loosely approximated. Wero were used to approximate the skin. Initially, we had discussed possibly needing to add a laparoscopic component of this if I was not able to visualize the distal limb of the ileum, but fortunately, I was able to get this nicely mobilized and visualized from the ileostomy site itself. In any case, the patient was brought to the recovery room, awake, alert, hemodynamically stable.
== END 2021-03-09 12:16 | disposition home or self-care (01) | DRG 223 ==
LOC: M OR 06:10 → M MSPAV 13:01
PROVIDERS: ADMIT Surgery; ATTEND Surgery
PROC: 0DBB0ZZ Excision of Ileum, Open Approach (ICD-10-PCS; principal; 2021-03-07 07:30)
DX: Z43.3 Encounter for attention to colostomy (principal); I10 Essential (primary) hypertension; K43.9 Ventral hernia without obstruction or gangrene; N40.0 Benign prostatic hyperplasia without lower urinary tract symptoms; H91.93 Unspecified hearing loss, bilateral; Z90.49 Acquired absence of other specified parts of digestive tract; Z95.820 Peripheral vascular angioplasty status with implants and grafts; Z85.47 Personal history of malignant neoplasm of testis

== ENCOUNTER → 2021-07-13 | Outpatient (CLI) | payer OTHER ==
[~2021-07-13] MED LIST changes: -IBUP200T45 PO; +IBUP200T46 PO; -LR 1,000 ML IV ONE; -MAGN400T3 PO; +MAGN400T33 PO; -ceFAZolin SOD 2 GM in IV 1 EA IV ONE
== END ==
LOC: M LABSMTC 10:54
PROVIDERS: ATTEND Anesthesiology
DX: Z01.812 Encounter for preprocedural laboratory examination (principal); Z20.822 Contact with and (suspected) exposure to COVID-19

== ENCOUNTER 2021-07-18 06:08 | Day surgery (SDC) | payer OTHER ==
[~2021-07-18] VITALS: Ht 172.7 cm; Wt 80.3 kg
[~2021-07-18 06:08] MED LIST changes: +LR 1,000 ML IV ONE; +ceFAZolin SOD 2 GM in IV 1 EA IV ONE
--- OUTSIDE RECORDS SUMMARY | 2021-07-18 06:12 | CCD | Continuity of Care Document ---
Author Author Delgado JOHNSON MD Organization Unknown Address [address] [facility] [address] [place] [address] Phone [phone] Care Team Providers Care Alcohol Law Enforcement Agent Name Role Phone Srinivas Preciado M.D. AUTM [phone] [facility] Records AUTM [phone] AUTM Unavailable Neal Onofre M.D. AUTM [phone] Problems Active Problems Provider Date Heart murmur ALCIDES Ruiz Onset: 10/17/2020 Cough ALCIDES Ruiz Onset: 10/17/2020 Sleep apnea ALCIDES Ruiz Onset: 10/17/2020 Social History Type Date Description Comments Sex Unknown ETOH Use Currently consumes alcohol ROMA MARTINEZ AT Tobacco Use Reviewed: 10/17/20 Patient is a current smoker, smokes every day 1 1/2 PPD; started at age 9 Recreational Drug Use Denies Drug Use Smoking Status Reviewed: 10/17/20 Patient is a current smoker, smokes every day 1 1/2 PPD; started at age 9 Allergies, Adverse Reactions, Alerts Active Allergies Criticality Reaction | Severity Comments Date Benadryl Unable to assess criticality HYPER 06/02/2018 Aleve Unable to assess criticality Hives 08/31/2020 Medications Active Medications SIG Qnty Indications Ordering Provide r Date Gauze Dressing 4"X4" Pads wet to dry dressing cover with dry gauze 2Boxes Dion Johnson JR, MD 10/24/2020 Levi Paper 2"X10yd 2"X10yd Tape use as directed 2units Dion Johnson JR, MD 10/24/2020 Testosterone Cypionate 200mg/ml So lution 1.5 ML every 3 weeks Unknown Spironolactone 25mg Tablets Take One Tablet By Mouth Every Day Unknown One Daily Mens 50+ Multivitamin Mens 50+ Tablets 1 by mouth every day Unknown 0 000 History Medications Cipro 500mg Tablets 1 tab by mouth twice a day 14tabs Dion Johnson JR, MD 02/02/2021 - 03/20/2021 Flagyl 500mg Tablets 1 tab by mouth @ 2p & 10p day before surg 1 tab by mouth @ 6am morning of surg 3tabs Dion Johnson JR, MD 02/02/2021 - 03/20/2021 Lomotil 2.5-0.025mg Tablets 1-2 tabs qac and every night at bedtime as needed diarrhea 120tabs Mehnaz Johnson JR, MD 12/12/2020 - 01/16/2021 Immunizations Description No Information Available Vital Signs Date Vital Result Comment 05/03/2021 9:05am BP Systolic 148 mmHg BP Diastolic 80 mmHg Heart Rate 71 /min Body Temperature 98.3 F Height 69 inches 5'9" Weight 174.25 lb BMI (Body Mass Index) 25.7 kg/m2 [place] Body Weight 160 lb Weight 79.040 kg BSA (Body Surface Area) 1.95 m2 04/03/2021 8:38am BP Systolic 147 mmHg BP Diastolic 88 mmHg Body Temperature 98.5 F Height 69 inches 5'9" Weight 168.38 lb BMI (Body Mass Index) 24.9 kg/m2 [place] Body Weight 160 lb Weight 76.375 kg BSA (Body Surface Area) 1.92 m2 Results Description No Information Available Procedures Date Code Description Status 03/07/2021 93149 Colostomy Closure/Takedown Compl eted 01/16/2021 87329 Office/Outpatient Established Mo d MDM 30-39 Min Completed 11/21/2020 95323 Hospital Subsequent Care Level 2 Completed 11/20/2020 03821 Critical Care Addl 30 Min Comple marisabel 11/20/2020 31618 Critical Care First 30-74 Minute s Completed 11/20/2020 46778 Ultrasound Guidance For Vascular Access Requiring Ultrasound Eval Completed 11/20/2020 06919 Insertion Of Non-Capo neled Centrally Inserted Central Venous Cathy Completed Medical Devices Description No Information Available Encounters Type Date Location Provider Dx Diagnosis Office Visit 05/03/2021 9:00a [facility] Dion cabral JR, MD K43.2 Incisional hernia without obstruction or gangrene Z48.815 Encntr for surgical aftcr fo [facility]lowing surgery on the [facility] Office Visit 03/20/2021 9:15a [facility] OCTAVIO Valenzuela Z48.815 Encntr for surgical aftcr following surg trace on the [facility] K43.2 Incisional hernia without ob struction or gangrene K57.32 Dvtrcli of lg int w/o perfor ation or abscess w/o bleeding Z86.010 Personal history of colonic polyps Office Visit 03/13/2021 8:30a [facility] Dion cabral JR, MD Z48.815 Encntr for surgical aftcr following surg trace on the [facility] Office Visit 01/16/2021 9:00a [facility] Dion cabral JR, MD Z43.2 Encounter for attention to ileostomy K43.2 Incisional hernia without ob struction or gangrene Office Visit 12/12/2020 2:00p [facility] Dion cabral JR, MD Z43.2 Encounter for attention to ileostomy Office Visit 11/21/2020 1:23a [facility] Marquise Se ars, D.O. I95.9 Hypotension, unspecified R01.1 Cardiac murmur, unspecified Office Visit 11/20/2020 1:23a [facility] Marquise Se ars, D.O. R57.9 Shock, unspecified N17.9 Acute kidney failure, unspec ified D47.3 Essential (hemorrhagic) thro mbocythemia Office Visit 11/18/2020 8:30a [facility] Christ phillips M.D. Z93.2 Ileostomy status Z48.815 Encntr for surgical aftcr fo llowing surgery on the [facility] Assessments Date Code Description Provider 05/03/2021 K43.2 Incisional hernia without obstru ction or gangrene Dion Johnson JR, MD 05/03/2021 Z48.815 Encounter for surgic al aftercare following surgery on the digestive system Dion Johnson JR, MD 04/03/2021 K43.2 Incisional hernia without obstru ction or gangrene OCTAVIO Alatorre 04/03/2021 Z48.815 Encounter for surgic al aftercare following surgery on the digestive system Pita Mcknight, OCTAVIO 04/03/2021 K57.32 Diverticulitis of la rge intestine without perforation or abscess without bleeding Pita Mcknight, OCTAVIO 04/03/2021 Z86.010 Personal history of colonic poly ps Pita Mcknight, OCTAVIO 03/20/2021 Z48.815 Encounter for surgic al aftercare following surgery on the digestive system OCTAVIO Alatorre 03/20/2021 K43.2 Incisional hernia without obstru ction or gangrene OCTAVIO Alatorre 03/20/2021 K57.32 Diverticulitis of la rge intestine without perforation or abscess without bleeding OCTAVIO Alatorre 03/20/2021 Z86.010 Personal history of colonic poly ps OCTAVIO Alatorre 03/13/2021 Z48.815 Encounter for surgic al aftercare following surgery on the digestive system Dion Johnson JR, MD 03/07/2021 Z43.2 Encounter for attention to ileos vanessa Dion Johnson JR, MD 01/16/2021 Z43.2 Encounter for attention to ileos vanessaruiz Johnson JR, MD 01/16/2021 K43.2 Incisional hernia without obstru ction or gangrene Dion Johnson JR, MD 12/12/2020 Z43.2 Encounter for attention to ileos vanessa Dion Johnson JR, MD 11/21/2020 I95.9 Hypotension, unspecified Marquise Se ars, D.O. 11/21/2020 R01.1 Cardiac murmur, unspecified Marquise Sears, D.O. 11/20/2020 R57.9 Shock, unspecified Marquise Sears, D .O. 11/20/2020 N17.9 Acute kidney failure, unspecifie d Marquise Marie, D.O. 11/20/2020 D47.3 Essential (hemorrhagic) thromboc ythemia Marquise Marie D.O. 11/18/2020 Z93.2 Ileostomy status Christ Price M.D. 11/18/2020 Z48.815 Encounter for surgic al aftercare following surgery on the digestive system Christ Price M.D. Plan of Treatment Future Appointment(s):* 06/21/2021 8:45 am - Dion Johnson JR, MD at [facility] 05/03/2021 - Dion Johnson JR, MD* K43.2 Incisional hernia without obstruction or gangrene* Comments:* The patient has a symptomatic incisional hernia and at this point I recommendation is to proceed with operative repair of this symptomatic incisional hernia. He would like to proceed with this later on this fall given that he is relatively stable with his abdominal binder and I feel that is a reasonable option for him. Wwe've discussed open as well as laparoscopic techniques of incisional hernia repair. We discussed the risks as well as benefits associated with incisional hernia repair both open and laparoscopic techniques. The patient would like to proceed with a laparoscopic technique and I agree with this . We've discussed laparoscopic versus robotic as well as open techniques and the benefits as well as the techniques associated with the procedure itself and the risks associated with the procedures. At this time he would like to proceed with the robotic in cisional hernia repair later on this year and will reevaluate him this fall. * Z48.815 Encounter for surgical aftercare following surgery on the digestive system Functional Status Description No Information Available Mental Status Description No Information Available Referrals Description No Information Available
--- OUTSIDE RECORDS SUMMARY | 2021-07-18 06:12 | CCD | Continuity of Care Document ---
Author Author Delgado JOHNSON MD Organization Unknown Address [address] [facility] [address] [place] [address] Phone [phone] Care Team Providers Care Child Center Assistant Name Role Phone Srinivas Preciado M.D. AUTM [phone] [facility] Records AUTM [phone] AUTM Unavailable Neal Onofre M.D. AUTM [phone] Problems Active Problems Provider Date Heart murmur [...] Mehnaz Johnson JR, MD 12/12/2020 - 01/16/[address] 1 by mouth every day 90caps Dion Johnson JR, MD 11/02/2020 - 11/18/2020 Zofran 4mg Tablets take 1 tab every 4 hours as needed for nausea 30tabs Dion Johnson JR, MD 11/02/2020 - 11/18/2020 Immunizations Description No Information Available Vital Signs Date Vital Result Comment 05/03/2021 9:05am BP Systolic 148 mmHg BP Diastolic 80 mmHg Heart Rate 71 /min Body Temperature 98.3 F Height 69 inches 5'9" Weight 174.25 lb BMI (Body Mass Index) 25.7 kg/m2 [place] Body Weight 160 lb Weight 79.040 kg BSA (Body Surface Area) 1.95 m2 04/03/2021 8:38am BP Systolic 147 mmHg BP Diastolic 88 mmHg Body Temperature 98.5 F Height 69 inches 5'9" Weight 168.38 lb BMI (Body Mass Index) 24.9 kg/m2 [place] Body Weight 160 lb Weight 76.375 kg BSA (Body Surface Area) 1.92 m2 Results Description No Information Available Procedures Date Code Description Status 03/07/2021 58882 Colostomy Closure/Takedown Compl eted 01/16/2021 00639 Office/Outpatient Established Mo d MDM 30-39 Min Completed 11/21/2020 80875 Hospital Subsequent Care Level 2 Completed 11/20/2020 63302 Critical Care Addl 30 Min Comple marisabel 11/20/2020 02625 Critical Care First 30-74 Minute s Completed 11/20/2020 65278 Ultrasound Guidance For Vascular Access Requiring Ultrasound Eval Completed 11/20/2020 33902 Insertion Of Non-Capo neled Centrally Inserted Central Venous Cathy Completed Medical Devices Description No Information Available Encounters Type Date Location Provider Dx Diagnosis Office Visit 03/20/2021 9:15a [facility] OCTAVIO Valenzuela Z48.815 Encntr for surgical aftcr following surg trace on the [facility] sys K43.2 Incisional hernia without ob struction or gangrene K57.32 Dvtrcli of lg int w/o perfor ation or abscess w/o bleeding Z86.010 Personal history of colonic polyps Office Visit 03/13/2021 8:30a [facility] Dion cabral JR, MD Z48.815 Encntr for surgical aftcr following surg trace on the [facility] sys Office Visit 01/16/2021 9:00a [facility] Dion cabral JR, MD Z43.2 Encounter for attention to ileostomy K43.2 Incisional hernia without ob struction or gangrene Office Visit 12/12/2020 2:00p [facility] Dion cabral JR, MD Z43.2 Encounter for attention to ileostomy Office Visit 11/21/2020 1:23a [facility] Marquise Se ars, D.O. I95.9 Hypotension, unspecified R01.1 Cardiac murmur, unspecified Office Visit 11/20/2020 1:23a [facility] Marquise Se ars, D.O. R57.9 Shock, unspecified N17.9 Acute kidney failure, unspec ified D47.3 Essential (hemorrhagic) thro mbocythemia Office Visit 11/18/2020 8:30a [facility] Christ phillips M.D. Z93.2 Ileostomy status Z48.815 Encntr for surgical aftcr fo llowing surgery on the dgstv sys Assessments Date Code Description Provider 04/03/2021 K43.2 Incisional hernia without obstru ction or gangrene OCTAVIO Alatorre 04/03/2021 Z48.815 Encounter for surgic al aftercare following surgery on the digestive system Pita Mcknight, OCTAVIO 04/03/2021 K57.32 Diverticulitis of la rge intestine without perforation or abscess without bleeding Pita Mcknight, OCTAVIO 04/03/2021 Z86.010 Personal history of colonic poly ps Pita Mcknight, PA 03/20/2021 Z48.815 Encounter for surgic al aftercare following surgery on the digestive system Pita Mcknight, OCTAVIO 03/20/2021 K43.2 Incisional hernia without obstru ction or gangrene Pita Mcknight, PA 03/20/2021 K57.32 Diverticulitis of la rge intestine without perforation or abscess without bleeding OCTAVIO Alatorre 03/20/2021 Z86.010 Personal history of colonic poly ps Pita Mcknight, PA 03/13/2021 Z48.815 Encounter for surgic al aftercare following surgery on the digestive system Dion Johnson JR, MD 03/07/2021 Z43.2 Encounter for attention to ileos vanessa Dion Johnson JR, MD 01/16/2021 Z43.2 Encounter for attention to ileos vanessa Dion Johnson JR, MD 01/16/2021 K43.2 Incisional hernia without obstru ction or gangrene Dion Johnson JR, MD 12/12/2020 Z43.2 Encounter for attention to ileos vanessa Dion Johnson JR, MD 11/21/2020 I95.9 Hypotension, unspecified Marquise ponce, D.O. 11/21/2020 R01.1 Cardiac murmur, unspecified Marquise Marie, D.O. 11/20/2020 R57.9 Shock, unspecified Marquise Marie, D .O. 11/20/2020 N17.9 Acute kidney failure, unspecifie d Marquise Marie, D.O. 11/20/2020 D47.3 Essential (hemorrhagic) thromboc ythemia Marquise Marie, D.O. 11/18/2020 Z93.2 Ileostomy status Christ Price M.D. 11/18/2020 Z48.815 Encounter for surgic al aftercare following surgery on the digestive system Christ Price M.D. Plan of Treatment No Information Available Functional Status Description No Information Available Mental Status Description No Information Available Referrals Description No Information Available
--- OUTSIDE RECORDS SUMMARY | 2021-07-18 06:12 | CCD | Continuity of Care Document ---
Author Author Delgado JOHNSON MD Organization Unknown Address [address] [facility] [address] [place] [address] Phone [phone] Care Team Providers Care Director Marketing Analytics Name Role Phone Srinivas Preciado M.D. AUTM [phone] [facility] Records AUTM [phone] AUTM Unavailable Neal Onofre M.D. AUTM [phone] Problems Active Problems Provider Date Heart murmur [...] lb BMI (Body Mass Index) 25.7 kg/m2 [place] Body Weight 160 lb Weight 79.040 kg BSA (Body Surface Area) 1.95 m2 04/03/2021 8:38am BP Systolic 147 mmHg BP Diastolic 88 mmHg Body Temperature 98.5 F Height 69 inches 5'9" Weight 168.38 lb BMI (Body Mass Index) 24.9 kg/m2 [place] Body Weight 160 lb Weight 76.375 kg BSA (Body Surface Area) 1.92 m2 Results Description No Information Available Procedures Date Code Description Status 03/07/2021 71545 Colostomy Closure/Takedown Compl eted 01/16/2021 88551 Office/Outpatient Established Mo d MDM 30-39 Min Completed 11/21/2020 79688 Hospital Subsequent Care Level 2 Completed 11/20/2020 52196 Critical Care Addl 30 Min Comple marisabel 11/20/2020 41815 Critical Care First 30-74 Minute s Completed 11/20/2020 68197 Ultrasound Guidance For Vascular Access Requiring Ultrasound Eval Completed 11/20/2020 67121 Insertion Of Non-Capo neled Centrally Inserted Central Venous Cathy Completed Medical Devices Description No Information Available Encounters Type Date Location Provider Dx Diagnosis Office Visit 03/20/2021 9:15a [facility] OCTAVIO Valenzuela Z48.815 [facility] K43.2 Incisional hernia without ob struction or gangrene K57.32 Dvtrcli of lg int w/o perfor ation or abscess w/o bleeding Z86.010 Personal history of colonic polyps Office Visit 03/13/2021 8:30a [facility] Dion cabral JR, MD Z48.815 Encntr for surgical aftcr following surg trace on the dgstv sys Office Visit 01/16/2021 9:00a [facility] Dion cabral JR, MD Z43.2 Encounter for attention to ileostomy K43.2 Incisional hernia without ob struction or gangrene Office Visit 12/12/2020 2:00p [facility] Dion cabral JR, MD Z43.2 Encounter for attention to ileostomy Office Visit 11/21/2020 1:23a [facility] Marquise Se ars, D.O. I95.9 Hypotension, unspecified R01.1 Cardiac murmur, unspecified Office Visit 11/20/2020 1:23a [facility] Marquise Se ars, D.O. R57.9 Shock, unspecified N17.9 Acute kidney failure, unspec ified D47.3 Essential (hemorrhagic) thro mbocythemia Office Visit 11/18/2020 8:30a [facility] Christ phillips M.D. Z93.2 Ileostomy status Z48.815 Encntr for surgical aftcr fo llowing surgery on the dgstv sys Assessments Date Code Description Provider 04/03/2021 K43.2 Incisional hernia without obstru ction or gangrene OCTAVIO Alatorre 04/03/2021 Z48.815 Encounter for surgic al aftercare following surgery on the digestive system Ptia Mcknight, OCTAVIO 04/03/2021 K57.32 Diverticulitis of la [...] am - Dion Johnson JR, MD at [facility] 04/03/2021 - OCTAVIO Alatorre* K43.2 Incisional hernia without obstruction or gangrene * Z48.815 Encounter for surgical aftercare following surgery on the digestive system * K57.32 Diverticulitis of large intestine without perforation or abscess without bleeding * Z86.010 Personal history of colonic polyps Functional Status Description No Information Available Mental Status Description No Information Available Referrals Description No Information Available
--- OUTSIDE RECORDS SUMMARY | 2021-07-18 06:12 | CCD | Continuity of Care Document ---
Author Author Delgado MCKNIGHT PA Organization Unknown Address [address] [facility], [address] [place] [address] Phone [phone] Care Team Providers Care Manager Enrollment Name Role Phone Srinivas Preciado M.D. AUTM [phone] [facility] Records AUTM [phone] AUTM Unavailable Neal Onofre M.D. AUTM [phone] Problems Active Problems Provider Date Heart murmur [...] lb BMI (Body Mass Index) 25.7 kg/m2 [place] Body Weight 160 lb Weight 79.040 kg BSA (Body Surface Area) 1.95 m2 04/03/2021 8:38am BP Systolic 147 mmHg BP Diastolic 88 mmHg Body Temperature 98.5 F Height 69 inches 5'9" Weight 168.38 lb BMI (Body Mass Index) 24.9 kg/m2 [place] Body Weight 160 lb Weight 76.375 kg BSA (Body Surface Area) 1.92 m2 Results Description No Information Available Procedures Date Code Description Status 03/07/2021 28354 Colostomy Closure/Takedown Compl eted 01/16/2021 80881 Office/Outpatient Established Mo d MDM 30-39 Min Completed 11/21/2020 55817 Hospital Subsequent Care Level 2 Completed 11/20/2020 33477 Critical Care Addl 30 Min Comple marisabel 11/20/2020 06343 Critical Care First 30-74 Minute s Completed 11/20/2020 57060 Ultrasound Guidance For Vascular Access Requiring Ultrasound Eval Completed 11/20/2020 08215 Insertion Of Non-Capo neled Centrally Inserted Central Venous Cathy Completed Medical Devices Description No Information Available Encounters Type Date Location Provider Dx Diagnosis Office Visit 05/03/2021 9:00a [facility] Dion cabral JR, MD K43.2 Incisional hernia without obstruction or gangrene Z48.815 Encntr for surgical aftcr fo llowing surgery on the dgstv sys Office Visit 04/03/2021 8:30a [facility] OCTAVIO Valenzuela K43.2 Incisional hernia without obstruction or gangrene Z48.815 Encntr for surgical aftcr fo llowing surgery on the dgstv sys K57.32 Dvtrcli of lg int w/o perfor ation or abscess w/o bleeding Z86.010 Personal history of colonic polyps Office Visit 03/20/2021 9:15a [facility] OCTAVIO Valenzuela Z48.815 Encntr for surgical aftcr following surg trace on the dgstv sys K43.2 Incisional hernia without ob struction or gangrene K57.32 Dvtrcli of lg int w/o perfor ation or abscess w/o bleeding Z86.010 Personal history of colonic polyps Office Visit 03/13/2021 8:30a [facility] Dion cabral JR, MD Z48.815 Encntr for surgical aftcr following surg trace on the dgstv sys Office Visit 01/16/2021 9:00a [facility] Dion cabral JR, MD Z43.2 Encounter for attention to ileostomy K43.2 Incisional hernia without ob struction or gangrene Office Visit 12/12/2020 2:00p [facility] Dion cabral JR, MD Z43.2 Encounter for attention to ileostomy Office Visit 11/21/2020 1:23a [facility] Marquise Se ars, D.O. I95.9 Hypotension, unspecified R01.1 Cardiac murmur, unspecified Office Visit 11/20/2020 1:23a [facility] Marquise Se ars, D.O. R57.9 Shock, unspecified N17.9 Acute kidney failure, unspec ified D47.3 Essential (hemorrhagic) thro mbocythemia Office Visit 11/18/2020 8:30a [facility] Christ phillips M.D. Z93.2 Ileostomy status Z48.815 Encntr for surgical aftcr fo llowing surgery on the dgstv sys Assessments Date Code Description Provider 05/03/2021 K43.2 Incisional hernia without obstru ction or gangrene Dion Johnson JR, MD 05/03/2021 Z48.815 Encounter for surgic al aftercare following surgery on the digestive system Dion Johnson JR, MD 04/03/2021 K43.2 Incisional hernia without obstru ction or gangrene Pita Mcknight, PA 04/03/2021 Z48.815 Encounter for surgic al aftercare following surgery on the digestive system Pita Mcknight, PA 04/03/2021 K57.32 Diverticulitis of la rge intestine without perforation or abscess without bleeding Pita Mcknight, PA 04/03/2021 Z86.010 Personal history of colonic poly ps Pita Mcknight, PA 03/20/2021 Z48.815 Encounter for surgic al aftercare following surgery on the digestive system Pita Mcknight PA 03/20/2021 K43.2 Incisional hernia without obstru ction or gangrene Pita Mcknight PA 03/20/2021 K57.32 Diverticulitis of la rge intestine without perforation or abscess without bleeding Pita Mcknight, PA 03/20/2021 Z86.010 Personal history of colonic poly [...] MD 11/21/2020 I95.9 Hypotension, unspecified Marquise Se ponce, D.O. 11/21/2020 R01.1 Cardiac murmur, unspecified Marquise Marie, D.O. 11/20/2020 R57.9 Shock, unspecified Marquise Marie, D .O. 11/20/2020 N17.9 Acute kidney failure, unspecifie d Marquise Marie D.O. 11/20/2020 D47.3 Essential (hemorrhagic) thromboc ythemia Marquise Marie D.O. 11/18/2020 Z93.2 Ileostomy status Christ Price M.D. 11/18/2020 Z48.815 Encounter for surgic al aftercare following surgery on the digestive system Christ Price M.D. Plan of Treatment Future Appointment(s):* 06/21/2021 8:45 am - Dion Johnson JR, MD at [facility] 05/03/2021 - Dion Johnson JR, MD* [...]
--- OUTSIDE RECORDS SUMMARY | 2021-07-18 06:12 | CCD | Continuity of Care Document ---
Author Author Delgado JOHNSON MD Organization Unknown Address [address] [place] [address] Phone [phone] Care Team Providers Care Ambulatory Care Name Role Phone Srinivas Preciado M.D. AUTM [phone] [facility] Records AUTM [phone] AUTM Unavailable Neal Onofre M.D. AUTM [phone] Problems Active Problems Provider Date Heart murmur Inga Ruiz.N.P. Onset: 10/17/2020 Cough Kelsi Farley A.N.P. Onset: 10/17/2020 Sleep apnea Inga Ruiz.N.PJacqueline Onset: 10/17/2020 Social History Type Date Description Comments Sex Unknown ETOH Use Currently consumes alcohol ROMA MARTINEZ AT Tobacco Use Reviewed: 10/17/20 Patient is a current smoker, smokes every day 1 1/2 PPD; started at age 9 Recreational Drug Use Denies Drug Use Smoking Status Reviewed: 10/17/20 Patient is a current smoker, smokes every day 1 1/2 PPD; started at age 9 Allergies and adverse reactions Active Allergies Criticality Reaction | Severity Comments [...] Dion Johnson JR, MD 02/02/2021 - 03/20/2021 Immunizations Description No Information Available Vital Signs Date Vital Result Comment 06/21/2021 8:40am BP Systolic 146 mmHg BP Diastolic 87 mmHg Body Temperature 97.2 F Height 69 inches 5'9" Weight 178.00 lb BMI (Body Mass Index) 26.3 kg/m2 [place] Body Weight 160 lb Weight 80.741 kg BSA (Body Surface Area) 1.97 m2 05/03/2021 9:05am BP Systolic 148 mmHg BP Diastolic 80 mmHg Heart Rate 71 /min Body Temperature 98.3 F Height 69 inches 5'9" Weight 174.25 lb BMI (Body Mass Index) 25.7 kg/m2 [place] Body Weight 160 lb Weight 79.040 kg BSA (Body Surface Area) 1.95 m2 Results Description No Information Available Procedures Date Code Description Status 06/21/2021 56407 Office/Outpatient Established Mo d MDM 30-39 Min Completed 03/07/2021 52583 Colostomy Closure/Takedown Compl eted 01/16/2021 51262 Office/Outpatient Established Mo d MDM 30-39 Min Completed Medical Devices Description No Information Available Encounters Type Date Location Provider Dx Diagnosis Office Visit 06/21/2021 8:45a [facility] Dion cabral JR, MD K43.2 Incisional hernia without obstruction or gangrene Office Visit 05/03/2021 9:00a [facility] Dion cabral JR, MD K43.2 Incisional hernia without obstruction or gangrene Z48.815 Encntr for surgical aftcr fo llowing surgery on the dgst sys Office Visit 04/03/2021 8:30a [facility] OCTAVIO Valenzuela K43.2 Incisional hernia without obstruction or gangrene Z48.815 Encntr for surgical aftcr fo llowing surgery on the dgstv sys K57.32 Dvtrcli of lg int w/o perfor ation or abscess w/o bleeding Z86.010 Personal history of colonic polyps Office Visit 03/20/2021 9:15a [facility] OCTAVIO Valenzuela Z48.815 Encntr for surgical aftcr following surg trace on the dgv sys K43.2 Incisional hernia without ob struction or gangrene K57.32 Dvtrcli of lg int w/o perfor ation or abscess w/o bleeding Z86.010 Personal history of colonic polyps Office Visit 03/13/2021 8:30a [facility] Dion cabral JR, MD Z48.815 Encntr for surgical aftcr following surg trace on the dgstv sys Office Visit 01/16/2021 9:00a [facility] Dion cabral JR, MD Z43.2 Encounter for attention to ileostomy K43.2 Incisional hernia without ob struction or gangrene Assessments Date Code Description Provider 06/21/2021 K43.2 Incisional hernia without obstru ction or gangrene Dion Johnson JR, MD 05/03/2021 K43.2 Incisional hernia without obstru ction or gangrene Dion Johnson JR, MD 05/03/2021 Z48.815 Encounter for surgic al aftercare following surgery on the digestive system Dion Johnson JR, MD 04/03/2021 K43.2 Incisional hernia without obstru ction or gangrene OCTAVIO Alatorre 04/03/2021 Z48.815 Encounter for surgic al aftercare following surgery on the digestive system OCTAVIO Alatorre 04/03/2021 K57.32 Diverticulitis of la rge intestine without perforation or abscess without bleeding OCTAVIO Alatorre 04/03/2021 Z86.010 Personal history of colonic poly ps OCTAVIO Alatorre 03/20/2021 Z48.815 Encounter for surgic al aftercare [...] ction or gangrene Dion Johnson JR, MD Plan of Treatment Future Appointment(s):* 08/01/2021 1:45 pm - OCTAVIO Alatorre at [facility] * 07/18/2021 9:30 am - Dion Johnson JR, MD at [facility] 06/21/2021 - Dion Johnson JR, MD* K43.2 Incisional hernia without obstruction or gangrene* Comments:* The patient has a symptomatic incisional hernia and at this point I recommendation is to proceed with operative repair of this symptomatic incisional hernia. We've discussed open as well as laparoscopic techniques [...] and the risks associated with the procedures. Those risks include infection bleeding damage to surrounding structure including bowel postoperative pain issues as well as recurrence of the hernia. Typical Postoperative recovery was discussed with the patient and expected postoperative course. The patient agrees to proceed with robotic assisted lap aroscopic incisional hernia repair Functional Status Description No Information Available Mental Status Description No Information Available Referrals Description No Information Available
--- OUTSIDE RECORDS SUMMARY | 2021-07-18 06:12 | CCD | Continuity of Care Document ---
Author Author Delgado MCKNIGHT PA Organization Unknown Address [address], [address] [place] [address] Phone [phone] Care Team Providers Care Driver Utility Worker Name Role Phone Srinivas Preciado M.D. AUTM [phone] [facility] Records AUTM [phone] AUTM Unavailable Neal Onofre M.D. AUTM [phone] Problems Active Problems Provider Date Heart murmur [...] Available Vital Signs Date Vital Result Comment 04/03/2021 8:38am BP Systolic 147 mmHg BP Diastolic 88 mmHg Body Temperature 98.5 F Height 69 inches 5'9" Weight 168.38 lb BMI (Body Mass Index) 24.9 kg/m2 [place] Body Weight 160 lb Weight 76.375 kg BSA (Body Surface Area) 1.92 m2 03/20/2021 9:20am BP Systolic 141 mmHg BP Diastolic 88 mmHg Heart Rate 74 /min Body Temperature 98.5 F Height 69 inches 5'9" Weight 164.50 lb BMI (Body Mass Index) 24.3 kg/m2 [place] Body Weight 160 lb Weight 74.617 kg BSA (Body Surface Area) 1.90 m2 Results Description No Information Available Procedures Date Code Description Status 03/07/2021 38432 Colostomy Closure/Takedown Compl eted 01/16/2021 03420 Office/Outpatient Established Mo d MDM 30-39 Min Completed 11/21/2020 09258 Hospital Subsequent Care Level 2 Completed 11/20/2020 02332 Critical Care Addl 30 Min Comple marisabel 11/20/2020 28338 Critical Care First 30-74 Minute s Completed 11/20/2020 31447 Ultrasound Guidance For Vascular Access Requiring Ultrasound Eval Completed 11/20/2020 46586 Insertion Of Non-Capo neled Centrally Inserted Central Venous Cathy Completed Medical Devices Description No Information Available Encounters Type Date Location Provider Dx Diagnosis Office Visit 03/20/2021 9:15a [facility] OCTAVIO Valenzuela Z48.815 Encntr for [facility]ftcr [facility] K43.2 Incisional hernia without ob struction or gangrene K57.32 Dvtrcli of lg int w/o perfor ation or abscess w/o bleeding Z86.010 Personal history of colonic polyps Office Visit 03/13/2021 8:30a [facility] Dion cabral JR, MD Z48.815 Encntr for surgical aftcr following surg trace on the dgv sys Office Visit 01/16/2021 9:00a [facility] Dion cabral JR, MD Z43.2 Encounter for attention to ileostomy K43.2 Incisional hernia without ob struction or gangrene Office Visit 12/12/2020 2:00p [facility] Dion cabral JR, MD Z43.2 Encounter for attention to ileostomy Office Visit 11/21/2020 1:23a [facility] Marquise Se ars, D.O. I95.9 Hypotension, unspecified R01.1 Cardiac murmur, unspecified Office Visit 11/20/2020 1:23a [facility] Marquise Se ars, D.O. R57.9 Shock, unspecified N17.9 Acute kidney failure, unspec ified D47.3 Essential (hemorrhagic) thro mbocythemia Office Visit 11/18/2020 8:30a [facility] Christ phillips M.D. Z93.2 Ileostomy [...] following surgery on the digestive system Dion Jhonson JR, MD 03/07/2021 Z43.2 Encounter for attention to ileos vanessa Dion Latanya Johnson JR, MD 01/16/2021 Z43.2 Encounter for [...] Price M.D. Plan of Treatment Future Appointment(s):* 05/03/2021 9:00 am - Dion Johnson JR, MD at [facility] 04/03/2021 - OCTAVIO Alatorre* K43.2 Incisional hernia [...]
--- OUTSIDE RECORDS SUMMARY | 2021-07-18 06:13 | CCD ---
Author Author [facility] Organization [facility] Address Unknown Phone Unavailable Care Team Providers Care Coating Mixer Name Role Phone Martine, L Kelsi VAULT ATTENDANT Unavailable Unavailable Martine, L Kelsi VAULT ATTENDANT Unavailable Unavailable Martine, L Kelsi VAULT ATTENDANT Unavailable Unavailable Martine, L Kelsi VAULT ATTENDANT Unavailable Unavailable Martine, L Kelsi VAULT ATTENDANT Unavailable Unavailable Martine, L Kelsi VAULT ATTENDANT Unavailable Unavailable Martine, L Kelsi VAULT ATTENDANT Unavailable Unavailable Martine, L Kelsi VAULT ATTENDANT Unavailable Unavailable Martine, L Kelsi VAULT ATTENDANT Unavailable Unavailable Martine, L Kelsi VAULT ATTENDANT Unavailable Unavailable Martine, L Kelsi VAULT ATTENDANT Unavailable Unavailable Martine, L Kelsi VAULT ATTENDANT Unavailable Unavailable Martine, L Kelsi VAULT ATTENDANT Unavailable Unavailable Martine, L Kelsi VAULT ATTENDANT Unavailable Unavailable Martine, L Kelsi VAULT ATTENDANT Unavailable Unavailable Martine, L Kelsi VAULT ATTENDANT Unavailable Unavailable Martine, L Kelsi VAULT ATTENDANT Unavailable Unavailable Martine, L Kelsi VAULT ATTENDANT Unavailable Unavailable Martine, L Kelsi VAULT ATTENDANT Unavailable Unavailable Martine, L Kelsi VAULT ATTENDANT Unavailable Unavailable Martine, L Kelsi VAULT ATTENDANT Unavailable Unavailable Martine, L Kelsi VAULT ATTENDANT Unavailable Unavailable Martine, L Kelsi VAULT ATTENDANT Unavailable Unavailable Martine, L Kelsi VAULT ATTENDANT Unavailable Unavailable Martine, L Kelsi VAULT ATTENDANT Unavailable Unavailable Margaret Krishnamurthy REAL ESTATE SALESPERSON Unavailable Unavailable Margaret Krishnamurthy REAL ESTATE SALESPERSON Unavailable Unavailable Margaret Krishnamurthy REAL ESTATE SALESPERSON Unavailable Unavailable RaghuMargaret vaca REAL ESTATE SALESPERSON Unavailable Unavailable RaghuMargaret REAL ESTATE SALESPERSON Unavailable Unavailable Raghu, Margaret Xie REAL ESTATE SALESPERSON Unavailable Unavailable [place] REAL ESTATE SALESPERSON Unavailable Unavailable [place], Margaret Xie REAL ESTATE SALESPERSON Unavailable Unavailable Raghu, Margaret Xie REAL ESTATE SALESPERSON Unavailable Unavailable Raghu, Margaret Xie REAL ESTATE SALESPERSON Unavailable Unavailable [place], Margaret Xie REAL ESTATE SALESPERSON Unavailable Unavailable Raghu, Margaret Rojas REAL ESTATE SALESPERSON Unavailable Unavailable [place], Margaret Xie REAL ESTATE SALESPERSON Unavailable Unavailable Raghu, Margaret Rojas REAL ESTATE SALESPERSON Unavailable Unavailable ROCKY, O AURE DYER Unavailable Unavailable ROCKY, O AURE DYER Unavailable Unavailable ROCKY, O AURE MD Unavailable Unavailable ROCKY, O AURE DYER Unavailable Unavailable ROCKY, O AURE DYER Unavailable Unavailable ROCKY, O AURE DYER Unavailable Unavailable ROCKY, O AURE DYER Unavailable Unavailable ROCKY, O AURE MD Unavailable Unavailable ROCKY, O AURE DYER Unavailable Unavailable ROCKY, O AURE MD Unavailable Unavailable ROCKY, O AURE MD Unavailable Unavailable ROCKY, O AURE MD Unavailable Unavailable ROCKY, O AURE DYER Unavailable Unavailable ROCKY, O AURE DYER Unavailable Unavailable ROCKY, O AURE MD Unavailable Unavailable ROCKY, O AURE DYER Unavailable Unavailable ROCKY, O AUER DYER Unavailable Unavailable ROCKY, O AURE DYER Unavailable Unavailable ROCKY, O AURE DYER Unavailable Unavailable ROCKY, O AURE DYER Unavailable Unavailable ROCKY, O AURE DYER Unavailable Unavailable ROCKY, O AURE DYER Unavailable Unavailable ROCKY, O AURE MD Unavailable Unavailable ROCKY, O AURE MD Unavailable Unavailable ROCKY, O AURE MD Unavailable Unavailable ROCKY, O AURE MD Unavailable Unavailable ROCKY, O AURE DYER Unavailable Unavailable ROCKY, O AURE DYER Unavailable Unavailable ROCKY, O AURE DYER Unavailable Unavailable ROCKY, O AURE DYER Unavailable Unavailable ROCKY, O AURE DYER Unavailable Unavailable ROCKY, O AURE DYER Unavailable Unavailable ROCKY, O AURE DYER Unavailable Unavailable ROCKY, O AURE DYER Unavailable Unavailable ROCKY, O AURE DYER Unavailable Unavailable ROCKY, O AURE DYER Unavailable Unavailable ROCKY, O AURE DYER Unavailable Unavailable ROCKY, O AURE DYER Unavailable Unavailable ROCKY, O AURE DYER Unavailable Unavailable ROCKY, O AURE DYER Unavailable Unavailable ROCKY, O AURE DYER Unavailable Unavailable ROCKY, O AURE DYER Unavailable Unavailable ROCKY, O AURE DYER Unavailable Unavailable ROCKY, O AURE DYER Unavailable Unavailable ROCKY, O AURE DYER Unavailable Unavailable SEARS, A KATE DO Unavailable Unavailable SEARS, A KATE DO Unavailable Unavailable SEARS, A KATE DO Unavailable Unavailable SEARS, A KATE DO Unavailable Unavailable SEARS, A KATE DO Unavailable Unavailable SEARS, A KATE DO Unavailable Unavailable SEARS, A KATE DO Unavailable Unavailable SEARS, A KATE DO Unavailable Unavailable SEARS, A KATE DO Unavailable Unavailable SEARS, A KATE DO Unavailable Unavailable SEARS, A KATE DO Unavailable Unavailable SEARS, A KATE DO Unavailable Unavailable SEARS, A KATE DO Unavailable Unavailable SEARS, A KATE DO Unavailable Unavailable SEARS, A KATE DO Unavailable Unavailable SEARS, A KATE DO Unavailable Unavailable SEARS, A KATE DO Unavailable Unavailable SEARS, A KATE DO Unavailable Unavailable SEARS, A KATE DO Unavailable Unavailable SEARS, A KATE DO Unavailable Unavailable SEARS, A KATE DO Unavailable Unavailable SEARS, A KATE DO Unavailable Unavailable SEARS, A KATE DO Unavailable Unavailable SEARS, A KATE DO Unavailable Unavailable SEARS, A KATE DO Unavailable Unavailable SEARS, A KATE DO Unavailable Unavailable SEARS, A KATE DO Unavailable Unavailable SEARS, A KATE DO Unavailable Unavailable SEARS, A KATE DO Unavailable Unavailable SEARS, A KATE DO Unavailable Unavailable SEARS, A KATE DO Unavailable Unavailable SEARS, A KATE DO Unavailable Unavailable SEARS, A KATE DO Unavailable Unavailable SEARS, A KATE DO Unavailable Unavailable SEARS, A KATE DO Unavailable Unavailable SEARS, A KATE DO Unavailable Unavailable SEARS, A KATE DO Unavailable Unavailable SEARS, A KATE DO Unavailable Unavailable SEARS, A KATE DO Unavailable Unavailable SEARS, A KATE DO Unavailable Unavailable SEARS, A KATE DO Unavailable Unavailable SEARS, A KATE DO Unavailable Unavailable SEARS, A KATE DO Unavailable Unavailable SEARS, A KATE DO Unavailable Unavailable SEARS, A KATE DO Unavailable Unavailable SEARS, A KATE DO Unavailable Unavailable SEARS, A KATE DO Unavailable Unavailable SEARS, A KATE DO Unavailable Unavailable Mcknight, L Pita RPA Unavailable Unavailable Mcknight, L Pita RPA Unavailable Unavailable Mcknight, L Pita RPA Unavailable Unavailable Mcknight, L Pita RPA Unavailable Unavailable Mcknight, L Pita RPA Unavailable Unavailable Mcknight, L Pita RPA Unavailable Unavailable Mcknight, L Pita RPA Unavailable Unavailable Mcknight, L Pita RPA Unavailable Unavailable Mcknight, L Pita RPA Unavailable Unavailable Mcknight, L Pita RPA Unavailable Unavailable Mcknight, L Pita RPA Unavailable Unavailable Mcknight, L Pita RPA Unavailable Unavailable Mcknight, L Pita RPA Unavailable Unavailable Mcknight, L Pita RPA Unavailable Unavailable Mcknight, L Pita RPA Unavailable Unavailable Mcknight, L Pita RPA Unavailable Unavailable Mcknight, L Pita RPA Unavailable Unavailable Mcknight, L Pita RPA Unavailable Unavailable Mcknight, L Pita RPA Unavailable Unavailable Mcknight, L Pita RPA Unavailable Unavailable Mcknight, L Pita RPA Unavailable Unavailable Mcknight, L Pita RPA Unavailable Unavailable Mcknight, L Pita RPA Unavailable Unavailable Mcknight, L Pita RPA Unavailable Unavailable Mcknight, L Pita RPA Unavailable Unavailable Mcknight, L Pita RPA Unavailable Unavailable Mcknight, L Pita RPA Unavailable Unavailable Mcknight, L Pita RPA Unavailable Unavailable Mcknight, L Pita RPA Unavailable Unavailable Mcknight, L Pita RPA Unavailable Unavailable Mcknight, L Pita RPA Unavailable Unavailable Mcknight, L Pita RPA Unavailable Unavailable Kenya Johnson JR, MD Unavailable Unavailable Kenya Johnson JR, MD Unavailable Unavailable Kenya Johnson JR, MD Unavailable Unavailable Kenya Johnson JR, MD Unavailable Unavailable Kenya Johnson JR, MD Unavailable Unavailable Kenya Johnson JR, MD Unavailable Unavailable Kenya Johnson JR, MD Unavailable Unavailable Kenya Johnson JR, MD Unavailable Unavailable Kenya Johnson JR, MD Unavailable Unavailable Kenya Johnson JR, MD Unavailable Unavailable Kenya Johnson JR, MD Unavailable Unavailable Kenya Johnson JR, MD Unavailable Unavailable Kenya Johnson JR, MD Unavailable Unavailable Kenya Johnson JR, MD Unavailable Unavailable Kenya Johnson JR, MD Unavailable Unavailable Kenya Johnson JR, MD Unavailable Unavailable Kenya Johnson JR, MD Unavailable Unavailable Kenya Johnson JR, MD Unavailable Unavailable Kenya Johnson JR, MD Unavailable Unavailable Kenya Johnson JR, MD Unavailable Unavailable Kenya Johnson JR, MD Unavailable Unavailable Kenya Johnson JR, MD Unavailable Unavailable Kenya Johnson JR, MD Unavailable Unavailable Kenya Johnson JR, MD Unavailable Unavailable Kenya Johnson JR, MD Unavailable Unavailable Kenya Johnson JR, MD Unavailable Unavailable Kenya Johnson JR, MD Unavailable Unavailable Kenya Johnson JR, MD Unavailable Unavailable Kenya Johnson JR, MD Unavailable Unavailable Kenya Johnson JR, MD Unavailable Unavailable Kenya Johnson JR, MD Unavailable Unavailable Kenya Johnson JR, MD Unavailable Unavailable Elizabeth JR, J Dion MD Unavailable Unavailable Elizabeth JR, J Dion MD Unavailable Unavailable Elizabeth JR, J Dion MD Unavailable Unavailable Elizabeth JR, J Dion MD Unavailable Unavailable Elizabeth JR, J Dion MD Unavailable Unavailable Elizabeth JR, J Dion MD Unavailable Unavailable Elizabeth JR, J Dion MD Unavailable Unavailable Elizabeth JR, J Dion MD Unavailable Unavailable Elizabeth JR, J Dion MD Unavailable Unavailable Elizabeth JR, J Dion MD Unavailable Unavailable Elizabeth JR, J Dion MD Unavailable Unavailable Elizabeth JR, J Dion MD Unavailable Unavailable Eilzabeth JR, J Dion MD Unavailable Unavailable Elizabeth JR, J Dion MD Unavailable Unavailable Elizabeth JR, J Dion MD Unavailable Unavailable Elizabeth JR, J Dion MD Unavailable Unavailable Elizabeth JR, J Dion MD Unavailable Unavailable Elizabeth JR, J Dion MD Unavailable Unavailable Elizabeth JR, J Dion MD Unavailable Unavailable Elizabeth JR, J Dion MD Unavailable Unavailable Elizabeth JR, J Dion MD Unavailable Unavailable Elizabeth JR, J Dion MD Unavailable Unavailable Elizabeth JR, J Dion MD Unavailable Unavailable Elizabeth JR, J Dion MD Unavailable Unavailable Re-disclosure Warning The records that you are about to access may contain information from federally-assisted alcohol or drug abuse programs. If such information is present, then the following federally mandated warning applies: This information has been disclosed to you from records protected by federal confidentiality rules (42 CFR part 2). The federal rules prohibit you from making any further disclosure of this information unless further disclosure is expressly permitted by the written consent of the person to whom it pertains or as otherwise permitted by 42 CFR part 2. A general authorization for the release of medical or other information is NOT sufficient for this purpose. The Federal rules restrict any use of the information to criminally investigate or prosecute any alcohol or drug abuse patient.The records that you are about to access may contain highly sensitive health information, the redisclosure of which is protected by Article 27-F of the [facility] Public Health law. If you continue you may have access to information: Regarding HIV / AIDS; Provided by facilities licensed or operated by the [facility] Office of Mental Health; or Provided by the [facility] Office for People With Developmental Disabilities. If such information is present, then the following [facility] mandated warning applies: This information has been disclosed to you from confidential records which are protected by state law. State law prohibits you from making any further disclosure of this information without the specific written consent of the person to whom it pertains, or as otherwise permitted by law. Any unauthorized further disclosure in violation of state law may result in a fine or half-way sentence or both. A general authorization for the release of medical or other information is NOT sufficient authorization for further disc losure. Family History Family Member Name Family Member Gender Family Member Status Date o f Status Description Data Source(s) Unknown Unknown Problem [facility] ([facility]) Unknown Female Problem [facility] ([facility]) Encounters Encounter Providers Location Date Indications Data Source(s ) Outpatient Attender: Dion Mercer/Kim/Sheng/Rein dl 06/21/2021 07:45:00 AM EST [facility] ([facility]) Office Visit Attender: Dion Mercer/Kim/Sheng/Rein dl 05/03/2021 09:00:00 AM EDT [facility] ([facility]) Office Visit Attender: Pita Mcknight RPA Ruslan/Kim/Sheng/R eindl 04/03/2021 08:30:00 AM EDT [facility] ([facility]) Office Visit Attender: Pita Mcknight RPA Ruslan/Kim/Sheng/R eindl 03/20/2021 09:15:00 AM EDT [facility] ([facility]) Office Visit Attender: Dion Mercer/Kim/Sheng/Rein dl 03/13/2021 08:30:00 AM EDT [facility] ([facility]) Outpatient Attender: Dion Mercer/Kim/Sheng/Rein dl 01/16/2021 09:00:00 AM EDT [facility] ([facility]) Office Visit Attender: Dion Mercer/Kim/Sheng/Rein dl 12/12/2020 02:00:00 PM EDT [facility] ([facility]) Outpatient Attender: KATE Dasilvaang/Kim/Sheng/Reindl 11/21/2020 01:23:00 AM EDT [facility] ([facility] Outpatient Attender: KATE ANTONINOPATSY MENDOZA Ruslan/Kim/Sheng/Reindl 11/20/2020 01:23:00 AM EDT [facility] ([facility]) Office Visit Attender: AURE Pardoang/Kim/Sheng/Re indl 11/18/2020 08:30:00 AM EDT [facility] ([facility]) Outpatient Attender: Kelsi Farley NP Ruslan/Kim/Sheng/Reindl 10/17/2020 12:30:00 PM EST [facility] ([facility]) Outpatient Attender: Dion Johnson JR Ruslan/Kim/Sheng/Rein dl 08/31/2020 07:30:00 AM EST [facility] ([facility]) Office Visit Attender: Dion Johnson JR Ruslan/Kim/Sheng/Rein dl 06/27/2020 08:10:00 AM EST [facility] ([facility]) Office Visit Attender: Rojas WATTS Ruslan/Kim/Sheng/Kofi ndl 06/20/2020 02:15:00 PM EST [facility] ([facility]) Medications Medication Brand Name Start Date Product Form Dose Route Admi nistrative Instructions Pharmacy Instructions Status Indications Reaction Description Data Source(s) 200 mg/mL 06/16/2021 12:00:00 AM EDT oil 6 INJECT 1.5ML INTRAMUSCULARLY EVERY 3 WEEKS * MAX 1.5ML EVERY 21 DAYS INJECT 1.5ML INTRAMUSCULARLY EVERY 3 WEEKS * MAX 1.5ML EVERY 21 DAYS SOLD: 06/17/2021 [facility] 5-325 mg 03/09/2021 12:00:00 AM EDT tablet 18 TAKE ONE TABLET BY MOUTH EVERY 4 HOURS NEEDED FOR MILD/MODERATE PAIN (PS 1-7) MAXIMUM DAILY DOSE = 6 TAKE ONE TABLET BY MOUTH EVERY 4 HOURS NEEDED FOR MILD/MODERATE PAIN (PS 1-7) MAXIMUM DAILY DOSE = 6 SOLD: 03/11/2021 [facility] Metronidazole 500 MG Oral Tablet METRONIDAZOLE 03/06/2021 12:0 0:00 AM EDT tablet 3 TAKE 1 TABLET BY RAIMUNDO TH AT 2 P.M. AND 10 P.M. THE DAY BEFORE SURGERY AND 1 TABLET AT 6AM MORNING OF SURGERY TAKE 1 TABLET BY MOUTH AT 2 P.M. AND 10 P.M. THE DAY BEFORE SURGERY AND 1 TABLET AT 6AM MORNING OF SURGERY SOLD: 03/06/2021 [facility] 200 mg/mL 03/06/2021 12:00:00 AM EDT oil 6 INJECT 1 & 1/2 ML INTRAMUSCULARLY EVERY 3 WEEKS, MAX OF 1.5ML EVERY 21 DAYS INJECT 1 & 1/2 ML INTRAMUSCULARLY EVERY 3 WEEKS, MAX OF 1.5ML EVERY 21 DAYS SOLD: 03/06/2021 [facility] 500 mg 03/06/2021 12:00:00 AM EDT tablet 14 TAKE ONE TABLET BY MOUTH TWICE A DAY TAKE ONE TABLET BY MOUTH TWICE A DAY SOLD: 03/06/2021 [facility] 3 mL 23 x 1" 02/28/2021 12:00:00 AM EDT syringe 4 USE DIRECTED INTRAMUSCULARLY WITH 3 WEEKS USE DIRECTED INTRAMUSCULARLY WITH 3 WEEKS SOLD: 03/06/2021 [facility] 3 mL 23 x 1" 02/28/2021 12:00:00 AM EDT syringe 4 USE DIRECTED INTRAMUSCULARLY WITH 3 WEEKS USE DIRECTED INTRAMUSCULARLY WITH 3 WEEKS SOLD: 06/17/2021 [facility] 25 mg 02/20/2021 12:00:00 AM EDT tablet 30 TAKE ONE TABLET BY MOUTH EVERY DAY TAKE ONE TABLET BY MOUTH EVERY DAY SOLD: 04/24/2021 [facility] 25 mg 02/20/2021 12:00:00 AM EDT tablet 30 TAKE ONE TABLET BY MOUTH EVERY DAY TAKE ONE TABLET BY MOUTH EVERY DAY SOLD: 02/21/2021 [facility] 25 mg 02/20/2021 12:00:00 AM EDT tablet 30 TAKE ONE TABLET BY MOUTH EVERY DAY TAKE ONE TABLET BY MOUTH EVERY DAY SOLD: 05/27/2021 [facility] 25 mg 02/20/2021 12:00:00 AM EDT tablet 30 TAKE ONE TABLET BY MOUTH EVERY DAY TAKE ONE TABLET BY MOUTH EVERY DAY SOLD: 03/23/2021 [facility] 25 mg 02/20/2021 12:00:00 AM EDT tablet 30 TAKE ONE TABLET BY MOUTH EVERY DAY TAKE ONE TABLET BY MOUTH EVERY DAY SOLD: 06/25/2021 [facility] Ciprofloxacin 500 MG Oral Tablet [Cipro] Cipro 02/02/2021 12:00: 00 AM EDT ORAL completed [facility] ([facility] ) Metronidazole 500 MG Oral Tablet [Flagyl] Flagyl 02/02/2021 12:00 :00 AM EDT ORAL completed [facility] ([facility] ) 200 mg/mL 12/23/2020 12:00:00 AM EDT oil 6 INJECT 1.5ML EVERY 3 WEEKS INTRAMUSCULARLY * MAX DOSE 1.5ML EVERY 21 DAYS INJECT 1.5ML EVERY 3 WEEKS INTRAMUSCULARLY * MAX DOSE 1.5ML EVERY 21 DAYS SOLD: 12/25/2020 [facility] 25 mg 12/22/2020 12:00:00 AM EDT tablet 30 TAKE ONE TABLET BY MOUTH EVERY DAY TAKE ONE TABLET BY MOUTH EVERY DAY SOLD: 12/25/2020 [facility] 25 mg 12/22/2020 12:00:00 AM EDT tablet 30 TAKE ONE TABLET BY MOUTH EVERY DAY TAKE ONE TABLET BY MOUTH EVERY DAY SOLD: 01/24/2021 [facility] 3 mL 23 x 1" 12/21/2020 12:00:00 AM EDT syringe 4 USE DIRECTED EVERY 3 WEEKS INTRAMUSCULARLY USE DIRECTED EVERY 3 WEEKS INTRAMUSCULARLY SOLD: 12/25/2020 [facility] 400 mg (241.3 mg magnesium) 12/20/2020 12:00:00 AM EDT table t 120 TAKE ONE TABLET BY MOUTH FOUR TIMES A DAY NEEDED TAKE ONE TABLET BY MOUTH FOUR TIMES A DAY NEEDED SOLD: 12/25/2020 [facility] Atropine Sulfate 0.025 MG / Diphenoxylat e Hydrochloride 2.5 MG Oral Tablet 2.5- 0.025 mg DIPHENOXYLATE HCL/ATROPINE 12/12/2020 12:00:00 AM EDT tablet 120 TAKE 1-2 TABLETS BY MOUTH BEFORE MEALS AND EVERY NIGHT AT BEDTIME NEEDED FOR DIRRHEA MAXIMUM DAILY DOSE = 8 TABLETS TAKE 1-2 TABLETS BY MOUTH BEFORE MEALS AND EVERY NIGHT AT BEDTIME NEEDED FOR DIRRHEA MAXIMUM DAILY DOSE = 8 TABLETS SOLD: 12/12/2020 [facility] Atropine Sulfate 0.025 MG / Diphenoxylat e Hydrochloride 2.5 MG Oral Tablet [Lomotil] Lomotil 12/12/2020 12:00:00 AM EDT compl eted [facility] ([facility]) 18 gauge x 1" 12/05/2020 12:00:00 AM EDT needle 12 USE DIRECTED 1 SHOT EVERY 3 WEEKS INTRAMUSCULARLY USE DIRECTED 1 SHOT EVERY 3 WEEKS INTRAMUSCULARLY SOLD: 12/10/2020 [facility] 5 mg 2020 12:00:00 AM EDT tablet 30 TAKE ONE TABLET BY MOUTH EVERY DAY TAKE ONE TABLET BY MOUTH EVERY DAY SOLD: 2020 [facility] 250 mg 11/22/2020 12:00:00 AM EDT tablet 6 TAKE ONE TABLET BY MOUTH TWICE A DAY TAKE ONE TABLET BY MOUTH TWICE A DAY SOLD: 11/22/2020 [facility] 1 billion cell- 250 mg 11/22/2020 12:00:00 AM EDT tablet 30 TAKE ONE TABLET BY MOUTH TWICE A DAY WITH MEALS TAKE ONE TABLET BY MOUTH TWICE A DAY WITH MEALS SOLD: 11/22/2020 [facility] 9 mg iron-400 mcg 11/22/2020 12:00:00 AM EDT tablet 30 TAKE ONE TABLET BY MOUTH EVERY DAY TAKE ONE TABLET BY MOUTH EVERY DAY SOLD: 11/22/2020 [facility] Folic Acid 1 MG Oral Tablet FOLIC ACID 11/22/2020 12:00:00 AM EDT tabl et 30 TAKE ONE TABLET BY MOUTH EVERY DAY TAKE ONE TABLET BY MOUTH EVERY DAY SOLD: 11/22/2020 [facility] Omeprazole 40 MG Delayed Release Oral Capsule Omeprazole 11/02/2020 12:00:00 AM EDT ORAL completed [facility] ([facility], ) Ondansetron 4 MG Oral Tablet [Zofran] Zofran 11/02/2020 12:00:00 AM EDT completed [facility] ([facility] ) 40 mg 11/02/2020 12:00:00 AM EDT capsule,delayed release (DR/EC) 30 TAKE ONE CAPSULE BY MOUTH EVERY DAY TAKE ONE CAPSULE BY MOUTH EVERY DAY SOLD: 11/02/2020 [facility] 10 mg 11/02/2020 12:00:00 AM EDT tablet 30 TAKE ONE TABLET BY MOUTH EVERY DAY TAKE ONE TABLET BY MOUTH EVERY DAY SOLD: 11/02/2020 [facility] 4 mg 11/02/2020 12:00:00 AM EDT tablet 30 TAKE ONE TABLET BY MOUTH EVERY 4 HOURS NEEDED FOR NAUSEA TAKE ONE TABLET BY MOUTH EVERY 4 HOURS A S NEEDED FOR NAUSEA SOLD: 11/02/2020 [facility] Sodium Chloride 0.154 MEQ/ML Irrigation Solution 0.9 % SODIUM CHLORIDE IRRIGATING SOLUTION 10/24/2020 12:00:00 AM EDT solution 1000 USE DIRECTED USE DIRECTED SOLD: 10/24/2020 [facility] 2"X10yd 10/24/2020 12:00:00 AM EDT active [facility] ([facility] ) Sodium Chloride 0.154 MEQ/ML Irrigation Solution Saline Woun d Wash 10/24/2020 12:00:00 AM EDT completed [facility] ([facility] ) 5-325 mg 10/24/2020 12:00:00 AM EDT tablet 30 TAKE ONE TABLET BY MOUTH EVERY 4 HOURS NEEDED FOR MILD TO MODERATE PAIN (PS 1-7) MAXIMUM DAILY DOSE = 6 TABLETS TAKE ONE TABLET BY MOUTH EVERY 4 HOURS A S NEEDED FOR MILD TO MODERATE PAIN (PS 1-7) MAXIMUM DAILY DOSE = 6 TABLETS SOLD: 10/24/2020 [facility] Gauze Dressing 10/24/2020 12:00:00 AM EDT act janki [facility] ([facility], ) Suprep Bowel Prep Kit Suprep Bowel Prep Kit 10/12/2020 12:00:00 AM EST completed [facility] ([facility] ) Neomycin Sulfate 500 MG Oral Tablet Neomycin Sulfate 10/12/2020 12:00:00 AM EST ORAL completed [facility] ([facility], ) Metronidazole 500 MG Oral Tablet [Flagyl] Flagyl 10/12/2020 12:00 :00 AM EST ORAL completed [facility] ([facility], ) Metronidazole 500 MG Oral Tablet METRONIDAZOLE 10/12/2020 12:0 0:00 AM EST tablet 3 TAKE 1 TABLET BY RAIMUNDO TH AT 2-PM, 10-PM DAY BEFORE SURGERY THEN 1 AT 6AM MORNING OF SURGERY TAKE 1 TABLET BY MOUTH AT 2-PM, 10-PM DA Y BEFORE SURGERY THEN 1 AT 6AM MORNING OF SURGERY SOLD: 10/14/2020 [facility] 500 mg 10/12/2020 12:00:00 AM EST tablet 6 TAKE 2 TABLETS AT 2-PM, 10-PM DAY BEFORE SURGERY THEN 2 AT 6-AM MORNING OF TAKE 2 TABLETS AT 2-PM, 10-PM DAY BEFORE SURGERY THEN 2 AT 6-AM MORNING OF SOLD: 10/14/2020 [facility] 200 mg/mL 09/23/2020 12:00:00 AM EST oil 6 INJECT 1.5ML INTRAMUSCULARLY EVERY 3 WEEKS, MAX OF 1.5ML PER 3 WEEKS INJECT 1.5ML INTRAMUSCULARLY EVERY 3 WEEKS, MAX OF 1.5ML PER 3 WEEKS SOLD: 10/05/2020 [facility] 5 mg 07/14/2020 12:00:00 AM EST tablet 30 TAKE ONE TABLET BY MOUTH EVERY DAY TAKE ONE TABLET BY MOUTH EVERY DAY SOLD: 10/18/2020 [facility] 5 mg 07/14/2020 12:00:00 AM EST tablet 30 TAKE ONE TABLET BY MOUTH EVERY DAY TAKE ONE TABLET BY MOUTH EVERY DAY SOLD: 08/24/2020 [facility] 5 mg 07/14/2020 12:00:00 AM EST tablet 30 TAKE ONE TABLET BY MOUTH EVERY DAY TAKE ONE TABLET BY MOUTH EVERY DAY SOLD: 07/16/2020 [facility] 5 mg 07/14/2020 12:00:00 AM EST tablet 30 TAKE ONE TABLET BY MOUTH EVERY DAY TAKE ONE TABLET BY MOUTH EVERY DAY SOLD: 09/19/2020 [facility] 200 mg/mL 06/24/2020 12:00:00 AM EST oil 6 INJECT 1.5MLS EVERY 3 WEEKS INTRAMUSCULARLY MAXIMUM DAILY DOSE = 1 & 1/2 MLS INJECT 1.5MLS EVERY 3 WEEKS INTRAMUSCULARLY MAXIMUM DAILY DOSE = 1 & 1/2 MLS SOLD: 06/25/2020 [facility] 18 gauge x 1" 06/17/2020 12:00:00 AM EST needle 12 USE DIRECTED USE DIRECTED SOLD: 06/19/2020 [facility] 5-325 mg 06/15/2020 12:00:00 AM EST tablet 60 TAKE TWO TABLETS BY MOUTH EVERY 4 HOURS NEEDED FOR PAIN SEVERE * MAXIMUM DAILY DOSE = 6 TAKE TWO TABLETS BY MOUTH EVERY 4 HOURS NEEDED FOR PAIN SEVERE * MAXIMUM DAILY DOSE = 6 SOLD: 06/15/2020 [facility] 5 mg 12/28/2019 12:00:00 AM EDT tablet 30 TAKE ONE TABLET BY MOUTH EVERY DAY TAKE ONE TABLET BY MOUTH EVERY DAY SOLD: 06/19/2020 [facility] Insurance Providers Payer name Policy type / Coverage type Policy ID Covered green party ID Covered green party's relationship to [place] Policy [place] Plan Information [facility] [id number] SP [id number] [facility] O [id number] S [id number] [facility] [id number] SP [id number] [facility] Health Maintenance Organization ([facility]) [id number] Self [id number] [facility] Health Maintenance [facility] ([facility]) [id number] Self [id number] [employer] [place] PPO [id number] [facility] Medicaid Medicaid [id number] Self [id number] [facility] Health Maintenance [facility] ([facility]) [id number] Self [id number] [facility] O [id number] S [id number] [facility] [id number] SP [id number] Problems, Conditions, and Diagnoses Code Display Name Description Problem Type Effective Dates Data Source(s) G47.30 Sleep apnea Sleep apnea Problem 10/17/2020 12:00:00 AM EST [facility] ([facility], ) R05 Cough Cough Problem 10/17/2020 12:00:00 AM ES T [facility] ([facility], ) R01.1 Heart murmur Heart murmur Problem 10/17/2020 12:00:00 A M EST [facility] ([facility], ) Surgeries/Procedures Procedure Description Date Indications Data Source(s) OFFICE OUTPATIENT VISIT 25 MINUTES 06/21/2021 12:00:00 AM EST [facility] ([facility], ) Colostomy Closure/Takedown 03/07/2021 12:00:00 AM EDT [facility] ([facility]) OFFICE OUTPATIENT VISIT 25 MINUTES 01/16/2021 12:00:00 AM EDT [facility] ([facility]) [facility] HOSPITAL CARE/DAY 25 MINUTES 11/21/2020 12:00:00 AM EDT [facility] ([facility]) Insertion Of Non-Tunneled Centrally Inserted Central Venous Cathy 11/20/2020 12:00:00 AM EDT [facility] ([facility]) Ultrasound Guidance For Vascular Access Requiring Ultrasound Eval 11/20/2020 12:00:00 AM EDT [facility] ([facility]) CRITICAL CARE ILL/INJURED PATIENT INIT 30-74 MIN 11/20 12:00:00 AM EDT [facility] ([facility]) CRITICAL CARE ILL/INJURED PATIENT ADDL 30 MIN 11/21/19 21 12:00:00 AM EDT [facility] ([facility]) Laparoscopy Surgical Closure Of Enterostomy, Large Or Small Intes 10/21/2020 12:00:00 AM EST [facility] ([facility]) Laparoscopy Surgical Closure Of Enterostomy, Large Or Small Intes 10/21/2020 12:00:00 AM EST [facility] ([facility]) Colonoscopy W/ Poly 10/20/2020 12:00:00 AM EST [facility] ([facility]) OFFICE OUTPATIENT NEW 30 MINUTES 10/17/2020 12:00:00 A M EST [facility] ([facility], ) Colectomy Partial W/Skin Level Cecostomy Or Colostomy 06/09/2020 12:00:00 AM EDT [facility] ([facility]) Results ID Date Data Source [id number] 07/13/2021 10:55:00 AM EST [facility] Name Value Range Interpretation Code Description Data Suma rce(s) Supporting Document(s) SARS-CoV-2 (COVID-19) RNA [Presence] in Respiratory specimen by ALEXIS with probe detection Not Detected [facility] This lab was ordered by [facility] and reported by [employer]. ID Date Data Source [id number] 03/02/2021 09:50:00 AM EDT [facility] Name Value Range Interpretation Code Description Data Suma rce(s) Supporting Document(s) SARS-CoV-2 (COVID-19) RNA [Presence] in Respiratory specimen by ALEXIS with probe detection Not Detected [facility] This lab was ordered by [facility] and reported by [employer] ID Date Data Source [id number] 11/30/2020 05:24:00 PM EDT [facility] Name Value Range Interpretation Code Description Data Suma rce(s) Supporting Document(s) SARS coronavirus 2 RNA [Presence] in Res piratory specimen by ALEXIS with probe detection NEGATIVE [facility] This lab was ordered by [facility] a nd reported by [facility]. ID Date Data Source [id number] 11/19/2020 05:56:00 PM EDT [facility] Name Value Range Interpretation Code Description Data Suma rce(s) Supporting Document(s) SARS coronavirus 2 RNA [Presence] in Res piratory specimen by ALEXIS with probe detection NEGATIVE [facility] This lab was ordered by [facility] a nd reported by [facility]. ID Date Data Source [id number] 11/04/2020 01:41:00 PM EDT [facility] Name Value Range Interpretation Code Description Data Suma rce(s) Supporting Document(s) SARS coronavirus 2 RNA [Presence] in Res piratory specimen by ALEXIS with probe detection NEGATIVE [facility] This lab was ordered by [facility] a nd reported by [facility]. ID Date Data Source [id number] 10/20/2020 08:44:00 AM EST [facility] ([facility], ) Name Value Range Interpretation Code Description Data Suma rce(s) Supporting Document(s) Surgical pathology study Laboratory test result [place] ([facility], ) FINAL DIAGNOSIS Colon polyp, polypectomy: Fragments of tubular adenoma. 10/21/2020 - 1355 CLINICAL DIAGNOSIS Colon polyps 10/20/2020 - 151 GROSS DIAGNOSIS Received in formalin labeled "colon polyp" consists of three fragments of amezquita tissue, 0.4 x 0.3 x 0.2 cm in aggregate. All in one. -MGAALIS 10/20/2020 - 1513 Signed LE WILLIS MD 10/21/2020 1417 ID Date Data Source [id number] 10/16/2020 09:00:00 AM EST [facility] Name Value Range Interpretation Code Description Data Suma rce(s) Supporting Document(s) SARS coronavirus 2 RNA Not Detected [facility] This lab was ordered by [facility] and reported by [facility]. Procedure Social History Code Duration Value Status Description Data Source(s ) 10/17/2020 12:00:00 AM EST Patient is a current smoker, smokes every day completed Patient is a current smoker, smokes every day [facility] ( [facility]) Vital Signs ID Date Data Source UNK Name Value Range Interpretation Code Description Data Source(s) Systolic blood pressure 146 mm[Hg] 146 mm[Hg] [facility] ([facility]) Diastolic blood pressure 87 mm[Hg] 87 mm[Hg] [facility] ([facility]) Body temperature 97.2 [degF] 97.2 [degF] [facility] ([facility]) Body height 69 [in_i] 69 [in_i] [facility] ([facility]) 5'9" Body weight 178.00 [lb_av] 178.00 [lb_av] [facility] Body mass index (BMI) [Ratio] 26.3 kg/m2 26.3 k g/m2 [facility]) [place] body weight 160 [lb_av] 160 [lb_av] [facility] Body weight 80.741 kg 80.741 kg [facility] ([facility]) Body surface area Derived from formula 1.97 m2 1.97 m2 [facility] ([facility]) Body mass index (BMI) [Ratio] 25.7 kg/m2 25.7 k g/m2 [facility] ([facility]) Systolic blood pressure 148 mm[Hg] 148 mm[Hg] [facility] ([facility]) Diastolic blood pressure 80 mm[Hg] 80 mm[Hg] [facility] ([facility]) Heart rate 71 /min 71 /min [facility] ([facility]) Body temperature 98.3 [degF] 98.3 [degF] [facility] Body height 69 [in_i] 69 [in_i] [facility] ([facility]) 5'9" Body weight 174.25 [lb_av] 174.25 [lb_av] [facility] ([facility]) [place] body weight 160 [lb_av] 160 [lb_av] [facility] T ([facility]) Body weight 79.040 kg 79.040 kg [facility] ([facility]) Body surface area Derived from formula 1.95 m2 1.95 m2 [facility] ([facility]) Body weight 168.38 [lb_av] 168.38 [lb_av] [facility] Body height 69 [in_i] 69 [in_i] [facility] ([facility]) 5'9" Body temperature 98.5 [degF] 98.5 [degF] [facility] ([facility]) Body weight 76.375 kg 76.375 kg [facility] ([facility]) Body mass index (BMI) [Ratio] 24.9 kg/m2 24.9 k g/m2 [facility] ([facility]) Body surface area Derived from formula 1.92 m2 1.92 m2 [facility] ([facility]) [place] body weight 160 [lb_av] 160 [lb_av] [facility] ([facility]) Systolic blood pressure 147 mm[Hg] 147 mm[Hg] [facility] ([facility]) Diastolic blood pressure 88 mm[Hg] 88 mm[Hg] [facility] ([facility]) Systolic blood pressure 141 mm[Hg] 141 mm[Hg] [facility] ([facility]) Diastolic blood pressure 88 mm[Hg] 88 mm[Hg] [facility] ([facility]) Body weight 74.617 kg 74.617 kg [facility] ([facility]) Body surface area Derived from formula 1.90 m2 1.90 m2 [facility] ([facility]) Heart rate 74 /min 74 /min [facility] ([facility]) Body temperature 98.5 [degF] 98.5 [degF] [facility] ([facility]) Body weight 164.50 [lb_av] 164.50 [lb_av] [facility] ([facility]) Body mass index (BMI) [Ratio] 24.3 kg/m2 24.3 k g/m2 [facility] ([facility]) [place] body weight 160 [lb_av] 160 [lb_av] [facility] T ([facility]) Body height 69 [in_i] 69 [in_i] [facility] ([facility]) 5'9" Body surface area Derived from formula 1.93 m2 1.93 m2 [facility] ([facility]) Systolic blood pressure 163 mm[Hg] 163 mm[Hg] M [facility] ([facility]) Diastolic blood pressure 88 mm[Hg] 88 mm[Hg] [facility] ([facility]) Heart rate 77 /min 77 /min [facility] ([facility]) Body height 69 [in_i] 69 [in_i] [place] ([facility]) 5'9" Body weight 170.38 [lb_av] 170.38 [lb_av] [facility] ([facility]) Body mass index (BMI) [Ratio] 25.2 kg/m2 25.2 k g/m2 [place] ([facility]) [place] body weight 160 [lb_av] 160 [lb_av] [facility] ([facility]) Body weight 77.282 kg 77.282 kg [place] ([facility]) Systolic blood pressure 144 mm[Hg] 144 mm[Hg] [facility] ([facility]) Diastolic blood pressure 91 mm[Hg] 91 mm[Hg] [facility] ([facility]) Heart rate 76 /min 76 /min [facility] ([facility]) Body height 69 [in_i] 69 [in_i] [facility] ([facility]) 5'9" Body weight 169.00 [lb_av] 169.00 [lb_av] [facility] ([facility]) Body mass index (BMI) [Ratio] 25.0 kg/m2 25.0 k g/m2 [facility] ([facility]) [place] body weight 160 [lb_av] 160 [lb_av] [facility] ([facility]) Body weight 76.658 kg 76.658 kg [facility] ([facility]) Body surface area Derived from formula 1.92 m2 1.92 m2 [facility] ([facility]) Body height 69 [in_i] 69 [in_i] [facility] ([facility]) 5'9" Body weight 169.00 [lb_av] 169.00 [lb_av] [facility] ([facility]) Body mass index (BMI) [Ratio] 25.0 kg/m2 25.0 k g/m2 [facility] ([facility]) [place] body weight 160 [lb_av] 160 [lb_av] [facility] ([facility]) Body weight 76.658 kg 76.658 kg [facility] ([facility]) Body surface area Derived from formula 1.92 m2 1.92 m2 [facility] ([facility]) Body weight 172.00 [lb_av] 172.00 [lb_av] [facility] ([facility]) Diastolic blood pressure 85 mm[Hg] 85 mm[Hg] [facility] [place] body weight 160 [lb_av] 160 [lb_av] [facility] ([facility]) Body weight 78.019 kg 78.019 kg [facility] ([facility]) Body surface area Derived from formula 1.94 m2 1.94 m2 [facility] ([facility]) Systolic blood pressure 127 mm[Hg] 127 mm[Hg] [facility] ([facility]) Body height 69 [in_i] 69 [in_i] [place] ([facility]) 5'9" Body mass index (BMI) [Ratio] 25.4 kg/m2 25.4 k g/m2 [facility] ([facility]) Body mass index (BMI) [Ratio] 22.8 kg/m2 22.8 k g/m2 [facility] ([facility]) [place] body weight 160 [lb_av] 160 [lb_av] [facility] ([facility]) Body weight 70.110 kg 70.110 kg [facility] ([facility]) Body surface area Derived from formula 1.85 m2 1.85 m2 [facility] ([facility]) Systolic blood pressure 116 mm[Hg] 116 mm[Hg] [place] [facility]) Diastolic blood pressure 62 mm[Hg] 62 mm[Hg] [facility] ([facility]) Body height 69 [in_i] 69 [in_i] [facility] ([facility]) 5'9" Body weight 154.56 [lb_av] 154.56 [lb_av] [facility] ([facility]) Heart rate 72 /min 72 /min [facility] ([facility]) Body weight 80.741 kg 80.741 kg [facility] ([facility]) Body surface area Derived from formula 1.97 m2 1.97 m2 [facility] ([facility]) Body weight 178.00 [lb_av] 178.00 [lb_av] [facility] ([facility]) Body mass index (BMI) [Ratio] 26.3 kg/m2 26.3 k g/m2 [facility] ([facility]) [place] body weight 160 [lb_av] 160 [lb_av] [facility] ([facility]) Oxygen saturation in Arterial blood by Pulse oximetry 96 % 96 % [facility] ([facility]) Room Air Body height 69 [in_i] 69 [in_i] [facility] ([facility]) 5'9" Systolic blood pressure 140 mm[Hg] 140 mm[Hg] [place]) Diastolic blood pressure 82 mm[Hg] 82 mm[Hg] [facility] ([facility]) Body height 69 [in_i] 69 [in_i] [facility] ([facility]) 5'9" [place] body weight 160 [lb_av] 160 [lb_av] [facility] ([facility]) Systolic blood pressure 153 mm[Hg] 153 mm[Hg] [facility] ([facility]) Diastolic blood pressure 81 mm[Hg] 81 mm[Hg] [place] ([facility]) Body height 69 [in_i] 69 [in_i] [facility] ([facility]) 5'9" Body weight 180.25 [lb_av] 180.25 [lb_av] [facility] ([facility]) Body mass index (BMI) [Ratio] 26.6 kg/m2 26.6 k g/m2 [facility] ([facility]) [place] body weight 160 [lb_av] 160 [lb_av] [facility] ([facility]) Body weight 81.761 kg 81.761 kg [facility] ([facility]) Body surface area Derived from formula 1.98 m2 1.98 m2 [facility] ([facility]) Systolic blood pressure 118 mm[Hg] 118 mm[Hg] [facility] ([facility]) Diastolic blood pressure 80 mm[Hg] 80 mm[Hg] [facility] ([facility]) Body height 69 [in_i] 69 [in_i] [facility] ([facility]) 5'9" Body weight 163.25 [lb_av] 163.25 [lb_av] [facility] ([facility]) Body mass index (BMI) [Ratio] 24.1 kg/m2 24.1 k g/m2 [facility] ([facility]) [place] body weight 160 [lb_av] 160 [lb_av] [facility] ([facility]) Body weight 74.050 kg 74.050 kg [facility] ([facility]) Body surface area Derived from formula 1.90 m2 1.90 m2 [facility] ([facility]) [place] body weight 160 [lb_av] 160 [lb_av] [facility] Body weight 72.689 kg 72.689 kg [facility] ([facility]) Systolic blood pressure 113 mm[Hg] 113 mm[Hg] [facility] ([facility]) Diastolic blood pressure 77 mm[Hg] 77 mm[Hg] [facility] ([facility]) Heart rate 74 /min 74 /min [facility] ([facility]) Body height 69 [in_i] 69 [in_i] [facility] ([facility]) 5'9" Body weight 160.25 [lb_av] 160.25 [lb_av] [facility] Body mass index (BMI) [Ratio] 23.7 kg/m2 23.7 k g/m2 [facility] ([facility])
[2021-07-18] MEDS ORDERED: fentaNYL 250 MCG/5 ML INJECTION (J3010) As Ordered ONE (07:14)
[2021-07-18] MEDS ORDERED: MIDAZOLAM INJ 2MG/2ML VIAL (J2250 PER 1MG) As Ordered ONE (07:14)
[2021-07-18] MEDS ORDERED: LIDOCAINE 2% 100MG/5ML SDV (FOR ANES.) As Ordered ONE (07:14)
[2021-07-18] MEDS ORDERED: ROCURONIUM BROMIDE 50 MG/5 ML VIAL As Ordered ONE ×3 (07:14→09:53)
[2021-07-18] MEDS ORDERED: propofoL 200 MG/20 ML VIAL As Ordered ONE (07:14)
[2021-07-18] MEDS ORDERED: BUPIVACAINE HCL 0.25% 30ML VIAL As Ordered ONE (07:21)
[2021-07-18] MEDS ORDERED: BUPIVACAINE/EPIN 0.25% 30 ML VIAL As Ordered ONE (07:22)
[2021-07-18] MEDS ORDERED: LACRILUBE (AKWA TEARS) OPHTH OINT 3.5 GM As Ordered ONE (07:48)
[2021-07-18] MEDS ORDERED: ePHEDrine SULFATE 25 MG/5 ML(5MG/ML) SYRINGE As Ordered ONE (07:59)
[2021-07-18] MEDS ORDERED: BUPIVACAINE LIPOSOME/PF 1.3% 20ML VIAL (13.3MG/ML)(EXPAREL)(C9290 PER1MG) As Ordered ONE (08:15)
[2021-07-18] MEDS ORDERED: BUPIVACAINE HCL 0.25% 10ML VIAL As Ordered ONE (08:15)
[2021-07-18] MEDS ORDERED: dexameTHASONE 4 MG/ML 1ML VIAL (J1100 PER 1MG) As Ordered ONE (09:14)
[2021-07-18] MEDS ORDERED: SUGAMMADEX SODIUM 500 MG/5 ML VIAL (BRIDION) As Ordered ONE (09:14)
[2021-07-18] MEDS ORDERED: ONDANSETRON 4MG/2ML VIAL As Ordered ONE (09:14)
[2021-07-18] MEDS ORDERED: KETOROLAC 60MG 2ML VIAL As Ordered ONE ×2 (09:14→10:57)
[2021-07-18] MEDS ORDERED: ACETAMINOPHEN 1000MG 100ML IV BTL (OFIRMEV) (J0131 PER 10MG) As Ordered ONE (09:14)
[2021-07-18] MEDS ORDERED: fentaNYL 100 MCG/2 ML INJECTION (J3010) As Ordered ONE (11:04)
[2021-07-18] MEDS ORDERED: METOCLOPRAMIDE INJ 10MG/2ML VIAL (J2765 PER 1) IV PRN (11:50)
[2021-07-18] MEDS ORDERED: ONDANSETRON 4MG/2ML VIAL IV PRN (11:50)
[2021-07-18] MEDS ORDERED: LR 1,000 ML IV SCH (11:50)
[2021-07-18] MEDS ORDERED: fentaNYL 100 MCG/2 ML INJECTION (J3010) IV PRN (11:50)
[2021-07-18] MEDS ORDERED: NS 1,000 ML IV SCH (11:55)
[2021-07-18] MEDS ORDERED: PERCOCET 5MG/325MG TAB PO PRN (11:55)
[2021-07-18] MEDS: PERCOCET 5MG/325MG TAB PO PRN ×2 (11:58→12:33)
[2021-07-18 13:40] VITALS: BP 168/96
== END 2021-07-18 14:05 | disposition home or self-care (01) ==
LOC: M SDC 06:08
PROVIDERS: ATTEND Surgery
DX: K43.2 Incisional hernia without obstruction or gangrene (principal); I10 Essential (primary) hypertension; F17.218 Nicotine dependence, cigarettes, with other nicotine-induced disorders; Z88.8 Allergy status to other drugs, medicaments and biological substances; F32.9 Major depressive disorder, single episode, unspecified; Z79.899 Other long term (current) drug therapy; Z92.21 Personal history of antineoplastic chemotherapy; Z85.47 Personal history of malignant neoplasm of testis; F12.10 Cannabis abuse, uncomplicated
CPT/HCPCS: 49654; C1781; C9290; J0131; J0690; J1100; J1885; J2250; J2405; J3010; S2900

== ENCOUNTER → 2022-03-05 | Outpatient (CLI) | payer OTHER ==
[~2022-03-05] MED LIST changes: -LISI-898 PO; +LISI5TAB11 PO; -LR 1,000 ML IV ONE; -ceFAZolin SOD 2 GM in IV 1 EA IV ONE
[2022-03-05 13:41] LABS: HEMATOCRIT 48.6 % (42.0-52.0); HEMOGLOBIN 16.4 g/dl (13.5-17.5); MEAN CORPUSCULAR HEMOGLOBIN 33.5 pg (27.0-33.0); MEAN CORPUSCULAR HGB CONC 33.7 g/dl (32.0-36.5); MEAN CORPUSCULAR VOLUME 99.2 fl (80.0-96.0); PLATELET COUNT, AUTOMATED 241 10^3/uL (150-450); WHITE BLOOD COUNT 7.7 10^3/uL (4.0-10.0)
[2022-03-05 15:29] LABS: BLOOD UREA NITROGEN 12 MG/DL (7-18); GLUCOSE, FASTING 87 MG/DL (70-100)
[2022-03-05 15:30] LABS: ALT/SGPT 37 IU/L (0-32); BILIRUBIN,TOTAL 0.4 MG/DL (0.2-1.0); CALCIUM LEVEL 9.4 MG/DL (8.8-10.2); CARBON DIOXIDE LEVEL 27 mmol/L (20-29); CHLORIDE LEVEL 105 MEQ/L (98-107); CHOLESTEROL LEVEL 254 MG/DL (<200); CHOLESTEROL RISK RATIO 2.953 (<5); CREATININE FOR GFR 0.92 MG/DL (0.70-1.30); GLOMERULAR FILTRATION RATE > 60.0 (>49); HDL CHOLESTEROL 86 MG/DL (>40); LDL CHOLESTEROL 121.2 MG/DL (<100); NON-HDL-C 168 MG/DL; SODIUM LEVEL 139 MEQ/L (136-145); TRIGLYCERIDES LEVEL 234 MG/DL (<150)
[2022-03-05 15:31] LABS: TOTAL PROTEIN 7.4 GM/DL (6.4-8.2)
[2022-03-05 18:16] LABS: TESTOSTERONE 193 NG/DL (241-827)
[2022-03-07 12:32] LABS: PROSTATIC SPECIFIC AG MONITOR 1.29 NG/ML (< 4.00)
== END ==
LOC: M ADAMS 08:52
PROVIDERS: ATTEND Family Medicine
DX: C62.90 Malignant neoplasm of unspecified testis, unspecified whether descended or undescended (principal); R97.20 Elevated prostate specific antigen [PSA]; I10 Essential (primary) hypertension

== ENCOUNTER → 2023-02-18 | Outpatient (REF) | payer OTHER ==
[2023-02-18 17:27] LABS: ALBUMIN 3.8 G/DL (3.2-5.2); ALKALINE PHOSPHATASE 72 U/L (46-116); ALT/SGPT 29 U/L (7.0-40); AST/SGOT 16 U/L (<34); BILIRUBIN,TOTAL 0.4 MG/DL (0.3-1.2); BLOOD UREA NITROGEN 15 MG/DL (9-23); CARBON DIOXIDE LEVEL 31 MMOL/L (20-31); CHLORIDE LEVEL 102 MMOL/L (98-107); CREATININE FOR GFR 0.79 MG/DL (0.70-1.30); GLOMERULAR FILTRATION RATE > 60.0 (>49); GLUCOSE, FASTING 67 MG/DL (74-106); POTASSIUM SERUM 3.9 MMOL/L (3.5-5.1); SODIUM LEVEL 141 MMOL/L (136-145); TOTAL PROTEIN 6.7 G/DL (5.7-8.2)
[2023-02-18 17:31] LABS: TESTOSTERONE 301 NG/DL (241-827)
== END ==
LOC: M LABDRWAD 16:19
PROVIDERS: ATTEND Family Medicine
DX: Z79.899 Other long term (current) drug therapy (principal); R97.20 Elevated prostate specific antigen [PSA]

== ENCOUNTER 2023-09-06 05:14 | Inpatient (IN) | payer MEDICARE, OTHER ==
[~2023-09-06] VITALS: Ht 175.3 cm; Wt 75.0 kg
[2023-09-06 06:09] LABS: RSV AMPLIFICATION NEGATIVE (NEGATIVE)
[2023-09-06] MEDS ORDERED: FOLIC ACID 1MG TAB PO SCH (09:00)
[2023-09-06] MEDS ORDERED: NS 1,000 ML IV ONE (09:40)
[2023-09-06 10:02] LABS: BASO # 0.1 10^3/uL (0.0-0.2); BASO % 0.4 % (0.0-1.0); EOS % 0.1 % (0.0-3.0); HEMATOCRIT 41.3 % (42.0-52.0); HEMOGLOBIN 14.7 g/dl (13.5-17.5); LYMPH # 0.7 10^3/uL (1.5-5.0); LYMPH % 4.9 % (24.0-44.0); MEAN CORPUSCULAR HEMOGLOBIN 33.5 pg (27.0-33.0); MEAN CORPUSCULAR HGB CONC 35.6 g/dl (32.0-36.5); MEAN CORPUSCULAR VOLUME 94.1 fl (80.0-96.0); MONO # 1.1 10^3/uL (0.0-0.8); MONO % 7.6 % (2.0-8.0); NEUTROPHILS # 11.9 10^3/uL (1.5-8.5); NEUTROPHILS % 86.3 % (36.0-66.0); PLATELET COUNT, AUTOMATED 125 10^3/uL (150-450); RED BLOOD COUNT 4.39 10^6/uL (4.30-6.10); WHITE BLOOD COUNT 13.8 10^3/uL (4.0-10.0)
[2023-09-06 10:17] LABS: INR 1.03; PROTHROMBIN TIME 13.2 SECONDS (12.5-14.5)
[2023-09-06 10:18] LABS: PARTIAL THROMBOPLASTIN TIME 29.8 SECONDS (24.8-34.2)
[2023-09-06 10:25] LABS: ALBUMIN 3.5 G/DL (3.2-5.2); BILIRUBIN,DIRECT 0.4 MG/DL (<0.4); BILIRUBIN,TOTAL 1.1 MG/DL (0.3-1.2); CK-MB VALUE MASS 2.7 NG/ML (<3.6); MB/CK RELATIVE INDEX 0.97 (< OR =4); TOTAL PROTEIN 6.9 G/DL (5.7-8.2)
[2023-09-06] MEDS ORDERED: ISOVUE-370 76% 100ML VIAL As Ordered ONE (10:44)
[2023-09-06 10:49] LABS: APPEARANCE, URINE HAZY (CLEAR); BACTERIA, URINE AUTO NEGATIVE (NEGATIVE); BILIRUBIN, URINE AUTO NEGATIVE (NEGATIVE); BLOOD, URINE BLOOD NEGATIVE (NEGATIVE); COLOR, URINE AMBER (YELLOW); GLUCOSE, URINE (UA) AUTO NEGATIVE (NEGATIVE); KETONE, URINE AUTO 1+ mg/dL (NEGATIVE); LEUKOCYTE ESTERASE, URINE AUTO TRACE (NEGATIVE); MUCUS, URINE SMALL (NEGATIVE); NITRITE, URINE AUTO NEGATIVE (NEGATIVE); PROTEIN, URINE AUTO 2+ mg/dL (NEGATIVE); RBC, URINE AUTO 13 /HPF (0-3); SPECIFIC GRAVITY URINE AUTO 1.024 (1.002-1.035); SQUAMOUS EPITHELIAL CELL UR AU 0 /HPF (0-6); WBC, URINE AUTO 0 /HPF (0-3)
[2023-09-06] MEDS ORDERED: LORazepam 2 MG TAB PO PRN ×2 (10:50→12:40)
[2023-09-06] MEDS ORDERED: THIAMINE 100 MG TAB PO SCH (10:58)
[2023-09-06] MEDS ORDERED: MED REC IN PROGRESS XX SCH (11:15)
[2023-09-06 11:28] LABS: CK-MB VALUE MASS 2.2 NG/ML (<3.6)
[2023-09-06 11:29] LABS: MB/CK RELATIVE INDEX 0.88 (< OR =4)
[2023-09-06] MEDS ORDERED: CEFTAROLINE FOSAMIL 600 MG in D5W MINI-BAG PLUS 50 ML IV ONE (12:10)
[2023-09-06] MEDS ORDERED: AZITHROMYCIN INJ 500 MG, VIAL MATE ADAPTER 1 EACH in NS 250 ML IV ONE (12:25)
[2023-09-06] MEDS ORDERED: cefTRIAXone SOD 1 GM in D5W MINI-BAG PLUS 50 ML IV ONE ×2 (12:25→14:00)
[2023-09-06] MEDS ORDERED: NICOTINE POLACRILEX 2 MG GUM PO PRN (12:40)
[2023-09-06] MEDS ORDERED: cloNIDine 0.1MG TABLET PO SCH (12:40)
[2023-09-06] MEDS ORDERED: MULT-40 PO (12:41)
[2023-09-06] MEDS ORDERED: IPRATROPIUM 0.02% SOLN 0.5MG 2.5ML NEB INH PRN (12:45)
[2023-09-06] MEDS ORDERED: LEVALBUTEROL 1.25MG 0.5ML CONCENTRATE NEB INH PRN (12:45)
[2023-09-06] MEDS ORDERED: HOME MED LIST COMPLETE! XX SCH (12:45)
[2023-09-06] MEDS ORDERED: OXAZEPAM 15MG CAP PO ONE ×2 (13:15→19:00)
[2023-09-06] MEDS ORDERED: NICOTINE 21MG/24HR 1 EA TRANSDERMAL TD ONE (13:15)
[2023-09-06] MEDS: cloNIDine 0.1MG TABLET PO SCH ×3 (13:22→18:00)
[2023-09-06] MEDS: MULTIVITAMINS/MINERALS THERAP 1 TAB PO SCH (13:22)
[2023-09-06] MEDS: IPRATROPIUM 0.02% SOLN 0.5MG 2.5ML NEB INH SCH ×3 (14:14→19:21)
[2023-09-06] MEDS: LEVALBUTEROL 1.25MG 0.5ML CONCENTRATE NEB INH SCH ×3 (14:14→19:21)
[2023-09-06 14:37] VITALS: BP 128/76; TEMP 98.1; O2SAT 93
[2023-09-06 14:59] VITALS: BP 128/76
[2023-09-06] MEDS ORDERED: flumazeniL 0.5MG/5ML VIAL IV PRN (19:00)
[2023-09-06 20:30] VITALS: BP 143/84; TEMP 98.2; O2SAT 90
[2023-09-06] MEDS: THIAMINE 100 MG TAB PO SCH (20:58)
[2023-09-06 22:00] VITALS: BP 143/84
[2023-09-07] VITALS (7 sets, daily range): BP systolic 113–137; BP diastolic 82–95; TEMP 97.3–98.8; O2SAT 89–95
[2023-09-07 05:54] LABS: BASO % 0.3 % (0.0-1.0); EOS # 0.1 10^3/uL (0.0-0.5); EOS % 0.6 % (0.0-3.0); HEMATOCRIT 40.2 % (42.0-52.0); HEMOGLOBIN 14.2 g/dl (13.5-17.5); LYMPH # 1.1 10^3/uL (1.5-5.0); LYMPH % 10.6 % (24.0-44.0); MEAN CORPUSCULAR HEMOGLOBIN 33.8 pg (27.0-33.0); MEAN CORPUSCULAR HGB CONC 35.3 g/dl (32.0-36.5); MEAN CORPUSCULAR VOLUME 95.7 fl (80.0-96.0); MONO # 0.6 10^3/uL (0.0-0.8); MONO % 6.1 % (2.0-8.0); NEUTROPHILS % 81.5 % (36.0-66.0); PLATELET COUNT, AUTOMATED 127 10^3/uL (150-450); WHITE BLOOD COUNT 9.9 10^3/uL (4.0-10.0)
[2023-09-07] MEDS: cloNIDine 0.1MG TABLET PO SCH ×2 (06:00)
[2023-09-07 06:17] LABS: BLOOD UREA NITROGEN 10 MG/DL (9-23); CARBON DIOXIDE LEVEL 30 MMOL/L (20-31); CHLORIDE LEVEL 100 MMOL/L (98-107); CREATININE FOR GFR 0.67 MG/DL (0.70-1.30); GLOMERULAR FILTRATION RATE > 60.0 (>49); GLUCOSE, FASTING 85 MG/DL (74-106); POTASSIUM SERUM 2.8 MMOL/L (3.5-5.1); SODIUM LEVEL 134 MMOL/L (136-145)
[2023-09-07] MEDS: KCL 10MEQ/100ML SWI (KRUN) 10 MEQ in IV 1 EA IV SCH ×4 (06:51→10:39)
[2023-09-07] MEDS ORDERED: POTASSIUM CHLORIDE 10MEQ SR TABLET PO ONE ×3 (07:00→15:00)
[2023-09-07 07:06] LABS: MAGNESIUM LEVEL 1.3 MG/DL (1.8-2.4)
[2023-09-07] MEDS: LEVALBUTEROL 1.25MG 0.5ML CONCENTRATE NEB INH SCH ×4 (07:11→19:07)
[2023-09-07] MEDS: IPRATROPIUM 0.02% SOLN 0.5MG 2.5ML NEB INH SCH ×4 (07:11→19:07)
[2023-09-07] MEDS: MULTIVITAMINS/MINERALS THERAP 1 TAB PO SCH (08:49)
[2023-09-07] MEDS: NICOTINE 21MG/24HR 1 EA TRANSDERMAL TD SCH (08:49)
[2023-09-07] MEDS: AZITHROMYCIN 250MG TABLET PO SCH (08:50)
[2023-09-07] MEDS: THIAMINE 100 MG TAB PO SCH ×2 (08:50→21:07)
[2023-09-07] MEDS: FOLIC ACID 1MG TAB PO SCH (08:50)
[2023-09-07] MEDS ORDERED: MULTIVITAMINS/MINERALS THERAP 1 TAB PO SCH (09:00)
[2023-09-07] MEDS ORDERED: atenoloL 25 MG TAB PO ONE (11:00)
[2023-09-07] MEDS ORDERED: OXAZEPAM 15MG CAP PO ONE ×2 (11:00→17:00)
[2023-09-07] MEDS ORDERED: AZIT-12 PO (11:22)
[2023-09-07] MEDS ORDERED: NICO21PAT TD (11:22)
[2023-09-07] MEDS ORDERED: AZIT200S30 PO (11:22)
[2023-09-07] MEDS ORDERED: CEFD1CAP9 PO (11:22)
[2023-09-07] MEDS ORDERED: FOLI1TAB11 PO (11:29)
[2023-09-07] MEDS ORDERED: THIA100TA PO (11:29)
[2023-09-07] MEDS ORDERED: MULT-90 PO (11:29)
[2023-09-07] MEDS ORDERED: OXAZ15CA4 PO (11:29)
[2023-09-07] MEDS ORDERED: MAG SULF 1GM/100ML (MAG RUN) 1 GM in IV 1 EA IV ONE (12:00)
[2023-09-07] MEDS ORDERED: cloNIDine 0.1MG TABLET PO SCH (12:00)
[2023-09-07] MEDS ORDERED: cefTRIAXone SOD 2 GM in D5W MINI-BAG PLUS 50 ML IV SCH (13:00)
[2023-09-07] MEDS: MAGNESIUM OXIDE 400MG TAB (MAG-OX) PO SCH ×2 (16:36→21:07)
[2023-09-07 18:47] LABS: BILIRUBIN,DIRECT 0.2 MG/DL (<0.4); BILIRUBIN,TOTAL 0.5 MG/DL (0.3-1.2); MAGNESIUM LEVEL 1.6 MG/DL (1.8-2.4); POTASSIUM SERUM 3.7 MMOL/L (3.5-5.1); TOTAL PROTEIN 6.2 G/DL (5.7-8.2)
[2023-09-07] MEDS ORDERED: atenoloL 25 MG TAB PO SCH (21:00)
[2023-09-08 00:20] LABS: MAGNESIUM LEVEL 1.4 MG/DL (1.8-2.4); POTASSIUM SERUM 3.5 MMOL/L (3.5-5.1)
[2023-09-08] MEDS: MAG SULF 1GM/100ML (MAG RUN) 1 GM in IV 1 EA IV SCH ×3 (00:54→02:50)
[2023-09-08 05:48] LABS: BASO # 0.1 10^3/uL (0.0-0.2); BASO % 0.6 % (0.0-1.0); EOS # 0.2 10^3/uL (0.0-0.5); HEMATOCRIT 39.9 % (42.0-52.0); HEMOGLOBIN 13.9 g/dl (13.5-17.5); LYMPH # 1.4 10^3/uL (1.5-5.0); MEAN CORPUSCULAR HEMOGLOBIN 34.2 pg (27.0-33.0); MEAN CORPUSCULAR HGB CONC 34.8 g/dl (32.0-36.5); MONO # 0.7 10^3/uL (0.0-0.8); MONO % 7.2 % (2.0-8.0); NEUTROPHILS # 7.6 10^3/uL (1.5-8.5); NEUTROPHILS % 75.7 % (36.0-66.0); PLATELET COUNT, AUTOMATED 151 10^3/uL (150-450); RED BLOOD COUNT 4.07 10^6/uL (4.30-6.10)
[2023-09-08 05:56] VITALS: BP 128/82; TEMP 97.7; O2SAT 94
[2023-09-08 06:13] LABS: MAGNESIUM LEVEL 1.7 MG/DL (1.8-2.4)
[2023-09-08 06:18] LABS: ALKALINE PHOSPHATASE 68 U/L (46-116); ALT/SGPT 82 U/L (7.0-40); AST/SGOT 62 U/L (<34); BILIRUBIN,DIRECT 0.2 MG/DL (<0.4); BILIRUBIN,TOTAL 0.6 MG/DL (0.3-1.2); BLOOD UREA NITROGEN 11 MG/DL (9-23); CALCIUM LEVEL 9.1 MG/DL (8.3-10.6); CARBON DIOXIDE LEVEL 27 MMOL/L (20-31); CHLORIDE LEVEL 102 MMOL/L (98-107); CREATININE FOR GFR 0.68 MG/DL (0.70-1.30); GLOMERULAR FILTRATION RATE > 60.0 (>49); GLUCOSE, FASTING 88 MG/DL (74-106); POTASSIUM SERUM 3.7 MMOL/L (3.5-5.1); SODIUM LEVEL 136 MMOL/L (136-145); TOTAL PROTEIN 6.2 G/DL (5.7-8.2)
[2023-09-08 06:23] VITALS: BP 128/82
[2023-09-08] MEDS: IPRATROPIUM 0.02% SOLN 0.5MG 2.5ML NEB INH SCH (07:12)
[2023-09-08] MEDS: LEVALBUTEROL 1.25MG 0.5ML CONCENTRATE NEB INH SCH (07:12)
[2023-09-08] MEDS: AZITHROMYCIN 250MG TABLET PO SCH (08:31)
[2023-09-08] MEDS: FOLIC ACID 1MG TAB PO SCH (08:32)
[2023-09-08] MEDS: MULTIVITAMINS/MINERALS THERAP 1 TAB PO SCH (08:32)
[2023-09-08] MEDS: NICOTINE 21MG/24HR 1 EA TRANSDERMAL TD SCH (08:32)
[2023-09-08] MEDS: MAGNESIUM OXIDE 400MG TAB (MAG-OX) PO SCH (08:32)
[2023-09-08] MEDS: THIAMINE 100 MG TAB PO SCH (08:32)
[2023-09-08] MEDS ORDERED: LIDOCAINE 1% SDV 5ML VIAL DILUENT ONE (11:00)
[2023-09-08] MEDS ORDERED: cefTRIAXone SOD 2GM VIAL IM ONE (11:00)
== END 2023-09-08 11:06 | disposition home or self-care (01) | DRG 194 ==
LOC: M ED 05:14 → M ED INP 12:34 → ENRESERV 14:10 → M MSPAV 14:32
PROVIDERS: ADMIT General Practice; ATTEND General Practice
PROC: B246ZZZ Ultrasonography of Right and Left Heart (ICD-10-PCS; principal; 2023-09-06)
DX: J18.9 Pneumonia, unspecified organism (principal); F10.139 Alcohol abuse with withdrawal, unspecified; R91.1 Solitary pulmonary nodule; F17.210 Nicotine dependence, cigarettes, uncomplicated; R63.4 Abnormal weight loss; I10 Essential (primary) hypertension; F32.A Depression, unspecified; H91.93 Unspecified hearing loss, bilateral; N40.0 Benign prostatic hyperplasia without lower urinary tract symptoms; Z92.21 Personal history of antineoplastic chemotherapy; K76.0 Fatty (change of) liver, not elsewhere classified; Z66 Do not resuscitate; Z90.79 Acquired absence of other genital organ(s); Z85.47 Personal history of malignant neoplasm of testis; Z90.49 Acquired absence of other specified parts of digestive tract; Z79.899 Other long term (current) drug therapy; Z88.6 Allergy status to analgesic agent; Z88.8 Allergy status to other drugs, medicaments and biological substances; Z93.2 Ileostomy status

== ENCOUNTER 2023-09-27 14:58 | Inpatient (IN) | payer MEDICARE, OTHER ==
[~2023-09-27] VITALS: Ht 174 cm; Wt 69.3 kg
[~2023-09-27 14:58] MED LIST changes: +AZIT-12 PO; +AZIT200S30 PO; +CEFD1CAP9 PO; +MULT-40 PO; +MULT-90 PO; +NICO21PAT TD; +OXAZ15CA4 PO; +THIA100TA PO
[2023-09-27 16:11] LABS: BASO # 0.1 10^3/uL (0.0-0.2); BASO % 0.9 % (0.0-1.0); EOS % 0.5 % (0.0-3.0); HEMATOCRIT 49.1 % (42.0-52.0); HEMOGLOBIN 17.1 g/dl (13.5-17.5); LYMPH # 1.6 10^3/uL (1.5-5.0); LYMPH % 24.5 % (24.0-44.0); MEAN CORPUSCULAR HEMOGLOBIN 34.2 pg (27.0-33.0); MEAN CORPUSCULAR HGB CONC 34.8 g/dl (32.0-36.5); MEAN CORPUSCULAR VOLUME 98.2 fl (80.0-96.0); MONO # 0.4 10^3/uL (0.0-0.8); MONO % 6.9 % (2.0-8.0); NEUTROPHILS # 4.3 10^3/uL (1.5-8.5); NEUTROPHILS % 66.9 % (36.0-66.0); PLATELET COUNT, AUTOMATED 166 10^3/uL (150-450); WHITE BLOOD COUNT 6.4 10^3/uL (4.0-10.0)
[2023-09-27] MEDS: THIAMINE 100 MG TAB PO SCH (16:26)
[2023-09-27 16:32] LABS: ALBUMIN 4.1 G/DL (3.2-5.2); ALKALINE PHOSPHATASE 78 U/L (46-116); ALT/SGPT 96 U/L (7.0-40); AST/SGOT 109 U/L (<34); BILIRUBIN,DIRECT 0.2 MG/DL (<0.4); BILIRUBIN,TOTAL 0.7 MG/DL (0.3-1.2); BLOOD UREA NITROGEN 21 MG/DL (9-23); CALCIUM LEVEL 8.8 MG/DL (8.3-10.6); CARBON DIOXIDE LEVEL 28 MMOL/L (20-31); CHLORIDE LEVEL 99 MMOL/L (98-107); CREATININE FOR GFR 0.93 MG/DL (0.70-1.30); GLOMERULAR FILTRATION RATE > 60.0 (>49); GLUCOSE, FASTING 74 MG/DL (74-106); POTASSIUM SERUM 3.9 MMOL/L (3.5-5.1); SALICYLATE LEVEL < 3.0 MG/DL (<30); SODIUM LEVEL 141 MMOL/L (136-145); TOTAL PROTEIN 7.3 G/DL (5.7-8.2)
[2023-09-27 16:34] LABS: THYROID STIMULATING HORMONE 1.369 uIU/ML (0.55-4.78)
[2023-09-27 16:40] LABS: RSV AMPLIFICATION NEGATIVE (NEGATIVE)
[2023-09-27 16:53] LABS: AMPHETAMINES LEVEL URINE NEGATIVE (NEGATIVE); BARBITURATES URINE NEGATIVE (NEGATIVE); BENZODIAZEPINES URINE NEGATIVE (NEGATIVE); COCAINE METABOLITE URINE NEGATIVE (NEGATIVE); METHADONE URINE NEGATIVE (NEGATIVE); OPIATES URINE NEGATIVE (NEGATIVE)
[2023-09-27 16:54] LABS: CANNABINOIDS URINE NEGATIVE (NEGATIVE); PHENCYCLIDINE URINE NEGATIVE (NEGATIVE)
[2023-09-27 17:02] LABS: ETHYL ALCOHOL (ETHANOL) 0.404 % (0.000-0.010)
[2023-09-27] MEDS: NS 1,000 ML IV ONE ×2 (18:03→22:23)
[2023-09-27] MEDS: NICOTINE 21MG/24HR 1 EA TRANSDERMAL TD ONE (19:16)
[2023-09-27] MEDS ORDERED: ONDANSETRON 4MG 2ML VIAL As Ordered ONE (22:35)
[2023-09-27] MEDS: ONDANSETRON 4MG 2ML VIAL IV ONE (22:37)
[2023-09-27] MEDS: LORazepam 2 MG TAB PO PRN (22:43)
[2023-09-28] MEDS: MULTIVITAMINS/MINERALS THERAP 1 TAB PO ONE (08:15)
[2023-09-28] MEDS ORDERED: MULTIVITAMINS/MINERALS THERAP 1 TAB PO SCH (09:00)
[2023-09-28] MEDS: THIAMINE 100 MG TAB PO SCH (09:00)
[2023-09-28] MEDS ORDERED: FOLIC ACID 1MG TAB PO SCH (09:00)
[2023-09-28] MEDS: SPIRONOLACTONE 25 MG TAB PO SCH (10:45)
[2023-09-28] MEDS: MULTIVITAMINS/MINERALS THERAP 1 TAB PO SCH (10:46)
[2023-09-28] MEDS: FOLIC ACID 1MG TAB PO SCH (10:46)
[2023-09-28] MEDS ORDERED: MED REC IN PROGRESS XX SCH (10:50)
[2023-09-28] MEDS ORDERED: THIA100TA PO (11:23)
[2023-09-28] MEDS ORDERED: HOME MED LIST COMPLETE! XX SCH (11:35)
[2023-09-28] MEDS: NICOTINE 21MG/24HR 1 EA TRANSDERMAL TD SCH (12:43)
[2023-09-28 15:50] VITALS: BP 162/94; TEMP 97.9; O2SAT 94
[2023-09-28] MEDS ORDERED: MAALOX 30 ML SUSP *UDC PO PRN (15:55)
[2023-09-28] MEDS ORDERED: MOM 30ML SUSPENSION UDC PO PRN (15:55)
[2023-09-28 20:42] VITALS: BP 150/98
[2023-09-28] MEDS: LORazepam 2 MG TAB PO PRN (20:47)
[2023-09-29 01:00] VITALS: BP 137/69
[2023-09-29 06:29] VITALS: BP 115/67; TEMP 97.4; O2SAT 94
[2023-09-29 08:00] VITALS: BP 131/87
[2023-09-29] MEDS: VITAMIN D 1,000 INTERNATIONAL UNITS TABLET PO SCH (09:50)
[2023-09-29] MEDS: SPIRONOLACTONE 25 MG TAB PO SCH (09:50)
[2023-09-29] MEDS: VENLAFAXINE **XR** 37.5 MG CAPSULE PO SCH (09:50)
[2023-09-29 14:00] VITALS: BP 124/80; TEMP 97.4; O2SAT 97
[2023-09-29 18:00] VITALS: BP 128/73
[2023-09-29] MEDS: traZODone 50 MG TAB PO PRN (20:16)
[2023-09-30 00:34] VITALS: BP 128/73
[2023-09-30 05:00] VITALS: BP 132/72; TEMP 98.6; O2SAT 96
[2023-09-30] MEDS: ACETAMINOPHEN TAB 650MG DOSE (2X325MG) PO PRN (08:26)
[2023-09-30] MEDS ORDERED: MULTIVITAMINS/MINERALS THERAP 1 TAB PO SCH (09:00)
[2023-09-30 13:00] VITALS: BP 140/90
[2023-09-30 17:12] VITALS: BP 139/93; TEMP 98; O2SAT 97
[2023-09-30 21:00] VITALS: BP 132/86
[2023-10-01] MEDS: LORazepam 0.5 MG TAB PO ONE (00:41)
[2023-10-01 06:15] VITALS: BP 126/66; TEMP 97.9; O2SAT 96
[2023-10-01 15:51] VITALS: BP 132/82; TEMP 97.4; O2SAT 98
[2023-10-01] MEDS: LORazepam 1 MG TAB PO STA (23:10)
[2023-10-02 06:32] VITALS: BP 120/75; TEMP 98.1; O2SAT 98
[2023-10-02] MEDS ORDERED: TRAZ-252 PO (08:52)
[2023-10-02] MEDS ORDERED: NICO21PAT TD (08:52)
[2023-10-02] MEDS ORDERED: THIA100TA PO (08:52)
[2023-10-02] MEDS ORDERED: MULT-40 PO (08:52)
[2023-10-02] MEDS ORDERED: VITAD1000T PO (08:52)
[2023-10-02] MEDS ORDERED: VENL75TA2 PO (08:52)
[2023-10-02] MEDS ORDERED: FOLI1TAB11 PO (08:52)
[2023-10-02] MEDS ORDERED: NALT50TA4 PO (08:55)
== END 2023-10-02 11:47 | disposition home or self-care (01) | DRG 885 ==
LOC: M ED 14:58 → M ED INP 09-28 09:45 → M PSY 09-28 15:38
PROVIDERS: ADMIT Student in an Organized Health Care Education/Training Program; ATTEND Student in an Organized Health Care Education/Training Program
DX: F32.1 Major depressive disorder, single episode, moderate (principal); F17.200 Nicotine dependence, unspecified, uncomplicated; F10.20 Alcohol dependence, uncomplicated; Z79.899 Other long term (current) drug therapy; Z88.6 Allergy status to analgesic agent; Z88.8 Allergy status to other drugs, medicaments and biological substances; I10 Essential (primary) hypertension; Z93.2 Ileostomy status; Z85.47 Personal history of malignant neoplasm of testis; Z63.4 Disappearance and death of family member

== ENCOUNTER → 2023-11-29 | Outpatient (CLI) | payer MEDICARE, OTHER ==
[~2023-11-29] MED LIST changes: +NALT50TA4 PO; +TRAZ-252 PO; +VENL75TA2 PO; +VITAD1000T PO
== END ==
LOC: M RAD 10:10
PROVIDERS: ATTEND Internal Medicine Pulmonary Disease
DX: R91.8 Other nonspecific abnormal finding of lung field (principal)

== ENCOUNTER → 2024-02-27 | Outpatient (CLI) | payer MEDICARE, OTHER ==
[~2024-02-27] MED LIST changes: +ONDA-282 PO; -ONDA4TAB6 PO
== END ==
LOC: M ADAMS 13:10
PROVIDERS: ATTEND Family Medicine
DX: M54.30 Sciatica, unspecified side (principal); M51.36 Other intervertebral disc degeneration, lumbar region

== ENCOUNTER → 2024-04-28 | Outpatient (CLI) | payer MEDICARE, OTHER | LOC: M ADAMS 13:41 | PROVIDERS: ATTEND Family Medicine | DX: M25.572 Pain in left ankle and joints of left foot (principal) ==

== ENCOUNTER → 2024-06-01 | Outpatient (CLI) | payer MEDICARE, MEDICAID | LOC: M PLAIMG 12:34 | PROVIDERS: ATTEND Family Medicine | DX: D38.1 Neoplasm of uncertain behavior of trachea, bronchus and lung (principal) ==

== ENCOUNTER → 2024-11-11 | Outpatient (CLI) | payer MEDICARE, MEDICAID | LOC: M RAD 11:34 | PROVIDERS: ATTEND Family Medicine | DX: I70.213 Atherosclerosis of native arteries of extremities with intermittent claudication, bilateral legs (principal) ==

== ENCOUNTER → 2025-03-09 | Outpatient (REF) | payer MEDICARE, MEDICAID ==
[2025-03-09 14:11] LABS: BASO # 0.1 10^3/uL (0.0-0.2); BASO % 0.6 % (0.0-1.0); EOS # 0.3 10^3/uL (0.0-0.5); EOS % 2.4 % (0.0-3.0); LYMPH # 1.7 10^3/uL (1.5-5.0); LYMPH % 14.6 % (24.0-44.0); MONO # 1.1 10^3/uL (0.0-0.8); MONO % 9.1 % (2.0-8.0); NEUTROPHILS # 8.4 10^3/uL (1.5-8.5); NEUTROPHILS % 72.7 % (36.0-66.0); PLATELET COUNT, AUTOMATED 258 10^3/uL (150-450)
[2025-03-09 14:45] LABS: ALT/SGPT 21 U/L (7.0-40); AST/SGOT 27 U/L (<34); CALCIUM LEVEL 9.2 MG/DL (8.3-10.6); CARBON DIOXIDE LEVEL 28 MMOL/L (20-31); CHLORIDE LEVEL 98 MMOL/L (98-107); CHOLESTEROL LEVEL 195 MG/DL (<200); CHOLESTEROL RISK RATIO 2.81 (<5); CREATININE FOR GFR 0.94 MG/DL (0.70-1.30); GLOMERULAR FILTRATION RATE 88.3 (>49); LDL CHOLESTEROL 109.7 MG/DL (<100); NON-HDL-C 125.7 MG/DL; POTASSIUM SERUM 3.6 MMOL/L (3.5-5.1); PSA SCREENING 1.43 NG/ML (< 4.00); SODIUM LEVEL 139 MMOL/L (136-145); TESTOSTERONE 1420 NG/DL (241-827); TRIGLYCERIDES LEVEL 80 MG/DL (<150)
[2025-03-09 15:22] LABS: HEPATITIS C VIRUS ABY INDEX < 0.02 INDEX (<0.8)
== END ==
LOC: M LABDRWAD 13:05
PROVIDERS: ATTEND Family Medicine
DX: Z11.59 Encounter for screening for other viral diseases (principal); I10 Essential (primary) hypertension; Z79.899 Other long term (current) drug therapy; Z12.5 Encounter for screening for malignant neoplasm of prostate; I73.9 Peripheral vascular disease, unspecified
CPT/HCPCS: 36415; 80053; 80061; 84403; 85025; 86803; G0103

== ENCOUNTER → 2025-03-09 | Outpatient (REF) | payer MEDICARE, MEDICAID ==
[2025-03-09 14:40] LABS: CREATININE FOR GFR 0.95 MG/DL (0.70-1.30); GLOMERULAR FILTRATION RATE 87.2 (>49)
== END ==
LOC: M LABDRWAD 13:08
PROVIDERS: ATTEND Physician Assistant
DX: I73.9 Peripheral vascular disease, unspecified (principal)

== ENCOUNTER → 2025-03-16 | Outpatient (CLI) | payer MEDICARE, MEDICAID ==
[~2025-03-16] MED LIST changes: +ISOVUE-370 76% 100 ML VIAL As Ordered ONE
== END ==
LOC: M RAD 07:54
PROVIDERS: ATTEND Surgery Vascular Surgery
DX: I73.9 Peripheral vascular disease, unspecified (principal)
CPT/HCPCS: 75635; Q9967

== ENCOUNTER → 2025-05-12 | Outpatient (CLI) | payer MEDICARE ==
[~2025-05-12] MED LIST changes: -ISOVUE-370 76% 100 ML VIAL As Ordered ONE
== END ==
LOC: M RAD 14:14
PROVIDERS: ATTEND Physician Assistant
DX: R09.89 Other specified symptoms and signs involving the circulatory and respiratory systems (principal); I65.23 Occlusion and stenosis of bilateral carotid arteries

== ENCOUNTER → 2025-05-13 | Outpatient (CLI) | payer MEDICARE | LOC: M CARPUL 15:56 | PROVIDERS: ATTEND Physician Assistant | DX: R01.1 Cardiac murmur, unspecified (principal) ==

== ENCOUNTER → 2025-06-02 | Outpatient (CLI) | payer MEDICARE | LOC: M RAD 10:31 | PROVIDERS: ATTEND Family Medicine | DX: Z12.2 Encounter for screening for malignant neoplasm of respiratory organs (principal); F17.218 Nicotine dependence, cigarettes, with other nicotine-induced disorders; J43.8 Other emphysema; R91.8 Other nonspecific abnormal finding of lung field ==

== ENCOUNTER → 2025-06-10 | Outpatient (REF) | payer MEDICARE | LOC: M LABDRWAD 17:29 | PROVIDERS: ATTEND Family Medicine | DX: Z51.81 Encounter for therapeutic drug level monitoring (principal); Z79.899 Other long term (current) drug therapy ==

== ENCOUNTER → 2025-06-29 | Outpatient (CLI) | payer MEDICARE | LOC: M ADAMS 14:21 | PROVIDERS: ATTEND Family Medicine | DX: R05.9 Cough, unspecified (principal) ==

== ENCOUNTER → 2025-07-06 | Outpatient (CLI) | payer MEDICARE | LOC: M RAD 13:01 | PROVIDERS: ATTEND Physician Assistant | DX: Z48.812 Encounter for surgical aftercare following surgery on the circulatory system (principal) ==